=== PATIENT | female | born 2000 | race Caucasian/White ===

== ENCOUNTER → 2019-02-11 14:45 | Outpatient (CLI) | payer BC, SELFPAY ==
[2019-02-11 17:54] LABS: Urine N gonorrhoeae NOT DETECTED
[2019-02-11 17:56] LABS: Urine Chlamydia NOT DETECTED
[2019-02-11 18:32] LABS: HIV 1 & 2 Ab/Ag 4th Gen Combo NEGATIVE (NEGATIVE)
[2019-02-11 19:22] LABS: Appearance Urine UA SL CLOUDY; Bilirubin Urine UA NEGATIVE (NEGATIVE); Color Urine UA YELLOW; Glucose Urine UA NEGATIVE (Negative); Ketones Urine UA NEGATIVE (NEGATIVE); Leukocyte Esterase Urine UA TRACE (NEGATIVE); Nitrite Urine UA NEGATIVE (Negative); Occult Blood Urine UA 1+ (Negative); Protein Urine UA NEGATIVE (Negative); Specific Gravity Urine UA <=1.005 (1.000-1.035); Urobilinogen Urine UA 0.2 E.U./dL (0.2)
[2019-02-11 19:56] LABS: pH Urine UA 5.5 (4.5-8.0)
[2019-02-11 20:16] LABS: Bacteria Urine Moderate (10-30); Culture Indicated Urine Specimen Cultured; RBC Urine 0-1/HPF (0-5/HPF); Squamous Epithelial Cell Urine 1-5 /HPF (0-5/HPF); Transitional Epi Cells Urine 1-5/HPF (0-5/HPF); WBC Urine 5-10/HPF (0-5/HPF)
[2019-02-14 20:08] LABS: RPR Screen Nonreactive (Nonreactive)
== END ==
PROVIDERS: Nurse Practitioner Family; Visit Provider Physician Assistant
DX: Z11.3 Encounter for screening for infections with a predominantly sexual mode of transmission (principal); R30.0 Dysuria
CPT/HCPCS: 36415; 81001; 86592; 87077; 87086; 87186; 87389; 87491; 87591

== ENCOUNTER → 2019-02-17 18:19 | Outpatient (CLI) | payer BC, SELFPAY ==
[2019-02-17 20:16] LABS: Urine N gonorrhoeae NOT DETECTED
[2019-02-17 20:21] LABS: Urine Chlamydia NOT DETECTED
== END ==
PROVIDERS: Visit Provider Physician Assistant
DX: R30.0 Dysuria (principal)
CPT/HCPCS: 87491; 87591

== ENCOUNTER → 2019-04-10 11:48 | Outpatient (CLI) | payer BC, SELFPAY ==
--- NOTE | 2019-04-10 11:50 | DI.MRI.S_ITS ---
PROCEDURE: MR HEAD/BRAIN WO CON INDICATIONS: changing headaches, severe headaches TECHNIQUE: Noncontrast axial T1 spin echo, axial T2 fast spin echo, sagittal and axial FLAIR, coronal T2 fast spin echo, axial gradient echo, axial diffusion and ADC through the brain. COMPARISON: None. FINDINGS: Image quality: Excellent. CSF Spaces: Basal cisterns are patent. No extra-axial fluid collections. Ventricles are normal in size and shape. Brain: No intracranial masses or hemorrhage. Mckeon/white matter interface is normal. Brainstem appears normal. Diffusion-weighted images demonstrate no acute ischemic insult. No chronic ischemic insults. Normal intravascular flow voids are present. Note is made of a small cavum septum pellucidum anteriorly. When discovered in isolation, this is considered to be a developmental variant of no clinical consequence. Skull and face: Calvarium has normal marrow signal. Orbits appear normal. Sinuses: Sinuses and mastoids are clear. IMPRESSION: Unremarkable intracranial study, without an imaging explanation found for the patient's presenting history of headache. Dictated by: Salvador Irving M.D. on 04/10/2019 at 12:53 Approved by: Salvador Irving M.D. on 04/10/2019 at 12:56
== END ==
PROVIDERS: PCP Nurse Practitioner Family; Visit Provider Nurse Practitioner Family
DX: R51 Headache (principal)
CPT/HCPCS: 70551

== ENCOUNTER → 2019-04-28 16:00 | Outpatient (CLI) | payer BC, SELFPAY | PROVIDERS: PCP Nurse Practitioner Family; Visit Provider Physician Assistant | DX: N89.8 Other specified noninflammatory disorders of vagina (principal) | CPT/HCPCS: 87210 ==

== ENCOUNTER → 2019-07-02 19:32 | Outpatient (CLI) | payer BC, SELFPAY | PROVIDERS: PCP Nurse Practitioner Family; Visit Provider Physician Assistant | DX: R30.0 Dysuria (principal) | CPT/HCPCS: 87086; 87210 ==

== ENCOUNTER → 2019-07-15 12:38 | Outpatient (CLI) | payer BC, SELFPAY ==
--- NOTE | 2019-07-15 12:41 | DI.US.S_ITS ---
PROCEDURE: US OB <= 14 WEEKS FETUS INDICATIONS: DATES OUTSIDE/PRIOR DATING DATA: Last menstrual period (LMP): Not available. LMP-based estimated date of delivery (HAI): Not available. First dating scan (date and location): This study. Estimated date of delivery (HAI) from first dating scan: 02/16/20. TECHNIQUE: Real-time scanning was performed of the fetus and maternal pelvic organs, with image documentation. Endovaginal scanning was also performed to better visualize the fetus and maternal ovaries. COMPARISON: None. FINDINGS: Embryo: There is a single living intrauterine gestation with crown-rump length 2.5 cm which correlates with a gestational age of 9 weeks 1 day and with heart rate 157 beats per minute. Measurement variability in dating: +/- 4 weeks by LMP, +/- 7 days by mean sac diameter (use before 6 weeks gestation if crown-rump length not able to be measured), +/- 5 days by crown-rump length (up to 8 weeks 6 days gestation), +/- 7 days by crown-rump length (up to 13 weeks 6 days gestation). Maternal organs: Ovaries normal considering gestational status. Limited images through the kidneys demonstrate no hydronephrosis. IMPRESSION: Single normal appearing early first trimester gestation 9 weeks 1 day of age, with delivered a projection to be centered on 02/16/20, plus or -5 days. Followup anatomic survey at 20 weeks gestation is recommended. Dictated by: Joey Smith M.D. on 07/15/2019 at 13:53 Approved by: Joey Smith M.D. on 07/15/2019 at 13:54
== END ==
PROVIDERS: PCP Nurse Practitioner Family; Referring Provider Family Medicine; Visit Provider Family Medicine
DX: Z34.01 Encounter for supervision of normal first pregnancy, first trimester (principal); Z3A.09 9 weeks gestation of pregnancy
CPT/HCPCS: 76801; 76817

== ENCOUNTER 2019-07-24 15:41 | Emergency (ER) | payer BC, SELFPAY ==
[2019-07-24 16:45] VITALS: BP 120/58; PULSE 63; RESP 16; TEMP 36.5; O2SAT 99; BMI 20.5
--- NOTE | 2019-07-24 19:25 | ED.FEMALEGU ---
HPI - Female Genitourinary <JIMENA Martin - Last Filed: 07/24/19 21:27> General Chief complaint: Urogenital-Female Stated complaint: YEAST INFECTION BLACK MUCUS Time Seen by Provider: 07/24/19 15:53 Source: patient Mode of arrival: Ambulatory History of Present Illness HPI Narrative: 19-year-old female who is currently 11 weeks , presents emergency department complaining of vaginal itching and white to yellow discharge over the past 3-4 days. Was diagnosed with BV 2.5 weeks ago and given vaginal cream, she believes her symptoms resolved but then returned few days later. Patient was also diagnosed with BV on 04/28/2019. Patient states she also is experiencing some increased shortness of breath. She states she has ?pre asthma ? and uses an albuterol inhaler when needed. She states her parents were secondhand smokers and she has full under developed lungs ?. She does have a history of allergies, she states she is more short of breath when her allergies are worse the ears cold. She has been using her albuterol inhaler intermittently. She last used her inhaler 2 days ago which completely relieved her symptoms. However, she was concerned that she coughed up a small amount of black mucus this morning. She later had a tinge of black in her mucus with this morning when clearing her throat, no other episodes of black mucus. Patient states she was eating a chocolate lollipop which may have contributed. She denied any other symptoms such as fevers, cough, dizziness, chest pain, shortness of breath, nausea, diarrhea, or any other concerns. She does not feel short of breath at this time. Patient states she lives with her significant other who is a smoker. Related Data Home Medications Medication Instructions Recorded Confirmed albuterol sulfate 90 mcg/actuation 2 puff INHALATION Q4-6H PRN 07/14/19 07/14/19 aerosol inhaler prenat.vits,clementina,[id number] 1 tab PO DAILY 07/14/19 07/14/19 Previous Rx's Medication Instructions Recorded clindamycin phosphate 1 applicator VAG BEDTIME 7 Days 07/24/19 #40 gram Allergies Allergy/AdvReac Type Severity Reaction Status Date / Time No Known Drug Allergies Allergy Verified 07/24/19 16:51 Review of Systems <JIMENA Martin - Last Filed: 07/24/19 21:27> Review of Systems Narrative: REVIEW OF SYSTEMS: GENERAL: Denies fever or chills. HENT: No head trauma, hearing loss or sore throat. EYES: No vision changes. CARDIOVASCULAR: No chest pain or syncope. RESPIRATORY: Reports intermittent episodes of shortness of breath, reports blood mucus, see HPI. GASTROINTESTINAL: No nausea, vomiting, diarrhea, or constipation. GENITOURINARY: Increased vaginal discharge, see HPI. MUSCULOSKELETAL: No pain, weakness, or deformities. INTEGUMENTARY: No rash, lesions, or pruritus. NEURO: No numbness, tingling, memory loss, or confusion. PSYCH: No behavior or mood changes. Patient History <JIMENA Martin - Last Filed: 07/24/19 21:27> Medical History Ankle pain (Chronic) Anxiety (Chronic) Bacterial vaginosis (Acute) Depression (Chronic) Depression with anxiety (Acute) Headache (Chronic 03/2019) Heavy menstrual period (Chronic) History of asthma (Chronic) Ovarian cyst (Acute) Painful menstrual periods (Chronic) Surgical History Anesthesia (Resolved) Stye (Resolved) [place] teeth removed (Resolved) Family History Father Prediabetes Hyperlipidemia Hypertension Mental health problem Stroke Seizure AA (alcohol abuse) Depression Mother Mental health problem Family estrangement Sister Mental health problem Bipolar 1 disorder Grandfather Knee problem Grandmother Hypertension Arthritis Grandmother Mental health problem Family/Other Depression AA (alcohol abuse) Anxiety Substance Use Type: does not use Exam <JIMENA Martin - Last Filed: 07/24/19 21:27> Initial Vital Signs Initial Vital Signs: Vital Signs Temperature 97.7 F 07/24/19 16:45 Pulse Rate 63 07/24/19 16:45 Respiratory Rate 16 07/24/19 16:45 Blood Pressure 120/58 L 07/24/19 16:45 Pulse Oximetry 99 07/24/19 16:45 PHYSICAL EXAMINATION: GENERAL: Well groomed, alert, and cooperative. Answers questions promptly and appropriately. Vital signs noted. HENT: Normocephalic, atraumatic. Ear canals patent. Oral mucosa is pink and moist. Oropharynx with slight erythema, tonsils not present. EYES: Conjunctiva pink, sclera white, no periorbital swelling. CHEST: Normal to inspection and without deformities. CARDIOVASCULAR: S1 and S2 sounds normal. Regular rate and rhythm, no murmurs, clicks, or bruits. No pedal edema. RESPIRATORY: Normal respiratory rate, trachea midline, airway patent. No stridor, nasal flaring or accessory muscle use. Lungs are clear in all [place] without wheeze, rhonchi, or crackles. GASTROINTESTINAL: Bowel sounds normoactive. Abdomen is soft and non-tender. No organomegaly. : Pelvic exam completed with cyber security engineer, RYLEE Milli. Patient tolerated well. Increased white discharge noted. No significant erythema, lesions, or bleeding. No significant tenderness. MUSCULOSKELETAL: Normal gait and coordination. Equal tone and mass bilaterally. EXTREMITIES: CMS intact. Moves all extremities. SKIN: Warm, dry, soft, appropriate color for ethnicity. No lesions, rashes, or wounds. NEURO: Alert and Oriented X 3. Good coordination. No ataxia, or sensory deficits, or cognitive issues. PSYCH: Appropriate affect and mood. <Al Beltran DO - Last Filed: 07/24/19 21:48> Initial Vital Signs Initial Vital Signs: Vital Signs Temperature 97.7 F 07/24/19 16:45 Pulse Rate 63 07/24/19 16:45 Respiratory Rate 16 07/24/19 16:45 Blood Pressure 120/58 L 07/24/19 16:45 Pulse Oximetry 99 07/24/19 16:45 Course <JIMENA Martin - Last Filed: 07/24/19 21:27> Course Course Narrative: Patient was given an albuterol inhaler and spacer, she denied needing albuterol at this time as she states ?I am no longer short of breath, I did just want to know why I coughed up black mucous.? Orders Ordered: ED Orders 07/24/19 18:46 Chlamydia Gonorrhea PCR -URINE Stat Urine Culture Stat 07/24/19 19:35 Wet Prep Tric BV Farida Stat Discontinued Medications Albuterol (Ventolin Hfa Prepack) 1 box [facility] Stop: 07/24/19 18:31 Last Admin: 07/24/19 19:49 Dose: 1 box Documented by: ANTONY Vital Signs Vital signs: Vital Signs - 8 hr 07/24/19 16:45 07/24/19 20:29 07/24/19 21:30 Temperature 97.7 F Pulse Rate 63 59 L 59 L Respiratory Rate 16 12 Blood Pressure 120/58 L 114/61 Blood Pressure [Left Arm] 114/61 Pulse Oximetry 99 100 100 <Al Beltran DO - Last Filed: 07/24/19 21:48> Orders Ordered: ED Orders 07/24/19 18:46 Chlamydia Gonorrhea PCR -URINE Stat Urine Culture Stat 07/24/19 19:35 Wet Prep Tric BV Farida Stat Discontinued Medications Albuterol (Ventolin Hfa Prepack) 1 box [facility] ONE Stop: 07/24/19 18:31 Last Admin: 07/24/19 19:49 Dose: 1 box Documented by: ANTONY Vital Signs Vital signs: Vital Signs - 8 hr 07/24/19 16:45 07/24/19 20:29 07/24/19 21:30 Temperature 97.7 F Pulse Rate 63 59 L 59 L Respiratory Rate 16 12 Blood Pressure 120/58 L 114/61 Blood Pressure [Left Arm] 114/61 Pulse Oximetry 99 100 100 MDM - Female Genitourinary <JIMENA Martin - Last Filed: 07/24/19 21:27> Medical Records Attestation: I reviewed the patient's medical records. Lab Data Attestation: I reviewed the patient's lab results. Labs: Lab Results 07/24/19 Range/Units 18:46 Ur Chlamydia DNA (PCR) Not detected N gonorrhoeae DNA (PCR) Not detected Urine Dip Bedside Urine Glucose Negative Bedside Urine Bilirubin - Negative Bedside Urine Ketone ++ 40 Urine Specific [place] 1.030 Bedside Urine Occult Blood +/- Bedside Urine pH 6.0 Bedside Urine Protein +/- 15 Bedside Urine Urobilinogen +/- 1mg Bedside Urine Nitrite - Negative Bedside Urine Leukocytes +++ 500 Esterase MDM Narrative Medical decision making narrative: 19-year-old healthy female with a history of ?pre asthma ?and previous BV removed ports the emergency department for increased vaginal discharge and episodes of shortness of breath better relieved with albuterol. Patient's pelvic exam reveals increased white vaginal discharge without erythema or lesions. Patient's wet prep reveals clue cells. Patient's urine GC negative is negative, less concern for STIs as patient has been with the same partner for the past 6 months. However, review of chart has test ordered for HIV and syphilis by Ob. No concerns for herpes due to lack of lesions on examination. I suspect patient's symptoms are most likely caused by bacterial vaginosis. Patient did have leukocytes in her urine, differential for this includes UTI versus increased white blood cells from bacterial vaginosis. Given patient does not have significant dysuria, urine was sent to culture. Follow-up via phone if culture is positive. Patient was started on clindamycin gel. Patient is hemodynamically stable, lungs clear on examination. I suspect patient sputum production was most likely caused by food, dust, or other debris in sinuses or esophagus. Less likely blood however, it is possible she may have coughed a small amount of old dried blood. Less concern for coronavirus, TB, or PE due to lack of other signs such as tachypnea, dyspnea, or fevers. Patient's episodes of shortness of breath or consistent with her past asthma episodes and immediately resolve after administration of albuterol. She was encouraged to follow up with her primary care provider in 1-2 weeks for further evaluation. She was encouraged to follow up with Ob if she continues to have vaginal symptoms in the next week. Patient agreed to plan of care verbalized understanding. <Al Beltran, - Last Filed: 07/24/19 21:48> Lab Data Labs: Lab Results 07/24/19 Range/Units 18:46 Ur Chlamydia DNA (PCR) Not detected N gonorrhoeae DNA (PCR) Not detected Urine Dip Bedside Urine Glucose Negative Bedside Urine Bilirubin - Negative Bedside Urine Ketone ++ 40 Urine Specific [place] 1.030 Bedside Urine Occult Blood +/- Bedside Urine pH 6.0 Bedside Urine Protein +/- 15 Bedside Urine Urobilinogen +/- 1mg Bedside Urine Nitrite - Negative Bedside Urine Leukocytes +++ 500 Esterase Discharge Plan Departure Patient Disposition: Home Clinical Impression: Bacterial vaginosis Reactive airway disease Qualifiers: Asthma severity: mild Asthma persistence: intermittent Asthma complication type: uncomplicated Qualified Code(s): J45.20 - Mild intermittent asthma, uncomplicated Discharge Date/Time: 07/24/19 21:33 Instructions: DI for Asthma -- Adult, DI for Bacterial Vaginosis Activity Restrictions/Additional Instructions: Thank you for entrusting me with your care today. As discussed, your laboratory work indicates you have bacterial vaginosis. I prescribed a vaginal cream that is safe to use in . Please follow-up with your OB, Dr. Mendoza in the next week for further evaluation. Additionally, it appears that your shortness of breath is most likely caused by reactive airway disease. I have given you a spacer and an inhaler, please use this as needed. I suspect the small amount of dark sputum that you coughed up is non concerning, this may be a small amount of blood from esophageal irritation or debris from food or allergies. Please follow up with your primary care provider about this for further evaluation. Return emergency department for any new or worsening symptoms such as vaginal bleeding, chest pain, dizziness, shortness of breath, uncontrollable vomiting, or any other concerns. Prescriptions: New clindamycin phosphate 2 % cream 1 applicator VAG BEDTIME 7 Days Qty: 40 RF: 0 No Action prenat.vits,clementina,[id number] Tablet 1 tab PO DAILY RF: 0 albuterol sulfate [Ventolin HFA] 90 mcg/actuation HFA aerosol inhaler 2 puff INHALATION Q4-6H PRNRF: 0 Referrals: Arie Mckinney ARNP [Primary Care Provider] - <Al Beltran, - Last Filed: 07/24/19 21:48> Cosign ED Attending Cossouravature Attestation: Dr Beltran Co-Sign Statement: I was available for consultation during this patient's emergency department visit. This chart is signed by myself for administrative purposes only. I did not have direct contact with this patient during this visit. They were seen independently by the APC.
[2019-07-24] MEDS: ALBUTEROL HFA PREPACK 1 BOX MISC (19:49)
[2019-07-24 20:27] LABS: Urine N gonorrhoeae NOT DETECTED
[2019-07-24 20:29] VITALS: BP 114/61; PULSE 59; O2SAT 100
[2019-07-24 20:37] LABS: Urine Chlamydia NOT DETECTED
[2019-07-24 21:30] VITALS: BP 114/61; PULSE 59; RESP 12; O2SAT 100
== END 2019-07-24 21:33 | disposition home or self-care (01) ==
PROVIDERS: Emergency Provider Nurse Practitioner; PCP Nurse Practitioner Family
DX: N76.0 Acute vaginitis (principal); J45.20 Mild intermittent asthma, uncomplicated
CPT/HCPCS: 81003; 87086; 87210; 87491; 87591; 99282; 99283

== ENCOUNTER → 2019-09-01 16:07 | Outpatient (CLI) | payer BC, OTHER, SELFPAY | PROVIDERS: PCP Nurse Practitioner Family; Visit Provider Family Medicine | DX: B96.89 Other specified bacterial agents as the cause of diseases classified elsewhere (principal); N76.0 Acute vaginitis | CPT/HCPCS: 87070; 87077; 87147; 87205 ==

== ENCOUNTER → 2019-10-08 13:41 | Outpatient (CLI) | payer OTHER, MEDICAID, SELFPAY ==
[2019-10-08 14:51] LABS: Add Manual Diff / Slide Review NO; Basophils Absolute Auto 0 /uL (0-100); Basophils Percent Auto 0.3 % (0-2); Eosinophils Absolute Auto 100 /uL (0-450); Hematocrit 33.3 % (36-46); Hemoglobin 11.5 g/dL (12.0-16.0); Lymphocytes Absolute Auto 1600 /uL (1100-4500); Lymphocytes Percent Auto 27.8 % (25-40); Mean Corpuscular HGB Conc 34.5 % (30-36); Mean Corpuscular Hemoglobin 30.5 PG (26-34); Mean Corpuscular Volume 88.4 fL (80-100); Monocytes Absolute Auto 400 /uL (0-900); Monocytes Percent Auto 6.7 % (3-14); Neutrophils Absolute Auto 3700 /uL (1500-7000); Neutrophils Percent Auto 64.2 % (50-75); Platelet Count 274 X10^3/uL (150-400); Red Blood Cell Count 3.77 X10^6/uL (4.0-5.2); Red Cell Distribution Width 14.2 % (11.6-14.8); White Blood Cell Count 5.8 X10^3/uL (4.5-11.0)
[2019-10-08 14:57] LABS: Appearance Urine UA CLEAR; Bilirubin Urine UA NEGATIVE (NEGATIVE); Color Urine UA YELLOW; Glucose Urine UA NEGATIVE (Negative); Ketones Urine UA TRACE (NEGATIVE); Leukocyte Esterase Urine UA NEGATIVE (NEGATIVE); Nitrite Urine UA NEGATIVE (Negative); Occult Blood Urine UA NEGATIVE (Negative); Protein Urine UA NEGATIVE (Negative); Urobilinogen Urine UA 0.2 E.U./dL (0.2)
[2019-10-08 15:25] LABS: pH Urine UA 6.5 (4.5-8.0)
[2019-10-08 16:27] LABS: Hepatitis B Surface Antigen NEGATIVE s/c (NEGATIVE); Rubella Antibody IgG 0.3 IU/mL (>15)
[2019-10-08 16:43] LABS: HIV 1 & 2 Ab/Ag 4th Gen Combo NEGATIVE (NEGATIVE); Hep C Virus Ab w/Reflex Quant NEGATIVE s/c (NEGATIVE)
[2019-10-09 05:36] LABS: RPR Screen Non Reactive (Non Reactive)
[2019-10-09 10:12] LABS: Varicella IgG Antibody <135 index (Immune >165)
== END ==
PROVIDERS: PCP Nurse Practitioner Family; Referring Provider Family Medicine; Visit Provider Family Medicine
DX: Z34.01 Encounter for supervision of normal first pregnancy, first trimester (principal)
CPT/HCPCS: 36415; 80055; 81003; 86787; 86803; 86850; 86900; 86901; 87077; 87086; 87147; 87389

== ENCOUNTER 2019-10-09 18:20 | Outpatient (CLI) | payer OTHER, MEDICAID, SELFPAY ==
--- NOTE | 2019-10-09 19:25 | DI.US.S_ITS ---
PROCEDURE: US OB TRANSVAGINAL INDICATIONS: LOWER ABDOMINAL CRAMPING/ R/O LABOR CHECK CERVICAL L OUTSIDE/PRIOR DATING DATA: Last menstrual period (LMP): Unknown. LMP-based estimated date of delivery (HAI): Not available. First dating scan (date and location): 07/15/19, [facility]. Estimated date of delivery (HAI) from first dating scan: 02/06/20. TECHNIQUE: Scanning was performed of the cervix with image documentation. Endovaginal scanning: Performed COMPARISON: [facility], , US OB <= 14 WEEKS FETUS, 07/15/2019, 12:59. FINDINGS: Limited visualization of the cervix demonstrates the cervical length of 4.8 cm during Valsalva and 5.0 cm at rest. Please note, the uterine fundus, gestational sac, or fetus is not visualized on this exam. IMPRESSION: 1. Markedly limited study. No images of the fetus were obtained. 2. Cervical length of 4.8 cm. Dictated by: Phyllis Grande M.D. on 10/09/2019 at 20:21 Approved by: Phyllis Grande M.D. on 10/09/2019 at 20:25
[2019-10-09 19:30] LABS: Appearance Urine UA SL CLOUDY; Bilirubin Urine UA NEGATIVE (NEGATIVE); Color Urine UA YELLOW; Glucose Urine UA NEGATIVE (Negative); Ketones Urine UA TRACE (NEGATIVE); Leukocyte Esterase Urine UA NEGATIVE (NEGATIVE); Nitrite Urine UA NEGATIVE (Negative); Occult Blood Urine UA TRACE-LYSED (Negative); Protein Urine UA NEGATIVE (Negative); Specific Gravity Urine UA 1.025 (1.000-1.035); Urobilinogen Urine UA 0.2 E.U./dL (0.2)
[2019-10-09 19:32] LABS: pH Urine UA 5.5 (4.5-8.0)
[2019-10-09 19:41] LABS: Amorphous Sediment Urine 1+; Bacteria Urine Moderate (10-30); RBC Urine 0-1/HPF (0-5/HPF); Squamous Epithelial Cell Urine 10-30 /HPF (0-5/HPF); WBC Urine 1-5/HPF (0-5/HPF)
[2019-10-09 19:42] LABS: Culture Indicated Urine Specimen Cultured; Mucus Urine 1+ (Negative)
--- NOTE | 2019-10-09 20:34 | P.TNLD_ITS ---
Visit Information Visit Information Date of evaluation: 10/09/19 Primary OB Provider: Cristy Mendoza On-call OB Provider: Esther Soto Reason for Evaluation: Yes rule out labor Comments/Additional reasons for admission: This patient is a 19yo @21 weeks gestation with a UTI diagnosed earlier today and not yet treated, presenting with pelvic pressure and increased vaginal discharge x2 hours after a long work day. The patient denies Vb or decreased movement, back pain, fevers, chills, nausea, or any other complaints, and has a complicated by recurrent vaginitis and UTI. Vital Signs Vital Signs: 112.58, HR 75, T 36.2C PFS Medical History Ankle pain (Resolved) Bacterial vaginosis (Acute) Depression with anxiety (Acute) Headache (Chronic 03/2019) Heavy menstrual period (Chronic) History of asthma (Chronic) Ovarian cyst (Acute) Painful menstrual periods (Chronic) Surgical History Anesthesia (Resolved) Stye (Resolved) [place] teeth removed (Resolved) Family History Father Prediabetes Hyperlipidemia Hypertension Mental health problem Stroke Seizure AA (alcohol abuse) Depression Mother Mental health problem Family estrangement Sister Mental health problem Bipolar 1 disorder Grandfather Knee problem Grandmother Hypertension Arthritis Grandmother Mental health problem Family/Other Depression AA (alcohol abuse) Anxiety Social History marital status: unmarried,single household members: significant other (Fiance) and other pets and animals: Yes (X2 rabbits, X 2 Guinea pigs and X 1 hamster) education level: college (some college) occupational status: unemployed current occupational exposures/hazards: No Previous occupational history: [employer] 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: [employer] special hayde needs: No Smoking Status: Never smoker second hand exposure: No (used to be growing: not currently) alcohol intake: never substance use type: does not use Objective Labs Labs: Laboratory Results - last 24 hr 10/09/19 19:00 Urine Color Yellow Urine Appearance Sl cloudy Urine pH 5.5 Ur Specific [place] 1.025 Urine Protein Negative Urine Glucose (UA) Negative Urine Ketones Trace H Urine Occult Blood Trace-lysed Urine Nitrate Negative Urine Bilirubin Negative Urine Urobilinogen 0.2 Ur Leukocyte Esterase Negative Urine RBC 0-1/hpf Urine WBC 1-5/hpf Ur Squamous Epith Cells 10-30 /hpf H D Amorphous Sediment 1+ Urine Bacteria Moderate (10-30) H Urine Mucus 1+ H Ur Culture Indicated? Specimen cultured Evaluation Evaluation Baseline heart rate: 130 Laboratory results: Laboratory Tests 10/09/19 19:00 Urine Color Yellow Urine Appearance Sl cloudy Urine pH 5.5 Ur Specific [place] 1.025 Urine Protein Negative Urine Glucose (UA) Negative Urine Ketones Trace H Urine Occult Blood Trace-lysed Urine Nitrate Negative Urine Bilirubin Negative Urine Urobilinogen 0.2 Ur Leukocyte Esterase Negative Urine RBC 0-1/hpf Urine WBC 1-5/hpf Ur Squamous Epith Cells 10-30 /hpf H D Amorphous Sediment 1+ Urine Bacteria Moderate (10-30) H Urine Mucus 1+ H Ur Culture Indicated? Specimen cultured Non-invasive Membranes Rupture Test: negative Comments: TVUS performed, verbal report is length 5cm Diagnosis, Plan/Disposition Plan/Disposition Plan: This patient is not rigoberto, has a long and closed cervix, has a negative amnisure, has a known UTI, and has reassuring status. She does not appear to be in previable labor or have previable rupture of membranes. She was strongly counselled to take her keflex as prescribed and given antepartum precautions. OB Disposition: home
== END 2019-10-09 20:15 | disposition home or self-care (01) ==
LOC: OB 10-12 15:30
PROVIDERS: PCP Nurse Practitioner Family; Referring Provider Obstetrics & Gynecology; Visit Provider Obstetrics & Gynecology
DX: O23.42 Unspecified infection of urinary tract in pregnancy, second trimester (principal); O23.592 Infection of other part of genital tract in pregnancy, second trimester; Z3A.21 21 weeks gestation of pregnancy
CPT/HCPCS: 59025; 59050; 76817; 81001; 84112; 87086; G0378; G0379

== ENCOUNTER → 2019-10-13 12:11 | Outpatient (CLI) | payer OTHER, MEDICAID, SELFPAY ==
--- NOTE | 2019-10-13 12:13 | DI.US.S_ITS ---
PROCEDURE: US OB >= 14 WEEKS FETUS INDICATIONS: ANATOMY OUTSIDE/PRIOR DATING DATA: Last menstrual period (LMP): Not known. LMP-based estimated date of delivery (HAI): Not applicable. First dating scan (date and location): July 15, 2019. Estimated date of delivery (HAI) from first dating scan: February 16, 2020. TECHNIQUE: Real-time scanning was performed of the fetus, with image documentation and biometric measurements. Endovaginal scanning: Performed COMPARISON: [facility] OB TRANSVAGINAL, 10/09/2019, 19:53. [facility], OB <= 14 WEEKS FETUS, 07/15/2019, 12:59. FINDINGS: General: A single living intrauterine gestation is present. Presentation: Breech/variable. Placenta: Placental position is posterior, without previa. Amniotic fluid index: 11.4 cm, normal range is 5-24 cm. heart rate: 145 beats per minute. Maternal cervical canal: 3.7 cm long. Normal lower limit is 2.5 cm. biometrics: Biparietal diameter: 21 weeks 4 days Head circumference: 22 weeks 0 days Abdominal circumference: 22 weeks 0 days Femur length: 22 weeks 1 day Estimated gestational age from initial scan: 22 weeks 0 days. Composite gestational age from present scan: 22 weeks 0 days Estimated weight and percentile: 470 grams; 45th percentile Measurement variability for biometric dating: +/- 7 days from 14 weeks to 15 weeks 6 days gestation, +/- 10 days from 16 weeks to 21 weeks 6 days gestation, +/- 2 weeks from 22 weeks to 27 weeks 6 days gestation, +/- 3 weeks for 28 weeks gestation or later. weight reference: 4500 g or EFW >90/95% is considered macrosomia or large for gestational age. EFW <10% is small for gestational age. EFW 5% or less is considered intra-uterine growth restriction. Anatomic survey: Neuro: Ventricles are non-dilated at less than 10 mm. Cisterna magna is normal at 3-11 mm. Cerebellum is normal in size and morphology. Nuchal skin fold: Normal at less than 6 mm between 14-21 weeks gestational age. Face: Nose and lips, facial profile are normal. Spine: No evidence for spina bifida. Heart: 4-chambered heart is present, with normal ventricular outflow tracts. Diaphragm: Diaphragm is intact. Stomach: Left-sided stomach is present. Kidneys: No hydronephrosis. Normal is less than 5 mm in 2nd trimester, less than 7 mm in 3rd trimester. Cord: 3-vessel cord has orthotopic insertion. Bladder: Normal in size. Extremities: All 4 extremities identified. IMPRESSION: 1. Single living intrauterine fetus with appropriate interval growth. 2. Normal anatomic survey. Dictated by: Alejandrina Mckinley MD, PhD on 10/13/2019 at 15:56 Approved by: Alejandrina Mckinley MD, PhD on 10/13/2019 at 15:59
== END ==
PROVIDERS: PCP Nurse Practitioner Family; Referring Provider Family Medicine; Visit Provider Family Medicine
DX: Z36.89 Encounter for other specified antenatal screening (principal); Z3A.22 22 weeks gestation of pregnancy
CPT/HCPCS: 76811

== ENCOUNTER 2019-10-15 14:18 | Observation (INO) | payer OTHER, MEDICAID, SELFPAY ==
[2019-10-15 15:36] LABS: Bacteria Urine None Seen; RBC Urine None Seen (0-5/HPF); WBC Urine None Seen (0-5/HPF)
[2019-10-15 15:41] LABS: Appearance Urine UA SL CLOUDY; Bilirubin Urine UA NEGATIVE (NEGATIVE); Color Urine UA YELLOW; Glucose Urine UA NEGATIVE (Negative); Ketones Urine UA NEGATIVE (NEGATIVE); Leukocyte Esterase Urine UA NEGATIVE (NEGATIVE); Nitrite Urine UA NEGATIVE (Negative); Occult Blood Urine UA NEGATIVE (Negative); Protein Urine UA NEGATIVE (Negative); Specific Gravity Urine UA 1.015 (1.000-1.035); Urobilinogen Urine UA 0.2 E.U./dL (0.2)
[2019-10-15 15:43] LABS: pH Urine UA 7.5 (4.5-8.0)
[2019-10-15 15:48] LABS: Amorphous Sediment Urine 2+; Culture Indicated Urine Cult Not Indicated; Squamous Epithelial Cell Urine 10-30 /HPF (0-5/HPF)
--- NOTE | 2019-10-15 15:50 | P.TNLD_ITS ---
Visit Information Visit Information Date of evaluation: 10/15/19 Primary OB Provider: Cristy Mendoza On-call OB Provider: Padmini Lynne Reason for Evaluation: Yes rupture of membranes Comments/Additional reasons for admission: Patient was concerned about possible rupture of membranes. 15 min prior to arrival the center she felt a gush of fluid but has not had further leaking. Reports good FM and denies bleeding. She has also felt some contractions since arriving to the center. Last oral intake was a donut this morning and last fluids were yesterday. She was recently prescribed antibiotics for a UTI but never filled the prescription. Denies urinary symptoms. Vital Signs Vital Signs: Temperature 36.5? blood pressure 114/58 heart rate 64 PFSH Medical History Ankle pain (Resolved) Bacterial vaginosis (Acute) Depression with anxiety (Acute) Headache (Chronic 03/2019) Heavy menstrual period (Chronic) History of asthma (Chronic) Ovarian cyst (Acute) Painful menstrual periods (Chronic) Surgical History Anesthesia (Resolved) Stye (Resolved) [place] teeth removed (Resolved) Family History Father Prediabetes Hyperlipidemia Hypertension Mental health problem Stroke Seizure AA (alcohol abuse) Depression Mother Mental health problem Family estrangement Sister Mental health problem Bipolar 1 disorder Grandfather Knee problem Grandmother Hypertension Arthritis Grandmother Mental health problem Family/Other Depression AA (alcohol abuse) Anxiety Social History marital status: unmarried,single household members: significant other (Fiance) and other pets and animals: Yes (X2 rabbits, X 2 Guinea pigs and X 1 hamster) education level: college (some college) occupational status: unemployed current occupational exposures/hazards: No 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: [employer] special hayde needs: No Smoking Status: Never smoker second hand exposure: No (used to be growing: not currently) alcohol intake: never substance use type: does not use Objective Labs Labs: Laboratory Results - last 24 hr 10/15/19 15:15 Urine Color Yellow Urine Appearance Sl cloudy Urine pH 7.5 Ur Specific [place] 1.015 Urine Protein Negative Urine Glucose (UA) Negative Urine Ketones Negative Urine Occult Blood Negative Urine Nitrate Negative Urine Bilirubin Negative Urine Urobilinogen 0.2 Ur Leukocyte Esterase Negative Urine RBC None seen Urine WBC None seen Ur Squamous Epith Cells 10-30 /hpf H Amorphous Sediment 2+ Urine Bacteria None seen Ur Culture Indicated? Cult not indicated Evaluation Evaluation Baseline heart rate: 130 Variability: Moderate (11-25) monitor accelerations: Present monitor decelerations: Absent Category of Tracing: I Laboratory results: Laboratory Tests 10/15/19 15:15 Urine Color Yellow Urine Appearance Sl cloudy Urine pH 7.5 Ur Specific [place] 1.015 Urine Protein Negative Urine Glucose (UA) Negative Urine Ketones Negative Urine Occult Blood Negative Urine Nitrate Negative Urine Bilirubin Negative Urine Urobilinogen 0.2 Ur Leukocyte Esterase Negative Urine RBC None seen Urine WBC None seen Ur Squamous Epith Cells 10-30 /hpf H Amorphous Sediment 2+ Urine Bacteria None seen Ur Culture Indicated? Cult not indicated Diagnosis, Plan/Disposition Plan/Disposition Plan: Patient is a 19-year-old at 22 weeks gestation with concern for rupture of membranes. AmniSure negative. She had two contractions on the monitor initially then contractions ceased and did not recur over the next hour. Cervical length was 3.7 cm 2 days ago on ultrasound so was not repeated. UA was normal. Patient reportedly had not had anything to drink since yesterday. She was encouraged to hydrate each day and follow up with Dr. Mendoza next week. OB Disposition: home
== END 2019-10-15 16:30 | disposition home or self-care (01) ==
PROVIDERS: Family Medicine; Admitting Provider Family Medicine; PCP Nurse Practitioner Family; Referring Provider Family Medicine; Visit Provider Family Medicine
DX: O47.02 False labor before 37 completed weeks of gestation, second trimester (principal); N89.8 Other specified noninflammatory disorders of vagina; Z3A.22 22 weeks gestation of pregnancy
CPT/HCPCS: 59025; 59050; 81001; 84112; G0378; G0379

== ENCOUNTER 2019-10-16 22:22 | Observation (INO) | payer OTHER, MEDICAID, SELFPAY | END 2019-10-17 00:15 | disposition home or self-care (01) | LOC: LABOR 22:35 | PROVIDERS: Admitting Provider Obstetrics & Gynecology; PCP Nurse Practitioner Family; Referring Provider Obstetrics & Gynecology; Visit Provider Obstetrics & Gynecology | DX: O23.42 Unspecified infection of urinary tract in pregnancy, second trimester (principal); Z3A.22 22 weeks gestation of pregnancy | CPT/HCPCS: 59050; G0378; G0379 ==

== ENCOUNTER 2019-11-21 14:14 | Outpatient (CLI) | payer OTHER, MEDICAID, SELFPAY ==
[2019-11-21 14:37] LABS: Bacteria Urine None Seen
[2019-11-21 14:39] LABS: Appearance Urine UA CLOUDY; Bilirubin Urine UA NEGATIVE (NEGATIVE); Color Urine UA YELLOW; Glucose Urine UA NEGATIVE (Negative); Ketones Urine UA 1+ (NEGATIVE); Leukocyte Esterase Urine UA 1+ (NEGATIVE); Nitrite Urine UA NEGATIVE (Negative); Occult Blood Urine UA TRACE-LYSED (Negative); Protein Urine UA NEGATIVE (Negative); Urobilinogen Urine UA 0.2 E.U./dL (0.2)
[2019-11-21 14:47] LABS: Amorphous Sediment Urine 2+; Culture Indicated Urine Cult Not Indicated; RBC Urine 0-1/HPF (0-5/HPF); Squamous Epithelial Cell Urine 10-30 /HPF (0-5/HPF); WBC Urine 5-10/HPF (0-5/HPF)
== END 2019-11-21 15:01 | disposition home or self-care (01) ==
LOC: OB 11-23 16:42
PROVIDERS: PCP Nurse Practitioner Family
DX: O26.892 Other specified pregnancy related conditions, second trimester (principal); M54.9 Dorsalgia, unspecified; Z3A.28 28 weeks gestation of pregnancy
CPT/HCPCS: 59025; 81001; G0378; G0379

== ENCOUNTER 2019-11-22 00:15 | Emergency (ER) | payer OTHER, MEDICAID, SELFPAY ==
--- NOTE | 2019-11-22 00:24 | ED_ITS ---
HPI - Fever General Chief Complaint: Fever Stated Complaint: had fever of 101 earlier/body aches Time Seen by Provider: 11/22/19 00:15 Source: patient Mode of arrival: Ambulatory Limitations: no limitations History of Present Illness HPI Narrative: 19-year-old female nonsmoker is a at 27 weeks and presents with a chief complaint of a brief episode of a fever as high as 101 F earlier today, confirmed by oral thermometer. She has had some sore throat and left ear pain but denies any runny nose, sneezing, chest pain or cough. She does have the occasional Terry Elizabeth contractions and has had a minimal amount of discharge but denies any vaginal bleeding, current cramping or leakage of fluid. She did perform a urine test when visiting clinic earlier today. MD complaint: fever Onset (ago): hour(s) Temperature Source: oral Associated symptoms: sore throat Relieving factors: nothing Exacerbating factors: nothing Treatments prior to arrival fever: acetaminophen Related Data Home Medications Medication Instructions Recorded Confirmed prenat.vits,clementina,[id number] 1 tab PO DAILY 07/14/19 07/14/19 Previous Rx's Medication Instructions Recorded ondansetron 4 mg disintegrating 4 mg PO Q8H PRN #20 tab 09/01/19 tablet Allergies Allergy/AdvReac Type Severity Reaction Status Date / Time No Known Drug Allergies Allergy Verified 10/13/19 13:31 Review of Systems Constitutional Constitutional: Denies chills, Denies fatigue, Reports fever(s), Denies frequent falls, Denies lethargy and Denies weakness Eyes Eyes: Denies change in vision, Denies eye discharge, Denies irritation and Denies loss of vision ENT Ears, Nose, Mouth, and Throat: Denies change in voice, Denies dizziness, Denies neck pain, Reports sore throat and Denies throat swelling Comments: otalgia Cardiovascular Cardiovascular: Denies chest pain, Denies irregular heart rhythm, Denies lightheadedness, Denies palpitations, Denies dyspnea, Denies dyspnea on exertion and Denies orthopnea Respiratory Respiratory: Denies cough, Denies dyspnea, Denies dyspnea on exertion and Denies wheezing Gastrointestinal Gastrointestinal: Denies abdominal pain, Denies change in bowel habits, Denies diarrhea, Denies nausea and Denies vomiting Musculoskeletal Musculoskeletal: Denies neck pain and Denies numbness Integumentary/Breasts Skin/Breast: Denies pruritus, Denies erythema, Denies rash and Denies wounds Neurologic Neurologic: Denies behavioral changes, Denies confusion, Denies dizziness, Denies frequent falls, Denies loss of vision, Denies numbness and Denies weakness Psychiatric Psychiatric: Denies anxiety, Denies behavioral changes, Denies confusion, Denies depression, Denies homicidal ideation and Denies suicidal ideation Endocrine Endocrine: Denies fatigue, Denies flushing and Denies palpitations Hematologic/Lymphatic Hematologic/Lymphatic: Denies easy bruising Allergic/Immunologic Allergic/Immunologic: Denies urticaria, Denies throat swelling and Denies wheezing Patient History Medical History Ankle pain (Resolved) Bacterial vaginosis (Acute) Depression with anxiety (Acute) Headache (Chronic 03/2019) Heavy menstrual period (Chronic) History of asthma (Chronic) Ovarian cyst (Acute) Painful menstrual periods (Chronic) Surgical History Anesthesia (Resolved) Stye (Resolved) [place] teeth removed (Resolved) Family History Father Prediabetes Hyperlipidemia Hypertension Mental health problem Stroke Seizure AA (alcohol abuse) Depression Mother Mental health problem Family estrangement Sister Mental health problem Bipolar 1 disorder Grandfather Knee problem Grandmother Hypertension Arthritis Grandmother Mental health problem Family/Other Depression AA (alcohol abuse) Anxiety Social History marital status: unmarried,single household members: significant other (Fiance) and other pets and animals: Yes (X2 rabbits, X 2 Guinea pigs and X 1 hamster) education level: college (some college) occupational status: unemployed current occupational exposures/hazards: No Previous occupational history: [employer] 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 Well- nourished, well-developed patient, in mild distress. HEAD: Atraumatic. Normocephalic. EYES: Pupils equal round and reactive. Extraocular motions intact. No scleral icterus. No injection or drainage. ENT: Nose without bleeding, purulent drainage. Left ear with clear effusion Posterior pharynx with some erythema on the left side and increased drainage but now, tonsillar hypertrophy or exudate. Airway patent. NECK: Trachea midline. Non tender CARDIOVASCULAR: Regular rate and rhythm without murmurs, gallops, or rubs. RESPIRATORY: Clear to auscultation. Breath sounds equal bilaterally. No wheezes, rales, or rhonchi. GASTROINTESTINAL: Abdomen soft, gravid above the umbilicus, nondistended. EXTREMITIES: No edema or joint tenderness. BACK: Nontender without deformity or crepitance. No flank tenderness. NEURO: AOx3. SKIN: No rash or erythema of visible areas Initial Vital Signs Initial Vital Signs: Vital Signs Temperature 98.9 F 11/22/19 00:27 Pulse Rate 103 H 11/22/19 00:27 Respiratory Rate 20 11/22/19 00:27 Blood Pressure 125/74 11/22/19 00:27 Pulse Oximetry 99 11/22/19 00:27 Course Course Course Narrative: patient has reasurring vitals. She has moist mucous membranes and good skin turgor. She is not dizzy, weak or lightheaded. She is tolerating oral hydration. She has normal specific gravity of urine. There was some mention of IV fluid, but I don't seen an indication at this point. Orthostatics performed as well. Return precautions given and questions answered to their apparent satisfaction Orders Ordered: ED Orders 11/22/19 00:55 Urine Culture Stat Urine Microscopic Stat Vital Signs Vital signs: Vital Signs - 8 hr 11/22/19 00:27 11/22/19 00:57 11/22/19 01:00 Temperature 98.9 F Pulse Rate 103 H 99 H 98 H Respiratory Rate 20 Blood Pressure 125/74 Pulse Oximetry 99 98 98 11/22/19 01:44 Temperature 98.1 F Pulse Rate 90 Respiratory Rate 18 Blood Pressure 107/67 Pulse Oximetry 99 MDM - Fever Lab Data Labs: Lab Results 11/22/19 Range/Units 00:55 Urine RBC 0-1/hpf (0-5/HPF) Urine WBC 1-5/hpf (0-5/HPF) Ur Squamous Epith Cells 1-5 /hpf D (0-5/HPF) Urine Bacteria Moderate (10-30) H (None) Ur Culture Indicated? Specimen cultured Point of Care Testing Rapid Strep A Negative Urine Dip Bedside Urine Glucose Negative Bedside Urine Bilirubin - Negative Bedside Urine Ketone - Negative Urine Specific [place] 1.015 Bedside Urine Occult Blood - Negative Bedside Urine pH 6.5 Bedside Urine Protein - Negative Bedside Urine Urobilinogen - Negative Bedside Urine Nitrite - Negative Bedside Urine Leukocytes +/- 15 Esterase Discharge Plan Departure Patient Disposition: Home Clinical Impression: Fever Qualifiers: Fever type: unspecified Qualified Code(s): R50.9 - Fever, unspecified Acute otalgia Qualifiers: Laterality: left Qualified Code(s): H92.02 - Otalgia, left ear Instructions: DI for Fever (Symptom) -- Adult Activity Restrictions/Additional Instructions: *You have been diagnosed with [low-grade fever and ear pain, likely a consequence of a viral upper respiratory infection given your sore throat as well.] *What to do: *Take medications as directed: Tylenol for pain or fever *Follow up with your primary care provider in 2-3 days, call for an appointment. Let them know you were seen in the Emergency Department and that we ask that you be seen in follow up *Return to ER if you should have any new, worsening or concerning symptoms Prescriptions: No Action ondansetron 4 mg tablet,disintegrating 4 mg PO Q8H PRN (Reason: nausea and vomiting) Qty: 20 RF: 0 prenat.vits,clementina,[id number] Tablet 1 tab PO DAILY RF: 0 Referrals: Arie Mckinney ARNP [Primary Care Provider] -
[2019-11-22 00:27] VITALS: BP 125/74; PULSE 103; RESP 20; TEMP 37.2; O2SAT 99
[2019-11-22 00:57] VITALS: PULSE 99; O2SAT 98
[2019-11-22 01:00] VITALS: PULSE 98; O2SAT 98
[2019-11-22 01:23] LABS: Bacteria Urine Moderate (10-30); Culture Indicated Urine Specimen Cultured; RBC Urine 0-1/HPF (0-5/HPF); Squamous Epithelial Cell Urine 1-5 /HPF (0-5/HPF); WBC Urine 1-5/HPF (0-5/HPF)
[2019-11-22 01:43] VITALS: BP 107/67; PULSE 91; O2SAT 98
[2019-11-22 01:44] VITALS: BP 107/67; PULSE 90; RESP 18; TEMP 36.7; O2SAT 99
[2019-11-22 01:49] VITALS: BP 107/76; PULSE 104; O2SAT 99
== END 2019-11-22 01:56 | disposition home or self-care (01) ==
PROVIDERS: Emergency Provider Emergency Medicine; PCP Nurse Practitioner Family
DX: R50.9 Fever, unspecified (principal); H92.02 Otalgia, left ear; J02.9 Acute pharyngitis, unspecified; O26.892 Other specified pregnancy related conditions, second trimester; N94.9 Unspecified condition associated with female genital organs and menstrual cycle; Z3A.27 27 weeks gestation of pregnancy
CPT/HCPCS: 81003; 81015; 87077; 87086; 87147; 87880; 99282; G0378; G0379

== ENCOUNTER 2019-11-22 19:26 | Observation (INO) | payer OTHER, MEDICAID, SELFPAY ==
--- NOTE | 2019-11-22 21:07 | P.TNLD_ITS ---
Visit Information Visit Information Date of evaluation: 11/22/19 Primary OB Provider: Cristy Mendoza On-call OB Provider: Padmini Lynne Reason for Evaluation: Yes other Comments/Additional reasons for admission: 19 year old at 27 weeks gestation comes in c/o right side pain that goes into her groin and around to her back that started today. Pain is better when laying on her left side as well as in a warm bath and if she puts a heating pad on it. It also improves once she moves around for a while. Tylenol does not seem to help. Denies RUQ pain, pain worse after eating, or dysuria. Denies contractions, leaking or bleeding and reports good movement. She has been working a lot on her feet. All she wants to do is get some sleep. She has been sleeping but not well. She lives w ith her boyfriend and a friend that has 8 month old twins. She was in the center yesterday and urine was negative. She came back to the ER last night because she had a sore throat and fever at home but it was gone by the time she was in the ER. Strep was negative in the ER. Urine culture is pending but she was not diagnosed with a UTI. Vital Signs Vital Signs: Temp 98.6 BP 116/67 HR 96 RR 16 PFSH Medical History Ankle pain (Resolved) Bacterial vaginosis (Acute) Depression with anxiety (Acute) Headache (Chronic 03/2019) Heavy menstrual period (Chronic) History of asthma (Chronic) Ovarian cyst (Acute) Painful menstrual periods (Chronic) Surgical History Anesthesia (Resolved) Stye (Resolved) [place] teeth removed (Resolved) Family History Father Prediabetes Hyperlipidemia Hypertension Mental health problem Stroke Seizure AA (alcohol abuse) Depression Mother Mental health problem Family estrangement Sister Mental health problem Bipolar 1 disorder Grandfather Knee problem Grandmother Hypertension Arthritis Grandmother Mental health problem Family/Other Depression AA (alcohol abuse) Anxiety Social History marital status: unmarried,single household members: significant other (Fiance) and other pets and animals: Yes (X2 rabbits, X 2 Guinea pigs and X 1 hamster) education level: college (some college) occupational status: unemployed current occupational exposures/hazards: No Previous occupational history: [employer] Currently : 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 She has also had a headache not relieved with Tylenol, fluids and rest. Vitals are normal and urine from yesterday clear. She denies contractions, leaking or bleeding and reports good movement. Considered cholelithiasis, nephrolithiasis or appendicitis however felt unlikely due to lack of fever, lack of symptoms exacerbated by eating or hematuria. Pain is more likely musculoskeletal given relief with position and heat. She has been working more recently and may not be getting quality sleep sharing a home with a friend with twin infants. She requested something to help her pain and sleep. A single dose of hydrocodone was given in the center for her headache and to help sleep. She is scheduled to follow up in clinic in 2 days and was reminded of her appointment. OB Disposition: home
[2019-11-22 21:45] VITALS: TEMP 37
[2019-11-22] MEDS: HYDROCODONE/ACET 10/325 TABLET 1 TAB PO (21:45)
[2019-11-23 00:36] VITALS: BP 116/67
== END 2019-11-22 21:45 | disposition home or self-care (01) ==
LOC: LABOR 19:28
PROVIDERS: Admitting Provider Family Medicine; PCP Nurse Practitioner Family; Referring Provider Family Medicine; Visit Provider Family Medicine
DX: O26.892 Other specified pregnancy related conditions, second trimester (principal); N94.9 Unspecified condition associated with female genital organs and menstrual cycle; Z3A.27 27 weeks gestation of pregnancy
CPT/HCPCS: G0378; G0379

== ENCOUNTER 2019-11-23 17:57 | Emergency (ER) | payer OTHER, MEDICAID, SELFPAY ==
[2019-11-23 18:22] VITALS: BP 117/55; PULSE 103; RESP 17; TEMP 37.3; O2SAT 97; BMI 21.2
[2019-11-23 20:00] LABS: Bilirubin Urine UA NEGATIVE (NEGATIVE); Color Urine UA YELLOW; Glucose Urine UA NEGATIVE (Negative); Ketones Urine UA 1+ (NEGATIVE); Leukocyte Esterase Urine UA 3+ (NEGATIVE); Nitrite Urine UA NEGATIVE (Negative); Occult Blood Urine UA 3+ (Negative); Protein Urine UA 1+ (Negative); Specific Gravity Urine UA <=1.005 (1.000-1.035); Urobilinogen Urine UA 0.2 E.U./dL (0.2)
[2019-11-23 20:15] LABS: Appearance Urine UA SL CLOUDY
[2019-11-23 20:16] LABS: Amorphous Sediment Urine 1+; Bacteria Urine Many (>30); Culture Indicated Urine Specimen Cultured; RBC Urine 1-5/HPF (0-5/HPF); Renal Epithelial Cells Urine 1-5/HPF (0-1/HPF); Squamous Epithelial Cell Urine 10-30 /HPF (0-5/HPF); WBC Urine 30-100/HPF (0-5/HPF)
[2019-11-23 20:51] VITALS: BP 115/61; PULSE 92; RESP 18; O2SAT 97
--- NOTE | 2019-11-23 20:59 | PC.NURSE ---
doppler heart tones asessed at bedside
--- NOTE | 2019-11-23 21:00 | ED.HA ---
HPI - Headache General Chief Complaint: Headache Stated Complaint: migraine x3 days with nose bleeds, vomiting Time Seen by Provider: 11/23/19 20:02 Source: patient Mode of arrival: Wheelchair History of Present Illness HPI Narrative: Patient is 27 weeks . Followed by primary care physician Dr Mendoza, patient seen here yesterday for otitis and sore throat. No medications prescribed. Headache ongoing 3 days. Mild and diffuse. No appetite for the past 3 days as well. Very little to eat. Very little drink. Has increased urination. No fever or chills. No neck pain. Has mild discomfort right side of abdomen. heart tones done today and yesterday. Please see nurse's notes. No vaginal bleeding or fluid leak. Vomited once yesterday and today. No cough cold congestion. No fever chills or sore throat today Related Data Home Medications Medication Instructions Recorded Confirmed prenat.vits,clementina,[id number] 1 tab PO DAILY 07/14/19 07/14/19 Previous Rx's Medication Instructions Recorded ondansetron 4 mg disintegrating 4 mg PO Q8H PRN #20 tab 09/01/19 tablet cephalexin 500 mg PO Q8H #21 tab 11/23/19 ondansetron 4 mg PO Q8H PRN #10 tab 11/23/19 Allergies Allergy/AdvReac Type Severity Reaction Status Date / Time No Known Drug Allergies Allergy Verified 11/23/19 18:28 Review of Systems Review of Systems Narrative: GENERAL: Denies chills, fatigue, malaise, fever, sweats. HEENT: Denies sinus pain, ear pain, sore throat, difficulty swallowing, dizziness. RESPIRATORY: Denies dyspnea, cough, wheezing, hemoptysis, sputum. CARDIOVASCULAR: Denies chest pain, palpitations, orthopnea, edema, GASTROINTESTINAL: Complains nausea, vomiting, abdominal pain, denies diarrhea, constipation, melena. : Complains dysuria, frequency, denies incontinence, hematuria, urinary retention. MUSCULOSKELETAL: denies weakness, joint pain, or bony pain SKIN: Denies rash, skin lesions, or other NEUROLOGIC: Denies weakness, headache, numbness, change in speech, confusion, seizures, incoordination. PSYCHIATRIC: No concerning psychosocial issues. ROS Unobtainable: All systems reviewed & are unremarkable except as noted in HPI and below Patient History Medical History (Updated 11/23/19 @ 22:36 by Zain Serna MD) Ankle pain (Resolved) Bacterial vaginosis (Acute) Depression with anxiety (Acute) Headache (Chronic 03/2019) Heavy menstrual period (Chronic) History of asthma (Chronic) Ovarian cyst (Acute) Painful menstrual periods (Chronic) Surgical History Anesthesia (Resolved) Stye (Resolved) [place] teeth removed (Resolved) Family History Father Prediabetes Hyperlipidemia Hypertension Mental health problem Stroke Seizure AA (alcohol abuse) Depression Mother Mental health problem Family estrangement Sister Mental health problem Bipolar 1 disorder Grandfather Knee problem Grandmother Hypertension Arthritis Grandmother Mental health problem Family/Other Depression AA (alcohol abuse) Anxiety Social History marital status: unmarried,single household members: significant other (Fiance) and other pets and animals: Yes (X2 rabbits, X 2 Guinea pigs and X 1 hamster) education level: college (some college) occupational status: unemployed current occupational exposures/hazards: No Previous occupational history: [employer] Currently : 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 Well-nourished, well-developed patient, in no distress, not toxic HEAD: Atraumatic. Normocephalic. EYES: Pupils equal round and reactive. Extraocular motions intact. No scleral icterus. No injection or drainage. ENT: Nose without bleeding, purulent drainage. Throat without erythema, tonsillar hypertrophy or exudate. Airway patent. NECK: Trachea midline. Non tender, no meningeal signs CARDIOVASCULAR: Regular rate and rhythm without murmurs, gallops, or rubs. RESPIRATORY: Clear to auscultation. Breath sounds equal bilaterally. No wheezes, rales, or rhonchi. GASTROINTESTINAL: Abdomen soft, mild right-sided tenderness, distended appropriate secondary EXTREMITIES: No edema or joint tenderness. BACK: Nontender without deformity or crepitance. No flank tenderness. NEURO: AOx3. SKIN: No rash or erythema of visible areas PSYCH: Not anxious, is cooperative Initial Vital Signs Initial Vital Signs: Vital Signs Temperature 99.1 F 11/23/19 18:22 Pulse Rate 103 H 11/23/19 18:22 Respiratory Rate 17 11/23/19 18:22 Blood Pressure 117/55 L 11/23/19 18:22 Pulse Oximetry 97 11/23/19 18:22 Course Orders Ordered: ED Orders 11/23/19 19:50 Urinalysis and Microscopic Stat Urine Culture Stat 11/23/19 21:06 Complete Blood Count AUTO DIFF Stat Comprehensive Metabolic Panel Stat Discontinued Medications Acetaminophen (Tylenol) 650 mg PO NOW ONE Stop: 11/23/19 21:00 Last Admin: 11/23/19 21:10 Dose: 650 mg Documented by: JEAN-PIERRE Cephalexin HCl (Keflex) 500 mg PO NOW ONE Stop: 11/23/19 21:00 Last Admin: 11/23/19 21:11 Dose: 500 mg Documented by: JEAN-PIERRE Sodium Chloride (Normal Saline 0.9%) 1,000 mls @ 1,000 mls/hr IV BOLUS ONE Stop: 11/23/19 21:57 Last Infusion: 11/23/19 22:49 Dose: 0 mls/hr Documented by: Admin: 11/23/19 21:12 Dose: 1,000 mls/hr Documented by: JEAN-PIERRE Reevaluation(s) Reevaluation #1: Feeling much better. No nausea. Eating Samson crackers and drinking water. IV fluids given. Headache gone. heart tone 175 Time: 22:33 Consultations Consultation #1: Spoke with gang worker Dr. elizabeth, no monitoring indicates this time. Patient to be discharged home and follow-up in the office this week. Agrees with Zofran and Keflex prescription Time: 22:33 Vital Signs Vital signs: Vital Signs - 8 hr 11/23/19 20:51 11/23/19 22:48 Pulse Rate 92 H 88 Respiratory Rate 18 16 Blood Pressure 115/61 122/56 L Pulse Oximetry 97 100 MDM - Headache Medical Records Attestation: I reviewed the patient's medical records. Lab Data Attestation: I reviewed the patient's lab results. Result diagrams: 11/23/19 21:06 11/23/19 21:06 Labs: Lab Results 11/23/19 11/23/19 11/23/19 Range/Units 19:50 21:06 21:06 WBC 12.8 H (4.5-11.0) X10^3/uL RBC 3.69 L (4.0-5.2) X10^6/uL Hgb 11.0 L (12.0-16.0) g/dL Hct 33.3 L (36-46) % MCV 90.2 (80-100) fL MCH 29.8 (26-34) PG MCHC 33.1 (30-36) % RDW 13.4 (11.6-14.8) % Plt Count 237 (150-400) X10^3/uL Neut % (Auto) 76.5 H (50-75) % Lymph % (Auto) 7.4 L (25-40) % Lea % (Auto) 15.8 H (3-14) % Eos % (Auto) 0.1 L (2-4) % Baso % (Auto) 0.2 (0-2) % Neut # (Auto) 9800 H (7927-2345) /uL Lymph # (Auto) 900 L (6257-2423) /uL [place] # (Auto) 2000 H (0-900) /uL Eos # (Auto) 0 (0-450) /uL Baso # (Auto) 0 (0-100) /uL Sodium 130 L (137-145) mmol/L Potassium 3.7 (3.4-5.1) mmol/L Chloride 103 (98-107) mmol/L Carbon Dioxide 20 L (22-32) mmol/L BUN 4 L (7-17) mg/dL Creatinine 0.60 (0.52-1.04) mg/dL Estimated GFR > 60.0 (>60) mL/min BUN/Creatinine Ratio 6.7 (6-22) Glucose 84 (70-100) mg/dL Calcium 8.5 (8.4-10.2) mg/dL Total Bilirubin 0.8 (0.2-1.3) mg/dL AST 24 (14-36) IU/L ALT 11 (<35) IU/L Alkaline Phosphatase 116 (38-126) U/L Total Protein 7.1 (6.3-8.2) g/dL Albumin 3.6 (3.5-5.0) g/dL Globulin 3.5 (1.7-4.1) g/dL Albumin/Globulin Ratio 1.0 (1.0-2.8) Urine Color Yellow Urine Appearance Sl cloudy Urine pH 6.0 (4.5-8.0) Ur Specific [place] <=1.005 (1.000-1.035) Urine Protein 1+ H (Negative) Urine Glucose (UA) Negative (Negative) g/dL Urine Ketones 1+ H (NEGATIVE) Urine Occult Blood 3+ H (Negative) Urine Nitrate Negative (Negative) Urine Bilirubin Negative (NEGATIVE) Urine Urobilinogen 0.2 (0.2) E.U./dL Ur Leukocyte Esterase 3+ H (NEGATIVE) Urine RBC 1-5/hpf (0-5/HPF) Urine WBC 30-100/hpf H (0-5/HPF) Ur Squamous Epith Cells 10-30 /hpf H D (0-5/HPF) Ur Renal Epithelial Cell 1-5/hpf H (0-1/HPF) Amorphous Sediment 1+ Urine Bacteria Many (>30) H (None) Ur Culture Indicated? Specimen cultured MDM Narrative Medical decision making narrative: Appropriate for discharge home. Headache likely due to poor nutrition and oral intake. Feels better after IV fluids Tylenol and eating. It was a bilateral frontal headache. Not toxic. Not worst of life. No CT scan indicated at this time. No meningeal signs no altered mental status no neuro complaints. Discharge Plan Departure Patient Disposition: Home Clinical Impression: UTI (urinary tract infection) during Qualifiers: Trimester: unspecified trimester Qualified Code(s): O23.40 - Unspecified infection of urinary tract in , unspecified trimester Discharge Date/Time: 11/23/19 22:50 Instructions: DI for Urinary Tract Infection (UTI) Activity Restrictions/Additional Instructions: Keep well hydrated. Return if worse or any questions or concerns. Call your family doctor/OB joint doctor tomorrow for office recheck this week. Your prescriptions has been sent to your pharmacy here in [facility]. Continue them tomorrow Prescriptions: New cephalexin 500 mg tablet 500 mg PO Q8H Qty: 21 RF: 0 ondansetron 4 mg tablet,disintegrating 4 mg PO Q8H PRN (Reason: nausea and vomiting) Qty: 10 RF: 0 No Action ondansetron 4 mg tablet,disintegrating 4 mg PO Q8H PRN (Reason: nausea and vomiting) Qty: 20 RF: 0 prenat.vits,clementina,[id number] Tablet 1 tab PO DAILY RF: 0 Referrals: Arie Mckinney ARNP [Primary Care Provider] -
--- NOTE | 2019-11-23 21:09 | PC.NURSE ---
iv placed labs drawn pt medicated as per o
[2019-11-23] MEDS: ACETAMINOPHEN 325 MG TABLET 650 MG PO (21:10)
[2019-11-23] MEDS: cephALEXin 250 MG CAPSULE 500 MG PO (21:11)
[2019-11-23] MEDS: SODIUM CHLORIDE 0.9% 1,000 ML 1000 ML IV (21:12)
[2019-11-23 21:18] LABS: Add Manual Diff / Slide Review NO; Basophils Absolute Auto 0 /uL (0-100); Basophils Percent Auto 0.2 % (0-2); Eosinophils Absolute Auto 0 /uL (0-450); Eosinophils Percent Auto 0.1 % (2-4); Hematocrit 33.3 % (36-46); Lymphocytes Absolute Auto 900 /uL (1100-4500); Lymphocytes Percent Auto 7.4 % (25-40); Mean Corpuscular HGB Conc 33.1 % (30-36); Mean Corpuscular Hemoglobin 29.8 PG (26-34); Mean Corpuscular Volume 90.2 fL (80-100); Monocytes Absolute Auto 2000 /uL (0-900); Monocytes Percent Auto 15.8 % (3-14); Neutrophils Absolute Auto 9800 /uL (1500-7000); Neutrophils Percent Auto 76.5 % (50-75); Platelet Count 237 X10^3/uL (150-400); Red Blood Cell Count 3.69 X10^6/uL (4.0-5.2); Red Cell Distribution Width 13.4 % (11.6-14.8); White Blood Cell Count 12.8 X10^3/uL (4.5-11.0)
[2019-11-23 21:31] LABS: Alanine Aminotransferase 11 IU/L (<35); Albumin 3.6 g/dL (3.5-5.0); Alkaline Phosphatase 116 U/L (38-126); Aspartate Aminotransferase 24 IU/L (14-36); BUN Creatinine Ratio 6.7 (6-22); Bilirubin Total 0.8 mg/dL (0.2-1.3); Blood Urea Nitrogen 4 mg/dL (7-17); Calcium 8.5 mg/dL (8.4-10.2); Carbon Dioxide 20 mmol/L (22-32); Chloride 103 mmol/L (98-107); Estimated Glomerular Filt Rate > 60.0 mL/min (>60); Globulin 3.5 g/dL (1.7-4.1); Glucose 84 mg/dL (70-100); HEMOLYSIS 30 (0-50); Potassium 3.7 mmol/L (3.4-5.1); Sodium 130 mmol/L (137-145); Total Protein 7.1 g/dL (6.3-8.2)
[2019-11-23 22:48] VITALS: BP 122/56; PULSE 88; RESP 16; O2SAT 100
== END 2019-11-23 22:50 | disposition home or self-care (01) ==
PROVIDERS: Emergency Provider Emergency Medicine; PCP Nurse Practitioner Family
DX: O23.40 Unspecified infection of urinary tract in pregnancy, unspecified trimester (principal); Z3A.27 27 weeks gestation of pregnancy
CPT/HCPCS: 36415; 59050; 80053; 81001; 85025; 87077; 87086; 87147; 96360; 96361; 99284

== ENCOUNTER 2019-12-14 12:58 | Observation (INO) | payer OTHER, MEDICAID, SELFPAY ==
--- NOTE | 2019-12-14 13:17 | DI.US.S_ITS ---
PROCEDURE: US ABDOMEN LIMITED INDICATIONS: PAIN TECHNIQUE: Real-time focused scanning was performed of the abdomen, with image documentation. COMPARISON: [facility], US, US OB BIOPHYSICAL PROFILE, 12/14/2019, 13:55. FINDINGS: The liver is normal in size and demonstrates no focal lesions. Numerous tiny nonobstructing gallstones are seen. The gallbladder wall is not thickened, measuring 3 mm or less. No specific pericholecystic fluid is seen. The sonographic Cast[place] sign is negative. There is no biliary dilatation, the common bile duct measures 4 mm. No significant pancreatic abnormality is seen on these images. IMPRESSION: Tiny, mobile are seen, yet without additional sonographic signs of cholecystitis. Negative for biliary dilatation. Please correlate with physical examination findings, patient presentation, and laboratory values. Dictated by: Salvador Irving M.D. on 12/14/2019 at 13:31 Approved by: Salvador Irving M.D. on 12/14/2019 at 13:32
--- NOTE | 2019-12-14 13:19 | DI.US.S_ITS ---
PROCEDURE: US OB BIOPHYSICAL PROFILE INDICATIONS: POOR TRACING; PAIN OUTSIDE/PRIOR DATING DATA: Last menstrual period (LMP): Unknown LMP-based estimated date of delivery (HAI): Unknown First dating scan (date and location): 07/15/2019 Estimated date of delivery (HAI) from first dating scan: 02/16/2020 TECHNIQUE: Real-time scanning was performed of the fetus for biophysical profile, with image documentation. Endovaginal scanning: Not performed. COMPARISON: Located within [facility], OB >= 14 WEEKS FETUS, 10/13/2019, 12:27. FINDINGS: General: A single living intrauterine gestation is present. Presentation: Vertex. Placenta: Placental position is right fundal, without previa. Amniotic fluid index: 18.1 cm, normal range is 5-24 cm. heart rate: 122 beats per minute. Maternal cervical canal: 3.5 cm long. Normal lower limit is 2.5 cm. Estimated gestational age from initial scan: 30 weeks 6 days. Biophysical profile: Tone: 2 points. Movement: 2 points. Respiration: 2 points. Largest pocket of fluid: 2 points. IMPRESSION: 1. [place] living intrauterine at 30 weeks 6 days based on prior ultrasound. Vertex position. heart rate 122 beats per minute. 2. Normal placenta and amniotic fluid. 3. Normal biophysical profile. Score 8/8. Dictated by: Dorian Ruelas M.D. on 12/14/2019 at 14:25 Approved by: Dorian Ruelas M.D. on 12/14/2019 at 14:30
[2019-12-14] MEDS: LACTATED RINGERS 1,000 ML 1000 ML IV (13:30)
[2019-12-14 13:34] LABS: Bacteria Urine None Seen; RBC Urine None Seen (0-5/HPF); WBC Urine None Seen (0-5/HPF)
[2019-12-14 13:37] LABS: Bilirubin Urine UA NEGATIVE (NEGATIVE); Color Urine UA YELLOW; Glucose Urine UA NEGATIVE (Negative); Ketones Urine UA NEGATIVE (NEGATIVE); Leukocyte Esterase Urine UA NEGATIVE (NEGATIVE); Nitrite Urine UA NEGATIVE (Negative); Occult Blood Urine UA TRACE-LYSED (Negative); Protein Urine UA NEGATIVE (Negative); Urobilinogen Urine UA 0.2 E.U./dL (0.2)
[2019-12-14 13:38] LABS: Appearance Urine UA Slightly Cloudy; pH Urine UA 6.5 (4.5-8.0)
[2019-12-14 13:42] LABS: Add Manual Diff / Slide Review NO; Basophils Absolute Auto 0 /uL (0-100); Basophils Percent Auto 0.2 % (0-2); Eosinophils Absolute Auto 0 /uL (0-450); Eosinophils Percent Auto 0.4 % (2-4); Hematocrit 34.4 % (36-46); Hemoglobin 11.5 g/dL (12.0-16.0); Lymphocytes Absolute Auto 2400 /uL (1100-4500); Mean Corpuscular HGB Conc 33.3 % (30-36); Mean Corpuscular Hemoglobin 29.6 PG (26-34); Mean Corpuscular Volume 89.1 fL (80-100); Monocytes Absolute Auto 800 /uL (0-900); Monocytes Percent Auto 8.5 % (3-14); Neutrophils Absolute Auto 6100 /uL (1500-7000); Neutrophils Percent Auto 64.9 % (50-75); Platelet Count 346 X10^3/uL (150-400); Red Blood Cell Count 3.87 X10^6/uL (4.0-5.2); Red Cell Distribution Width 13.4 % (11.6-14.8); White Blood Cell Count 9.4 X10^3/uL (4.5-11.0)
--- NOTE | 2019-12-14 13:44 | PM.OBTRLD ---
Visit Information Visit Information Date of evaluation: 12/14/19 Primary OB Provider: Cristy Mendoza Reason for Evaluation: Yes other Comments/Additional reasons for admission: 19yo at 30w6d who presented with acute epigastric abdominal pain. The pt reports that around 45 minutes prior to arrival she developed severe upper abdominal pain. She denies any nausea. She has been having normal BMs. She denies any dysuria, but has been urinating frequently. She is feeling very weak as a result of the pain. Her fiance believes she appears pale. She has been feeling her baby move regularly. No LOF, vaginal bleeding, lower abdominal pain/contractions. [facility] Medical History (Updated 12/15/19 @ 07:51 by Cristy Mendoza MD) Ankle pain (Resolved) Bacterial vaginosis (Acute) Depression with anxiety (Acute) Headache (Chronic 03/2019) Heavy menstrual period (Chronic) History of asthma (Chronic) Ovarian cyst (Acute) Painful menstrual periods (Chronic) Surgical History Anesthesia (Resolved) Stye (Resolved) [place] teeth removed (Resolved) Family History Father Prediabetes Hyperlipidemia Hypertension Mental health problem Stroke Seizure AA (alcohol abuse) Depression Mother Mental health problem Family estrangement Sister Mental health problem Bipolar 1 disorder Grandfather Knee problem Grandmother Hypertension Arthritis Grandmother Mental health problem Family/Other Depression AA (alcohol abuse) Anxiety Social History marital status: unmarried,single household members: significant other (Fiance) and other pets and animals: Yes (X2 rabbits, X 2 Guinea pigs and X 1 hamster) education level: college (some college) occupational status: unemployed current occupational exposures/hazards: No Previous occupational history: [employer] Currently : 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/yarsani: [employer] special hayde needs: No Smoking Status: Never smoker second hand exposure: No (used to be growing: not currently) alcohol intake: never substance use type: does not use Exam Narrative Exam Narrative: Gen: NAD, sitting comfortably in bed, appears well CV: RRR, no murmurs Resp: clear to auscultation bilaterally Abd: soft, nondistended, gravid, mild epigastric tenderness, no guarding/rebound/rigidity Ext: no edema Objective Labs Result Diagrams: 12/14/19 13:20 12/14/19 13:20 Labs: Laboratory Results - last 24 hr 12/14/19 13:20 Urine Color Yellow Urine Appearance Slightly cloudy Urine pH 6.5 Ur Specific [place] 1.020 Urine Protein Negative Urine Glucose (UA) Negative Urine Ketones Negative Urine Occult Blood Trace-lysed Urine Nitrate Negative Urine Bilirubin Negative Urine Urobilinogen 0.2 Ur Leukocyte Esterase Negative Evaluation Evaluation Baseline heart rate: 120 Variability: Moderate (11-25) monitor accelerations: Present monitor decelerations: Absent Category of Tracing: Reactive Laboratory results: Laboratory Tests 12/14/19 13:20 Urine Color Yellow Urine Appearance Slightly cloudy Urine pH 6.5 Ur Specific [place] 1.020 Urine Protein Negative Urine Glucose (UA) Negative Urine Ketones Negative Urine Occult Blood Trace-lysed Urine Nitrate Negative Urine Bilirubin Negative Urine Urobilinogen 0.2 Ur Leukocyte Esterase Negative Diagnosis, Plan/Disposition Final Diagnosis (1) Epigastric abdominal pain: Status: Acute Plan/Disposition Plan: 19yo at 30w6d here with acute onset of severe epigastric abdominal pain. Pt did vomit immediately upon arrival to L&D, with significant improvement in her symptoms afterwards. Lab work was unrevealing. Abdominal u/s shows small gallstones, but unlikely to be causing issues based on size and no cholecystitis. OB u/s shows no placental issues, unlikely to be silent abruption. After discussion, pt does recall eating a potentially not fully cooked hamburger last night with banuelos, and then an Egg McMuffin this morning from [employer]. Most likely simply stomach upset/mild gastritis causing symptoms as it seemed to resolve after emesis. Pt was hydrated with 1L IVF, and deemed safe for d/c home. OB Disposition: home
[2019-12-14 13:53] LABS: Culture Indicated Urine Cult Not Indicated; Squamous Epithelial Cell Urine 5-10 /HPF (0-5/HPF)
[2019-12-14 14:00] LABS: Alanine Aminotransferase 18 IU/L (<35); Albumin Globulin Ratio 1.2 (1.0-2.8); Alkaline Phosphatase 148 U/L (38-126); Aspartate Aminotransferase 24 IU/L (14-36); BUN Creatinine Ratio 12.7 (6-22); Bilirubin Total 0.4 mg/dL (0.2-1.3); Blood Urea Nitrogen 7 mg/dL (7-17); Calcium 9.1 mg/dL (8.4-10.2); Carbon Dioxide 24 mmol/L (22-32); Chloride 105 mmol/L (98-107); Estimated Glomerular Filt Rate > 60.0 mL/min (>60); Globulin 3.4 g/dL (1.7-4.1); Glucose 83 mg/dL (70-100); HEMOLYSIS < 15 (0-50); Lipase 34 U/L (23-300); Potassium 4.2 mmol/L (3.4-5.1); Sodium 138 mmol/L (137-145); Total Protein 7.4 g/dL (6.3-8.2)
== END 2019-12-14 15:00 | disposition home or self-care (01) ==
PROVIDERS: Admitting Provider Family Medicine; PCP Nurse Practitioner Family; Referring Provider Family Medicine; Visit Provider Family Medicine
DX: O26.893 Other specified pregnancy related conditions, third trimester (principal); R10.13 Epigastric pain; R11.10 Vomiting, unspecified; Z3A.30 30 weeks gestation of pregnancy
CPT/HCPCS: 59025; 59050; 76705; 76819; 80053; 81001; 83690; 85025; 96360; G0378; G0379

== ENCOUNTER → 2019-12-25 14:42 | Outpatient (CLI) | payer OTHER, MEDICAID, SELFPAY ==
--- NOTE | 2019-12-25 14:43 | DI.US.S_ITS ---
PROCEDURE: US PERIPH VENOUS LOW EXTREM RT INDICATIONS: RIGHT CALF PAIN, EDEMA. > 4 CENTIMETER SIZE THAN LEFT TECHNIQUE: Real-time imaging, as well as color and pulse Doppler interrogation, were performed of the lower extremity deep veins from the inguinal ligament to the popliteal fossa. COMPARISON: None. FINDINGS: The common femoral, femoral and popliteal veins are normally compressible, and free of intraluminal thrombus. Color and pulse Doppler demonstrate normal phasic intraluminal flow. There is normal augmentation response to distal compression maneuver. IMPRESSION: No sonographic evidence of right lower extremity deep venous thrombosis. Dictated by: Osmani Oviedo M.D. on 12/25/2019 at 15:51 Approved by: Osmani Oviedo M.D. on 12/25/2019 at 15:51
== END ==
PROVIDERS: PCP Nurse Practitioner Family; Referring Provider Family Medicine; Visit Provider Family Medicine
DX: M79.661 Pain in right lower leg (principal); R60.0 Localized edema
CPT/HCPCS: 93971

== ENCOUNTER 2020-01-09 23:59 | Outpatient (CLI) | payer OTHER, MEDICAID, SELFPAY ==
--- NOTE | 2020-01-10 13:57 | PM.OBTRLD ---
Visit Information Visit Information Date of evaluation: 01/10/20 Primary OB Provider: Cristy Mendoza On-call OB Provider: Irina Cunningham Reason for Evaluation: Yes rule out labor Vital Signs Vital Signs: Blood pressure 111/67, pulse 77, temperature 98? [facility] Medical History (Updated 01/10/20 @ 14:02 by Irina Cunningham MD) Ankle pain (Resolved) Asthma (Acute) Depression with anxiety (Acute) Headache (Chronic 03/2019) Ovarian cyst (Acute) Surgical History Anesthesia (Resolved) Stye (Resolved) [place] teeth removed (Resolved) Family History Father Prediabetes Hyperlipidemia Hypertension Mental health problem Stroke Seizure AA (alcohol abuse) Depression Mother Mental health problem Family estrangement Sister Mental health problem Bipolar 1 disorder Grandfather Knee problem Grandmother Hypertension Arthritis Grandmother Mental health problem Family/Other Depression AA (alcohol abuse) Anxiety Social History marital status: unmarried,single household members: significant other (Fiance) and other pets and animals: Yes (X2 rabbits, X 2 Guinea pigs and X 1 hamster) education level: college (some college) occupational status: unemployed current occupational exposures/hazards: No Previous occupational history: [employer] Currently : 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ism: [employer] special hayde needs: No Smoking Status: Never smoker second hand exposure: No (used to be growing: not currently) alcohol intake: never substance use type: does not use Evaluation Evaluation Baseline heart rate: 140 Variability: Moderate (11-25) monitor accelerations: Present monitor decelerations: Absent Contraction Frequency (minutes): 5 Uterine Contraction Intensity: Mild Category of Tracing: Reactive Cervical dilation (cm): 0 Cervical effacement (%): 0 station: -4 Non-invasive Membranes Rupture Test: negative Diagnosis, Plan/Disposition Final Diagnosis (1) False labor: Status: Acute (2) 39 weeks gestation of : Status: Acute Plan/Disposition Plan: Patient not in active labor and did not rupture her bag of water. Follow up at her routine OB appointment
== END 2020-01-10 01:31 | disposition home or self-care (01) ==
LOC: LABOR 01-10 00:06 → OB 01-11 10:44
PROVIDERS: PCP Nurse Practitioner Family; Referring Provider Specialist; Visit Provider Specialist
DX: O47.03 False labor before 37 completed weeks of gestation, third trimester (principal); Z3A.32 32 weeks gestation of pregnancy
CPT/HCPCS: 59025; 59050; G0378; G0379

== ENCOUNTER 2020-01-18 19:27 | Outpatient (CLI) | payer OTHER, MEDICAID, SELFPAY ==
[2020-01-18] MEDS: OXYCODONE/ACETAMINOPHEN 5/325 TABLET 1 TAB PO (20:48)
== END 2020-01-18 20:40 | disposition home or self-care (01) ==
LOC: LABOR 19:34 → OB 01-19 11:08
PROVIDERS: PCP Nurse Practitioner Family; Referring Provider Obstetrics & Gynecology; Visit Provider Obstetrics & Gynecology
DX: O26.893 Other specified pregnancy related conditions, third trimester (principal); R10.10 Upper abdominal pain, unspecified; Z3A.35 35 weeks gestation of pregnancy
CPT/HCPCS: 59025; G0378; G0379

== ENCOUNTER → 2020-01-19 15:39 | Outpatient (CLI) | payer OTHER, MEDICAID, SELFPAY ==
[2020-01-20 14:14] LABS: Strep Grp B PCR POS for Grp B Strep
== END ==
PROVIDERS: PCP Nurse Practitioner Family; Visit Provider Family Medicine
DX: Z34.90 Encounter for supervision of normal pregnancy, unspecified, unspecified trimester (principal); Z3A.36 36 weeks gestation of pregnancy
CPT/HCPCS: 87653

== ENCOUNTER 2020-01-29 20:50 | Outpatient (CLI) | payer OTHER, MEDICAID, SELFPAY ==
[2020-01-29 21:26] LABS: Appearance Urine UA SL CLOUDY; Bilirubin Urine UA NEGATIVE (NEGATIVE); Color Urine UA YELLOW; Glucose Urine UA NEGATIVE (Negative); Ketones Urine UA NEGATIVE (NEGATIVE); Leukocyte Esterase Urine UA TRACE (NEGATIVE); Nitrite Urine UA NEGATIVE (Negative); Occult Blood Urine UA TRACE-LYSED (Negative); Protein Urine UA NEGATIVE (Negative); Specific Gravity Urine UA 1.015 (1.000-1.035); Urobilinogen Urine UA 0.2 E.U./dL (0.2)
[2020-01-29 21:41] LABS: RBC Urine 0-1/HPF (0-5/HPF); WBC Urine 0-1/HPF (0-5/HPF); pH Urine UA 6.5 (4.5-8.0)
[2020-01-29 21:42] LABS: Bacteria Urine Few (2-10); Culture Indicated Urine Cult Not Indicated; Squamous Epithelial Cell Urine 5-10 /HPF (0-5/HPF)
== END 2020-01-29 22:15 | disposition home or self-care (01) ==
LOC: OB 02-01 12:01
PROVIDERS: PCP Nurse Practitioner Family; Referring Provider Obstetrics & Gynecology; Visit Provider Obstetrics & Gynecology
DX: Z34.03 Encounter for supervision of normal first pregnancy, third trimester (principal); Z3A.37 37 weeks gestation of pregnancy
CPT/HCPCS: 59025; 81001; G0378; G0379

== ENCOUNTER 2020-02-08 16:46 | Outpatient (CLI) | payer OTHER, MEDICAID, SELFPAY ==
--- NOTE | 2020-02-08 16:55 | P.TNLD_ITS ---
Visit Information Visit Information Date of evaluation: 02/02/20 Primary OB Provider: Cristy Mendoza Comments/Additional reasons for admission: The pt presented due to low back pain and concern for LOF. No vaginal bleeding. No contractions. She has not been feeling her baby move as often recently. [facility] Medical History (Updated 02/09/20 @ 13:00 by Cristy Mendoza MD) Ankle pain (Resolved) Asthma (Acute) Depression with anxiety (Acute) Headache (Chronic 03/2019) Ovarian cyst (Acute) Surgical History Anesthesia (Resolved) Stye (Resolved) [place] teeth removed (Resolved) Family History Father Prediabetes Hyperlipidemia Hypertension Mental health problem Stroke Seizure AA (alcohol abuse) Depression Mother Mental health problem Family estrangement Sister Mental health problem Bipolar 1 disorder Grandfather Knee problem Grandmother Hypertension Arthritis Grandmother Mental health problem Family/Other Depression AA (alcohol abuse) Anxiety Social History marital status: unmarried,single household members: significant other (Fiance) and other pets and animals: Yes (X2 rabbits, X 2 Guinea pigs and X 1 hamster) education level: college (some college) occupational status: unemployed current occupational exposures/hazards: No Previous occupational history: [employer] Currently : 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/mormonism: Roman Catholic special hayde needs: No Smoking Status: Never smoker second hand exposure: No (used to be growing: not currently) alcohol intake: never substance use type: does not use Evaluation Evaluation Baseline heart rate: 135 Variability: Moderate (11-25) monitor accelerations: Present monitor decelerations: Absent Non-invasive Membranes Rupture Test: negative Diagnosis, Plan/Disposition Final Diagnosis (1) Low back pain: Status: Acute (2) Decreased movement: Status: Acute Plan/Disposition Plan: Reactive NST today. Back pain mild, most likely musculoskeletal. Discussed stretches for home. Amnisure negative. Safe for d/c home today. OB Disposition: home
== END 2020-02-08 17:25 | disposition home or self-care (01) ==
LOC: LABOR 16:49 → OB 02-09 10:08
PROVIDERS: PCP Nurse Practitioner Family; Referring Provider Family Medicine; Visit Provider Family Medicine
DX: O36.8130 Decreased fetal movements, third trimester, not applicable or unspecified (principal); M54.5 Low back pain; N89.8 Other specified noninflammatory disorders of vagina; Z3A.38 38 weeks gestation of pregnancy
CPT/HCPCS: 59025; 84112; G0378; G0379

== ENCOUNTER 2020-02-13 16:01 | Inpatient (IN) | payer OTHER, MEDICAID, SELFPAY ==
--- NOTE | 2020-02-13 17:01 | DI.US.S_ITS ---
PROCEDURE: US OB BIOPHYSICAL PROFILE INDICATIONS: LOW HEART TONE BASELINE OUTSIDE/PRIOR DATING DATA: Last menstrual period (LMP): Unknown. LMP-based estimated date of delivery (HAI): Unknown First dating scan (date and location): 07/15/2019 at [facility]. Estimated date of delivery (HAI) from first dating scan: 02/16/2020. TECHNIQUE: Real-time scanning was performed of the fetus, with image documentation. Biophysical profile was also obtained. Endovaginal scanning: Not performed. COMPARISON: [facility], , OB BIOPHYSICAL PROFILE, 12/14/2019, 13:55. FINDINGS: General: A single living intrauterine gestation is present. Presentation: Cephalic Placenta: Placental position is right fundal, without previa. Amniotic fluid index: 9.1 cm, normal range is 5-24 cm. heart rate: 125 beats per minute. Maternal cervical canal: 3.9 cm long. Normal lower limit is 2.5 cm. biometrics: Estimated gestational age from initial scan: 39 weeks 4 days. Biophysical profile: Tone: 0 points. Movement: 2 points. Respiration: 2 points. Largest pocket of fluid: 2 points. IMPRESSION: 1. Single live intrauterine . 2. Biophysical profile score is 6 of 8, with 0 points for tone. Dictated by: Olivier Donaldson M.D. on 02/13/2020 at 19:19 Approved by: Olivier Donaldson M.D. on 02/13/2020 at 19:22
[2020-02-13 18:10] LABS: COVID19 -Nasal RAPID Negative (Negative)
[2020-02-13] MEDS: LACTATED RINGERS 1,000 ML 100 ML IV (19:00)
[2020-02-13] MEDS: DINOPROSTONE VAG (CERVIDIL) 10 MG VAG (19:20)
[2020-02-13 19:21] LABS: Add Manual Diff / Slide Review NO; Basophils Absolute Auto 100 /uL (0-100); Basophils Percent Auto 0.8 % (0-2); Eosinophils Absolute Auto 100 /uL (0-450); Eosinophils Percent Auto 0.6 % (2-4); Hemoglobin 11.5 g/dL (12.0-16.0); Lymphocytes Absolute Auto 2300 /uL (1100-4500); Lymphocytes Percent Auto 24.1 % (25-40); Mean Corpuscular HGB Conc 33.7 % (30-36); Mean Corpuscular Hemoglobin 28.7 PG (26-34); Mean Corpuscular Volume 85.2 fL (80-100); Monocytes Absolute Auto 1200 /uL (0-900); Monocytes Percent Auto 12.6 % (3-14); Neutrophils Absolute Auto 5900 /uL (1500-7000); Neutrophils Percent Auto 61.9 % (50-75); Platelet Count 298 X10^3/uL (150-400); Red Blood Cell Count 3.99 X10^6/uL (4.0-5.2); White Blood Cell Count 9.5 X10^3/uL (4.5-11.0)
[2020-02-13 20:15] VITALS: BP 110/64
[2020-02-14] MEDS: ZOLPIDEM 5 MG TABLET PO (02:04)
[2020-02-14] MEDS: MORPHINE 10 MG/ML INJ 5 MG IV (02:39)
--- NOTE | 2020-02-14 08:10 | P.HPOB_ITS ---
OB HPI Date/Time Date of admission: 02/13/20 Date Patient Seen: 02/14/20 Time Patient Seen: 08:10 History of Present Condition Chief complaint: Eval of Labor : 1 Para: 0 Estimated Date of Delivery: 02/16/20 Estimated Gestational Age (weeks): 39w5d Narrative: uSmmer Persaud is a 19 year old at 39w5d who presented yesterday with decreased movement and abdominal cramping. NST was reactive, however baseline was noted to be low in the 100s. BPP was obtained which was 6/8, with loss of points for tone. Due to this, the decision was made to proceed with induction of labor. This morning, the pt reports feeling frequent period- like cramps. She denies any vaginal bleeding or LOF. Indications Indication for induction OB: other (6/8 BPP with low HR baseline) History of Present care: limited care (only 6 visits, numerous ER and L&D triage visits), initiated at week # (16) and pounds weight gain (11) Dating criteria: based on 1st trimester US only Ultrasounds: normal mid trimester US Obstetrical complications: none Medical complications: none Narrative: hx of asthma, no exacerbations during Preadmission Labs Blood type: A (+) positive -: Antibody screen: negative, GBS status: positive, HBsAG: negative, HIV: negative and RPR/VDLR: negative -: Chlamydia screen: not detected and Gonorrhea screen: not detected -: Rubella: not immune and Varicella: not immune HCT: 34.0 HCAB: negative Urine: GBS Narrative: Never completed glucola. Random blood sugar in clinic normal range. Evaluation Evaluation Baseline heart rate: 105 Variability: Moderate (11-25) monitor accelerations: Present monitor decelerations: Absent Contraction Frequency (minutes): 4 Uterine Contraction Intensity: Mild Cervical dilation (cm): 3 Cervical effacement (%): 90 station: -1 Laboratory results: Laboratory Tests 02/13/20 02/13/20 02/13/20 17:10 19:00 19:00 WBC 9.5 RBC 3.99 L Hgb 11.5 L Hct 34.0 L MCV 85.2 MCH 28.7 MCHC 33.7 RDW 14.0 Plt Count 298 Neut % (Auto) 61.9 Lymph % (Auto) 24.1 L [place] % (Auto) 12.6 Eos % (Auto) 0.6 L Baso % (Auto) 0.8 Neut # (Auto) 5900 Lymph # (Auto) 2300 [place] # (Auto) 1200 H Eos # (Auto) 100 Baso # (Auto) 100 COVID-19 PCR Negative Blood Type A Positive Antibody Screen Negative PFSH Medical History (Updated 02/09/20 @ 13:00 by Cristy Mendoza MD) Ankle pain (Resolved) Asthma (Acute) Depression with anxiety (Acute) Headache (Chronic 03/2019) Ovarian cyst (Acute) Surgical History Anesthesia (Resolved) Stye (Resolved) [place] teeth removed (Resolved) Family History Father Prediabetes Hyperlipidemia Hypertension Mental health problem Stroke Seizure AA (alcohol abuse) Depression Mother Mental health problem Family estrangement Sister Mental health problem Bipolar 1 disorder Grandfather Knee problem Grandmother Hypertension Arthritis Grandmother Mental health problem Family/Other Depression AA (alcohol abuse) Anxiety Social History marital status: unmarried,single household members: significant other (Fiance) and other pets and animals: Yes (X2 rabbits, X 2 Guinea pigs and X 1 hamster) education level: college (some college) occupational status: unemployed current occupational exposures/hazards: No Previous occupational history: [employer] 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: [employer] special hayde needs: No Smoking Status: Never smoker second hand exposure: No (used to be growing: not currently) alcohol intake: never substance use type: does not use Meds Home Medications and Allergies Home Medications Medication Instructions Recorded Confirmed Type No Known Home Medications 02/13/20 02/13/20 History Allergies Allergy/AdvReac Type Severity Reaction Status Date / Time No Known Drug Allergies Allergy Verified 11/23/19 18:28 Exam Narrative Exam Narrative: Gen: NAD, sitting comfortably in bed CV: RRR, no murmurs Resp: Clear to auscultation bilaterally Abd: soft, nontender, nondistended, gravid Ext: no edema Objective Labs Result Diagrams: 02/13/20 19:00 Labs: Laboratory Results - last 24 hr 02/13/20 02/13/20 02/13/20 17:10 19:00 19:00 WBC 9.5 RBC 3.99 L Hgb 11.5 L Hct 34.0 L MCV 85.2 MCH 28.7 MCHC 33.7 RDW 14.0 Plt Count 298 Neut % (Auto) 61.9 Lymph % (Auto) 24.1 L [place] % (Auto) 12.6 Eos % (Auto) 0.6 L Baso % (Auto) 0.8 Neut # (Auto) 5900 Lymph # (Auto) 2300 [place] # (Auto) 1200 H Eos # (Auto) 100 Baso # (Auto) 100 COVID-19 PCR Negative Blood Type A Positive Antibody Screen Negative Assessment and Plan Assessment and Plan Assessment and Plan narrative: 19yo at 39w5d who presented with decreased movement, found to have low baseline with 6/8 BPP, therefore decision made to proceed with IOL. Initially with unfavorable cervix, however after Cervidil overnight, Le score now 11. Pt with very limited care. GBS positive, Rh positive. - Expectant management, anticipate - Epidural for pain control when desired - GBS positive, start prophylaxis now - Start pitocin, titrate as tolerated - FHT overall reassuring with good accelerations, however remains low baseline
[2020-02-14] MEDS: PENICILLIN G POTASSIUM 5,000,000 UNIT in DEXTROSE 5% IN WATER 250 ML IV (08:28)
[2020-02-14] MEDS: OXYTOCIN PREMIX 30 UNIT/500 ML PLAST..BAG IV (08:33)
[2020-02-14] MEDS: LACTATED RINGERS 1,000 ML 100 ML IV (11:56)
[2020-02-14] MEDS: PENICILLIN G POTASSIUM 3,000,000 UNIT/50 ML FROZ.PIGGY 100 UNIT IV (12:53)
--- NOTE | 2020-02-14 14:16 | PM.OBPNLAB ---
Date/Time Date Patient Seen: 02/14/20 Time Patient Seen: 13:45 Pain Control Pain control: epidural Pelvic Exam Dilation (cm): 10 Effacement (%): 100 station: 0 Amniotic membrane status: Ruptured Comments: After informed consent, AROM performed with production of clear fluid Contractions Monitor mode: External Pitocin rate (mU/min): 8 Contraction frequency (min): 2 Contraction pattern: Regular Contraction intensity: Mild Status status: Category ll Heart Rate Baseline: 100 Monitor Accelerations: Present Monitor Decelerations: Absent Monitor Variability: Moderate Assessment and Plan Comments: 19yo at 39w5d who presented with decreased movement, found to have low baseline with 6/8 BPP, therefore decision made to proceed with IOL. Received cervidil overnight, now on pitocin. AROM performed with clear fluid present. Pt with very limited care. GBS positive, Rh positive. - Expectant management, anticipate - Epidural for pain control in place and functioning well. Just received bolus. - GBS positive, continue penicillin prophylaxis, has received 2 doses - Continue pitocin, titrate as tolerated - FHT overall reassuring with good accelerations, however remains low baseline
--- NOTE | 2020-02-14 15:28 | P.PCNOB_ITS ---
Events: Labor Induction Labor & Delivery Delivery date: 02/14/20 Estimated blood loss (mL): 400 Anesthesia type: Epidural Complications: None Narrative: PROCEDURE: at 39w4d presented with decreased movement and cramping and was admitted to Labor and Delivery. NST showed baseline in 100- 110s, and BPP was 6/8. Decision was made to proceed with IOL. The pt received cerividil overnight, and then pitocin. AROM was performed with production of clear fluid. The patient progressed through the 1st stage over 9 hours. Pain was controlled with an epidural. The pt received adequate GBS prophylaxis with penicillin. The patient progressed through the 2nd stage over 1.5 hours and delivered a viable male infant with APGARs 8/10 at 15:02 via without complications. The perineum and vagina were inspected with bilateral labial lacerations repaired with 4-O Chromic for hemostasis. Due to persistent bleeding, brief bimanual exam was performed with removal of amniotic membranes. Bleeding was then appropriate. PREPROCEDURE DIAGNOSIS: Intrauterine at 39w4d Nonreassuring heart tones with low baseline GBS positive RH positive POSTPROCEDURE DIAGNOSIS: Intrauterine at 39w5d, delivered Same as preprocedure PROCEDURE: Spontaneous vaginal delivery INDUCTION: Cervidil LABOR AUGMENTATION: Pitocin, AROM ROM APPEARANCE: Clear BABY A DELIVERY TIME: 15:02 BABY A OUTCOME: Viable BABY A SEX: Male BABY A WEIGHT: 6lb12.4oz BABY A PRESENTATION: Vertex BABY A POSITION: OA BABY A NUCHAL CORD: None BABY A # CORD VESSELS: 3 BABY A CORD GASES OBTAINED: No PLACENTA DELIVERY TIME: 15:07 PLACENTAL DELIVERY TYPE: Spontaneous PLACENTA APPEARANCE: Intact [place] Baby 1: gender: Male score (1 min): 8 score (5 min): 10 Plan for aftercare: Normal care
[2020-02-14] MEDS: LANOLIN OINT 7 GM 1 APPLIC TOP (20:57)
[2020-02-14] MEDS: DERMOPLAST SPRAY 20% 60 ML 1 SPRAY TOP (20:59)
[2020-02-15 00:30] VITALS: TEMP 37.2
[2020-02-15 06:50] LABS: Hemoglobin 9.8 g/dL (12.0-16.0)
[2020-02-15] MEDS: IBUPROFEN 600 MG TABLET PO ×3 (09:18→17:23)
[2020-02-15] MEDS: DOCUSATE 100 MG CAPSULE PO (09:19)
[2020-02-15] MEDS: PRENATAL VIT,CALC/IRON/FOLIC 1 TABLET 1 TAB PO (09:19)
[2020-02-15] MEDS: FERROUS SULFATE 325 MG TABLET PO (09:19)
--- NOTE | 2020-02-15 13:15 | P.DS_ITS ---
Discharge Providers Provider Date of admission: 02/13/20 16:01 Discharge Date: 02/15/20 Primary care physician: JIMENA Sharma Consults: 02/15/20 15:27 Consult to Claims Support Specialist Routine Comment: Discharge provider: Cristy Mendoza MD Summary Hospital Course Date Patient Seen: 02/15/20 Time Patient Seen: 13:15 Procedures: Spontaneous vaginal delivery Hospital Course: The pt was admitted for IOL due to nonreassuring heart tones with low baseline and 6/8 BPP. She received cervidil followed by pitocin. AROM was performed with production of clear fluid. The pt had an epidural for pain control. She progressed to complete and had an of a viable baby boy at 15:02 on 02/14/20. Bilateral labial lacerations were repaired for hemostasis. The pt tolerated delivery well. , there were no complications. At the time of discharge she was voiding, ambulating, and passing flatus without difficulty. Her lochia was decreasing appropriately. Her pain was well controlled. She was with good latch. She will use OCPs for contraception, to be started at her appt. She will f/u in 6 weeks for check. Peripartum Data Delivery Method: Natural Vaginal Episiotomy description: None Procedures: Spontaneous vaginal delivery complications: none 1: Gender: Male Disposition of : home Discharge Diagnosis (1) (spontaneous vaginal delivery): Status: Acute Status at Discharge Cognitive/behavioral status at discharge: oriented Functional status at discharge: independent ambulation Overall status at discharge: patient is progressing back to baseline Time Spent with Patient Time attestation: Total time spent providing and/or coordinating discharge services: Objective Labs Result Diagrams: 02/15/20 06:15 Labs: Laboratory Results - last 24 hr 02/15/20 06:15 Hgb 9.8 L Hct 29.0 L Discharge Plan Discharge Plan Patient Disposition: Home Discharge orders & Medications Prescriptions: New acetaminophen 325 mg Tablet 650 mg PO Q6HR PRN (Reason: Pain, Mild (1-3)) Qty: 30 RF: 0 ferrous sulfate 325 mg (65 mg iron) Tablet 325 mg PO DAILY Qty: 30 RF: 0 docusate sodium [DOK] 100 mg Capsule 100 mg PO DAILY Qty: 30 RF: 0 ibuprofen 600 mg Tablet 600 mg PO Q6HR PRN (Reason: Pain, Mild (1-3)) Qty: 30 RF: 0 Prenatabs Rx 29 mg iron- 1 mg Tablet 1 tab PO DAILY Qty: 90 RF: 2 Follow up/Referrals: Arie Mckinney ARNP [Primary Care Provider] - Cristy Mendoza MD [Physician] - 6 Weeks (March 28 at 1:30 pm for post check) Diet/Activity/Treatments Diet: Diet as Tolerated and Regular Skin/Wound/Dressing Care Report to your healthcare provider any signs of infection, such as:: chills, fever, increased pain and unusual drainage Visit Report/Discharge Packet Instructions: DI for Labor and Delivery, Vaginal Stand Alone Forms: Discharge: Care Visit Report Forms: Patient Portal/API, Stroke Signs & Symptoms Discharge Data Primary Care Provider: Arie Mckinney
== END 2020-02-15 19:23 | disposition home or self-care (01) | DRG 560 ==
PROVIDERS: Family Medicine; Admitting Provider Obstetrics & Gynecology; PCP Nurse Practitioner Family; Referring Provider Obstetrics & Gynecology; Visit Provider Obstetrics & Gynecology
DX: O76 Abnormality in fetal heart rate and rhythm complicating labor and delivery (principal); Z3A.39 39 weeks gestation of pregnancy; Z37.0 Single live birth; O99.824 Streptococcus B carrier state complicating childbirth; O70.0 First degree perineal laceration during delivery; Z11.59 Encounter for screening for other viral diseases
CPT/HCPCS: 01967; 36415; 59050; 59409; 76819; 85014; 85018; 85025; 86850; 86900; 86901; 87635; G0379; J2270; J2540; J2590

== ENCOUNTER 2020-02-20 00:13 | Observation (INO) | payer OTHER, MEDICAID, SELFPAY ==
[2020-02-20] VITALS (9 sets, daily range): BP systolic 121–129; BP diastolic 68–75; PULSE 48–68; RESP 15–18; TEMP 36.6–37.6; O2SAT 96–100; BMI 20.3
[2020-02-20] MEDS: PANTOPRAZOLE 40 MG VIAL IV (00:33)
[2020-02-20] MEDS: ONDANSETRON 4 MG ODT PO (00:33)
[2020-02-20] MEDS: SODIUM CHLORIDE 0.9% 1,000 ML 150 ML IV ×3 (00:33→14:12)
[2020-02-20 00:41] LABS: Add Manual Diff / Slide Review NO; Basophils Absolute Auto 0 /uL (0-100); Basophils Percent Auto 0.3 % (0-2); Eosinophils Absolute Auto 300 /uL (0-450); Eosinophils Percent Auto 3.2 % (2-4); Hematocrit 30.4 % (36-46); Hemoglobin 10.4 g/dL (12.0-16.0); Lymphocytes Absolute Auto 2800 /uL (1100-4500); Lymphocytes Percent Auto 26.7 % (25-40); Mean Corpuscular HGB Conc 34.2 % (30-36); Mean Corpuscular Hemoglobin 29.8 PG (26-34); Mean Corpuscular Volume 86.9 fL (80-100); Monocytes Absolute Auto 800 /uL (0-900); Monocytes Percent Auto 7.9 % (3-14); Neutrophils Absolute Auto 6600 /uL (1500-7000); Neutrophils Percent Auto 61.9 % (50-75); Platelet Count 366 X10^3/uL (150-400); Red Cell Distribution Width 14.5 % (11.6-14.8); White Blood Cell Count 10.6 X10^3/uL (4.5-11.0)
[2020-02-20 00:46] LABS: Alanine Aminotransferase 19 IU/L (<35); Albumin 3.6 g/dL (3.5-5.0); Alkaline Phosphatase 178 U/L (38-126); Aspartate Aminotransferase 33 IU/L (14-36); BUN Creatinine Ratio 17.4 (6-22); Bilirubin Total 0.4 mg/dL (0.2-1.3); Blood Urea Nitrogen 12 mg/dL (7-17); Calcium 8.4 mg/dL (8.4-10.2); Carbon Dioxide 25 mmol/L (22-32); Chloride 112 mmol/L (98-107); Estimated Glomerular Filt Rate > 60.0 mL/min (>60); Globulin 3.5 g/dL (1.7-4.1); Glucose 89 mg/dL (70-100); HEMOLYSIS < 15 (0-50); Lipase 42 U/L (23-300); Sodium 141 mmol/L (137-145); Total Protein 7.1 g/dL (6.3-8.2)
--- NOTE | 2020-02-20 00:54 | DI.US.S_ITS ---
PROCEDURE: US ABDOMEN LIMITED INDICATIONS: RUQ PAIN 5 DAYS POST ; KNOWN GALLSTONES TECHNIQUE: Real-time scanning was performed of the right upper quadrant abdominal structures with image documentation. COMPARISON: None. FINDINGS: Multiple echogenic shadowing foci within the gallbladder measuring up to 1 centimeter, consistent with gallstones. No abnormal distention of the gallbladder or gallbladder wall thickening. No pericholecystic fluid. The polisher eyeglass frames reports a positive sonographic Castorena's sign. No intrahepatic or extrahepatic biliary ductal dilatation. Visualized portions of the pancreas, liver, and right kidney are within normal limits. IMPRESSION: Cholelithiasis with right upper quadrant tenderness reported by the polisher eyeglass frames. Findings are suspicious for potential acute cholecystitis. Correlate with lab values and clinical history. Dictated by: Osmani Oviedo M.D. on 02/20/2020 at 8:07 Approved by: Osmani Oviedo M.D. on 02/20/2020 at 8:09
[2020-02-20 03:03] LABS: COVID19 -Nasal RAPID Negative (Negative)
--- NOTE | 2020-02-20 03:54 | P.HP_ITS ---
History of Present Illness History of Present Illness Date Patient Seen: 02/20/20 Time Patient Seen: 03:54 Chief complaint: extreme right side abd pain nausea vomiting Narrative: This is 19-year-old woman with history of biliary colic over the past couple of months. She is 5 days from a healthy vaginal delivery. Around 9:00 last evening she started having the most severe gallbladder attack she has had and came into the ER due to the pain. In the ER she had an ultrasound which showed gallstones, but no thickening of the gallbladder wall or pericholecystic fluid. She has a normal white blood cell count, and her LFTs are normal other than a slightly elevated alk-phos. I went to see the patient on the floor and she is now out of pain, and feeling better. She is concerned about staying in the hospital overnight and about having surgery since she has a 5-day-old. ROS: Thirteen system review is otherwise negative other than as mentioned below and in HPI. PE: GENERAL: Alert, comfortable. Appears stated age. Answers questions promptly and appropriately. Vital signs noted. HENT: Normocephalic, atraumatic. Hearing intact. EYES: Conjunctiva pink, sclera white, no periorbital swelling. CARDIOVASCULAR: Regular rate. No pedal edema. RESPIRATORY: Non-tachypneic, breathing comfortably on room air. GASTROINTESTINAL: Abdomen soft and non-distended; mild tenderness to palpation in the epigastrium and right upper quadrant; history a on the abdominal wall consistent with a recent and delivery GENITALURINARY: No flank tenderness. MUSCULOSKELETAL: Equal tone and mass bilaterally. SKIN: Warm, dry, soft, appropriate color for ethnicity. No other lesions, rashes, or wounds. NEURO: Alert and Oriented X 3. No gross sensory deficits, or cognitive issues. PSYCH: Appropriate affect and mood. Patient History Medical History Ankle pain Asthma Depression with anxiety Headache (03/2019) Ovarian cyst (spontaneous vaginal delivery) Surgical History Anesthesia Stye [place] teeth removed Family & Social History Family History Father Prediabetes Hyperlipidemia Hypertension Mental health problem Stroke Seizure AA (alcohol abuse) Depression Mother Mental health problem Family estrangement Sister Mental health problem Bipolar 1 disorder Grandfather Knee problem Grandmother Hypertension Arthritis Grandmother Mental health problem Family/Other Depression AA (alcohol abuse) Anxiety Social History: household members significant other,other Safety & Behavioral: Feels Safe in Current Yes Environment Tobacco & Substance use: Smoking Status Never smoker alcohol intake never Substance Use Type does not use Meds Home Medications and Allergies Home Medications Medication Instructions Recorded Confirmed Type acetaminophen 650 mg PO Q6HR PRN #30 tab 02/15/20 Rx docusate sodium [DOK] 100 mg PO DAILY #30 cap 02/15/20 Rx ferrous sulfate 325 mg PO DAILY #30 tab 02/15/20 Rx ibuprofen 600 mg PO Q6HR PRN #30 tab 02/15/20 Rx vit,[id number] 1 tab PO DAILY #90 tab 02/15/20 Rx [Prenatabs Rx] Allergies Allergy/AdvReac Type Severity Reaction Status Date / Time No Known Drug Allergies Allergy Verified 11/23/19 18:28 Exam Vital Signs (past 8 hours): - 02/20/20 00:21 02/20/20 01:19 02/20/20 01:30 Temperature 98 F Pulse Rate 68 52 L 54 L Respiratory Rate 18 Blood Pressure 129/75 Pulse Oximetry 96 100 98 02/20/20 02:00 02/20/20 02:30 02/20/20 03:13 Temperature 97.9 F Pulse Rate 60 51 L 48 L Respiratory Rate 16 Blood Pressure 122/73 Pulse Oximetry 97 98 99 Oxygen Delivery Method Room Air Oxygen Flow Rate 0 Objective Imaging US - abdomen: Radiologist's impression: RUQ US: gall stones, no gall bladder thickening or pericholecystic fluid; normal ducts; normal pancreas, normal liver Labs Result Diagrams: 02/20/20 00:29 02/20/20 00:29 Labs: Laboratory Results - last 24 hr 02/20/20 02/20/20 02/20/20 00:29 00:29 00:43 WBC 10.6 RBC 3.50 L Hgb 10.4 L Hct 30.4 L MCV 86.9 MCH 29.8 MCHC 34.2 RDW 14.5 Plt Count 366 Neut % (Auto) 61.9 Lymph % (Auto) 26.7 [place] % (Auto) 7.9 Eos % (Auto) 3.2 Baso % (Auto) 0.3 Neut # (Auto) 6600 Lymph # (Auto) 2800 [place] # (Auto) 800 Eos # (Auto) 300 Baso # (Auto) 0 Sodium 141 Potassium 4.0 Chloride 112 H Carbon Dioxide 25 BUN 12 Creatinine 0.69 Estimated GFR > 60.0 BUN/Creatinine Ratio 17.4 Glucose 89 Calcium 8.4 Total Bilirubin 0.4 AST 33 ALT 19 Alkaline Phosphatase 178 H Total Protein 7.1 Albumin 3.6 Globulin 3.5 Albumin/Globulin Ratio 1.0 Lipase 42 COVID-19 PCR Blood Type A Positive Antibody Screen Negative 02/20/20 02:35 WBC RBC Hgb Hct MCV MCH MCHC RDW Plt Count Neut % (Auto) Lymph % (Auto) [place] % (Auto) Eos % (Auto) Baso % (Auto) Neut # (Auto) Lymph # (Auto) [place] # (Auto) Eos # (Auto) Baso # (Auto) Sodium Potassium Chloride Carbon Dioxide BUN Creatinine Estimated GFR BUN/Creatinine Ratio Glucose Calcium Total Bilirubin AST ALT Alkaline Phosphatase Total Protein Albumin Globulin Albumin/Globulin Ratio Lipase COVID-19 PCR Negative Blood Type Antibody Screen Assessment & Plan Assessment and plan (1) Symptomatic cholelithiasis: Status: Acute (2) Epigastric abdominal pain: Status: Acute Assessment & Plan narrative: This is a 19-year-old woman who is 5 days who comes in with that attack of acute biliary colic. She has no signs of acute cholecystitis on her ultrasound labs. She is mildly tender, but her symptoms have largely abated at this point. She is concerned about staying in the hospital with her new baby, and is considering the risks and benefit of going home versus staying to have her gallbladder removed. The risks and benefits of surgery were discussed including risk of bleeding, infection, damage to nearby structures, need for additional procedures, bile leak, bile duct injury, recurrence of symptoms, need for open surgery, need for transfer to a tertiary center. I explained to her that she would need to avoid heavy lifting more than 10 lb for 4 weeks after surgery, and that she would likely need to be on narcotic pain medication for at least a few days after surgery. Explained that she would likely have surgery on Saturday afternoon go home on Saturday if all goes well. She is considering the above and discussing it with her significant other. Plan: NPO, IV fluids, IV antibiotic, antiemetic, pain med Surgery in the morning depending on patient's incision COVID-19 COVID-19 status: Negative Result date/Date tested (Pos, Neg/Pending): 02/20/20 Time Spent With Patient Time with patient: 25 - 35 minutes
--- NOTE | 2020-02-20 04:11 | ED_ITS ---
HPI - Abdominal Pain General Chief Complaint: Abdominal Pain Stated Complaint: extreme right side abd pain nausea vomiting Time Seen by Provider: 02/20/20 00:15 Source: patient Mode of arrival: Wheelchair Limitations: no limitations History of Present Illness HPI narrative: 19-year-old female nonsmoker presents with her and infant in the chief complaint of a severe, epigastric and right-sided abdominal pain with associated nausea and vomiting. She states she has episodes in the past of known gallbladder disease and this feels quite similar. She denies any fever chills. She denies any dietary or medication change. She delivered a healthy infant 5 days ago. MD complaint: abdominal pain Onset (ago): hour(s) Pain Consistency: constant Location: RUQ and epigastric Severity: moderate Quality: cramping and aching Radiation: none Migration to: no migration Relieving factors: nothing Exacerbating factors: eating Associated symptoms: nausea Related Data Previous Rx's Medication Instructions Recorded Prenatabs Rx 1 tab PO DAILY #90 tab 02/15/20 acetaminophen 650 mg PO Q6HR PRN #30 tab 02/15/20 docusate sodium [DOK] 100 mg PO DAILY #30 cap 02/15/20 ferrous sulfate 325 mg PO DAILY #30 tab 02/15/20 oxycodone 5 mg PO Q6H PRN #10 tab 02/20/20 Allergies Allergy/AdvReac Type Severity Reaction Status Date / Time No Known Drug Allergies Allergy Verified 11/23/19 18:28 Review of Systems Constitutional Constitutional: Denies chills, Denies fatigue, Denies fever(s), Denies frequent falls, Denies lethargy and Denies weakness Eyes Eyes: Denies change in vision, Denies eye discharge, Denies irritation and Denies loss of vision ENT Ears, Nose, Mouth, and Throat: Denies change in voice, Denies dizziness, Denies neck pain, Denies sore throat and Denies throat swelling Cardiovascular Cardiovascular: Denies chest pain, Denies irregular heart rhythm, Denies lightheadedness, Denies palpitations, Denies dyspnea, Denies dyspnea on exertion and Denies orthopnea Respiratory Respiratory: Denies cough, Denies dyspnea, Denies dyspnea on exertion and Denies wheezing Gastrointestinal Gastrointestinal: Reports abdominal pain, Denies change in bowel habits, Denies diarrhea, Reports nausea and Reports vomiting Musculoskeletal Musculoskeletal: Denies neck pain and Denies numbness Integumentary/Breasts Skin/Breast: Denies pruritus, Denies erythema, Denies rash and Denies wounds Neurologic Neurologic: Denies behavioral changes, Denies confusion, Denies dizziness, Denies frequent falls, Denies loss of vision, Denies numbness and Denies weakness Psychiatric Psychiatric: Denies anxiety, Denies behavioral changes, Denies confusion, Denies depression, Denies homicidal ideation and Denies suicidal ideation Endocrine Endocrine: Denies fatigue, Denies flushing and Denies palpitations Hematologic/Lymphatic Hematologic/Lymphatic: Denies easy bruising Allergic/Immunologic Allergic/Immunologic: Denies urticaria, Denies throat swelling and Denies wheezing Patient History Medical History Ankle pain Asthma Depression with anxiety Headache (03/2019) Ovarian cyst (spontaneous vaginal delivery) Surgical History Anesthesia Stye [place] teeth removed Family History Father Prediabetes Hyperlipidemia Hypertension Mental health problem Stroke Seizure AA (alcohol abuse) Depression Mother Mental health problem Family estrangement Sister Mental health problem Bipolar 1 disorder Grandfather Knee problem Grandmother Hypertension Arthritis Grandmother Mental health problem Family/Other Depression AA (alcohol abuse) Anxiety Social History marital status: unmarried,single household members: significant other and other pets and animals: Yes (X2 rabbits, X 2 Guinea pigs and X 1 hamster) education level: college (some college) occupational status: unemployed current occupational exposures/hazards: No Previous occupational history: [employer] Currently : 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 Well- nourished, well-developed patient, in mild distress. HEAD: Atraumatic. Normocephalic. EYES: Pupils equal round and reactive. Extraocular motions intact. No scleral icterus. No injection or drainage. ENT: Nose without bleeding, purulent drainage. Throat without erythema, tonsillar hypertrophy or exudate. Airway patent. NECK: Trachea midline. Non tender CARDIOVASCULAR: Regular rate and rhythm without murmurs, gallops, or rubs. RESPIRATORY: Clear to auscultation. Breath sounds equal bilaterally. No wheezes, rales, or rhonchi. GASTROINTESTINAL: Abdomen soft, severe abdominal pain, most notable in the epigastrium and right upper quadrant, nondistended. EXTREMITIES: No edema or joint tenderness. BACK: Nontender without deformity or crepitance. No flank tenderness. NEURO: AOx3. SKIN: No rash or erythema of visible areas Initial Vital Signs Initial Vital Signs: Vital Signs Temperature 98 F 02/20/20 00:21 Pulse Rate 68 02/20/20 00:21 Respiratory Rate 18 02/20/20 00:21 Blood Pressure 129/75 02/20/20 00:21 Pulse Oximetry 96 02/20/20 00:21 Course Orders Ordered: Discontinued Medications Hydromorphone HCl (Hydromorphone 0.5 Mg Inj) 0.5 mg IV Q2H PRN PRN Reason: Pain, Severe (7-10) Sodium Chloride (Normal Saline 0.9%) 1,000 mls @ 150 mls/hr IV CONT THEA Last Admin: 02/20/20 14:12 Dose: 150 mls/hr Documented by: Infusion: 02/20/20 11:32 Dose: 150 mls/hr Documented by: Admin: 02/20/20 04:51 Dose: 150 mls/hr Documented by: Infusion: 02/20/20 02:47 Dose: 0 mls/hr Documented by: Admin: 02/20/20 00:33 Dose: 150 mls/hr Documented by: NATALI Piperacillin/Tazobactam/Dextrose (Zosyn) 3.375 gm in 50 mls @ 100 mls/hr IV NOW ONE Stop: 02/20/20 04:11 Last Infusion: 02/20/20 07:42 Dose: 100 mls/hr Documented by: Admin: 02/20/20 04:44 Dose: 100 mls/hr Documented by: CHANTAL Ondansetron HCl (Ondansetron 4 Mg Odt) 4 mg PO NOW ONE Stop: 02/20/20 00:23 Last Admin: 02/20/20 00:33 Dose: 4 mg Documented by: NATALI Ondansetron HCl (Ondansetron 4 Mg/2 Ml Inj) 4 mg IV Q4H PRN PRN Reason: Nausea And Vomiting Pantoprazole Sodium (Pantoprazole 40 Mg Vial) 40 mg IV NOW ONE Stop: 02/20/20 00:23 Last Admin: 02/20/20 00:33 Dose: 40 mg Documented by: NATALI Sodium Chloride (Sodium Chloride 0.9% Flush) 10 ml IV PRN PRN PRN Reason: Flush Sodium Chloride (Sodium Chloride 0.9% Flush) 10 ml IV BID THEA Consultations Consultation #1: Call to Dr. Tang was happy to accept this patient on her service Vital Signs Vital signs: Vital Signs - 8 hr 02/20/20 00:21 02/20/20 01:19 02/20/20 01:30 Temperature 98 F Pulse Rate 68 52 L 54 L Respiratory Rate 18 Blood Pressure 129/75 Pulse Oximetry 96 100 98 02/20/20 02:00 02/20/20 02:30 Temperature Pulse Rate 60 51 L Respiratory Rate Blood Pressure Pulse Oximetry 97 98 MDM - Abdominal Pain Lab Data Result diagrams: 02/20/20 00:29 02/20/20 00:29 Labs: Lab Results 02/20/20 02/20/20 02/20/20 Range/Units 00:29 00:29 00:43 WBC 10.6 (4.5-11.0) X10^3/uL RBC 3.50 L (4.0-5.2) X10^6/uL Hgb 10.4 L (12.0-16.0) g/dL Hct 30.4 L (36-46) % MCV 86.9 (80-100) fL MCH 29.8 (26-34) PG MCHC 34.2 (30-36) % RDW 14.5 (11.6-14.8) % Plt Count 366 (150-400) X10^3/uL Neut % (Auto) 61.9 (50-75) % Lymph % (Auto) 26.7 (25-40) % Tucker % (Auto) 7.9 (3-14) % Eos % (Auto) 3.2 (2-4) % Baso % (Auto) 0.3 (0-2) % Neut # (Auto) 6600 (5525-3457) /uL Lymph # (Auto) 2800 (1427-7963) /uL Tucker # (Auto) 800 (0-900) /uL Eos # (Auto) 300 (0-450) /uL Baso # (Auto) 0 (0-100) /uL Sodium 141 (137-145) mmol/L Potassium 4.0 (3.4-5.1) mmol/L Chloride 112 H (98-107) mmol/L Carbon Dioxide 25 (22-32) mmol/L BUN 12 (7-17) mg/dL Creatinine 0.69 (0.52-1.04) mg/dL Estimated GFR > 60.0 (>60) mL/min BUN/Creatinine Ratio 17.4 (6-22) Glucose 89 (70-100) mg/dL Calcium 8.4 (8.4-10.2) mg/dL Total Bilirubin 0.4 (0.2-1.3) mg/dL AST 33 (14-36) IU/L ALT 19 (<35) IU/L Alkaline Phosphatase 178 H (38-126) U/L Total Protein 7.1 (6.3-8.2) g/dL Albumin 3.6 (3.5-5.0) g/dL Globulin 3.5 (1.7-4.1) g/dL Albumin/Globulin Ratio 1.0 (1.0-2.8) Lipase 42 (23-300) U/L COVID-19 PCR (Negative) Blood Type A Positive Antibody Screen Negative 02/20/20 Range/Units 02:35 WBC (4.5-11.0) X10^3/uL RBC (4.0-5.2) X10^6/uL Hgb (12.0-16.0) g/dL Hct (36-46) % MCV (80-100) fL MCH (26-34) PG MCHC (30-36) % RDW (11.6-14.8) % Plt Count (150-400) X10^3/uL Neut % (Auto) (50-75) % Lymph % (Auto) (25-40) % Tucker % (Auto) (3-14) % Eos % (Auto) (2-4) % Baso % (Auto) (0-2) % Neut # (Auto) (4547-0983) /uL Lymph # (Auto) (3949-4023) /uL Tucker # (Auto) (0-900) /uL Eos # (Auto) (0-450) /uL Baso # (Auto) (0-100) /uL Sodium (137-145) mmol/L Potassium (3.4-5.1) mmol/L Chloride (98-107) mmol/L Carbon Dioxide (22-32) mmol/L BUN (7-17) mg/dL Creatinine (0.52-1.04) mg/dL Estimated GFR (>60) mL/min BUN/Creatinine Ratio (6-22) Glucose (70-100) mg/dL Calcium (8.4-10.2) mg/dL Total Bilirubin (0.2-1.3) mg/dL AST (14-36) IU/L ALT (<35) IU/L Alkaline Phosphatase (38-126) U/L Total Protein (6.3-8.2) g/dL Albumin (3.5-5.0) g/dL Globulin (1.7-4.1) g/dL Albumin/Globulin Ratio (1.0-2.8) Lipase (23-300) U/L COVID-19 PCR Negative (Negative) Blood Type Antibody Screen Imaging Data US - abdomen: Radiologist's Impression: Gallstones, thickened gallbladder wall with slu dge consistent with cholecystitis. Positive sonographic Castorena sign Discharge Plan Departure Patient Disposition: Admitted as Observation Clinical Impression: Acute cholecystitis Admit Date/Time: 02/20/20 02:45 Admit Provider: Janette Tang
[2020-02-20] MEDS: PIPERACILLIN-TAZO 3.375 GM/50 ML FROZ.PIGGY IV (04:44)
--- NOTE | 2020-02-20 10:34 | CM.DANOTE ---
DCP: Case received, EMR reviewed and met with patient. was in room, as well as her 5 day old baby. Introduced self and role. Was able to meet with patient and obtain information regarding her baseline activity and living situation. Patient is a 19 year old female who admitted early this morning to the care of the hospitalist/surgical team. PCP: JIMENA Cordero. Payer: confirmed: [facility] [employer]. Patient came to the hospital via private vehicle secondary to right sided pain, as well as nausea and vomiting. Patient holds diagnosis of cholecystitis. Patient is to be having lap guillermina surgery, it is uncertain if she will have surgery today or tomorrow. Met with patient in her room. She was with her , and 5 day old baby. Patient is employed at [employer]. The grandmother had dropped of some items earlier. Patient is independent at baseline. She lives here in [place] with her . P: DCP to continue to follow, and will be available for any resources. Patient may be going home today. Adriana Jose RN/Continuous Wave Operator
--- NOTE | 2020-02-20 11:16 | PC.NURSE ---
Addendum entered by Briana Fields R.N. 02/20/20 14:59: Patient continues to tolerate PO intake. No complaints of nausea or pain. Original Note: Patient's diet advanced for breakfast to Low fat diet per Dr. Robles. Patient has no complaints of nausea or pain and is tolerating PO intake at this time.
--- NOTE | 2020-02-20 16:22 | P.DS_ITS ---
History of Present Illness History of Present Illness Date Patient Seen: 02/20/20 Time Patient Seen: 16:22 Chief complaint: extreme right side abd pain nausea vomiting Narrative: 19F admitted to observation for biliary colic. At admission she had no leukocytosis, no LFT abnormality, multiple gallstones, no pericholecystic fluid or wall thickening on RUQ ultrasound. Discharge Providers Provider Date of admission: 02/20/20 02:45 Discharge Date: 02/20/20 Primary care physician: JIMENA Sharma Discharge provider: Maninder Robles MD Summary Hospital Course Discharge Diagnosis: biliary colic acute abdominal pain Hospital Course: Admitted for abdominal pain control and observation. Pain re solved she was able to tolerate a diet without further abdominal pain nausea or vomitting. Stable for DC home. Will attempt to schedule her for an elective cholecystectomy in the following week. Exam Vital Signs (past 8 hours): - 02/20/20 09:44 02/20/20 15:30 Temperature 97.8 F 99.6 F Pulse Rate 52 L 64 Respiratory Rate 15 16 Blood Pressure 127/68 121/74 Pulse Oximetry 98 98 Oxygen Delivery Method Room Air Oxygen Flow Rate 0 Narrative Exam Narrative: Gen-Adult female alert and oriented Abdomen-Soft, non tender Ext-WWP Objective Labs Result Diagrams: 02/20/20 00:29 02/20/20 00:29 Labs: Laboratory Results - last 24 hr 02/20/20 02/20/20 02/20/20 00:29 00:29 00:43 WBC 10.6 RBC 3.50 L Hgb 10.4 L Hct 30.4 L MCV 86.9 MCH 29.8 MCHC 34.2 RDW 14.5 Plt Count 366 Neut % (Auto) 61.9 Lymph % (Auto) 26.7 Metcalfe % (Auto) 7.9 Eos % (Auto) 3.2 Baso % (Auto) 0.3 Neut # (Auto) 6600 Lymph # (Auto) 2800 Metcalfe # (Auto) 800 Eos # (Auto) 300 Baso # (Auto) 0 Sodium 141 Potassium 4.0 Chloride 112 H Carbon Dioxide 25 BUN 12 Creatinine 0.69 Estimated GFR > 60.0 BUN/Creatinine Ratio 17.4 Glucose 89 Calcium 8.4 Total Bilirubin 0.4 AST 33 ALT 19 Alkaline Phosphatase 178 H Total Protein 7.1 Albumin 3.6 Globulin 3.5 Albumin/Globulin Ratio 1.0 Lipase 42 COVID-19 PCR Blood Type A Positive Antibody Screen Negative 02/20/20 02:35 WBC RBC Hgb Hct MCV MCH MCHC RDW Plt Count Neut % (Auto) Lymph % (Auto) Metcalfe % (Auto) Eos % (Auto) Baso % (Auto) Neut # (Auto) Lymph # (Auto) [place]calfe # (Auto) Eos # (Auto) Baso # (Auto) Sodium Potassium Chloride Carbon Dioxide BUN Creatinine Estimated GFR BUN/Creatinine Ratio Glucose Calcium Total Bilirubin AST ALT Alkaline Phosphatase Total Protein Albumin Globulin Albumin/Globulin Ratio Lipase COVID-19 PCR Negative Blood Type Antibody Screen Discharge Plan Discharge Plan Patient Disposition: Home Provider Discharge Comment: hope to schedule laparoscopic cholecystectomy for Thursday 02/22 Discharge orders & Medications Prescriptions: New oxycodone 5 mg tablet 5 mg PO Q6H PRN (Reason: pain) Qty: 10 RF: 0 Continued acetaminophen 325 mg Tablet 650 mg PO Q6HR PRN (Reason: Pain, Mild (1-3)) Qty: 30 RF: 0 ferrous sulfate 325 mg (65 mg iron) Tablet 325 mg PO DAILY Qty: 30 RF: 0 docusate sodium [DOK] 100 mg Capsule 100 mg PO DAILY Qty: 30 RF: 0 Prenatabs Rx 29 mg iron- 1 mg Tablet 1 tab PO DAILY Qty: 90 RF: 2 Discontinued ibuprofen 600 mg Tablet 600 mg PO Q6HR PRN (Reason: Pain, Mild (1-3)) Qty: 30 RF: 0 Follow up/Referrals: Arie Mckinney ARNP [Primary Care Provider] - Diet/Activity/Treatments Diet: Low-fat Skin/Wound/Dressing Care Report to your healthcare provider any signs of infection, such as:: increased pain Discharge Data Primary Care Provider: Arie Mckinney Quality VTE Deep Vein Thrombosis/Pulmonary Embolism Present on Admission: No
--- NOTE | 2020-02-20 18:11 | CM.DANOTE ---
Pt given discharge instructions re:diagnosis, medication, f/u appointments, diet, and visit summary. Pt asked questions regarding and use of oxycodone medication new Rx. Pharmacy consulted, information given to pt. Pt instructed that specialist will call on Saturday for instructions regarding potential future surgery. Pt signed discharge paperwork and left with spouse and via wheelchair at 1750. IV removed, pt tolerated well. Pt showed no signs of cardiac or respiratory distress, reported no pain, VSS at last check, AOx4, independent on ambulation and aware of limitations with consideration to status and new diagnosis.
== END 2020-02-20 17:50 | disposition home or self-care (01) ==
LOC: ED 00:47 → AC 04:30
PROVIDERS: Admitting Provider Surgery; Emergency Provider Emergency Medicine; PCP Nurse Practitioner Family; Referring Provider Emergency Medicine; Visit Provider Surgery
DX: K80.20 Calculus of gallbladder without cholecystitis without obstruction (principal); R11.2 Nausea with vomiting, unspecified; R10.11 Right upper quadrant pain; Z11.59 Encounter for screening for other viral diseases
CPT/HCPCS: 36415; 76705; 80053; 83690; 85025; 86850; 86900; 86901; 87635; 96361; 96365; 96366; 96375; 99217; 99282; 99284; G0378; C9113; J2543

== ENCOUNTER 2020-02-22 02:44 | Observation (INO) | payer OTHER, MEDICAID, SELFPAY ==
[2020-02-20 04:52] VITALS: BMI 20.3
[2020-02-22] VITALS (24 sets, daily range): BP systolic 100–150; BP diastolic 49–88; PULSE 43–96; RESP 12–26; TEMP 36.1–37.5; O2SAT 95–100; BMI 19.8
--- NOTE | 2020-02-22 | PATH_ITS ---
[facility] Accession Number: [id number] . 01 Material submitted: . gallbladder - GALLBLADDER AND CONTENTS . 01 Clinical history: . GALLBLADDER PAIN . 02 Diagnosis: Gallbladder And Contents, Cholecystectomy: Cholelithiasis. No evidence of neoplasm. [facility] 02/24/2020 1232 Local . 02 Electronically signed: . Dirk Phillips MD, PhD, Pathologist NPI- [id number] . 01 Gross description: . Received in formalin, labeled gallbladder, and consists of a 6.5 x 3.0 x 2.8 cm intact gallbladder with a 0.2 cm in diameter cystic duct. The serosa is kamara-pink and smooth. Opening reveals green viscous bile with multiple kamara-green bosselated choleliths ranging from 0.1 to 0.5 cm and measuring 2.0 x 1.0 x 0.5 cm in aggregate. The mucosa is kamara-green and velvety, and the wall thickness measures 0.1 cm. Cylinder Valve Repairer sections are submitted, to include the en face cystic duct margin (blue), body and fundus in cassette A1. (EA:[id number]) /MRV 02/23/2020 1057 Local . 02 Pathologist provided ICD-10: K80.70 . 02 CPT . 507664 Performed at: [address] [facility] [address], [place], [place] [id number] MD Antonio John MD Phone: [phone] Performed at: 02 [facility] [address] [place], [place] [id number] MD Mey Mariano MD Phone: [phone]
--- NOTE | 2020-02-22 03:06 | ED_ITS ---
HPI - Abdominal Pain General Chief Complaint: Abdominal Pain Stated Complaint: gall bladder pain Time Seen by Provider: 02/22/20 03:01 Source: patient Mode of arrival: Ambulatory Limitations: no limitations History of Present Illness HPI narrative: Patient is a 19-year-old who is day 7. From a vaginal found have acute cholecystitis yesterday, admitted for acute cholecystectomy however due to a problem with a cleaning device laparoscopic surgery is unavailable. She was afebrile without leukocytosis and normal labs she was discharged home with attempt of scheduling cholecystectomy as an outpati ent. This evening her pain got worse despite all of the appropriate pain medication MD complaint: abdominal pain Onset (ago): day(s) Pain Consistency: constant Location: RUQ Quality: cramping and stabbing Radiation: none Related Data Previous Rx's Medication Instructions Recorded Prenatabs Rx 1 tab PO DAILY #90 tab 02/15/20 acetaminophen 650 mg PO Q6HR PRN #30 tab 02/15/20 docusate sodium [DOK] 100 mg PO DAILY #30 cap 02/15/20 ferrous sulfate 325 mg PO DAILY #30 tab 02/15/20 oxycodone 5 mg PO Q6H PRN #10 tab 02/20/20 Allergies Allergy/AdvReac Type Severity Reaction Status Date / Time No Known Drug Allergies Allergy Verified 11/23/19 18:28 Review of Systems Review of Systems Narrative: GENERAL: Denies chills, fatigue, malaise, fever, sweats, travel HEENT: Denies sinus pain, ear pain, sore throat, difficulty swallowing, neck pain RESPIRATORY: Denies dyspnea, cough, wheezing, hemoptysis, sputum. CARDIOVASCULAR: Denies chest pain, palpitations, orthopnea, edema GASTROINTESTINAL: See HPI : Denies dysuria, frequency, incontinence, hematuria, urinary retention, flank pain. MUSCULOSKELETAL: Denies weakness, joint pain, or bony pain SKIN: No rash, no erythema, no pruritus NEUROLOGIC: Denies weakness, dizziness, headache, numbness, change in speech, confusion PSYCHIATRIC: No concerning psychosocial issues. 12 point review of systems is negative except for those stated above and HPI Patient History Medical History Ankle pain Asthma Depression with anxiety Headache (03/2019) Ovarian cyst (spontaneous vaginal delivery) Surgical History Anesthesia Stye [place] teeth removed Family History Father Prediabetes Hyperlipidemia Hypertension Mental health problem Stroke Seizure AA (alcohol abuse) Depression Mother Mental health problem Family estrangement Sister Mental health problem Bipolar 1 disorder Grandfather Knee problem Grandmother Hypertension Arthritis Grandmother Mental health problem Family/Other Depression AA (alcohol abuse) Anxiety Social History marital status: unmarried,single household members: significant other and other pets and animals: Yes (X2 rabbits, X 2 Guinea pigs and X 1 hamster) education level: college (some college) occupational status: unemployed current occupational exposures/hazards: No Previous occupational history: [employer] 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: [employer] special hayde needs: No Smoking Status: Never smoker second hand exposure: No (used to be growing: not currently) alcohol intake: never substance use type: does not use Smoking Status: Never smoker Substance Use Type: does not use Exam Initial Vital Signs Initial Vital Signs: Vital Signs Temperature 97 F L 02/22/20 02:54 Pulse Rate 55 L 02/22/20 02:54 Respiratory Rate 17 02/22/20 02:54 Blood Pressure 114/83 02/22/20 02:54 Pulse Oximetry 98 02/22/20 02:54 GENERAL: Appears in pain HEENT: Head atraumatic,EOMI, pupils reactive, face symmetric, moist mucous membranes CARDIOVASCULAR: Regular rate and rhythm without murmurs, rubs or gallops. RESPIRATORY: Breath sounds equal bilaterally, no wheezes rales or rhonchi. ABDOMEN: Soft, tender right upper quadrant pain no guarding EXTREMITIES: Normal range of motion, no clubbing or edema. Neurovascularly intact NEUROLOGICAL: Alert and oriented x4.Normal gait and speech. SKIN: Warm, dry, no laceration, no petechiae, no rashes or lesions. Course Orders Ordered: ED Orders 02/22/20 03:07 EKG-12 Lead Stat 02/22/20 03:25 Complete Blood Count AUTO DIFF Stat Comprehensive Metabolic Panel Stat Lipase Stat 02/22/20 04:35 COVID19 Stat Sodium Chloride (Normal Saline 0.9%) 1,000 mls @ 125 mls/hr IV CONT THEA Last Admin: 02/22/20 05:32 Dose: 125 mls/hr Documented by: RMCDFARHAT Ondansetron HCl (Ondansetron 4 Mg/2 Ml Inj) 4 mg IV Q4HR PRN PRN Reason: Nausea And Vomiting Discontinued Medications Hydromorphone HCl (Hydromorphone 0.5 Mg Inj) 0.5 mg IV NOW ONE Stop: 02/22/20 03:07 Last Admin: 02/22/20 03:31 Dose: 0.5 mg Documented by: JEAN-PIERRE Sodium Chloride (Normal Saline 0.9%) 1,000 mls @ 150 mls/hr IV CONT [facility] Last Admin: 02/22/20 03:30 Dose: 150 mls/hr Documented by: JEAN-PIERRE Piperacillin/Tazobactam/Dextrose (Zosyn) 3.375 gm in 50 mls @ 100 mls/hr IV NOW ONE Stop: 02/22/20 04:40 Last Admin: 02/22/20 04:24 Dose: 100 mls/hr Documented by: SOPHIA Ondansetron HCl (Ondansetron 4 Mg/2 Ml Inj) 4 mg IV NOW ONE Stop: 02/22/20 03:07 Last Admin: 02/22/20 03:30 Dose: 4 mg Documented by: JEAN-PIERRE Vital Signs Vital signs: Vital Signs - 8 hr 02/22/20 02:54 02/22/20 03:12 02/22/20 03:30 Temperature 97 F L Pulse Rate 55 L 57 L 57 L Respiratory Rate 17 21 26 H Blood Pressure 114/83 Pulse Oximetry 98 97 97 02/22/20 04:00 02/22/20 04:30 Temperature Pulse Rate 80 58 L Respiratory Rate 18 24 Blood Pressure Pulse Oximetry MDM - Abdominal Pain Lab Data Attestation: I reviewed the patient's lab results. Result diagrams: 02/22/20 03:25 02/22/20 03:25 Labs: Lab Results 02/22/20 02/22/20 02/22/20 Range/Units 03:25 03:25 04:35 WBC 12.0 H (4.5-11.0) X10^3/uL RBC 3.81 L (4.0-5.2) X10^6/uL Hgb 10.7 L (12.0-16.0) g/dL Hct 32.4 L (36-46) % MCV 85.3 (80-100) fL MCH 28.0 (26-34) PG MCHC 32.9 (30-36) % RDW 14.4 (11.6-14.8) % Plt Count 430 H (150-400) X10^3/uL Neut % (Auto) 68.2 (50-75) % Lymph % (Auto) 19.0 L (25-40) % Hardy % (Auto) 10.5 (3-14) % Eos % (Auto) 2.0 (2-4) % Baso % (Auto) 0.3 (0-2) % Neut # (Auto) 8200 H (2260-3814) /uL Lymph # (Auto) 2300 (3049-3840) /uL Hardy # (Auto) 1300 H (0-900) /uL Eos # (Auto) 200 (0-450) /uL Baso # (Auto) 0 (0-100) /uL Sodium 141 (137-145) mmol/L Potassium 3.8 (3.4-5.1) mmol/L Chloride 110 H (98-107) mmol/L Carbon Dioxide 24 (22-32) mmol/L BUN 12 (7-17) mg/dL Creatinine 0.74 (0.52-1.04) mg/dL Estimated GFR > 60.0 (>60) mL/min BUN/Creatinine Ratio 16.2 (6-22) Glucose 100 (70-100) mg/dL Calcium 8.7 (8.4-10.2) mg/dL Total Bilirubin 0.5 (0.2-1.3) mg/dL AST 56 H (14-36) IU/L ALT 26 (<35) IU/L Alkaline Phosphatase 193 H (38-126) U/L Total Protein 7.1 (6.3-8.2) g/dL Albumin 3.7 (3.5-5.0) g/dL Globulin 3.4 (1.7-4.1) g/dL Albumin/Globulin Ratio 1.1 (1.0-2.8) Lipase 54 (23-300) U/L COVID-19 PCR Negative (Negative) MDM Narrative Medical decision making narrative: Discussed case with Dr. Robles. She has known gallstones. The facility should have a cleaning device that is needed anticipate OR today. Patient now has leukocytosis of 12. Mildly elevated AST but normal biliary. Discharge Plan Departure Patient Disposition: Admitted as Observation Clinical Impression: Acute cholecystitis Admit Date/Time: 02/22/20 04:38 Admit Provider: Maninder Robles
[2020-02-22] MEDS: ONDANSETRON 4 MG/2 ML INJ IV ×2 (03:30→17:23)
[2020-02-22] MEDS: SODIUM CHLORIDE 0.9% 1,000 ML 150 ML IV (03:30)
[2020-02-22] MEDS: HYDROMORPHONE 0.5 MG INJ IV (03:31)
[2020-02-22 03:38] LABS: Add Manual Diff / Slide Review NO; Basophils Absolute Auto 0 /uL (0-100); Basophils Percent Auto 0.3 % (0-2); Eosinophils Absolute Auto 200 /uL (0-450); Hematocrit 32.4 % (36-46); Hemoglobin 10.7 g/dL (12.0-16.0); Lymphocytes Absolute Auto 2300 /uL (1100-4500); Mean Corpuscular HGB Conc 32.9 % (30-36); Mean Corpuscular Volume 85.3 fL (80-100); Monocytes Absolute Auto 1300 /uL (0-900); Monocytes Percent Auto 10.5 % (3-14); Neutrophils Absolute Auto 8200 /uL (1500-7000); Neutrophils Percent Auto 68.2 % (50-75); Platelet Count 430 X10^3/uL (150-400); Red Blood Cell Count 3.81 X10^6/uL (4.0-5.2); Red Cell Distribution Width 14.4 % (11.6-14.8)
[2020-02-22 03:45] LABS: Alanine Aminotransferase 26 IU/L (<35); Albumin 3.7 g/dL (3.5-5.0); Albumin Globulin Ratio 1.1 (1.0-2.8); Alkaline Phosphatase 193 U/L (38-126); Aspartate Aminotransferase 56 IU/L (14-36); BUN Creatinine Ratio 16.2 (6-22); Bilirubin Total 0.5 mg/dL (0.2-1.3); Blood Urea Nitrogen 12 mg/dL (7-17); Calcium 8.7 mg/dL (8.4-10.2); Carbon Dioxide 24 mmol/L (22-32); Chloride 110 mmol/L (98-107); Estimated Glomerular Filt Rate > 60.0 mL/min (>60); Globulin 3.4 g/dL (1.7-4.1); Glucose 100 mg/dL (70-100); HEMOLYSIS < 15 (0-50); Lipase 54 U/L (23-300); Potassium 3.8 mmol/L (3.4-5.1); Sodium 141 mmol/L (137-145); Total Protein 7.1 g/dL (6.3-8.2)
[2020-02-22] MEDS: PIPERACILLIN-TAZO 3.375 GM/50 ML FROZ.PIGGY IV ×3 (04:24→15:35)
[2020-02-22 04:57] LABS: COVID19 -Nasal RAPID Negative (Negative)
[2020-02-22] MEDS: SODIUM CHLORIDE 0.9% 1,000 ML 125 ML IV (05:32)
--- NOTE | 2020-02-22 06:22 | PC.ADMIT ---
[email or web address] Admission Note: The patient, Summer Persaud, 19 y/o, was given written information regarding hospital policies, unit procedures and contact persons. Patient's smoking status: Never smoker. Pt arrived to room via gurney at 0530. Self transferred into bed. Fiance and son present in room. Admit complete. No c/o of pain at this time. Pt aware and understands NPO status. Vital Signs - 8 hr 02/22/20 02:54 02/22/20 03:12 02/22/20 03:30 Temperature 97 F L Pulse Rate 55 L 57 L 57 L Respiratory Rate 17 21 26 H Blood Pressure 114/83 Pulse Oximetry 98 97 97 02/22/20 04:00 02/22/20 04:30 02/22/20 05:00 Temperature Pulse Rate 80 58 L 60 Respiratory Rate 18 24 22 Blood Pressure Pulse Oximetry 02/22/20 05:13 02/22/20 05:45 Temperature 97.6 F 97.8 F Pulse Rate 58 L 52 L Respiratory Rate 20 16 Blood Pressure 107/71 118/64 Pulse Oximetry 97 97
--- NOTE | 2020-02-22 13:37 | CM.DANOTE ---
Patient is a 19 year old female who was Readmitted today 02/22/20 for Gall Bladder Pain. Pt has [facility] [facility] and [employer] for insurance and her PCP is ARSALAN Mckinney. EMR was reviewed. Per MD, pt day 7 with increased pain for cholecystitis and scheduled for surgery today at 1515. Pt was a readmit from admission two days ago on 02/20/20 for same and some equipment failure and therefore pt unable to have surgery that day so plan was to d/c home with outpt surgery but pt developed increasing pain and therefore had to be admitted today for surgical intervention. Met briefly with patient in her room and has sig other and 7 day old baby rooming in as pt is attempting to breast feed. Patient is employed at [employer] in [place] and has supportive local family. Patient is independent at baseline. Patient hopeful to d/c home after surgery if stable and not anticipating any SW needs. Pt seems appropriate and bonding with baby and S.O. Plan: SW to follow closely after surgery today towards determining if pt remains safe for d/c home with baby and Sig Other and any further identified discharge planning needs. MARIA LUISA Huff Discharge Planning/Care Management CM Discharge Assessment Start: 02/22/20 13:35 Freq: Status: Active Protocol: Document 02/22/20 13:35 BF (Rec: 02/22/20 13:36 BF [email or web address]) Discharge Planning Assessment Assigned Child Study Team Director MARIA LUISA Johnson DPOA/Assigned Designee Name none Advance Directives? No Advance Directives on File No History Provided By Patient,Medical Record Has Patient been admitted in last 30 No days? Prior Living Arrangements House Household Members significant other,other Type of transporation used prior to Drives own vehicle admit Independent with ADL's Yes Is patient alert and oriented? Yes Caregiver for Another Yes: week old baby Barriers to Discharge No Discharge Plan Home Transportation Arrangement Sig Other Eulalio Referrals Initiated None needed Review Status In Process Please Provide Date Initial DC 02/22/20 Assessment Was Performed Next Review Type Continued Stay Review
--- NOTE | 2020-02-22 14:26 | PM.HP.1 ---
History of Present Illness History of Present Illness Date Patient Seen: 02/22/20 Time Patient Seen: 14:27 Chief complaint: gall bladder pain Narrative: 19-year-old female who is 1 week readmitted to the hospital for gallbladder issues. She was here a couple of days ago for uncontrolled abdominal pain secondary to biliary colic. She was unable to have a laparoscopic cholecystectomy at that time because there were instrumentation issues in the operating room and she was subsequently discharged with a plan the operate on her electively within a few days. She re-presented to the emergency room last night with recurring abdominal pain this time with mild leukocytosis of 12, LFTs are normal. An ultrasound was not performed at this time but she has pain again in the right upper quadrant. Patient History Medical History Ankle pain Asthma Depression with anxiety Headache (03/2019) Ovarian cyst (spontaneous vaginal delivery) Surgical History Anesthesia Stye [place] teeth removed Family & Social History Family History Father Prediabetes Hyperlipidemia Hypertension Mental health problem Stroke Seizure AA (alcohol abuse) Depression Mother Mental health problem Family estrangement Sister Mental health problem Bipolar 1 disorder Grandfather Knee problem Grandmother Hypertension Arthritis Grandmother Mental health problem Family/Other Depression AA (alcohol abuse) Anxiety Social History: household members significant other,other Prior Living Arrangements House Safety & Behavioral: Feels Safe in Current Yes Environment Been Physically Hurt or No Threatened By a Person Suicidal Ideation Description None Tobacco & Substance use: Smoking Status Never smoker alcohol intake never Substance Use Type does not use Meds Home Medications and Allergies Home Medications Medication Instructions Recorded Confirmed Type acetaminophen 650 mg PO Q6HR PRN #30 tab 02/15/20 02/22/20 Rx ferrous sulfate 325 mg PO DAILY #30 tab 02/15/20 02/22/20 Rx oxycodone 5 mg PO Q6H PRN #10 tab 02/20/20 02/22/20 Rx Allergies Allergy/AdvReac Type Severity Reaction Status Date / Time No Known Drug Allergies Allergy Verified 11/23/19 18:28 Review of Systems Review of Systems Narrative: A 10 point review of systems is negative except as noted in the HPI Exam Vital Signs (past 8 hours): - 02/22/20 07:39 02/22/20 08:00 02/22/20 08:35 Temperature 97.8 F 97.8 F Pulse Rate 60 60 Respiratory Rate 14 14 Blood Pressure 132/64 132/64 Pulse Oximetry 97 97 97 02/22/20 12:00 Temperature 98.2 F Pulse Rate 43 L Respiratory Rate 14 Blood Pressure 100/49 L Pulse Oximetry 98 Oxygen Delivery Method Room Air Oxygen Flow Rate 0 Narrative Exam Narrative: General-no acute distress, well nourished adult female HEENT-moist mucous membranes, no scleral icterus Neck-supple, no lymphadenopathy Chest- non labored respirations, clear to auscultation bilaterally Cardiac-regular rate no peripheral edema Abdomen-soft, nontender, non distended Extremities-warm, well perfused Neurological-alert and oriented, no focal deficits Objective Labs Result Diagrams: 02/22/20 03:25 02/22/20 03:25 Labs: Laboratory Results - last 24 hr 02/22/20 02/22/20 02/22/20 03:25 03:25 04:35 WBC 12.0 H RBC 3.81 L Hgb 10.7 L Hct 32.4 L MCV 85.3 MCH 28.0 MCHC 32.9 RDW 14.4 Plt Count 430 H Neut % (Auto) 68.2 Lymph % (Auto) 19.0 L [place] % (Auto) 10.5 Eos % (Auto) 2.0 Baso % (Auto) 0.3 Neut # (Auto) 8200 H Lymph # (Auto) 2300 [place] # (Auto) 1300 H Eos # (Auto) 200 Baso # (Auto) 0 Sodium 141 Potassium 3.8 Chloride 110 H Carbon Dioxide 24 BUN 12 Creatinine 0.74 Estimated GFR > 60.0 BUN/Creatinine Ratio 16.2 Glucose 100 Calcium 8.7 Total Bilirubin 0.5 AST 56 H ALT 26 Alkaline Phosphatase 193 H Total Protein 7.1 Albumin 3.7 Globulin 3.4 Albumin/Globulin Ratio 1.1 Lipase 54 COVID-19 PCR Negative Assessment & Plan Assessment & Plan narrative: 19-year-old female 1 week admitted hospital with acute cholecystitis. I recommended that we proceed with laparoscopic cholecystectomy technical details were discussed. Operative risks including bleeding infection damage to surrounding structures conversion to open were discussed. Her questions have been answered she is in agreement with this plan -NPO IV fluids -Zosyn -laparoscopic cholecystectomy this afternoon -SCDs -anticipate discharge home this evening Quality VTE Deep Vein Thrombosis/Pulmonary Embolism Present on Admission: No
--- NOTE | 2020-02-22 16:04 | SUR.OPER ---
Supine on padded OR bed, head on pillow, right arm secured on padded arm boards at <90 degrees abduction, left arm is padded and tucked in, legs uncrossed, safety belt at thigh, tape over blanket over lower legs.
[2020-02-22] MEDS: BUPIVACAINE 0.25% (PF) VIAL 30 ML INJ (16:14)
[2020-02-22] MEDS: ALBUTEROL 2.5 MG/3 ML NEB (ADULT) INH (17:29)
[2020-02-22] MEDS: fentaNYL 100 MCG/2 ML INJ IV (17:35)
--- NOTE | 2020-02-22 17:45 | PM.OP.1 ---
Operative Date/Time/Diagnoses Date of procedure: 02/22/20 Time of procedure: 17:45 Pre-op diagnosis: acute cholecystitis Post-op diagnosis: same Procedure & Clinicians Procedure: laparoscopic cholecystectomy Same procedure as scheduled: Yes Indications: 19F 1 week post with acute cholecystitis here for laparoscopic cholecystectomy Surgeon: Maninder Robles Anesthesia Type: General Operative Notes Findings: Tense distended gallbladder consistent with acute cholecystitis Specimen(s): other (gallbladder) Estimated Blood Loss (mL): 50 Procedure in detail: The patient was placed supine on the table and bilateral lower extremity compression devices were applied. Anesthesia was induced they were intubated with an endotracheal tube and received Zosyn prior to incision. A time-out was performed. They were prepped and draped in sterile fashion. An infraumbilical incision was made, the umbilical stalk was elevated and the fascia was sharply incised entering the abdomen atraumatically. A blunt tip 12mm balloon trocar was then inserted, pneumoperitoneum was established and inspection of the abdomen demonstrated no evidence of injury. They were placed head up and right side up and then a 11 mm port was placed high in the epigastrium and two 5mm in the right upper quadrant. The gallbladder was very distended and acutely inflamed so it was drained percutaneously. The gallbladder was grasped by the fundus and retracted over the liver and retracted laterally by the infundibulum. Using electrocautery the lateral plane between the gallbladder and the liver was opened towards the fundus. The gallbladder was then retracted laterally and the medial plane was developed in the same manner. With the gallbladder mobilized the bottom of the cystic plate was visualized. The hepatocystic triangle was meticulosly skeletonized using hook electrocautery of all fat and fibrous tissue from both the front and the back. Only two structures were then clearly seen entering the gallbladder the cystic duct and the cystic artery. With the critical view of safety fully established the cystic duct was clipped twice proximally and once distally using the 10 mm hemoclip applied under direct visualization and then sharply divided. The cystic artery was divided in the same fashion. The gallbladder was removed from the liver bed using electro cautery. The liver bed was then inspected for hemostasis and this was achieved. The abdomen was irrigated with sterile saline and inspection was made that showed the clips in good position. The specimen was removed using Endo-Catch. The abdomen was desufflated. The umbilical fascia was closed with 0 Vicryl in a [id number] fashion under direct visualization. Skin incisions were irrigated and closed with 4-0 Monocryl. 30 ml of 0.25% bupivacaine was infiltrated into the subcutaneous tissue of the incisions. The wounds were sealed with Dermabond. Patient emerged from anesthesia was extubated and transferred to recovery in stable condition. The sponge and instrument count at the end of the operation was correct. Complications: none Post-operative Condition: stable Disposition: Acute Care
[2020-02-22] MEDS: OXYCODONE/ACETAMINOPHEN 5/325 TABLET 1 TAB PO (18:05)
--- NOTE | 2020-02-22 18:21 | SUR.PHASEI ---
Pt transferred to room 220 in stable condition with no c/o. Handoff to Nikhil Helms in room
[2020-02-22] MEDS: MELATONIN 3 MG TABLET 6 MG PO (20:17)
[2020-02-22] MEDS: ACETAMINOPHEN 325 MG TABLET 650 MG PO (20:18)
[2020-02-22] MEDS: KETOROLAC 30 MG/ML VIAL IV (20:18)
[2020-02-23] MEDS: ACETAMINOPHEN 325 MG TABLET 650 MG PO ×2 (00:08→06:12)
[2020-02-23] MEDS: SODIUM CHLORIDE 0.9% 1,000 ML 125 ML IV (00:09)
[2020-02-23 00:35] VITALS: O2SAT 98
[2020-02-23 00:45] VITALS: BP 121/70; PULSE 50; RESP 16; TEMP 37.2; O2SAT 98
[2020-02-23 04:00] VITALS: O2SAT 95
--- NOTE | 2020-02-23 04:20 | PC.NURSE ---
Pt inquired about time necessary to keep pumping and dumping her breast milk. While this RN was on the phone w/pharmacy to discuss this timeline, the pt nursed her baby. Pharmacy noted that 24 hours should pass after taking Toradol before resuming nursing. Upon informing pt of this info, she began to cry and said she had just nursed her son because he seemed very hungry and she, couldn't get any help. By chance, one of the family nurses was in the hallway, after consulting with her, and going over the pt's MAR, it was determined that this pt should be okay to begin nursing again immediately. Pt was very relived.
[2020-02-23 04:40] VITALS: BP 126/78; PULSE 92; RESP 18; TEMP 36.9; O2SAT 99
[2020-02-23] MEDS: FERROUS SULFATE 325 MG TABLET PO (08:10)
--- NOTE | 2020-02-23 08:29 | PM.CN ---
History of Present Illness Consult details Chief complaint: gall bladder pain Meds Home Medications and Allergies Home Medications Medication Instructions Recorded Confirmed Type acetaminophen 650 mg PO Q6HR PRN #30 tab 02/15/20 02/22/20 Rx ferrous sulfate 325 mg PO DAILY #30 tab 02/15/20 02/22/20 Rx oxycodone 5 mg PO Q6H PRN #10 tab 02/20/20 02/22/20 Rx Allergies Allergy/AdvReac Type Severity Reaction Status Date / Time No Known Drug Allergies Allergy Verified 11/23/19 18:28 Exam Vital Signs (past 8 hours): - 02/23/20 00:35 02/23/20 00:45 02/23/20 04:00 Temperature 99.0 F Pulse Rate 50 L Respiratory Rate 16 Blood Pressure 121/70 Pulse Oximetry 98 98 95 02/23/20 04:40 Temperature 98.5 F Pulse Rate 92 H Respiratory Rate 18 Blood Pressure 126/78 Pulse Oximetry 99 Oxygen Delivery Method Room Air Oxygen Flow Rate 0 Objective Labs Result Diagrams: 02/22/20 03:25 02/22/20 03:25
--- NOTE | 2020-02-23 09:18 | CM.DPC ---
DCP: continued: case received, EMR reviewed, d/c to home order noted. Checked in with pt. She and her significant other Eulalio and their 9 day old baby boy are all preparing to go home this morning and pt reports she will be happy to be back at home. P: home this morning.
[2020-02-23 09:22] VITALS: BP 119/68; PULSE 73; RESP 14; TEMP 36.3; O2SAT 97
--- NOTE | 2020-02-23 10:49 | PC.NURSE ---
Patients 4 lap incision cdi with bandaides. She denies pain or discomfort now. [place] baby in room, mother is breasfeeding. There is a discharge order for her to go home.
--- NOTE | 2020-02-23 20:32 | PC.NURSE ---
Late Entry Note for 02/22/2020 This float RN relieved primary RN for lunch break. Per primary RN patient had discharge orders and patient had refused d/t pain and lack of sleep. Upon entering patients room, pt complaining of pain after one hour post medication administration. Patient expressing need to sleep along with pain relief and requesting PIV Dilaudid. Explained to patient that PIV Dilaudid had been discontinued and transitioned to PO medication to facilitate discharge. This RN told patient that she would contact Dr Robles for increased pain medication and a sleep aid. Orders received and implemented by this RN for IV Toradol and PO Melatonin. Primary RN updated and to follow-up upon return to floor.
--- NOTE | 2020-03-10 01:24 | PC.NURSE ---
Late entry: pt had Zosyn runnning and completed at 0500, NS running at discontinued when transferred to At 0530.
--- NOTE | 2020-05-04 08:59 | CM.SWNOTE ---
PORT PURSER Note Late Entry This PORT PURSER requested for consult to assess safety of plan for this 19 yo female, approx. 2 months , arrives to the ED w/her baby boy in tow concerned about possible symptoms of COVID-19. SEYMOUR Negrete reviews background, states this new mom, first baby, has h/o depression and anxiety, strong family h/o MH and RONALD, and has admitted today to ED provider Mirian Dunn to thoughts about hurting herself and her baby, states I would never do it explains she is able to come back when she thinks about living for her partner Zain and baby. Met w/patient yesterday in ED [id number], explained role. Patient admits I don't want my baby to be taken away. Patient was appropriate with her 2 month old baby , states she is breast feeding, baby sleeps throughout the day/night, has a good disposition but doesn't like to be set down for long. Patient responsive to baby's sounds and needs. Explained bonding w/baby can take time, feelings of intimacy typically increase over the period of 6 months as baby starts opening eyes, smiling, and making noises to interact w/mom. This PORT PURSER reassured patient that CPS referrals are not made because moms admit to feelings of anxiety and depression. This PORT PURSER educated patient that seeking the help that is required can make a difference in prevention of an abusive episode. Patient stated understanding. Background Obtained: Patient currently living w/her partner and baby in a trailer at [facility]. Zain working and patient is currently unemployed. Patient speaks with her Dad (lives in [place]) daily. Patient has a yazidi community she trusts and speaks w/her aunt and dad by phone often. Patient admits to one very scary day when I felt shameful patient thought about using her fiance's gun to kill herself but was able to calm herself with thoughts of living for her partner Zain and new baby boy. Patient denies current thoughts of self harm or harm to others. Patient denies auditory or visual hallucination and denies new or increased paranoid thoughts. This PORT PURSER very strongly encouraged patient to discuss locking up guns w/dheerajpriyanka MATEO, patient states understanding. Intervention and Plan: supported and reassured patient as we discussed the difference between normal feelings of anxiousness, exhaustion, moodiness and concerning feelings/thoughts that require immediate attention...persistent thoughts of self harm with plan and thoughts about hurting baby w/plan reviewed symptoms of PPD to include but not limited to feelings of sadness, feeling alone, difficulty finding sharda in daily activities, extreme mood swings, tearfulness and extreme/explosive anger. Strongly encouraged patient to seek counseling support and discuss medication management w/ Dr Mendoza 2 (emphasized short term med management d/t hesitancy re: meds) In addition, educated patient about BHIP through FMA/AFM, short term counseling, and patient expressed desire to pursue PORT PURSER Impression: Patient appeared to have good insight into her struggle w/ anxiety/depression, PPD, and was agreeable to seeking help by asking Dr Mendoza about antidepressant and BHIP (counseling). Appt scheduled 05.04.20 at 1130.Patient decided she would ask her Dad to visit from [place] to assist her and Zain. Patient denied current thoughts of SI/HI upon DC from the ED. Patient denied further needs from this PORT PURSER, states I feel better (talking). This PORT PURSER reiterates the importance of seeking help and to return to the ED w/any persistent or increased thoughts of hurting self or baby, patient stated understanding. ED provider and staff updated MARIA LUISA Simon
== END 2020-02-23 11:30 | disposition home or self-care (01) ==
LOC: ED 04:13 → AC 04:39
PROVIDERS: Admitting Provider Surgery; Emergency Provider Emergency Medicine; PCP Nurse Practitioner Family; Visit Provider Surgery
PROC: 0FT44ZZ Resection of Gallbladder, Percutaneous Endoscopic Approach (ICD-10-PCS; CPT 47562; principal; 2020-02-22 15:15)
DX: K80.00 Calculus of gallbladder with acute cholecystitis without obstruction (principal); R10.9 Unspecified abdominal pain; J45.909 Unspecified asthma, uncomplicated; F32.9 Major depressive disorder, single episode, unspecified; F41.9 Anxiety disorder, unspecified; Z11.59 Encounter for screening for other viral diseases
CPT/HCPCS: 47562; 36415; 80053; 83690; 85025; 87635; 93005; 93010; 96361; 96365; 96366; 96375; 96376; 99219; 99283; 99284; G0378; J1100; J1170; J1885; J2405; J2543; J2704; J3010; J7613

== ENCOUNTER 2020-05-03 11:48 | Emergency (ER) | payer OTHER, MEDICAID, SELFPAY ==
[2020-02-22 05:09] VITALS: BMI 19.8
[2020-05-03 12:38] VITALS: BMI 19.3
--- NOTE | 2020-05-03 12:59 | ED.RECABL ---
HPI - Recheck/Abnormal Lab/Rx <SONYA Aleman - Last Filed: 05/03/20 15:58> General Chief Complaint: Recheck/Abnormal Lab/Rx Stated Complaint: covid concerns Time Seen by Provider: 05/03/20 12:58 Source: patient Mode of arrival: Ambulatory Limitations: no limitations History of Present Illness HPI narrative: The patient is a 19-year-old female nonsmoker with history of asthma who presents with a chief complaint of a cough for 2 days after being exposed to another person who she is concerned about coronavirus. She is 2-3 months . She denies any fevers muscle aches or chills. She has a history of asthma, has not used inhaler. She states that the cough is very slight. Does not produce anything. Upon further interview, the patient also notes that she has had an increasingly difficult time during her base. She has some thoughts about hurting herself, though states that she would never do it. She has thoughts about throwing her baby against the wall, though states she would never do that as well. She states that she feels like her depression and anxiety are worse, has never been on medications and her fiance does not want her to be on any medications. Related Data Previous Rx's Medication Instructions Recorded acetaminophen 650 mg PO Q6HR PRN #30 tab 02/15/20 ferrous sulfate 325 mg PO DAILY #30 tab 02/15/20 oxycodone 5 mg PO Q6H PRN #10 tab 02/20/20 Allergies Allergy/AdvReac Type Severity Reaction Status Date / Time No Known Drug Allergies Allergy Verified 11/23/19 18:28 Review of Systems <SONYA Aleman - Last Filed: 05/03/20 15:58> Review of Systems Narrative: GENERAL: Denies chills, fatigue, malaise, fever, sweats. HEENT: Denies sinus pain, ear pain, sore throat, difficulty swallowing, dizziness. RESPIRATORY: See HPI CARDIOVASCULAR: Denies chest pain, palpitations, orthopnea, edema, GASTROINTESTINAL: Denies nausea, vomiting, abdominal pain, diarrhea, constipation, melena. : Denies dysuria, frequency, incontinence, hematuria, urinary retention. MUSCULOSKELETAL: denies weakness, joint pain, or bony pain SKIN: Denies rash, skin lesions, or other NEUROLOGIC: Denies weakness, headache, numbness, change in speech, confusion, seizures, incoordination. PSYCHIATRIC: See HPI 12 point review of systems is negative except for those stated above Patient History <SONYA Aleman - Last Filed: 05/03/20 15:58> Medical History (Updated 05/03/20 @ 15:10 by SONYA Aleman) Ankle pain Asthma Depression with anxiety Headache (03/2019) Ovarian cyst (spontaneous vaginal delivery) Surgical History (Updated 02/24/20 @ 09:42 by Maria Eugenia Miller RN) Anesthesia Hx laparoscopic cholecystectomy Stye [place] teeth removed Family History Father Prediabetes Hyperlipidemia Hypertension Mental health problem Stroke Seizure AA (alcohol abuse) Depression Mother Mental health problem Family estrangement Sister Mental health problem Bipolar 1 disorder Grandfather Knee problem Grandmother Hypertension Arthritis Grandmother Mental health problem Family/Other Depression AA (alcohol abuse) Anxiety Social History marital status: unmarried,single household members: significant other, children and other pets and animals: Yes (X2 rabbits, X 2 Guinea pigs and X 1 hamster) education level: college (some college) occupational status: unemployed current occupational exposures/hazards: No Previous occupational history: [employer] 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 Normocephalic. No temporal or scalp tenderness. EYES: Pupils equal round and reactive. Extraocular motions intact. No scleral icterus. No injection or drainage. ENT: Nose without bleeding, purulent drainage or septal hematoma. Wearing a mask. Airway patent. NECK: Trachea midline. No JVD or lymphadenopathy. Supple, nontender, no meningeal signs. CARDIOVASCULAR: Regular rate and rhythm RESPIRATORY: Clear to auscultation. Breath sounds equal bilaterally. No wheezes, rales, or rhonchi. No cough. No increased respiratory effort. No accessory muscle use. GASTROINTESTINAL: Abdomen soft, non-tender, nondistended. No hepato-splenomegaly, or palpable masses. No guarding. EXTREMITIES: No clubbing, cyanosis, or edema. No joint tenderness, effusion, or edema noted. BACK: Nontender without deformity or crepitance. No flank tenderness. NEURO: AOx3. SKIN: No rash or erythema. Scores <SONYA Aleman - Last Filed: 05/03/20 15:58> GCS Maddy coma scale eye opening: Spontaneous Maddy coma scale verbal response: Orientated Stewart coma scale motor response: Obey commands Maddy coma scale total score: 15 Course <SONYA Aleman - Last Filed: 05/03/20 15:58> Orders Ordered: ED Orders 05/03/20 12:40 COVID19 Stat 05/03/20 12:59 Consult to [facility] Shank Boner Stat <Al Beltran DO - Last Filed: 05/03/20 16:27> Orders Ordered: ED Orders 05/03/20 12:40 COVID19 Stat 05/03/20 12:59 Consult to [facility] Shank Boner Stat MDM - Recheck/Abnormal Lab/Rx <ARABELLA Aleman - Last Filed: 05/03/20 15:58> Lab Data Labs: Lab Results 05/03/20 Range/Units 12:40 SARS-CoV-2 (PCR) Negative (Negative) MDM Narrative Medical decision making narrative: The patient is a 19-year-old female who presents with a chief complaint of the possibility of being exposed to coronavirus. She has a dry cough, no signs of systemic illness. She does test negative today, though I discussed with her that since her possible exposure was only 2 days ago, she needs to monitor for further symptoms as she may test negative this early in her process. Also noted were her complaints of not feeling well during her phase with multiple thoughts of hurting herself. However she seems to have good insight, and states understanding that this is not normal. She denies any current thoughts of hurting herself or anybody else. She spent a great deal of time with Vero elmer FIELD BROOMER, who states she is okay to be discharged. We are able to obtain an appointment with Dr. Mendoza for 11 30 tomorrow morning. Patient was instructed to come back to the emergency department for any acute concerns including thoughts of hurting herself or anybody else. However I did discuss with her that these feelings are concerning and can indicate depression. Discussed and encouraged follow-up. Patient has no questions or concerns upon discharge and states understanding of return precautions as well as follow-up care. <Al Beltran DO - Last Filed: 05/03/20 16:27> Lab Data Labs: Lab Results 05/03/20 Range/Units 12:40 SARS-CoV-2 (PCR) Negative (Negative) Discharge Plan Departure Patient Disposition: Home Clinical Impression: Depression, , Cough Instructions: DI for Cough -- Adult, DI for Depression, COVID-19: Protecting Yourself When You're at High Risk, Can COVID-19 be prevented? Activity Restrictions/Additional Instructions: Thank you for trusting us with your care today. As discussed, your coronavirus test resulted negative. Please be aware that your test can be negative early in the disease process, and then you can test positive. Please continue to wear your mass cover your cough etcetera. Please go to your appointment with Dr. Mendoza tomorrow at 11:30 a.m.. Please come back to the emergency department for any acute concerns such as thoughts of hurting herself or anybody else. Prescriptions: No Action oxycodone 5 mg tablet 5 mg PO Q6H PRN (Reason: pain) Qty: 10 RF: 0 acetaminophen 325 mg Tablet 650 mg PO Q6HR PRN (Reason: Pain, Mild (1-3)) Qty: 30 RF: 0 ferrous sulfate 325 mg (65 mg iron) Tablet 325 mg PO DAILY Qty: 30 RF: 0 Referrals: Arie Mckinney ARNP [Primary Care Provider] - Cristy Mendoza MD [Physician] - <Al Beltran DO - Last Filed: 05/03/20 16:27> Cosign ED Attending Cosignature Attestation: Dr Beltran Co-Sign Statement: I was available for consultation during this patient's emergency department visit. This chart is signed by myself for administrative purposes only. I did not have direct contact with this patient during this visit. They were seen independently by the APC.
[2020-05-03 13:01] LABS: COVID19 -Nasal RAPID Negative (Negative)
--- NOTE | 2020-05-03 13:04 | PC.NURSE ---
late entry, in triage patient denies current thoughts of si however she reports she has had thoughts in the past. when asked to clarify patient said she had an episode about a week or two ago where she planned to get her husbands handgun and blow my brains out infront of him and my child. Provider and nurse aware and acknowledged information. SPANNER OPERATOR consult ordered
== END 2020-05-03 15:35 | disposition home or self-care (01) ==
PROVIDERS: Emergency Medicine; Emergency Provider Nurse Practitioner Family; PCP Nurse Practitioner Family
DX: O99.345 Other mental disorders complicating the puerperium (principal); F53.0 Postpartum depression; R05 Cough; Z20.822 Contact with and (suspected) exposure to COVID-19
CPT/HCPCS: 87635; 99281; 99282; C9803

== ENCOUNTER 2020-08-30 13:53 | Emergency (ER) | payer OTHER, MEDICAID, SELFPAY ==
[2020-02-22 05:09] VITALS: BMI 19.8
[2020-08-30] VITALS (12 sets, daily range): BP systolic 92–113; BP diastolic 64–78; PULSE 62–110; RESP 14–21; TEMP 35.9; O2SAT 99–100; BMI 20.5
[2020-08-30] MEDS: ONDANSETRON 4 MG/2 ML INJ IV ×2 (14:06→15:10)
--- NOTE | 2020-08-30 14:07 | ED.HA ---
HPI - Headache General Chief Complaint: Headache Stated Complaint: MIGRAINE VOMITING STOMACH PROBLEMS Time Seen by Provider: 08/30/20 13:56 Source: patient Mode of arrival: Ambulatory Limitations: no limitations History of Present Illness HPI Narrative: Patient is a 20-year-old female who is here for approximately 6 hours of abdominal discomfort and headache. States the symptoms started this morning. Has been vomiting multiple times which does seem to help her discomfort somewhat but then the nausea and vomiting return causing her to have worsening abdominal pain. She has also had diarrhea. When she has a bowel movement her abdominal discomfort also improves. No fevers. She did have a headache but at the time of my evaluation she states that has actually improved and now it is really her abdomen that is causing her discomfort. No vaginal bleeding. She has had her gallbladder out. Related Data Previous Rx's Medication Instructions Recorded sertraline 50 mg tablet 50 mg PO DAILY #30 tab 07/15/20 ondansetron 4 mg PO Q6H PRN #10 tab 08/30/20 Allergies Allergy/AdvReac Type Severity Reaction Status Date / Time No Known Drug Allergies Allergy Verified 08/30/20 13:59 Review of Systems Constitutional Constitutional: Reports fatigue, Denies fever(s) and Reports headache(s) ENT Ears, Nose, Mouth, and Throat: Reports headache(s) Cardiovascular Cardiovascular: Denies chest pain and Denies dyspnea Respiratory Respiratory: Denies dyspnea Gastrointestinal Gastrointestinal: Reports abdominal pain, Reports diarrhea, Reports nausea and Reports vomiting Genitourinary Genitourinary: Denies dysuria Genitourinary: Denies abnormal vaginal bleeding and Denies dysuria Musculoskeletal Musculoskeletal: Denies myalgias Integumentary/Breasts Skin/Breast: Reports system reviewed and no additional complaints, except as documented Neurologic Neurologic: Reports system reviewed and no additional complaints, except as documented and Reports headache(s) Endocrine Endocrine: Reports fatigue Hematologic/Lymphatic On Anticoagulants: No Allergic/Immunologic Allergic/Immunologic: Reports system reviewed and no additional complaints, except as documented Patient History Medical History Acute cholecystitis Ankle pain Asthma Depression with anxiety Ovarian cyst (spontaneous vaginal delivery) Surgical History (Updated 02/24/20 @ 09:42 by Maria Eugenia Miller RN) Anesthesia Hx laparoscopic cholecystectomy Stye Orgas teeth removed Family History Father Prediabetes Hyperlipidemia Hypertension Mental health problem Stroke Seizure AA (alcohol abuse) Depression Mother Mental health problem Family estrangement Sister Mental health problem Bipolar 1 disorder Grandfather Knee problem Grandmother Hypertension Arthritis Grandmother Mental health problem Family/Other Depression AA (alcohol abuse) Anxiety Social History marital status: unmarried,single household members: significant other, children and other pets and animals: Yes (X2 rabbits, X 2 Guinea pigs and X 1 hamster) education level: college (some college) occupational status: unemployed current occupational exposures/hazards: No Previous occupational history: [employer] 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 : 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/synagogue: Yazidi special hayde needs: No Smoking Status: Never smoker second hand exposure: No (used to be growing: not currently) alcohol intake: never substance use type: does not use Smoking Status: Never smoker alcohol intake frequency: holidays/special occasions only Substance Use Type: does not use Exam Initial Vital Signs Initial Vital Signs: Vital Signs Temperature 96.7 F L 08/30/20 13:54 Pulse Rate 92 H 08/30/20 13:54 Respiratory Rate 14 08/30/20 13:54 Blood Pressure 112/78 08/30/20 13:54 Pulse Oximetry 99 08/30/20 13:54 Const General: cooperative and comfortable Limitations: mental status not altered HENMT Head: normal to inspection and normocephalic Ears: hearing grossly normal bilaterally Resp Effort & Inspection: normal respiratory effort Auscultation: clear to auscultation bilaterally Cardio Rate: regular rate Rhythm: regular rhythm GI Inspection: non-distended Palpation: soft and tender (Diffuse) Skin Lesions: no lesions Rashes: no rashes Neuro General: patient alert, patient awake and patient oriented x3 Cognition: normal cognition Speech: speech normal Extrem General: capillary refill normal Psych Appearance: grossly normal and well kempt Course Orders Ordered: ED Orders 08/30/20 14:00 EKG-12 Lead Stat 08/30/20 14:04 Complete Blood Count AUTO DIFF Stat Comprehensive Metabolic Panel Stat Lipase Stat Partial Thromboplastin Time Stat Test Serum,Qual Stat Prothrombin Time INR Stat 08/30/20 14:45 CT abdomen pelvis w con Stat Discontinued Medications Sodium Chloride (Normal Saline 0.9%) 1,000 mls @ 1,000 mls/hr IV BOLUS ONE Stop: 08/30/20 15:11 Last Infusion: 08/30/20 15:37 Dose: 0 mls/hr Documented by: Admin: 08/30/20 14:31 Dose: 1,000 mls/hr Documented by: ORAL Ondansetron HCl (Ondansetron 4 Mg/2 Ml Inj) 4 mg IV NOW ONE Stop: 08/30/20 14:01 Last Admin: 08/30/20 14:06 Dose: 4 mg Documented by: BOLIVAR Ondansetron HCl (Ondansetron 4 Mg/2 Ml Inj) 4 mg IV NOW ONE Stop: 08/30/20 15:03 Last Admin: 08/30/20 15:10 Dose: 4 mg Documented by: ORAL Vital Signs Vital signs: Vital Signs - 8 hr 08/30/20 13:54 08/30/20 13:57 08/30/20 13:58 Temperature 96.7 F L Pulse Rate 92 H 94 H 94 H Respiratory Rate 14 Blood Pressure 112/78 112/78 Pulse Oximetry 99 99 100 08/30/20 14:00 08/30/20 14:33 08/30/20 14:37 Temperature Pulse Rate 94 H 62 71 Respiratory Rate 16 17 19 Blood Pressure 113/71 97/64 Pulse Oximetry 100 100 100 08/30/20 15:08 08/30/20 15:09 08/30/20 15:30 Temperature Pulse Rate 110 H 109 H 86 Respiratory Rate 21 20 17 Blood Pressure 92/65 113/68 Pulse Oximetry 100 100 100 08/30/20 16:00 Temperature Pulse Rate 85 Respiratory Rate 18 Blood Pressure Pulse Oximetry 100 MDM - Headache Lab Data Attestation: I reviewed the patient's lab results. Result diagrams: 08/30/20 14:04 08/30/20 14:04 Labs: Lab Results 08/30/20 08/30/20 08/30/20 Range/Units 14:04 14:04 14:04 WBC 9.5 (4.5-11.0) X10^3/uL RBC 4.40 (4.0-5.2) X10^6/uL Hgb 12.6 (12.0-16.0) g/dL Hct 38.1 (36-46) % MCV 86.6 (80-100) fL MCH 28.6 (26-34) PG MCHC 33.0 (30-36) % RDW 14.7 (11.6-14.8) % Plt Count 267 (150-400) X10^3/uL Neut % (Auto) 76.4 H (50-75) % Lymph % (Auto) 17.7 L (25-40) % [place] % (Auto) 5.6 (3-14) % Eos % (Auto) 0.1 L (2-4) % Baso % (Auto) 0.2 (0-2) % Neut # (Auto) 7300 H (6125-0246) /uL Lymph # (Auto) 1700 (7210-9982) /uL [place] # (Auto) 500 (0-900) /uL Eos # (Auto) 0 (0-450) /uL Baso # (Auto) 0 (0-100) /uL PT 12.0 (10.1-12.7) SECONDS INR 1.1 (0.9-1.3) APTT 30 (26.4-36.2) SECONDS Sodium 139 (137-145) mmol/L Potassium 3.9 (3.4-5.1) mmol/L Chloride 108 H (98-107) mmol/L Carbon Dioxide 21 L (22-32) mmol/L BUN 10 (7-17) mg/dL Creatinine 0.59 (0.52-1.04) mg/dL Estimated GFR > 60.0 (>60) mL/min BUN/Creatinine Ratio 16.9 (6-22) Glucose 129 H (70-100) mg/dL Calcium 9.1 (8.4-10.2) mg/dL Total Bilirubin 0.4 (0.2-1.3) mg/dL AST 24 (14-36) IU/L ALT 18 (<35) IU/L Alkaline Phosphatase 81 (38-126) U/L Total Protein 7.7 (6.3-8.2) g/dL Albumin 4.6 (3.5-5.0) g/dL Globulin 3.1 (1.7-4.1) g/dL Albumin/Globulin Ratio 1.5 (1.0-2.8) Lipase 38 (23-300) U/L Serum , Qual (Negative) 08/30/20 Range/Units 14:04 WBC (4.5-11.0) X10^3/uL RBC (4.0-5.2) X10^6/uL Hgb (12.0-16.0) g/dL Hct (36-46) % MCV (80-100) fL MCH (26-34) PG MCHC (30-36) % RDW (11.6-14.8) % Plt Count (150-400) X10^3/uL Neut % (Auto) (50-75) % Lymph % (Auto) (25-40) % [place] % (Auto) (3-14) % Eos % (Auto) (2-4) % Baso % (Auto) (0-2) % Neut # (Auto) (3944-7377) /uL Lymph # (Auto) (9480-7094) /uL [place] # (Auto) (0-900) /uL Eos # (Auto) (0-450) /uL Baso # (Auto) (0-100) /uL PT (10.1-12.7) SECONDS INR (0.9-1.3) APTT (26.4-36.2) SECONDS Sodium (137-145) mmol/L Potassium (3.4-5.1) mmol/L Chloride (98-107) mmol/L Carbon Dioxide (22-32) mmol/L BUN (7-17) mg/dL Creatinine (0.52-1.04) mg/dL Estimated GFR (>60) mL/min BUN/Creatinine Ratio (6-22) Glucose (70-100) mg/dL Calcium (8.4-10.2) mg/dL Total Bilirubin (0.2-1.3) mg/dL AST (14-36) IU/L ALT (<35) IU/L Alkaline Phosphatase (38-126) U/L Total Protein (6.3-8.2) g/dL Albumin (3.5-5.0) g/dL Globulin (1.7-4.1) g/dL Albumin/Globulin Ratio (1.0-2.8) Lipase (23-300) U/L Serum , Qual Negative (Negative) Urine Dip Bedside Urine Glucose Negative Bedside Urine Bilirubin - Negative Bedside Urine Ketone - Negative Urine Specific [place] 1.030 Bedside Urine Occult Blood - Negative Bedside Urine pH 6 Bedside Urine Protein +/- 15 Bedside Urine Urobilinogen - Negative Bedside Urine Nitrite - Negative Bedside Urine Leukocytes - Negative Esterase Imaging Data CT scan - abdomen/pelvis: Radiologist's Impression: [address] [id number] Scan ReportSigned Patient: Summer Persaud BMR#: [id number]: [id number]:[id number]/Sex: 20 / FDate of Service: 08/30/20Loc: EDAccession Number: [id number] Procedure: CT abdomen pelvis w con Ordering Provider: Al Beltran D.O. PROCEDURE: CT ABDOMEN PELVIS W CON INDICATIONS: R sided abd pain TECHNIQUE: After the administration of intravenous contrast, 5 mm thick sections acquired from the diaphragm to the symphysis. 5 mm coronal and sagittal reformats were acquired. For radiation dose reduction, the following was used: automated exposure control, adjustment of mA and/or kV according to patient size. COMPARISON: [facility], , ABDOMEN LIMITED, 02/20/2020, 1:27. FINDINGS: Image quality: Excellent. ABDOMEN: Lung bases: Lung bases are clear. Heart size is normal. Solid organs: Liver is normal in size and enhancement. Gallbladder is surgically absent. There is mild prominence of the biliary tree post cholecystectomy. Pancreas enhances normally. Spleen is normal in size and enhancement. No adrenal nodules. Kidneys demonstrate normal size and enhancement, without hydronephrosis. Peritoneum and bowel: Bowel loops demonstrate normal wall thickness and caliber. No free fluid or air. A normal appendix is identified. There is mild pelvic ascites, slightly greater than physiologic. Nodes and vessels: No retroperitoneal or mesenteric adenopathy by size criteria. Aorta and inferior vena cava are normal in size. Miscellaneous: No ventral hernias. PELVIS: Genitourinary: Bladder wall thickness is normal. Miscellaneous: No inguinal hernias or adenopathy. Bones: No suspicious bony lesions. No vertebral body compression fractures. IMPRESSION: 1. Interval cholecystectomy. 2. Normal appendix. No evidence of acute appendicitis. 3. Mild pelvic ascites, slightly greater than physiologic. Dictated by: Bud Cuba M.D. on 08/30/2020 at 15:15 Approved by: Bud Cuba M.D. on 08/30/2020 at 15:19 ECG Data Attestation: I personally reviewed and interpreted this ECG as follows: Prior ECG tracings: not available for review Interpretation: Sinus rhythm Ventricular rate is 66 Normal axis Normal QRS Normal QTC Incomplete right bundle-branch block No ST T wave changes MDM Narrative Medical decision making narrative: Patient appears much better and feels much better after the 2 doses of Zofran and fluids. Her labs are unremarkable. CT scans unremarkable. I have low suspicion that she was having a migraine/subarachnoid hemorrhage. I suspect her headache is related to the other issues that her currently going on which is the vomiting and abdominal discomfort and diarrhea of and probably a degree of dehydration. Patient states she feels well enough to go home. Will send home with nausea medication. She was given return precautions. She expressed understanding and agreement. Discharge Plan Departure Patient Disposition: Home Clinical Impression: Vomiting, Abdominal pain Instructions: DI for Abdominal Pain-Adult, DI for Vomiting -- Adult Activity Restrictions/Additional Instructions: Recommend that you take the nausea medicine as needed. It was electronically transmitted to [employer]. Be sure to increase your fluid intake. Contact your primary provider for follow-up. Return to the emergency department for any new or worsening symptoms Prescriptions: New ondansetron 4 mg tablet,disintegrating 4 mg PO Q6H PRN (Reason: nausea and vomiting) Qty: 10 RF: 0 No Action sertraline 50 mg tablet 50 mg PO DAILY Qty: 30 RF: 2 Referrals: Miscellaneous,DoctorMD [Primary Care Provider] -
[2020-08-30 14:13] LABS: Add Manual Diff / Slide Review NO; Basophils Absolute Auto 0 /uL (0-100); Basophils Percent Auto 0.2 % (0-2); Eosinophils Absolute Auto 0 /uL (0-450); Eosinophils Percent Auto 0.1 % (2-4); Hematocrit 38.1 % (36-46); Hemoglobin 12.6 g/dL (12.0-16.0); Lymphocytes Absolute Auto 1700 /uL (1100-4500); Lymphocytes Percent Auto 17.7 % (25-40); Mean Corpuscular Hemoglobin 28.6 PG (26-34); Mean Corpuscular Volume 86.6 fL (80-100); Monocytes Absolute Auto 500 /uL (0-900); Monocytes Percent Auto 5.6 % (3-14); Neutrophils Absolute Auto 7300 /uL (1500-7000); Neutrophils Percent Auto 76.4 % (50-75); Platelet Count 267 X10^3/uL (150-400); Red Cell Distribution Width 14.7 % (11.6-14.8); White Blood Cell Count 9.5 X10^3/uL (4.5-11.0)
[2020-08-30 14:21] LABS: INR 1.1 (0.9-1.3)
[2020-08-30 14:24] LABS: PTT Partial Thromboplastin Tim 30 SECONDS (26.4-36.2)
[2020-08-30 14:26] LABS: Alanine Aminotransferase 18 IU/L (<35); Albumin 4.6 g/dL (3.5-5.0); Albumin Globulin Ratio 1.5 (1.0-2.8); Alkaline Phosphatase 81 U/L (38-126); Aspartate Aminotransferase 24 IU/L (14-36); BUN Creatinine Ratio 16.9 (6-22); Bilirubin Total 0.4 mg/dL (0.2-1.3); Blood Urea Nitrogen 10 mg/dL (7-17); Calcium 9.1 mg/dL (8.4-10.2); Carbon Dioxide 21 mmol/L (22-32); Chloride 108 mmol/L (98-107); Estimated Glomerular Filt Rate > 60.0 mL/min (>60); Globulin 3.1 g/dL (1.7-4.1); Glucose 129 mg/dL (70-100); HEMOLYSIS < 15 (0-50); Lipase 38 U/L (23-300); Potassium 3.9 mmol/L (3.4-5.1); Sodium 139 mmol/L (137-145); Total Protein 7.7 g/dL (6.3-8.2)
[2020-08-30 14:30] LABS: Pregnancy Test Serum,Qual Negative (Negative)
[2020-08-30] MEDS: SODIUM CHLORIDE 0.9% 1,000 ML 1000 ML IV (14:31)
--- NOTE | 2020-08-30 14:45 | DI.CT.S_ITS ---
PROCEDURE: CT ABDOMEN PELVIS W CON INDICATIONS: R sided abd pain TECHNIQUE: After the administration of intravenous contrast, 5 mm thick sections acquired from the diaphragm to the symphysis. 5 mm coronal and sagittal reformats were acquired. For radiation dose reduction, the following was used: automated exposure control, adjustment of mA and/or kV according to patient size. COMPARISON: [facility], , ABDOMEN LIMITED, 02/20/2020, 1:27. FINDINGS: Image quality: Excellent. ABDOMEN: Lung bases: Lung bases are clear. Heart size is normal. Solid organs: Liver is normal in size and enhancement. Gallbladder is surgically absent. There is mild prominence of the biliary tree post cholecystectomy. Pancreas enhances normally. Spleen is normal in size and enhancement. No adrenal nodules. Kidneys demonstrate normal size and enhancement, without hydronephrosis. Peritoneum and bowel: Bowel loops demonstrate normal wall thickness and caliber. No free fluid or air. A normal appendix is identified. There is mild pelvic ascites, slightly greater than physiologic. Nodes and vessels: No retroperitoneal or mesenteric adenopathy by size criteria. Aorta and inferior vena cava are normal in size. Miscellaneous: No ventral hernias. PELVIS: Genitourinary: Bladder wall thickness is normal. Miscellaneous: No inguinal hernias or adenopathy. Bones: No suspicious bony lesions. No vertebral body compression fractures. IMPRESSION: 1. Interval cholecystectomy. 2. Normal appendix. No evidence of acute appendicitis. 3. Mild pelvic ascites, slightly greater than physiologic. Dictated by: Bud Cuba M.D. on 08/30/2020 at 15:15 Approved by: Bud Cuba M.D. on 08/30/2020 at 15:19
== END 2020-08-30 17:05 | disposition home or self-care (01) ==
PROVIDERS: Emergency Provider Emergency Medicine
DX: R11.2 Nausea with vomiting, unspecified (principal); R19.7 Diarrhea, unspecified; R10.9 Unspecified abdominal pain
CPT/HCPCS: 36415; 74177; 80053; 81003; 83690; 84703; 85025; 85610; 85730; 93005; 96361; 96374; 96376; 99284; J2405

== ENCOUNTER 2020-08-31 02:22 | Emergency (ER) | payer OTHER, MEDICAID, SELFPAY ==
[2020-02-22 05:09] VITALS: BMI 19.8
--- NOTE | 2020-08-31 02:24 | ED.NAVMDI ---
HPI - Nausea/Vomiting/Diarrhea General Chief complaint: Nausea/Vomiting/Diarrhea Stated complaint: vomiting diarrhea headache since yesterday Time Seen by Provider: 08/31/20 02:23 Source: patient and family Mode of arrival: Ambulatory Limitations: no limitations History of Present Illness HPI Narrative: 20-year-old female nonsmoker returns for the 2nd time today in the chief complaint of headache with nausea, vomiting and diarrhea. She had a very thorough evaluation earlier including labs and a CT scan which was unremarkable. She felt significant improvement after IV fluids and Zofran and was given return precautions. She was able to eat dinner but then over the course of the evening states that her headache seems to be gradually worsening. It is made worse by bright lights and loud noises. She denies any fever or chills and denies any neck pain. She has had no recent injury and does not use blood thinners. She denies any recent injury or trauma. She does state that she has had occasions of generalized lower abdominal pain which is crampy in nature and seems to improve after her vomiting or a loose stool but then returns. However, on her arrival she is not having any abdominal pain. She denies dysuria, frequency or urgency. She denies any vaginal bleeding or discharge. She has had no exposure to other ill persons. MD complaint: nausea, vomiting, diarrhea and abdominal pain Onset (ago): hour(s) Description of Vomiting: food contents Description of Diarrhea: watery Associated Abdominal Pain: Yes Location of pain: diffuse Severity: moderate Quality: cramping and aching Pain Consistency: intermittent and now resolved Relieving factors: bowel movement and vomiting Exacerbating factors: movement Associated symptoms: headaches Related Data Previous Rx's Medication Instructions Recorded sertraline 50 mg tablet 50 mg PO DAILY #30 tab 07/15/20 ondansetron 4 mg PO Q6H PRN #10 tab 08/30/20 Allergies Allergy/AdvReac Type Severity Reaction Status Date / Time No Known Drug Allergies Allergy Verified 08/30/20 13:59 Review of Systems Constitutional Constitutional: Denies chills, Denies fatigue, Denies fever(s), Denies frequent falls, Reports headache(s), Denies lethargy and Denies weakness Eyes Eyes: Denies change in vision, Denies eye discharge, Denies irritation and Denies loss of vision ENT Ears, Nose, Mouth, and Throat: Denies change in voice, Denies dizziness, Reports headache(s), Denies neck pain, Denies sore throat and Denies throat swelling Cardiovascular Cardiovascular: Denies chest pain, Denies irregular heart rhythm, Denies lightheadedness, Denies palpitations, Denies dyspnea, Denies dyspnea on exertion and Denies orthopnea Respiratory Respiratory: Denies cough, Denies dyspnea, Denies dyspnea on exertion and Denies wheezing Gastrointestinal Gastrointestinal: Reports abdominal pain, Denies change in bowel habits, Reports diarrhea, Reports nausea and Reports vomiting Musculoskeletal Musculoskeletal: Denies neck pain and Denies numbness Integumentary/Breasts Skin/Breast: Denies pruritus, Denies erythema, Denies rash and Denies wounds Neurologic Neurologic: Denies behavioral changes, Denies confusion, Denies dizziness, Denies frequent falls, Reports headache(s), Denies loss of vision, Denies numbness and Denies weakness Psychiatric Psychiatric: Denies anxiety, Denies behavioral changes, Denies confusion, Denies depression, Denies homicidal ideation and Denies suicidal ideation Endocrine Endocrine: Denies fatigue, Denies flushing and Denies palpitations Hematologic/Lymphatic Hematologic/Lymphatic: Denies easy bruising Allergic/Immunologic Allergic/Immunologic: Denies urticaria, Denies throat swelling and Denies wheezing Patient History Medical History Acute cholecystitis Ankle pain Asthma Depression with anxiety Ovarian cyst (spontaneous vaginal delivery) Surgical History Anesthesia Hx laparoscopic cholecystectomy [facility] teeth removed Family History Father Prediabetes Hyperlipidemia Hypertension Mental health problem Stroke Seizure AA (alcohol abuse) Depression Mother Mental health problem Family estrangement Sister Mental health problem Bipolar 1 disorder Grandfather Knee problem Grandmother Hypertension Arthritis Grandmother Mental health problem Family/Other Depression AA (alcohol abuse) Anxiety Social History marital status: unmarried,single household members: significant other, children and other pets and animals: Yes (X2 rabbits, X 2 Guinea pigs and X 1 hamster) education level: college (some college) occupational status: unemployed current occupational exposures/hazards: No Previous occupational history: [employer] Currently : 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/yarsanism: [employer] special hayde needs: No Smoking Status: Never smoker second hand exposure: No (used to be growing: not currently) alcohol intake: never substance use type: does not use Smoking Status: Never smoker alcohol intake frequency: holidays/special occasions only Substance Use Type: does not use Exam Narrative Exam Narrative: GENERAL: [20] year old patient appears stated age. Well-nourished, well-developed patient, in mild distress. HEAD: Atraumatic. Normocephalic. EYES: Pupils equal round and reactive. Extraocular motions intact. No scleral icterus. No injection or drainage. ENT: Moist mucous membranes Nose without bleeding, purulent drainage. Throat without erythema, tonsillar hypertrophy or exudate. Airway patent. NECK: Trachea midline. Non tender, no meningeal signs CARDIOVASCULAR: Regular rate and rhythm without murmurs, gallops, or rubs. RESPIRATORY: Clear to auscultation. Breath sounds equal bilaterally. No wheezes, rales, or rhonchi. GASTROINTESTINAL: Abdomen soft, non-tender, nondistended. EXTREMITIES: No edema or joint tenderness. BACK: Nontender without deformity or crepitance. No flank tenderness. NEURO: AOx3. SKIN: No rash or erythema of visible areas Initial Vital Signs Initial Vital Signs: Vital Signs Temperature 98.3 F 08/31/20 02:52 Course Course Course Narrative: Patient feeling much better after the above-stated therapies. She is resting comfortably. Her history, physical, diagnostics are all very reassuring. Multiple diagnoses considered including but not limited to meningitis (thought unlikely given description of pain, lack of meningeal signs, no fever) versus subarachnoid (thought less likely given lack of sudden onset, neck pain, findings on CT, versus a multifactorial headache from dehydration, change in appetite, vomiting etc.. She has had no pain for the duration of her visit, appendicitis and other intra-abdominal catastrophes are thought very unlikely. She is given extensive return precautions and she and have had questions answered to their apparent satisfaction. Orders Ordered: ED Orders 08/31/20 02:35 COVID19 -Nasal swab/Pre-Proc Stat Complete Blood Count AUTO DIFF Stat Comprehensive Metabolic Panel Stat Lipase Stat 08/31/20 02:51 CT head/brain wo con Stat Ondansetron HCl (Ondansetron 4 Mg/2 Ml Inj) 4 mg IV Q4HR PRN PRN Reason: Nausea And Vomiting Last Admin: 08/31/20 02:32 Dose: 4 mg Documented by: CONG Discontinued Medications Sodium Chloride (Normal Saline 0.9%) 1,000 mls @ 1,000 mls/hr IV BOLUS ONE Stop: 08/31/20 03:24 Last Admin: 08/31/20 02:32 Dose: 1,000 mls/hr Documented by: CONG Ketorolac Tromethamine (Ketorolac 30 Mg/Ml Vial) 15 mg IV NOW ONE Stop: 08/31/20 02:50 Last Admin: 08/31/20 02:55 Dose: 15 mg Documented by: CONG Vital Signs Vital signs: Vital Signs - 8 hr 08/31/20 02:52 Temperature 98.3 F MDM - Nausea/Vomiting/Diarrhea Lab Data Result diagrams: 08/31/20 02:35 08/31/20 02:35 Labs: Lab Results 08/31/20 08/31/20 08/31/20 Range/Units 02:35 02:35 02:35 WBC 8.9 (4.5-11.0) X10^3/uL RBC 4.36 (4.0-5.2) X10^6/uL Hgb 12.4 (12.0-16.0) g/dL Hct 38.0 (36-46) % MCV 87.0 (80-100) fL MCH 28.4 (26-34) PG MCHC 32.6 (30-36) % RDW 15.0 H (11.6-14.8) % Plt Count 265 (150-400) X10^3/uL Neut % (Auto) 43.7 L D (50-75) % Lymph % (Auto) 47.1 H D (25-40) % Clark % (Auto) 8.3 (3-14) % Eos % (Auto) 0.5 L (2-4) % Baso % (Auto) 0.4 (0-2) % Neut # (Auto) 3900 (4386-6054) /uL Lymph # (Auto) 4200 (6948-6281) /uL Clark # (Auto) 700 (0-900) /uL Eos # (Auto) 0 (0-450) /uL Baso # (Auto) 0 (0-100) /uL Sodium 139 (137-145) mmol/L Potassium 3.5 (3.4-5.1) mmol/L Chloride 108 H (98-107) mmol/L Carbon Dioxide 21 L (22-32) mmol/L BUN 13 (7-17) mg/dL Creatinine 0.63 (0.52-1.04) mg/dL Estimated GFR > 60.0 (>60) mL/min BUN/Creatinine Ratio 20.6 (6-22) Glucose 97 (70-100) mg/dL Calcium 9.3 (8.4-10.2) mg/dL Total Bilirubin 0.6 (0.2-1.3) mg/dL AST 23 (14-36) IU/L ALT 16 (<35) IU/L Alkaline Phosphatase 77 (38-126) U/L Total Protein 7.3 (6.3-8.2) g/dL Albumin 4.3 (3.5-5.0) g/dL Globulin 3.0 (1.7-4.1) g/dL Albumin/Globulin Ratio 1.4 (1.0-2.8) Lipase 50 (23-300) U/L SARS-CoV-2 (PCR) (Negative) 08/31/20 Range/Units 02:35 WBC (4.5-11.0) X10^3/uL RBC (4.0-5.2) X10^6/uL Hgb (12.0-16.0) g/dL Hct (36-46) % MCV (80-100) fL MCH (26-34) PG MCHC (30-36) % RDW (11.6-14.8) % Plt Count (150-400) X10^3/uL Neut % (Auto) (50-75) % Lymph % (Auto) (25-40) % Clark % (Auto) (3-14) % Eos % (Auto) (2-4) % Baso % (Auto) (0-2) % Neut # (Auto) (2435-4441) /uL Lymph # (Auto) (0096-7955) /uL Clark # (Auto) (0-900) /uL Eos # (Auto) (0-450) /uL Baso # (Auto) (0-100) /uL Sodium (137-145) mmol/L Potassium (3.4-5.1) mmol/L Chloride (98-107) mmol/L Carbon Dioxide (22-32) mmol/L BUN (7-17) mg/dL Creatinine (0.52-1.04) mg/dL Estimated GFR (>60) mL/min BUN/Creatinine Ratio (6-22) Glucose (70-100) mg/dL Calcium (8.4-10.2) mg/dL Total Bilirubin (0.2-1.3) mg/dL AST (14-36) IU/L ALT (<35) IU/L Alkaline Phosphatase (38-126) U/L Total Protein (6.3-8.2) g/dL Albumin (3.5-5.0) g/dL Globulin (1.7-4.1) g/dL Albumin/Globulin Ratio (1.0-2.8) Lipase (23-300) U/L SARS-CoV-2 (PCR) Negative (Negative) MDM Narrative Medical decision making narrative: Headache considerations include, but not limited to: Subarachnoid hemorrhage, but unlikely as patient denies sudden onset of pain, not worst of life, or neck pain Meningitis considered, but thought unlikely given lack of Brudzinski's, Kernig's sign, altered mental status or fever Giant cell arteritis considered, but thought unlikely given lack of unilateral findings, pain in lutheran, vision change HTN Emergency considered, but thought unlikely given normal vitals Other serious diagnoses considered unlikely given lack of red flag findings such as sudden onset, increasing frequency, immunocompromise, systemic signs (fever, chills, stiff neck, or rash), focal neurologic findings, trauma, blood thinners, etc. Discharge Plan Departure Patient Disposition: Home Clinical Impression: Acute vomiting Headache Qualifiers: Headache type: unspecified Headache chronicity pattern: acute headache Intractability: not intractable Qualified Code(s): R51.9 - Headache, unspecified Instructions: DI for Dehydration -- Adult, DI for Nausea -- Adult, DI for Vomiting -- Adult Activity Restrictions/Additional Instructions: *You have been diagnosed with [headache, nausea, vomiting with very reassuring labs, CT scan and response to therapy.] *What to do: *Please continue to take your regular medications as directed. [ ] New medication prescriptions sent to your pharmacy: [ ] [ ] New medication written as a paper prescription [ x] No new medications given *Please follow up with your primary care provider in 2-3 days, call for an appointment. Let them know you were seen in the Emergency Department and that we ask that you be seen in follow up. We will electronically transmit a record of today's note if your PCP is in our system *If you do not have a primary care provider please contact the [facility] Resource line at [phone]. They will ask some questions about your medical history and help get you set up with a doctor in the community. *Return to Emergency Department if you should have any new, worsening or concerning symptoms, such as [fever greater than 101 F, shaking chills, worsening pain, persistent vomiting or other bothersome symptoms] Prescriptions: No Action sertraline 50 mg tablet 50 mg PO DAILY Qty: 30 RF: 2 ondansetron 4 mg tablet,disintegrating 4 mg PO Q6H PRN (Reason: nausea and vomiting) Qty: 10 RF: 0 Referrals: Miscellaneous,Doctor, MD [Primary Care Provider] -
[2020-08-31] MEDS: SODIUM CHLORIDE 0.9% 1,000 ML 1000 ML IV (02:32)
[2020-08-31] MEDS: ONDANSETRON 4 MG/2 ML INJ IV (02:32)
[2020-08-31 02:47] LABS: Add Manual Diff / Slide Review NO; Basophils Absolute Auto 0 /uL (0-100); Basophils Percent Auto 0.4 % (0-2); Eosinophils Absolute Auto 0 /uL (0-450); Eosinophils Percent Auto 0.5 % (2-4); Hemoglobin 12.4 g/dL (12.0-16.0); Lymphocytes Absolute Auto 4200 /uL (1100-4500); Lymphocytes Percent Auto 47.1 % (25-40); Mean Corpuscular HGB Conc 32.6 % (30-36); Mean Corpuscular Hemoglobin 28.4 PG (26-34); Monocytes Absolute Auto 700 /uL (0-900); Monocytes Percent Auto 8.3 % (3-14); Neutrophils Absolute Auto 3900 /uL (1500-7000); Neutrophils Percent Auto 43.7 % (50-75); Platelet Count 265 X10^3/uL (150-400); Red Blood Cell Count 4.36 X10^6/uL (4.0-5.2); White Blood Cell Count 8.9 X10^3/uL (4.5-11.0)
--- NOTE | 2020-08-31 02:51 | DI.CT.S_ITS ---
PROCEDURE: CT HEAD/BRAIN WO CON INDICATIONS: worsening headache, vomiting TECHNIQUE: Noncontrast 4.5 mm thick angled axial sections acquired from the foramen magnum to the vertex, with coronal and sagittal reformats. For radiation dose reduction, the following was used: automated exposure control, adjustment of mA and/or kV according to patient size. COMPARISON: None. FINDINGS: Image quality: Excellent. CSF spaces: Basal cisterns are patent. No extra-axial fluid collections. Ventricles are normal in size and shape. Brain: No midline shift. No intracranial masses or hemorrhage. Mckeon-white matter interface is normal. Skull and face: Calvarium and visualized facial bones are intact, without suspicious lesions. Sinuses: Visualized sinuses and mastoids are clear. IMPRESSION: No acute intracranial disease process. Dictated by: Alejandrina Mckinley MD, PhD on 08/31/2020 at 7:09 Approved by: Alejandrina Mckinley MD, PhD on 08/31/2020 at 7:10
[2020-08-31 02:52] VITALS: TEMP 36.8; BMI 23.9
[2020-08-31] MEDS: KETOROLAC 30 MG/ML VIAL 15 MG IV (02:55)
[2020-08-31 02:57] LABS: Lipase 50 U/L (23-300)
[2020-08-31 02:58] LABS: Alanine Aminotransferase 16 IU/L (<35); Albumin 4.3 g/dL (3.5-5.0); Albumin Globulin Ratio 1.4 (1.0-2.8); Alkaline Phosphatase 77 U/L (38-126); Aspartate Aminotransferase 23 IU/L (14-36); BUN Creatinine Ratio 20.6 (6-22); Bilirubin Total 0.6 mg/dL (0.2-1.3); Blood Urea Nitrogen 13 mg/dL (7-17); Calcium 9.3 mg/dL (8.4-10.2); Carbon Dioxide 21 mmol/L (22-32); Chloride 108 mmol/L (98-107); Estimated Glomerular Filt Rate > 60.0 mL/min (>60); Glucose 97 mg/dL (70-100); HEMOLYSIS < 15 (0-50); Potassium 3.5 mmol/L (3.4-5.1); Sodium 139 mmol/L (137-145); Total Protein 7.3 g/dL (6.3-8.2)
[2020-08-31 03:05] LABS: COVID19 -Nasal RAPID Negative (Negative)
[2020-08-31] MEDS: ONDANSETRON 4 MG ODT PREPACK 1 BOTTLE MISC (04:27)
[2020-08-31 04:34] VITALS: BP 131/83; PULSE 72; RESP 16; O2SAT 98
== END 2020-08-31 04:35 | disposition home or self-care (01) ==
PROVIDERS: Emergency Provider Emergency Medicine
DX: R11.2 Nausea with vomiting, unspecified (principal); R51.9 Headache, unspecified; R19.7 Diarrhea, unspecified; R10.9 Unspecified abdominal pain; Z20.822 Contact with and (suspected) exposure to COVID-19
CPT/HCPCS: 36415; 70450; 80053; 83690; 85025; 87635; 96361; 96374; 96375; 99284; C9803; J1885; J2405

== ENCOUNTER 2020-09-24 14:26 | Emergency (ER) | payer OTHER, MEDICAID, SELFPAY ==
[2020-02-22 05:09] VITALS: BMI 19.8
[2020-09-24 14:35] VITALS: BP 118/76; PULSE 70; RESP 20; TEMP 36.8; O2SAT 98; BMI 19.1
[2020-09-24 15:16] LABS: Add Manual Diff / Slide Review NO; Basophils Absolute Auto 0 /uL (0-100); Basophils Percent Auto 0.6 % (0-2); Eosinophils Absolute Auto 100 /uL (0-450); Eosinophils Percent Auto 0.8 % (2-4); Hematocrit 37.8 % (36-46); Hemoglobin 12.5 g/dL (12.0-16.0); Lymphocytes Absolute Auto 2900 /uL (1100-4500); Lymphocytes Percent Auto 45.4 % (25-40); Mean Corpuscular Hemoglobin 28.5 PG (26-34); Mean Corpuscular Volume 86.3 fL (80-100); Monocytes Absolute Auto 600 /uL (0-900); Monocytes Percent Auto 9.4 % (3-14); Neutrophils Absolute Auto 2800 /uL (1500-7000); Neutrophils Percent Auto 43.8 % (50-75); Platelet Count 301 X10^3/uL (150-400); Red Blood Cell Count 4.38 X10^6/uL (4.0-5.2); Red Cell Distribution Width 14.1 % (11.6-14.8); White Blood Cell Count 6.3 X10^3/uL (4.5-11.0)
[2020-09-24 15:31] LABS: Creatine Kinase 70 U/L (30-135)
[2020-09-24 15:33] LABS: Blood Urea Nitrogen 12 mg/dL (7-17); Calcium 9.3 mg/dL (8.4-10.2); Carbon Dioxide 26 mmol/L (22-32); Chloride 106 mmol/L (98-107); Estimated Glomerular Filt Rate > 60.0 mL/min (>60); Glucose 85 mg/dL (70-100); HEMOLYSIS < 15 (0-50); Potassium 4.1 mmol/L (3.4-5.1); Sodium 138 mmol/L (137-145)
--- NOTE | 2020-09-24 15:46 | ED.NAVMDI ---
HPI - Nausea/Vomiting/Diarrhea General Chief complaint: Nausea/Vomiting/Diarrhea Stated complaint: RULE OUT TOXIC SHOCK SYNDROM Time Seen by Provider: 09/24/20 15:01 Source: patient Mode of arrival: Ambulatory Limitations: no limitations History of Present Illness HPI Narrative: patient is an otherwise healthy 20-year-old female who is here from the walk-in clinic for evaluation of potential toxic shock syndrome. Patient states that last evening she removed the tampon that was potentially in her vagina for about 2 weeks. She states she forgot that it was in place and she actually had another tampon in and removed during this period of time. She states that it was a organic tampon. No fevers. No belly pain. She is having vaginal discharge. Was reported that she had a systolic blood pressure of 90 at the walk-in clinic but has a normal blood pressure here. Related Data Previous Rx's Medication Instructions Recorded ondansetron 4 mg PO Q6H PRN #10 tab 08/30/20 sertraline 50 mg tablet 50 mg PO DAILY #90 tab 09/14/20 sumatriptan succinate 25 mg tablet 25 mg PO ONCE #20 tab 09/14/20 Allergies Allergy/AdvReac Type Severity Reaction Status Date / Time No Known Drug Allergies Allergy Verified 09/24/20 14:35 Review of Systems Constitutional Constitutional: Denies fever(s) and Denies headache(s) ENT Ears, Nose, Mouth, and Throat: Denies headache(s) Cardiovascular Cardiovascular: Reports system reviewed and no additional complaints, except as documented Respiratory Respiratory: Reports system reviewed and no additional complaints, except as documented Gastrointestinal Gastrointestinal: Reports system reviewed and no additional complaints, except as documented Genitourinary Comments: White vaginal discharge Integumentary/Breasts Skin/Breast: Reports system reviewed and no additional complaints, except as documented Neurologic Neurologic: Reports system reviewed and no additional complaints, except as documented and Denies headache(s) Hematologic/Lymphatic On Anticoagulants: No Allergic/Immunologic Allergic/Immunologic: Reports system reviewed and no additional complaints, except as documented Patient History Medical History Acute cholecystitis Ankle pain Asthma Depression with anxiety Ovarian cyst (spontaneous vaginal delivery) Surgical History Anesthesia Hx laparoscopic cholecystectomy Sty[place] teeth removed Family History Father Prediabetes Hyperlipidemia Hypertension Mental health problem Stroke Seizure AA (alcohol abuse) Depression Mother Mental health problem Family estrangement Sister Mental health problem Bipolar 1 disorder Grandfather Knee problem Grandmother Hypertension Arthritis Grandmother Mental health problem Family/Other Depression AA (alcohol abuse) Anxiety Social History marital status: unmarried,single household members: significant other, children and other pets and animals: Yes (X2 rabbits, X 2 Guinea pigs and X 1 hamster) education level: college (some college) occupational status: unemployed current occupational exposures/hazards: No Previous occupational history: [employer] Currently : 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/nondenominational: Roman Catholic special hayde needs: No Smoking Status: Never smoker second hand exposure: No (used to be growing: not currently) alcohol intake: never substance use type: does not use Smoking Status: Never smoker alcohol intake frequency: holidays/special occasions only Substance Use Type: does not use Exam Initial Vital Signs Initial Vital Signs: Vital Signs Temperature 98.3 F 09/24/20 14:35 Pulse Rate 70 09/24/20 14:35 Respiratory Rate 20 09/24/20 14:35 Blood Pressure 118/76 09/24/20 14:35 Pulse Oximetry 98 09/24/20 14:35 Const General: cooperative and comfortable Limitations: mental status not altered HENMT Head: normal to inspection and normocephalic Resp Effort & Inspection: normal respiratory effort Auscultation: clear to auscultation bilaterally Cardio Rate: regular rate GI Inspection: non-distended Palpation: soft External Female Exam: normal external appearance Speculum Exam - Vagina: abnormal vaginal discharge white; not malodorous, not erythematous and no foreign bodies Speculum Exam - Cervix: normal appearance of the cervix OB/External & Speculum: no foreign bodies Skin Lesions: no lesions Rashes: no rashes Extrem General: normal to inspection and capillary refill normal Psych Appearance: grossly normal and well kempt Course Orders Ordered: ED Orders 09/24/20 15:05 Basic Metabolic Panel Stat Complete Blood Count AUTO DIFF Stat Creatine Kinase Stat 09/24/20 16:27 Genital Culture Stat NESTOR Prep Stat 09/24/20 16:28 Wet Prep Tric BV Far[place] Stat Vital Signs Vital signs: Vital Signs - 8 hr 09/24/20 14:35 09/24/20 18:20 Temperature 98.3 F 98 F Pulse Rate 70 56 L Respiratory Rate 20 18 Blood Pressure 118/76 126/69 Pulse Oximetry 98 99 MDM - Nausea/Vomiting/Diarrhea Lab Data Attestation: I reviewed the patient's lab results. Result diagrams: 09/24/20 15:05 09/24/20 15:05 Labs: Lab Results 09/24/20 09/24/20 09/24/20 Range/Units 15:05 15:05 15:05 WBC 6.3 (4.5-11.0) X10^3/uL RBC 4.38 (4.0-5.2) X10^6/uL Hgb 12.5 (12.0-16.0) g/dL Hct 37.8 (36-46) % MCV 86.3 (80-100) fL MCH 28.5 (26-34) PG MCHC 33.0 (30-36) % RDW 14.1 (11.6-14.8) % Plt Count 301 (150-400) X10^3/uL Neut % (Auto) 43.8 L (50-75) % Lymph % (Auto) 45.4 H (25-40) % [place] % (Auto) 9.4 (3-14) % Eos % (Auto) 0.8 L (2-4) % Baso % (Auto) 0.6 (0-2) % Neut # (Auto) 2800 (7484-0709) /uL Lymph # (Auto) 2900 (6901-4514) /uL [place] # (Auto) 600 (0-900) /uL Eos # (Auto) 100 (0-450) /uL Baso # (Auto) 0 (0-100) /uL Sodium 138 (137-145) mmol/L Potassium 4.1 (3.4-5.1) mmol/L Chloride 106 (98-107) mmol/L Carbon Dioxide 26 (22-32) mmol/L BUN 12 (7-17) mg/dL Creatinine 0.63 (0.52-1.04) mg/dL Estimated GFR > 60.0 (>60) mL/min BUN/Creatinine Ratio 19.0 (6-22) Glucose 85 (70-100) mg/dL Calcium 9.3 (8.4-10.2) mg/dL Total Creatine Kinase 70 (30-135) U/L MDM Narrative Medical decision making narrative: exam performed with nursing staff at bedside. She is afebrile. Not hypotensive. Normal labs. Does have a white vaginal discharge however her cultures were unremarkable. There was a vaginal culture pending at the time of discharge we will contact the patient if we need to start on any antibiotics. I did discuss all of this with the patient. No indication for further workup. No indication for antibiotics. She expressed understanding and agreement. Discharge Plan Departure Patient Disposition: Home Clinical Impression: Vaginal discharge Instructions: DI for Vaginal Discharge Activity Restrictions/Additional Instructions: there was a culture pending at the time ear discharge and we will contact you of we need to start any antibiotics. Until then contact your primary provider for follow-up. Return to the emergency department for any new or worsening symptoms Prescriptions: No Action sertraline 50 mg tablet 50 mg PO DAILY Qty: 90 RF: 3 sumatriptan succinate 25 mg tablet 25 mg PO ONCE Qty: 20 RF: 0 ondansetron 4 mg tablet,disintegrating 4 mg PO Q6H PRN (Reason: nausea and vomiting) Qty: 10 RF: 0 Referrals: Cristy Mendoza MD [Primary Care Provider] -
[2020-09-24 18:20] VITALS: BP 126/69; PULSE 56; RESP 18; TEMP 36.6; O2SAT 99
== END 2020-09-24 18:21 | disposition home or self-care (01) ==
PROVIDERS: Emergency Provider Emergency Medicine; PCP Family Medicine
DX: N89.8 Other specified noninflammatory disorders of vagina (principal)
CPT/HCPCS: 36415; 80048; 82550; 85025; 87070; 87205; 87210; 87220; 99283; 99284

== ENCOUNTER 2020-11-20 14:13 | Emergency (ER) | payer OTHER, MEDICAID, SELFPAY ==
[2020-02-22 05:09] VITALS: BMI 19.8
[2020-11-20 14:25] VITALS: BP 109/62; PULSE 80; RESP 16; TEMP 36.7; O2SAT 98; BMI 19.4
--- NOTE | 2020-11-20 14:44 | ED_ITS ---
HPI - Back Pain/Injury General Chief Complaint: Back Pain/Injury Stated Complaint: pain in neck/spine Time Seen by Provider: 11/20/20 14:31 Source: patient Limitations: no limitations History of Present Illness HPI Narrative: The patient is 9 months . She is nursing. She complains of ongoing back pain since epidural during the delivery. She has no shooting pains down her extremities, no incontinence. She has bilateral low b ack pain, increased with motion. There is no central low back pain. She also complains of neck pain, ongoing for some time. She has had no head or neck injury. She has no current complaints of headache. She has no weakness or numbness in the upper extremities. Related Data Previous Rx's Medication Instructions Recorded sertraline 50 mg tablet 50 mg PO DAILY #90 tab 09/14/20 sumatriptan succinate 25 mg tablet 25 mg PO ONCE #20 tab 09/14/20 Allergies Allergy/AdvReac Type Severity Reaction Status Date / Time No Known Drug Allergies Allergy Verified 09/24/20 14:35 Review of Systems Constitutional Constitutional: Reports system reviewed and no additional complaints, except as documented and Denies headache(s) Comments: No recent illness. See HPI. ENT Ears, Nose, Mouth, and Throat: Denies headache(s) Gastrointestinal Comments: No incontinence. Genitourinary Comments: No incontinence. Musculoskeletal Musculoskeletal: Reports as per HPI Neurologic Neurologic: Denies burning sensations, Denies confusion and Denies headache(s) Comments: No weakness or numbness to upper lower extremities. Psychiatric Psychiatric: Denies confusion Patient History Medical History Acute cholecystitis Ankle pain Asthma Depression with anxiety Ovarian cyst (spontaneous vaginal delivery) Surgical History Anesthesia Hx laparoscopic cholecystectomy Stye Norman teeth removed Family History Father Prediabetes Hyperlipidemia Hypertension Mental health problem Stroke Seizure AA (alcohol abuse) Depression Mother Mental health problem Family estrangement Sister Mental health problem Bipolar 1 disorder Grandfather Knee problem Grandmother Hypertension Arthritis Grandmother Mental health problem Family/Other Depression AA (alcohol abuse) Anxiety Social History marital status: unmarried,single household members: significant other, children and other pets and animals: Yes (X2 rabbits, X 2 Guinea pigs and X 1 hamster) education level: college (some college) occupational status: unemployed current occupational exposures/hazards: No Previous occupational history: [employer] Currently : 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/voodoo: [employer] special hayde needs: No Smoking Status: Never smoker second hand exposure: No (used to be growing: not currently) alcohol intake: never substance use type: does not use Smoking Status: Never smoker alcohol intake frequency: holidays/special occasions only Substance Use Type: does not use Exam Initial Vital Signs Initial Vital Signs: Vital Signs Temperature 98.0 F 11/20/20 14:25 Pulse Rate 80 11/20/20 14:25 Respiratory Rate 16 11/20/20 14:25 Blood Pressure 109/62 11/20/20 14:25 Pulse Oximetry 98 11/20/20 14:25 Const General: cooperative, healthy appearing and comfortable HENUT Head: normocephalic and atraumatic Eyes Pupils: PERRL EOM: EOM intact bilaterally Direct ophthalmoscopy: normal light reflex Neck Other: No tenderness over the cervical spine. Bilateral paracervical tenderness at the C1 level. No limitation of motion. Back/Spine/Pelvis Back: normal to inspection and back tenderness (Bilaterally at the SI joints. No thoracic or lumbar pain.) Skin General: no rashes or lesions noted Neuro General: patient alert, patient awake, patient oriented x3 and no focal motor deficits Other: Straight leg raise is normal bilaterally. Extrem General: full ROM Other: No hip tenderness. Full range of motion in all extremities. Psych Appearance: grossly normal Course Vital Signs Vital signs: Vital Signs - 8 hr 11/20/20 14:25 Temperature 98.0 F Pulse Rate 80 Respiratory Rate 16 Blood Pressure 109/62 Pulse Oximetry 98 Discharge Plan Departure Patient Disposition: Home Clinical Impression: Bilateral sacroiliitis Cervical strain Qualifiers: Encounter type: initial encounter Qualified Code(s): S16.1XXA - Strain of muscle, fascia and tendon at neck level, initial encounter Instructions: Whiplash, Sacroiliac Joint Pain Activity Restrictions/Additional Instructions: You have low back pain is not related to the epidural, more likely to the birthing process with pelvic pain. Your neck pain is muscular strain, also not related to the epidural. That pain is from neck strain. Advil 3 tablets every 6 hours as needed for pain. I would recommend walk and stretch your neck frequently. You should be able resolve all these pains. Talk to your doctor about physical therapy. Prescriptions: No Action sertraline 50 mg tablet 50 mg PO DAILY Qty: 90 RF: 3 sumatriptan succinate 25 mg tablet 25 mg PO ONCE Qty: 20 RF: 0 Referrals: Cristy Mendoza MD [Primary Care Provider] -
== END 2020-11-20 15:00 | disposition home or self-care (01) ==
PROVIDERS: Emergency Provider Emergency Medicine; PCP Family Medicine
DX: M46.1 Sacroiliitis, not elsewhere classified (principal); S16.1XXA Strain of muscle, fascia and tendon at neck level, initial encounter
CPT/HCPCS: 99281

== ENCOUNTER → 2020-11-21 11:51 | Outpatient (CLI) | payer OTHER, MEDICAID, SELFPAY ==
[2020-02-22 05:09] VITALS: BMI 19.8
[2020-11-21 14:34] LABS: COVID19 -Nasal RAPID POSITIVE (Negative)
== END ==
PROVIDERS: PCP Family Medicine; Visit Provider Nurse Practitioner
DX: U07.1 COVID-19 (principal)
CPT/HCPCS: 87635

== ENCOUNTER 2020-11-23 16:17 | Emergency (ER) | payer OTHER, MEDICAID, SELFPAY ==
[2020-02-22 05:09] VITALS: BMI 19.8
[2020-11-23 16:30] VITALS: BP 103/60; PULSE 95; RESP 20; TEMP 37.6; O2SAT 98; BMI 19.4
--- NOTE | 2020-11-23 16:48 | DI.RAD.S_ITS ---
PROCEDURE: XR CHEST 1V INDICATIONS: COVID. SOB TECHNIQUE: One view of the chest was acquired. COMPARISON: None. FINDINGS: Surgical changes and devices: None. Lungs and pleura: Lungs are clear. No pleural effusions or pneumothorax. Mediastinum: Mediastinal contours appear normal. Heart size is normal. Bones and chest wall: No suspicious bony lesions. Overlying soft tissues appear unremarkable. IMPRESSION: No acute cardiopulmonary abnormality. Dictated by: Olivier Donaldson M.D. on 11/23/2020 at 17:14 Approved by: Olivier Donaldson M.D. on 11/23/2020 at 17:15
--- NOTE | 2020-11-23 18:09 | ED_ITS ---
HPI - Fever <Saleem Tejeda PA-C - Last Filed: 11/23/20 18:21> General Chief Complaint: Fever Stated Complaint: COVID+ HAVING TROUBLE Time Seen by Provider: 11/23/20 17:42 Source: patient Mode of arrival: Ambulatory Limitations: no limitations History of Present Illness HPI Narrative: Summer presents today with chief complaint fatigue, increased shortness of breath that started 2 days ago. She reports that she was diagnosed with COVID on the of this month and her started having symptoms that very next day. Her symptoms have gotten slightly worse over the last 2 days. She has a history of asthma but has not tried her inhalers because she did not know if that would help with COVID. She reports increased tightness in her chest. She reports decreased appetite and nausea but denies any significant vomiting. She has no other acute concerns or complaints at this time. Related Data Previous Rx's Medication Instructions Recorded sertraline 50 mg tablet 50 mg PO DAILY #90 tab 09/14/20 sumatriptan succinate 25 mg tablet 25 mg PO ONCE #20 tab 09/14/20 prednisone 20 mg tablet 40 mg PO DAILY 7 Days #14 tab 11/23/20 Allergies Allergy/AdvReac Type Severity Reaction Status Date / Time No Known Drug Allergies Allergy Verified 11/23/20 16:43 Review of Systems <Saleem Tejeda PA-C - Last Filed: 11/23/20 18:21> Review of Systems Narrative: As per HPI Patient History <Saleem Tejeda PA-C - Last Filed: 11/23/20 18:21> Medical History Acute cholecystitis Ankle pain Asthma Depression with anxiety Ovarian cyst (spontaneous vaginal delivery) Surgical History Anesthesia Hx laparoscopic cholecystectomy Stye Rindge teeth removed Family History Father Prediabetes Hyperlipidemia Hypertension Mental health problem Stroke Seizure AA (alcohol abuse) Depression Mother Mental health problem Family estrangement Sister Mental health problem Bipolar 1 disorder Grandfather Knee problem Grandmother Hypertension Arthritis Grandmother Mental health problem Family/Other Depression AA (alcohol abuse) Anxiety Social History marital status: unmarried,single household members: significant other, children and other pets and animals: Yes (X2 rabbits, X 2 Guinea pigs and X 1 hamster) education level: college (some college) occupational status: unemployed current occupational exposures/hazards: No Previous occupational history: [employer] Currently : 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/rastafarian: Islam special hayde needs: No Smoking Status: Never smoker second hand exposure: No (used to be growing: not currently) alcohol intake: never substance use type: does not use Smoking Status: Never smoker alcohol intake frequency: holidays/special occasions only Substance Use Type: does not use Exam <Saleem Tejeda PA-C - Last Filed: 11/23/20 18:21> Narrative Exam Narrative: Exam Narrative: Const General: cooperative, healthy appearing, comfortable, no acute distress, well developed and well groomed Nutritional Appearance: average body habitus Orientation: alert and oriented x3 HENMT Head: normal to inspection and atraumatic Ears: hearing grossly normal bilaterally Nose: external nose normal and nares normal Face and sinus: normal facial exam Neck Neck: normal visual inspection and supple Resp Effort & Inspection: normal respiratory effort, able to speak in complete sentences, no audible wheezes, not labored, no nasal flaring and no respiratory distress, clear to auscultation bilaterally Cardiac Regular rate and rhythm, no discernible murmurs, rubs or gallops. Neuro General: alert, oriented x3, gait normal, tone normal and moves all extremities Cognition: normal cognition Speech: speech normal Gait: normal gait Psych Appearance: grossly normal and well kempt Mental Status: mental status grossly normal Speech and Movement: speech and movement normal Mood: congruent mood Affect: normal affect Initial Vital Signs Initial Vital Signs: Vital Signs Temperature 99.6 F 11/23/20 16:30 Pulse Rate 95 H 11/23/20 16:30 Respiratory Rate 20 11/23/20 16:30 Blood Pressure 103/60 11/23/20 16:30 Pulse Oximetry 98 11/23/20 16:30 <Una Gutierrez MD - Last Filed: 11/23/20 18:39> Initial Vital Signs Initial Vital Signs: Vital Signs Temperature 99.6 F 11/23/20 16:30 Pulse Rate 95 H 11/23/20 16:30 Respiratory Rate 20 11/23/20 16:30 Blood Pressure 103/60 11/23/20 16:30 Pulse Oximetry 98 11/23/20 16:30 Course <Saleem Tejeda PA-C - Last Filed: 11/23/20 18:21> Orders Ordered: ED Orders 11/23/20 16:48 XR chest 1V Stat EKG-12 Lead Stat Vital Signs Vital signs: Vital Signs - 8 hr 11/23/20 16:30 Temperature 99.6 F Pulse Rate 95 H Respiratory Rate 20 Blood Pressure 103/60 Pulse Oximetry 98 <Una Gutierrez MD - Last Filed: 11/23/20 18:39> Orders Ordered: ED Orders 11/23/20 16:48 XR chest 1V Stat EKG-12 Lead Stat Vital Signs Vital signs: Vital Signs - 8 hr 11/23/20 16:30 Temperature 99.6 F Pulse Rate 95 H Respiratory Rate 20 Blood Pressure 103/60 Pulse Oximetry 98 MDM - Fever <Saleem Tejeda PA-C - Last Filed: 11/23/20 18:21> MDM Narrative Medical decision making narrative: Patient has a reassuring examination at this time. However, given her history of asthma and current diagnosis of COVID. I would like to treat her with a steroid burst in addition to having her use her albuterol therapy regularly. Strict return precautions were discussed with the patient. Patient verbalizes understanding and agrees to plan and has no further concerns at this time. Thank you A [id number] system was used with the dictation of this note. Please disregard any spelling or grammatical errors. Discharge Plan Departure Patient Disposition: Home Clinical Impression: COVID-19 Activity Restrictions/Additional Instructions: It was nice to meet you this afternoon. Please use the albuterol therapy in addition to taking the oral steroids. If you experience worsening shortness of breath, oxygen level below 92% persistently, chest pain or have any additional concerns or complaints do not hesitate to return for re-evaluation. Thank you Saleem Tejeda PA-C Prescriptions: New prednisone 20 mg tablet 40 mg PO DAILY 7 Days Qty: 14 RF: 0 No Action sertraline 50 mg tablet 50 mg PO DAILY Qty: 90 RF: 3 sumatriptan succinate 25 mg tablet 25 mg PO ONCE Qty: 20 RF: 0 Referrals: Cristy Mendoza MD [Primary Care Provider] - <Una Gutierrez MD - Last Filed: 11/23/20 18:39> Cosign ED Attending Cosignature Attestation: I was immediately available in the department for consultation throughout this patient's visit. I agree with documentation as above. Una Gutierrez MD
[2020-11-23 18:39] VITALS: BP 107/63; PULSE 88; RESP 18; TEMP 38.5; O2SAT 97
== END 2020-11-23 18:40 | disposition home or self-care (01) ==
PROVIDERS: Emergency Provider Physician Assistant; PCP Family Medicine
DX: U07.1 COVID-19 (principal); R06.02 Shortness of breath
CPT/HCPCS: 71045; 93005; 93010; 99283; 99284

== ENCOUNTER 2021-03-16 10:30 | Outpatient (RCR) | payer OTHER, MEDICAID, SELFPAY ==
[2020-02-22 05:09] VITALS: BMI 19.8
--- NOTE | 2021-01-23 16:52 | PT.OIE ---
Current Diagnoses Cervicalgia (01/23/21) Low back pain, unspecified (01/23/21) Pain in thoracic spine (01/23/21) Muscle weakness (generalized) (01/23/21) Pelvic and perineal pain (01/23/21) Past Medical History (Last Reviewed 11/20/20 @ 14:49 by Manny De Paz MD) Acute cholecystitis Ankle pain Asthma Depression with anxiety Hx laparoscopic cholecystectomy Ovarian cyst (spontaneous vaginal delivery) Allen teeth removed Past Surgical History (Last Reviewed 11/20/20 @ 14:49 by Manny De Paz MD) Anesthesia Hx laparoscopic cholecystectomy Stye Allen teeth removed Visit Care Team Role Provider Type Cristy Mendoza MD Attending Provider Physician Family Provider Primary Care Provider Referring Provider Specialty: Family Practice Address: [address] [place] [address], [facility] Email: [email or web address] Physical Therapy Initial Evaluation PT-OP-A Visit Information Start: 01/19/21 17:15 Freq: Status: Active Protocol: Document 01/23/21 09:45 LRN (Rec: 01/23/21 12:17 LRN [id number]) Out-Patient Physical Therapy Visit Information Visit Information Visit Type Initial Evaluation Visit Start Time 09:45 Visit Stop Time 10:34 Total Visit Minutes 49 Visit Number 1 Evaluation Information Evaluation Date 01/23/21 Precautions Precautions 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 Dizziness comes and goes, resulting in her having difficulty walking (once every few months) Decreased hearing of L ear. PT-OP-B Current Condition Start: 01/19/21 17:15 Freq: Status: Active Protocol: Document 01/23/21 09:45 LRN (Rec: 01/23/21 12:17 LRN [id number]) Current Condition History of Current Condition Onset Date 02/14/2020. Current Complaints Back, neck pain. History of Current Condition After having epidural for childbearing on Feb 14 2020, had really bad low back and abdominal pain and was told it didn't look like nerve pain, but just pelvic pain from pushing. Gets better if spouse massages the back, but it comes back the next day. Her son weighs at least 21#'s. Having back pain also from migraines, and occasional headaches when neck gets really bad. Prior Treatments and Tests None Future Testing and Treatments Planned None Treatment Goals Patient/Caregiver Goals Decrease neck pain to be able to lie down and to prevent nausea from pain and headaches . Decrase low and back pain to lift and hold baby without pain, with modifications. Move in bed without sharp pain . 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 Baseline Function- Other helps her lift heavy objects (30-50#) due to back pain (example - heavy garbage if doing too long, repetitively). Current Functional Impairments (Reported) Functional Limitations- ADL's Lifting 30-40# causes back pain. 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 Therapy/Recovery History of depression, currently being treated for post depression. Dizziness that comes and goes. PT-OP-C Subjective Start: 01/19/21 17:15 Freq: Status: Active Protocol: Document 01/23/21 09:45 LRN (Rec: 01/23/21 12:17 LRN [id number]) Patient Questionnaires Oswestry Low Back Index Oswestry Score 18 Oswestry Impairment 1 to 19% Impaired (Score 1-19) OP-PT Pain Assessment Pain Assessment Grid Paper Pain Assessment Grid Completed Yes Location Neck/shoulders Pain Location Details Suboccipital and into head, upper shoulders. Intensity 8 Scale Used Numeric (0 - 10) Description Aching,Tightness Description- Other Stiffness Frequency Constant Pain Alleviating Factors Heat,Massage Other Pain Alleviating Factors Hot shower Mid back Pain Location Details Thoracolumbar junction Intensity 4 Scale Used Numeric (0 - 10) Description Tightness Description- Other Sore,m feels swollen Frequency Intermittent Pain Duration Flares up with low back and neck pain Other Pain Aggravating Factors Low back and neck pain. Pain Alleviating Factors Heat,Massage Other Pain Alleviating Factors Hot shower Low back Pain Location Details Across low back, under the tailbone & across lower pelvis Intensity 7 Scale Used Numeric (0 - 10) Description Sharp,Stabbing Frequency Intermittent Pain Duration Frequent Pain Alleviating Factors Heat Other Pain Alleviating Factors Hot shower PT-OP-H Neuro Start: 01/19/21 17:15 Freq: Status: Active Protocol: Document 01/23/21 09:45 LRN (Rec: 01/23/21 12:17 LRN [id number]) Sensation Evaluation Gross Sensation Gross Sensation WNL PT-OP-J Posture/Palpation/Skin Start: 01/19/21 17:15 Freq: Status: Active Protocol: Document 01/23/21 09:45 LRN (Rec: 01/23/21 12:17 LRN [id number]) Posture Evaluation Position Standing Head/C-Spine Posture Neutral Position,C-Spine Flattened T-Spine Posture Flattened L-Spine Posture Increased Lordosis Pelvis Posture Anteriorly Tilted Comments Posture Comments R Inflare, low R ASIS, posteriorly shifted R innominate (Standing: posterior R ASIS, Prone: R PSIS is posterior Palpation Assessment Location Posterior thoracic region Palpation Location T6-T12 Paraspinals & Spinous processes Palpation Findings Muscle Guarding,Tenderness Posterior Neck Palpation Location Paraspinals and subocciptial Palpation Findings Muscle Guarding,Tenderness Low Back/Sacral region Palpation Location Sacrum superior>inferior. Palpation Findings Tenderness Lower abdomen Palpation Location Lower abdomen Palpation Findings Tenderness PT-OP-K Range of Motion Start: 01/19/21 17:15 Freq: Status: Active Protocol: Document 01/23/21 09:45 LRN (Rec: 01/23/21 12:17 LRN [id number]) Hip Goniometric Range of Motion Hip Right Passive Testing Position Supine Straight Leg Raise 50 Abduction 45 Internal Rotation 20 External Rotation 70 Left Passive Testing Position Supine Straight Leg Raise 55 Abduction 50 Internal Rotation 55 External Rotation 70 PT-OP-M Strength Start: 01/19/21 17:15 Freq: Status: Active Protocol: Document 01/23/21 09:45 LRN (Rec: 01/23/21 12:17 LRN [id number]) Hip Strength Hip Manual Muscle Testing Right Flexion (L2) 5 Normal Extension (S1) 3 Fair Abduction 5 Normal Adduction 3 Fair External Rotation 4+ Good+ Internal Rotation 5 Normal Left Flexion (L2) 5 Normal Extension (S1) 3 Fair Abduction 4- Good- Adduction 5 Normal External Rotation 4+ Good+ Internal Rotation 4+ Good+ PT-OP-Q Treatments Start: 01/19/21 17:15 Freq: Status: Active Protocol: Document 01/23/21 09:45 LRN (Rec: 01/23/21 12:17 LRN [id number]) Self-Care/Home Management Treatment Education Other Education Pt educated in results of evaluation. Discussed and determined appropriate goals and plan of care, with pt agreeable. PT-OP-T Assessment and Plan Start: 01/19/21 17:15 Freq: Status: Active Protocol: Document 01/23/21 09:45 LRN (Rec: 01/23/21 12:17 LRN [id number]) Physical Therapy Assessment Rehab Potential Rehabilitation Potential Good Evaluation Complexity Number of Personal Factors/Comorbidities 3 or More Number of Body Systems Impaired 4 or More Clinical Presentation at Evaluation Evolving Impairments Impairments Activity Tolerance,Functional Activities,Pain,Posture,ROM, Soft Tissue Mobility,Strength, Transfers Goals Three Impairment Neck/bilateral shoulder pain ( 8/10). Impairment Constant pain. Pain limiting ability to lie down and rest (at worst, onset of nausea & headaches). Short Term Goal (STG) Decrease neck/giles shoulder pain to intermittent with ability to lie down in restful position and tolerable pain with mild onset of nausea & headaches. STG Duration 03/09/21 Intermediate Goal (LTG) Decrease onset of neck pain to be able to lie down and position comfortably to prevent nausea, headaches. LTG Duration 04/07/21 Two Impairment Low back (7/10) and mid back pain (4/10). Impairment Frequent, intermittent pain. Sharp pain in low back with moving in bed. Short Term Goal (STG) Pt will be able to move in bed without sharp pain. STG Duration 02/23/21 Professor Of Law Goal (LTG) Decrease low and back pain to lift and hold baby without pain, modifying techniques used. LTG Duration 04/07/21 One Impairment Lacks HEP Short Term Goal (STG) Pt will be educated in self care for proper transfers and body mechanics. STG Duration 02/07/21 Intermediate Goal (LTG) Pt will be independent in a self care HEP for stabilization of the pelvis. LTG Duration 04/07/21 Assessment Summary Assessment Pt is ~11 months post- ( childbirth on 02/14/20) who presents with soft tissue dysfunction of the lower abdomen, pelvis, core muscles, upper back and neck/shoulders , and hamstring tightness. She has weakness of her core and mechanical dysfunction of the pelvis (right innominate inflare), and low back with sharp pain with movement in SIJ/LB. 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 Pt may need extended time with therapy due to her personal factors (wait time for insurance approval), and the coming holidays that may hinder her progress. Physical Therapy Plan Frequency and Duration Frequency of Treatment 2x/Week Plan of Care Start Date 01/23/21 Plan of Care End Date 04/07/21 Therapeutic Interventions Therapeutic Interventions Home Exercise Program,Joint Mobilizations,Manual Therapy, Neuromuscular Re-education, Patient/Caregiver Education, Self-Care/Home Management,Soft Tissue Mobilization,Taping, Therapeutic Activities, Therapeutic Exercises Modalities Cold Pack/Ice Massage,Electric Stimulation,Hot Packs, Ultrasound Next Visit Focus/Plan Next Note Type Treatment Note Next Visit Plan Assess PFM, core mobility & strength. Manual therapy for correction of common pattern, Pelvic mobs, Ischium/ Ilium rebalancing, lower abdominal techniques. Assess bladder, cervix, PFM w/pelvic bones externally, Perineal body, external anal sphincter, and core activation/ stabilization. Mid back Mob ( T/S & ribs), Liver/stomach, abdomen, pelvis. Modalities as needed for pain.
--- NOTE | 2021-01-23 16:52 | PT.OPPOC ---
Physical, Occupational & Speech Therapy At [facility] Current Diagnoses Cervicalgia (01/23/21) Low back pain, unspecified (01/23/21) Pain in thoracic spine (01/23/21) Muscle weakness (generalized) (01/23/21) Pelvic and perineal pain (01/23/21) Visit Care Team Role Provider Type Crsity Mendoza MD Attending Provider Physician Family Provider Primary Care Provider Referring Provider Specialty: Family Practice Address: [address] [place] [address] Email: [email or web address] Plan Of Care PT-OP-T Assessment and Plan Start: 01/19/21 17:15 Freq: Status: Active Protocol: Document 01/23/21 09:45 LRN (Rec: 01/23/21 12:17 LRN [id number]) Physical Therapy Assessment Rehab Potential Rehabilitation Potential Good Evaluation Complexity Number of Personal Factors/Comorbidities 3 or More Number of Body Systems Impaired 4 or More Clinical Presentation at Evaluation Evolving Impairments Impairments Activity Tolerance,Functional Activities,Pain,Posture,ROM, Soft Tissue Mobility,Strength, Transfers Goals Three Impairment Neck/bilateral shoulder pain ( 8/10). Impairment Constant pain. Pain limiting ability to lie down and rest (at worst, onset of nausea & headaches). Short Term Goal (STG) Decrease neck/giles shoulder pain to intermittent with ability to lie down in restful position and tolerable pain with mild onset of nausea & headaches. STG Duration 03/09/21 Shelter Goal (LTG) Decrease onset of neck pain to be able to lie down and position comfortably to prevent nausea, headaches. LTG Duration 04/07/21 Two Impairment Low back (7/10) and mid back pain (4/10). Impairment Frequent, intermittent pain. Sharp pain in low back with moving in bed. Short Term Goal (STG) Pt will be able to move in bed without sharp pain. STG Duration 02/23/21 Agency Service Coordinator Goal (LTG) Decrease low and back pain to lift and hold baby without pain, modifying techniques used. LTG Duration 04/07/21 One Impairment Lacks HEP Short Term Goal (STG) Pt will be educated in self care for proper transfers and body mechanics. STG Duration 02/07/21 Agency Service Coordinator Goal (LTG) Pt will be independent in a self care HEP for stabilization of the pelvis. LTG Duration 04/07/21 Assessment Summary Assessment Pt is ~11 months post- ( childbirth on 02/14/20) who presents with soft tissue dysfunction of the lower abdomen, pelvis, core muscles, upper back and neck/shoulders , and hamstring tightness. She has weakness of her core and mechanical dysfunction of the pelvis (right innominate inflare), and low back with sharp pain with movement in SIJ/LB. 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 Pt may need extended time with therapy due to her personal factors (wait time for insurance approval), and the coming holidays that may hinder her progress. Physical Therapy Plan Frequency and Duration Frequency of Treatment 2x/Week Plan of Care Start Date 01/23/21 Plan of Care End Date 04/07/21 Therapeutic Interventions Therapeutic Interventions Home Exercise Program,Joint Mobilizations,Manual Therapy, Neuromuscular Re-education, Patient/Caregiver Education, Self-Care/Home Management,Soft Tissue Mobilization,Taping, Therapeutic Activities, Therapeutic Exercises Modalities Cold Pack/Ice Massage,Electric Stimulation,Hot Packs, Ultrasound Next Visit Focus/Plan Next Note Type Treatment Note Next Visit Plan Assess PFM, core mobility & strength. Manual therapy for correction of common pattern, Pelvic mobs, Ischium/ Ilium rebalancing, lower abdominal techniques. Assess bladder, cervix, PFM w/pelvic bones externally, Perineal body, external anal sphincter, and core activation/ stabilization. Mid back Mob ( T/S & ribs), Liver/stomach, abdomen, pelvis. Modalities as needed for pain. Plan of Care Dates Plan of Care Start Date 01/23/21 Plan of Care End Date 04/07/21 Electronically Signed by: Phyllis Charles, PT 01/24/21 0854 Please Sign and Return: I have reviewed this Plan of Care and certify that the skilled therapy services above are required to meet the patient?s needs. Physician Signature Date Printed Name and Credentials Clinical Instructor Signature Printed Name and Credentials
--- NOTE | 2021-01-26 14:51 | PT.OTN ---
Current Diagnoses Cervicalgia (01/26/21) Low back pain, unspecified (01/26/21) Pain in thoracic spine (01/26/21) Muscle weakness (generalized) (01/26/21) Pelvic and perineal pain (01/26/21) Physical Therapy Treatment Note PT-OP-A Visit Information Start: 01/19/21 17:15 Freq: Status: Active Protocol: Document 01/26/21 11:20 LRN (Rec: 01/26/21 12:14 LRN [id number]) Out-Patient Physical Therapy Visit Information Visit Information Visit Type Treatment Note Visit Start Time 11:20 Visit Stop Time 12:10 Total Visit Minutes 50 Visit Number 2 Evaluation Information Evaluation Date 01/23/21 Precautions Precautions 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 Dizziness comes and goes, resulting in her having difficulty walking (once every few months) Decreased hearing of L ear. PT-OP-B Current Condition Start: 01/19/21 17:15 Freq: Status: Active Protocol: Document 01/23/21 09:45 LRN (Rec: 01/23/21 12:17 LRN [id number]) Current Condition History of Current Condition Onset Date 02/14/2020. Current Complaints Back, neck pain. History of Current Condition After having epidural for childbearing on Feb 14 2020, had really bad low back and abdominal pain and was told it didn't look like nerve pain, but just pelvic pain from pushing. Gets better if spouse massages the back, but it comes back the next day. Her son weighs at least 21#'s. Having back pain also from migraines, and occasional headaches when neck gets really bad. Prior Treatments and Tests None Future Testing and Treatments Planned None Treatment Goals Patient/Caregiver Goals Decrease neck pain to be able to lie down and to prevent nausea from pain and headaches . Decrase low and back pain to lift and hold baby without pain, with modifications. Move in bed without sharp pain . 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 Baseline Function- Other helps her lift heavy objects (30-50#) due to back pain (example - heavy garbage if doing too long, repetitively). Current Functional Impairments (Reported) Functional Limitations- ADL's Lifting 30-40# causes back pain. 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 Therapy/Recovery History of depression, currently being treated for post depression. Dizziness that comes and goes. PT-OP-C Subjective Start: 01/19/21 17:15 Freq: Status: Active Protocol: Document 01/26/21 11:20 LRN (Rec: 01/26/21 12:14 LRN [id number]) OP-PT Subjective Patient Comments Patient Comments Pain is not as bad, but same, more on left side. Neck is really bothering her. Pain in LB is 4/5, abdomen where ribs are 2/10, neck is 4/10. PT-OP-H Neuro Start: 01/19/21 17:15 Freq: Status: Active Protocol: Document 01/23/21 09:45 LRN (Rec: 01/23/21 12:17 LRN [id number]) Sensation Evaluation Gross Sensation Gross Sensation WNL PT-OP-J Posture/Palpation/Skin Start: 01/19/21 17:15 Freq: Status: Active Protocol: Document 01/23/21 09:45 LRN (Rec: 01/23/21 12:17 LRN [id number]) Posture Evaluation Position Standing Head/C-Spine Posture Neutral Position,C-Spine Flattened T-Spine Posture Flattened L-Spine Posture Increased Lordosis Pelvis Posture Anteriorly Tilted Comments Posture Comments R Inflare, low R ASIS, posteriorly shifted R innominate (Standing: posterior R ASIS, Prone: R PSIS is posterior Palpation Assessment Location Posterior thoracic region Palpation Location T6-T12 Paraspinals & Spinous processes Palpation Findings Muscle Guarding,Tenderness Posterior Neck Palpation Location Paraspinals and subocciptial Palpation Findings Muscle Guarding,Tenderness Low Back/Sacral region Palpation Location Sacrum superior>inferior. Palpation Findings Tenderness Lower abdomen Palpation Location Lower abdomen Palpation Findings Tenderness PT-OP-K Range of Motion Start: 01/19/21 17:15 Freq: Status: Active Protocol: Document 01/23/21 09:45 LRN (Rec: 01/23/21 12:17 LRN [id number]) Hip Goniometric Range of Motion Hip Right Passive Testing Position Supine Straight Leg Raise 50 Abduction 45 Internal Rotation 20 External Rotation 70 Left Passive Testing Position Supine Straight Leg Raise 55 Abduction 50 Internal Rotation 55 External Rotation 70 PT-OP-M Strength Start: 01/19/21 17:15 Freq: Status: Active Protocol: Document 01/23/21 09:45 LRN (Rec: 01/23/21 12:17 LRN [id number]) Hip Strength Hip Manual Muscle Testing Right Flexion (L2) 5 Normal Extension (S1) 3 Fair Abduction 5 Normal Adduction 3 Fair External Rotation 4+ Good+ Internal Rotation 5 Normal Left Flexion (L2) 5 Normal Extension (S1) 3 Fair Abduction 4- Good- Adduction 5 Normal External Rotation 4+ Good+ Internal Rotation 4+ Good+ PT-OP-Q Treatments Start: 01/19/21 17:15 Freq: Status: Active Protocol: Document 01/26/21 11:20 LRN (Rec: 01/26/21 12:14 LRN [id number]) Therapeutic Exercises Supine Exercises TA tightening Supine Exercise Name TA tightening Reps/Minutes 4' Comments Extra time for awareness training. Fair awareness, weak to no contraction. Prone Exercises Press ups Prone Exercise Name JAMES press ups Reps/Minutes 5 hold x 8 Comments Extra time for training and finding max tolerated position Manual Therapy Treatment Soft Tissue Mobilization Rebalancing Body Location Ischium/Ilium/Sacrum Comments Corrected R rotated sacrum, R sacral upshift (L rot), and inferior sacral shear to right . L pubic ramis inferior. 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 Transfer training for sup<>sit <> stand, with much physical and verbal cuing. Activities Self-Care/Home Management Activities I/S pt in hands/knees TA tightening/strengthening exercise. I/S pt in prone on elbows press ups. PT-OP-T Assessment and Plan Start: 01/19/21 17:15 Freq: Status: Active Protocol: Document 01/26/21 11:20 LRN (Rec: 01/26/21 12:14 LRN [id number]) Physical Therapy Assessment Goals Three Impairment Neck/bilateral shoulder pain ( 8/10). Impairment Constant pain. Pain limiting ability to lie down and rest (at worst, onset of nausea & headaches). Short Term Goal (STG) Decrease neck/giles shoulder pain to intermittent with ability to lie down in restful position and tolerable pain with mild onset of nausea & headaches. STG Duration 03/09/21 Water Analyst Goal (LTG) Decrease onset of neck pain to be able to lie down and position comfortably to prevent nausea, headaches. LTG Duration 04/07/21 Two Impairment Low back (7/10) and mid back pain (4/10). Impairment Frequent, intermittent pain. Sharp pain in low back with moving in bed. Short Term Goal (STG) Pt will be able to move in bed without sharp pain. STG Duration 02/23/21 Skilled Nursing Goal (LTG) Decrease low and back pain to lift and hold baby without pain, modifying techniques used. LTG Duration 04/07/21 One Impairment Lacks HEP Short Term Goal (STG) Pt will be educated in self care for proper transfers and body mechanics. (01/26/21: Educated pt in proper transfer sit<>supine and in proper lifting technique of stabilizing the back and using legs to lift). STG Duration 02/07/21 (01/26/21: Partially met goal: transfer, lifting from floor) Water Analyst Goal (LTG) Pt will be independent in a self care HEP for stabilization of the pelvis. LTG Duration 04/07/21 Assessment Summary Assessment + response to manual therapy rebalancing. Pt pelvis appeared level and symmetrical after treatment. Pt had awareness of change in hip/ legs like sore after long run . Pt had pain in posterior knees that she described as possibly tightness. No sharp stabbing pain with movement after treatment. No c/o discomfort with ex's. Pt demonstrates poor body mechanics with bending, lifting, transfers; therefore review is needed. Physical Therapy Plan Frequency and Duration Frequency of Treatment 2x/Week Plan of Care Start Date 01/23/21 Plan of Care End Date 04/07/21 Next Visit Focus/Plan Next Note Type Treatment Note Next Visit Plan 4 more visits allowed. Review & issue HEP: TA progression, JAMES strengthening. Education/training: Sit to stand transfer & daily body mechanics. Add Pelvic stab ex . Assess PFM (including bladder, cervix, PFM w/pelvic bones externally, Perineal body, external anal sphincter, and core activation/stabilization) , Assess core: diastasis, mobility & strength. Cont manual therapy for correction of common pattern, Pelvic mobs, Ischium/ Ilium rebalancing, lower abdominal techniques. Add Mid back Mob (T/S & ribs), Liver/stomach, abdomen, pelvis. Modalities as needed for pain.
--- NOTE | 2021-01-31 12:27 | PT.OTN ---
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 Dizziness comes and goes, resulting in her having difficulty walking (once every few months) Decreased hearing of L ear. PT-OP-B Current Condition Start: 01/19/21 17:15 Freq: Status: Active Protocol: Document 01/23/21 09:45 LRN (Rec: 01/23/21 12:17 LRN [id number]) Current Condition History of Current Condition Onset Date 02/14/2020. Current Complaints Back, neck pain. History of Current Condition After having epidural for childbearing on Feb 14 2020, had really bad low back and abdominal pain and was told it didn't look like nerve pain, but just pelvic pain from pushing. Gets better if spouse massages the back, but it comes back the next day. Her son weighs at least 21#'s. Having back pain also from migraines, and occasional headaches when neck gets really bad. Prior Treatments and Tests None Future Testing and Treatments Planned None Treatment Goals Patient/Caregiver Goals Decrease neck pain to be able to lie down and to prevent nausea from pain and headaches . Decrase low and back pain to lift and hold baby without pain, with modifications. Move in bed without sharp pain . 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 Baseline Function- Other helps her lift heavy objects (30-50#) due to back pain (example - heavy garbage if doing too long, repetitively). Current Functional Impairments (Reported) Functional Limitations- ADL's Lifting 30-40# causes back pain. 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 Therapy/Recovery History of depression, currently being treated for post depression. Dizziness that comes and goes. PT-OP-C Subjective Start: 01/19/21 17:15 Freq: Status: Active Protocol: Document 01/31/21 11:18 LRN (Rec: 01/31/21 12:26 LRN [id number]) OP-PT Subjective Patient Comments Patient Comments No sharp pains in low back. R side shoulder and neck was tense. If press to hard it causes soreness in the arms. No low back or rib pain. Slight leak with sneeze. Sometimes pain with intercourse. PT-OP-H Neuro Start: 01/19/21 17:15 Freq: Status: Active Protocol: Document 01/23/21 09:45 LRN (Rec: 01/23/21 12:17 LRN [id number]) Sensation Evaluation Gross Sensation Gross Sensation WNL PT-OP-J Posture/Palpation/Skin Start: 01/19/21 17:15 Freq: Status: Active Protocol: Document 01/31/21 11:18 LRN (Rec: 01/31/21 12:26 LRN [id number]) Palpation Assessment Location Abdomen Palpation Location Below & above Umbilicus Palpation Details DR: 1.5 finger width above umbilicus 2 1.5 finger width below umbilicus for 3, then 1 finger width 2. PT-OP-K Range of Motion Start: 01/19/21 17:15 Freq: Status: Active Protocol: Document 01/23/21 09:45 LRN (Rec: 01/23/21 12:17 LRN [id number]) Hip Goniometric Range of Motion Hip Right Passive Testing Position Supine Straight Leg Raise 50 Abduction 45 Internal Rotation 20 External Rotation 70 Left Passive Testing Position Supine Straight Leg Raise 55 Abduction 50 Internal Rotation 55 External Rotation 70 PT-OP-M Strength Start: 01/19/21 17:15 Freq: Status: Active Protocol: Document 01/23/21 09:45 LRN (Rec: 01/23/21 12:17 LRN [id number]) Hip Strength Hip Manual Muscle Testing Right Flexion (L2) 5 Normal Extension (S1) 3 Fair Abduction 5 Normal Adduction 3 Fair External Rotation 4+ Good+ Internal Rotation 5 Normal Left Flexion (L2) 5 Normal Extension (S1) 3 Fair Abduction 4- Good- Adduction 5 Normal External Rotation 4+ Good+ Internal Rotation 4+ Good+ PT-OP-Q Treatments Start: 01/19/21 17:15 Freq: Status: Active Protocol: Document 01/31/21 11:18 LRN (Rec: 01/31/21 12:26 LRN [id number]) Therapeutic Exercises Supine Exercises DR protection Supine Exercise Name DR protection using hands to approximate Side bilateral Reps/Minutes 4' Comments DR assessed TA tightening Supine Exercise Name TA tightening Reps/Minutes 4' Comments Extra time for awareness training. Fair awareness, weak to no contraction. Manual Therapy Treatment Soft Tissue Mobilization UT Body Location R>L UT Mobilization Type Sustained Pressure Body Position Supine Cervical paraspinals Body Location L>R Cervical paraspinals Mobilization Type Myofascial Release,Sustained Pressure Subocciptal region Body Location R > L Suboccipital release Mobilization Type Myofascial Release,Sustained Pressure Body Position Supine L QL/lateral trunk Body Location L QL & lateral trunk Mobilization Type Manual Lymphatic Drainage, Strumming Intensity/Depth Moderate Body Position Supine Abdominal STM Body Location Bladder, uterus, Lig, Fascia Mobilization Type Myofascial Release,Sustained Pressure Body Position Supine Joint Mobilizations 1st rib Joint 1st Rib Direction PA Grade II Body Position Supine Reps/Duration 2' Self-Care/Home Management Treatment Education Patient Education Home Exercise Program Other Education Educated pt in self STM of left QL & lateral trunk. Educated pt in self MFR of L abdomen/lateral trunk for R rotation and superior glide Activities Self-Care/Home Management Activities I/S Self care: TA tightening Transfers with DR support Self STM of L lateral trunk/QL PT-OP-T Assessment and Plan Start: 01/19/21 17:15 Freq: Status: Active Protocol: Document 01/31/21 11:18 LRN (Rec: 01/31/21 12:26 LRN [id number]) Physical Therapy Assessment Goals Three Impairment Neck/bilateral shoulder pain ( 8/10). Impairment Constant pain. Pain limiting ability to lie down and rest (at worst, onset of nausea & headaches). Short Term Goal (STG) Decrease neck/giles shoulder pain to intermittent with ability to lie down in restful position and tolerable pain with mild onset of nausea & headaches. STG Duration 03/09/21 Typing Checker Goal (LTG) Decrease onset of neck pain to be able to lie down and position comfortably to prevent nausea, headaches. LTG Duration 04/07/21 Two Impairment Low back (7/10) and mid back pain (4/10). Impairment Frequent, intermittent pain. Sharp pain in low back with moving in bed. Short Term Goal (STG) Pt will be able to move in bed without sharp pain. STG Duration 02/23/21 Typing Checker Goal (LTG) Decrease low and back pain to lift and hold baby without pain, modifying techniques used. LTG Duration 04/07/21 One Impairment Lacks HEP Short Term Goal (STG) Pt will be educated in self care for proper transfers and body mechanics. (01/26/21: Educated pt in proper transfer sit<>supine and in proper lifting technique of stabilizing the back and using legs to lift). STG Duration 02/07/21 (01/26/21: Partially met goal: transfer, lifting from floor) Typing Checker Goal (LTG) Pt will be independent in a self care HEP for stabilization of the pelvis. (01/31/21: I/S pt in TA tightening). LTG Duration 04/07/21 (01/31/21: Progressed HEP). Progress Towards Goals Progress Comments Progressed self care program. Assessment Summary Assessment + response to last treatment. Pelvis is slightly elevated right, R innominate forward. Decreased mobility L abdomen and lateral trunk into R rot, superior glide. L cervical paraspinals tight, active trigger points in R suboccipital region and decreased PA of upper T/S. Pt bladder & uterus is L rotated , tight with R SB. Much fascial tightness present. Per pt report she probably has PF dysfunction with slight leakage with cough and sometimes tingling. Pt has pain with deep thrust with intercourse; therefore possible drop of uterus. Pt probably need PF physical therapy. Pt has diastasis rectus of 1.5 finger width umbilicus to 3 below, and above umbilicus ~2. Pt showed good understanding of protecting diastasis on completion of therapy (doing a TA and holding in approximation). Physical Therapy Plan Frequency and Duration Frequency of Treatment 2x/Week Plan of Care Start Date 01/23/21 Plan of Care End Date 04/07/21 Next Visit Focus/Plan Next Note Type Treatment Note Next Visit Plan 3 more visits allowed. Assess goals 2 & 3. Education/training: Sit to stand transfer & daily body mechanics. Review diastasis protection mechanics. Review & issue HEP : TA progression, JAMES strengthening. Reassess PFM (including bladder, cervix, PFM w/pelvic bones externally, Perineal body, external anal sphincter, and core activation/ stabilization). Cont manual therapy for correction of common pattern, Pelvic mobs, Ischium/ Ilium rebalancing, lower abdominal techniques. Add Mid back Mob (T/S & ribs), Liver/stomach, abdomen, pelvis. Modalities as needed for pain.
--- NOTE | 2021-02-07 11:22 | PT-OP ANOTE ---
Same day cancel due to car not starting
--- NOTE | 2021-02-09 14:38 | PT.OTN ---
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 Dizziness comes and goes, resulting in her having difficulty walking (once every few months) Decreased hearing of L ear. PT-OP-B Current Condition Start: 01/19/21 17:15 Freq: Status: Active Protocol: Document 01/23/21 09:45 LRN (Rec: 01/23/21 12:17 LRN [id number]) Current Condition History of Current Condition Onset Date 02/14/2020. Current Complaints Back, neck pain. History of Current Condition After having epidural for childbearing on Feb 14 2020, had really bad low back and abdominal pain and was told it didn't look like nerve pain, but just pelvic pain from pushing. Gets better if spouse massages the back, but it comes back the next day. Her son weighs at least 21#'s. Having back pain also from migraines, and occasional headaches when neck gets really bad. Prior Treatments and Tests None Future Testing and Treatments Planned None Treatment Goals Patient/Caregiver Goals Decrease neck pain to be able to lie down and to prevent nausea from pain and headaches . Decrase low and back pain to lift and hold baby without pain, with modifications. Move in bed without sharp pain . 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 Baseline Function- Other helps her lift heavy objects (30-50#) due to back pain (example - heavy garbage if doing too long, repetitively). Current Functional Impairments (Reported) Functional Limitations- ADL's Lifting 30-40# causes back pain. 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 Therapy/Recovery History of depression, currently being treated for post depression. Dizziness that comes and goes. PT-OP-C Subjective Start: 01/19/21 17:15 Freq: Status: Active Protocol: Document 02/09/21 09:48 LRN (Rec: 02/09/21 10:33 LRN [id number]) OP-PT Subjective Patient Comments Patient Comments Hips are feeling good, but mid to low back pain after last night when child rolled offer her bed. NEck/shoulder pain comes and goes, worse with migraines. PT-OP-H Neuro Start: 01/19/21 17:15 Freq: Status: Active Protocol: Document 01/23/21 09:45 LRN (Rec: 01/23/21 12:17 LRN [id number]) Sensation Evaluation Gross Sensation Gross Sensation WNL PT-OP-J Posture/Palpation/Skin Start: 01/19/21 17:15 Freq: Status: Active Protocol: Document 01/31/21 11:18 LRN (Rec: 01/31/21 12:26 LRN [id number]) Palpation Assessment Location Abdomen Palpation Location Below & above Umbilicus Palpation Details DR: 1.5 finger width above umbilicus 2 1.5 finger width below umbilicus for 3, then 1 finger width 2. PT-OP-K Range of Motion Start: 01/19/21 17:15 Freq: Status: Active Protocol: Document 01/23/21 09:45 LRN (Rec: 01/23/21 12:17 LRN [id number]) Hip Goniometric Range of Motion Hip Right Passive Testing Position Supine Straight Leg Raise 50 Abduction 45 Internal Rotation 20 External Rotation 70 Left Passive Testing Position Supine Straight Leg Raise 55 Abduction 50 Internal Rotation 55 External Rotation 70 PT-OP-M Strength Start: 01/19/21 17:15 Freq: Status: Active Protocol: Document 01/23/21 09:45 LRN (Rec: 01/23/21 12:17 LRN [id number]) Hip Strength Hip Manual Muscle Testing Right Flexion (L2) 5 Normal Extension (S1) 3 Fair Abduction 5 Normal Adduction 3 Fair External Rotation 4+ Good+ Internal Rotation 5 Normal Left Flexion (L2) 5 Normal Extension (S1) 3 Fair Abduction 4- Good- Adduction 5 Normal External Rotation 4+ Good+ Internal Rotation 4+ Good+ PT-OP-Q Treatments Start: 01/19/21 17:15 Freq: Status: Active Protocol: Document 02/09/21 09:48 LRN (Rec: 02/09/21 10:33 LRN [id number]) Therapeutic Exercises Supine Exercises UT stretch Supine Exercise Name UT stretch Side bilateral Reps/Minutes 1' x 2 each with and without MH Comments Extra time for set up and training DR protection Supine Exercise Name DR protection training with use of towel Side bilateral Reps/Minutes 4' TA tightening Supine Exercise Name TA tightening Reps/Minutes 4' Comments Extra time for awareness training. Weak to no contraction on left side. Sidelying Exercises TA tightening Sidelying Exercise Name TA tightening Side bilateral Reps/Minutes 8' Comments Much phy & v cuing needed, especially for L side Sitting Exercises Hip Hinging training Sitting Exercise Name Hip Hinging training Reps/Minutes 3' Shoulder rolls Side bilateral Reps/Minutes 10-15x Lev Scap stretch Sitting Exercise Name Lev Scap stretch Side bilateral Reps/Minutes 1' x 3 each UT stretch Sitting Exercise Name UT stretch Side bilateral Reps/Minutes 1' x 3 each Self-Care/Home Management Treatment Education Patient Education Home Exercise Program Other Education Educated pt in proper hip hinging technique for transfers using core stab before hip hinging and transfering. Reviewed DR protection techniques using towel (see therapeutic exercise). Activities Self-Care/Home Management Activities Issued & reviewed HEP: Scalene stretches for lateral & posterior (including UT/Lev Scap). Issued & reviewed: Core stab progressive program. PT-OP-T Assessment and Plan Start: 01/19/21 17:15 Freq: Status: Active Protocol: Document 02/09/21 09:48 LRN (Rec: 02/09/21 10:33 LRN [id number]) Physical Therapy Assessment Goals Three Impairment Neck/bilateral shoulder pain ( 8/10). Impairment Constant pain. Pain limiting ability to lie down and rest (at worst, onset of nausea & headaches). Short Term Goal (STG) Decrease neck/giles shoulder pain to intermittent with ability to lie down in restful position and tolerable pain with mild onset of nausea & headaches. (02/09/21: Constant tightness in neck/shoulders & sore. Able to lie down and rest) STG Duration 03/09/21 (02/09/21: Partaily met, tightness not pain) Polytechnic Registrar Goal (LTG) Decrease onset of neck pain to be able to lie down and position comfortably to prevent nausea, headaches. (02/09/21: (02/09/21: Pt is able to lie down comfortably without pain, but has constant tightness) LTG Duration 04/07/21 (02/09/21: Partially met.) Two Impairment Low back (7/10) and mid back pain (4/10). Impairment Frequent, intermittent pain. Sharp pain in low back with moving in bed. Short Term Goal (STG) Pt will be able to move in bed without sharp pain. (02/09/21: Sometimes has sharp pain in low back. Most noticeable when lying on stomach or back. Sidelie, sit or standing no pain). STG Duration 02/23/21 (02/09/21: Pain with lying on back or stomach with movement) Polytechnic Registrar Goal (LTG) Decrease low and back pain to lift and hold baby without pain, modifying techniques used. 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 LTG Duration 04/07/21 (02/09/21: MET GOAL ) One Impairment Lacks HEP Short Term Goal (STG) Pt will be educated in self care for proper transfers and body mechanics. (01/26/21: Educated pt in proper transfer sit<>supine and in proper lifting technique of stabilizing the back and using legs to lift). STG Duration 02/07/21 (01/26/21: Partially met goal: transfer, lifting from floor) Polytechnic Registrar Goal (LTG) Pt will be independent in a self care HEP for stabilization of the pelvis. (01/31/21: I/S pt in TA tightening). (02/09/21: HEP: Neck stretches: Scalene handout) LTG Duration 04/07/21 (01/31/21: Progressed HEP). Assessment Summary Assessment L side is very weak on TA tightening. Improved awareness of TA and is able to contract more the L on command after training. Neck/ shoulder pain is now soreness, but still constant. Pain in LB persists with movement when on back and prone. No pain felt in sidelie. Physical Therapy Plan Frequency and Duration Frequency of Treatment 2x/Week Plan of Care Start Date 01/23/21 Plan of Care End Date 04/07/21 Next Visit Focus/Plan Next Note Type Treatment Note Next Visit Plan 2 more visits allowed. Education/training: daily body mechanics. Review issued HEP: TA progression; Add HEP: JAMES strengthening. Reassess PFM (including bladder, cervix, PFM w/pelvic bones externally, Perineal body, external anal sphincter, and core activation/ stabilization). Manual therapy for neck/ shoulder pain & correction of common pattern, Pelvic mobs, Ischium/Ilium rebalancing, lower abdominal techniques. Add as needed: Mid back Mob (T /S & ribs), Liver/stomach, abdomen, pelvis. CP for pain if needed.
--- NOTE | 2021-02-16 10:12 | PT-OP ANOTE ---
Same day cancel
--- NOTE | 2021-02-21 15:57 | PT.OTN ---
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 Dizziness comes and goes, resulting in her having difficulty walking (once every few months) Decreased hearing of L ear. PT-OP-B Current Condition Start: 01/19/21 17:15 Freq: Status: Active Protocol: Document 01/23/21 09:45 LRN (Rec: 01/23/21 12:17 LRN [id number]) Current Condition History of Current Condition Onset Date 02/14/2020. Current Complaints Back, neck pain. History of Current Condition After having epidural for childbearing on Feb 14 2020, had really bad low back and abdominal pain and was told it didn't look like nerve pain, but just pelvic pain from pushing. Gets better if spouse massages the back, but it comes back the next day. Her son weighs at least 21#'s. Having back pain also from migraines, and occasional headaches when neck gets really bad. Prior Treatments and Tests None Future Testing and Treatments Planned None Treatment Goals Patient/Caregiver Goals Decrease neck pain to be able to lie down and to prevent nausea from pain and headaches . Decrase low and back pain to lift and hold baby without pain, with modifications. Move in bed without sharp pain . 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 Baseline Function- Other helps her lift heavy objects (30-50#) due to back pain (example - heavy garbage if doing too long, repetitively). Current Functional Impairments (Reported) Functional Limitations- ADL's Lifting 30-40# causes back pain. 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 Therapy/Recovery History of depression, currently being treated for post depression. Dizziness that comes and goes. PT-OP-C Subjective Start: 01/19/21 17:15 Freq: Status: Active Protocol: Document 02/21/21 09:02 LRN (Rec: 02/21/21 09:53 LRN [id number]) OP-PT Subjective Patient Comments Patient Comments No LBP. Some in shoulders not too much. State light is really effecting eyes causing nausea. A week ago hit top of head with cabinet really hard and then maybe problem with light started then, or just before. PT-OP-H Neuro Start: 01/19/21 17:15 Freq: Status: Active Protocol: Document 01/23/21 09:45 LRN (Rec: 01/23/21 12:17 LRN [id number]) Sensation Evaluation Gross Sensation Gross Sensation WNL PT-OP-J Posture/Palpation/Skin Start: 01/19/21 17:15 Freq: Status: Active Protocol: Document 01/31/21 11:18 LRN (Rec: 01/31/21 12:26 LRN [id number]) Palpation Assessment Location Abdomen Palpation Location Below & above Umbilicus Palpation Details DR: 1.5 finger width above umbilicus 2 1.5 finger width below umbilicus for 3, then 1 finger width 2. PT-OP-K Range of Motion Start: 01/19/21 17:15 Freq: Status: Active Protocol: Document 01/23/21 09:45 LRN (Rec: 01/23/21 12:17 LRN [id number]) Hip Goniometric Range of Motion Hip Right Passive Testing Position Supine Straight Leg Raise 50 Abduction 45 Internal Rotation 20 External Rotation 70 Left Passive Testing Position Supine Straight Leg Raise 55 Abduction 50 Internal Rotation 55 External Rotation 70 PT-OP-M Strength Start: 01/19/21 17:15 Freq: Status: Active Protocol: Document 01/23/21 09:45 LRN (Rec: 01/23/21 12:17 LRN [id number]) Hip Strength Hip Manual Muscle Testing Right Flexion (L2) 5 Normal Extension (S1) 3 Fair Abduction 5 Normal Adduction 3 Fair External Rotation 4+ Good+ Internal Rotation 5 Normal Left Flexion (L2) 5 Normal Extension (S1) 3 Fair Abduction 4- Good- Adduction 5 Normal External Rotation 4+ Good+ Internal Rotation 4+ Good+ PT-OP-Q Treatments Start: 01/19/21 17:15 Freq: Status: Active Protocol: Document 02/21/21 09:02 LRN (Rec: 02/21/21 09:53 LRN [id number]) Therapeutic Exercises Supine Exercises C. Cruz w/neck ext Supine Exercise Name C. Isometric w/neck ext Equipment Used Lights low Reps/Minutes 2' Comments DC'd due to head discomfort C. Cruz w/neck elongation Supine Exercise Name C. Isometrick w/neck elongation Reps/Minutes 2' Comments Neck pain C. Isometric Supine Exercise Name C. Isometric Equipment Used hand towel rolled to support neck, Lights low Reps/Minutes 5-10 hold x 10 Prone Exercises Press ups Reps/Minutes 30x Sitting Exercises Neck Elongation with Cruz C. EXt Sitting Exercise Name Neck Elongation with Cruz C. Ext Reps/Minutes 2' Neck Elongation Sitting Exercise Name Neck Elongation Reps/Minutes 2' Manual Therapy Treatment Soft Tissue Mobilization Cervical paraspinals Body Location Right C1-C6 Mobilization Type Myofascial Release,Sustained Pressure Intensity/Depth Superficial Body Position Supine Comments Muscles: Paraspinals, Interspinalis, rotators, intertransversarii, possible multifidus. Self-Care/Home Management Treatment Education Patient Education Body Mechanics,Home Exercise Program Other Education Body mechanics training and posturing for daily activities . Long discussion/education: WBing (standing positions), Posture (neutral), SIJ dysuf, yoga vs stab. Activities Self-Care/Home Management Activities HEP issued: back ext sterngthening (4 pt, prone). PT-OP-T Assessment and Plan Start: 01/19/21 17:15 Freq: Status: Active Protocol: Document 02/21/21 09:02 LRN (Rec: 02/21/21 09:53 LRN [id number]) Physical Therapy Assessment Goals Three Impairment Neck/bilateral shoulder pain ( 8/10). Impairment Constant pain. Pain limiting ability to lie down and rest (at worst, onset of nausea & headaches). Short Term Goal (STG) Decrease neck/giles shoulder pain to intermittent with ability to lie down in restful position and tolerable pain with mild onset of nausea & headaches. (02/09/21: Constant tightness in neck/shoulders & sore. Able to lie down and rest) STG Duration 03/09/21 (02/09/21: Partaily met, tightness not pain) Custodial Goal (LTG) Decrease onset of neck pain to be able to lie down and position comfortably to prevent nausea, headaches. (02/09/21: (02/09/21: Pt is able to lie down comfortably without pain, but has constant tightness) LTG Duration 04/07/21 (02/09/21: Partially met.) Two Impairment Low back (7/10) and mid back pain (4/10). Impairment Frequent, intermittent pain. Sharp pain in low back with moving in bed. Short Term Goal (STG) Pt will be able to move in bed without sharp pain. (02/09/21: Sometimes has sharp pain in low back. Most noticeable when lying on stomach or back. Sidelie, sit or standing no pain). STG Duration 02/23/21 (02/21/21: MET GOAL ) Custodial Goal (LTG) Decrease low and back pain to lift and hold baby without pain, modifying techniques used. 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 LTG Duration 04/07/21 (02/09/21: MET GOAL ) One Impairment Lacks HEP Short Term Goal (STG) Pt will be educated in self care for proper transfers and body mechanics. (01/26/21: Educated pt in proper transfer sit<>supine and in proper lifting technique of stabilizing the back and using legs to lift). (02/21/21: Pt educated in proper posturing for daily activities). STG Duration 02/07/21 (02/21/21: MET GOAL ) Reinsurance Claim Analyst Goal (LTG) Pt will be independent in a self care HEP for stabilization of the pelvis. (01/31/21: I/S pt in TA tightening). (02/09/21: HEP: Neck stretches: Scalene handout) LTG Duration 04/07/21 (01/31/21: Progressed HEP). Progress Towards Goals Progress Comments Goal #2, STG & LTG MET STG #1 MET. Assessment Summary Assessment Pt much improved with no c/o's of LBP; therefore reassess of PFM might not be needed ( including bladder, cervix, PFM w/pelvic bones externally, Perineal body, external anal sphincter). + response today to manual therapy with improved mobilty of neck and lessening of tightness feeling . Pt appears to have a good understanding of concepts for proper body mechanics for max protection of the low back. Pt may need a review of back extension strengthening exercises. Physical Therapy Plan Frequency and Duration Frequency of Treatment 2x/Week Plan of Care Start Date 01/23/21 Plan of Care End Date 04/07/21 Next Visit Focus/Plan Next Note Type Treatment Note Next Visit Plan Pt has 3 approved visits scheduled. Quick review of: daily body mechanics & practice lifting of baby or from floor, mid hgt & high up. Assess response to manual therapy for neck/shoulder pain (progress to Goal #3), Review issued HEP: TA progression and trunk ext strengthening, Add core activation/ stabilization. Add as needed: Mid back Mob (T /S & ribs), Liver/stomach, abdomen, pelvis. CP for pain if needed.
--- NOTE | 2021-03-02 10:33 | PT-OP ANOTE ---
Same day cancel for reason pt overbooked self.
--- NOTE | 2021-03-09 16:00 | PT-OP ANOTE ---
Same day cancellation
--- NOTE | 2021-03-13 09:24 | PT-OP ANOTE ---
Pt canceled due to no insurance authorization
--- NOTE | 2021-03-14 09:25 | PT-OP ANOTE ---
Received message that pt canceled due to family unexpectedly arriving. Pt called with message left reminding pt of cancelation policy. Informed pt she has no other PT visits scheduled and her POC expires 04/07/21. Pt notified of PT abscence from 03/20/21 through 04/02/21. Pt advised to schedule a visit in the New Year and/or notify therapist of intent to continue rehab or discharge by end of week (03/17/21).
--- NOTE | 2021-04-04 15:02 | PT-OP ANOTE ---
Same Day cancel
--- NOTE | 2021-04-06 10:26 | PT-OP ANOTE ---
Pt called and notified of no further appointments scheduled. Pt shown as DNS on daily schedule, but no appt listed for today on her list of appointments. Requested pt return call if further therapy needed and informed of discharge from therapy in if clinic not contracted in 2 wks.
--- NOTE | 2021-05-01 12:00 | PT.OPDS ---
Current Diagnoses Cervicalgia (03/16/21) Low back pain, unspecified (03/16/21) Pain in thoracic spine (03/16/21) Muscle weakness (generalized) (03/16/21) Pelvic and perineal pain (03/16/21) Visit Care Team Role Provider Type Cristy Mendoza MD Attending Provider Physician Family Provider Primary Care Provider Referring Provider Specialty: Family Practice Address: [address] [place] [address], [facility] Email: [email or web address] Visit Number Visit Number 6 Discharge Summary PT-OP-B Current Condition Start: 01/19/21 17:15 Freq: Status: Active Protocol: Document 01/23/21 09:45 LRN (Rec: 01/23/21 12:17 LRN [id number]) Current Condition History of Current Condition Onset Date 02/14/2020. Current Complaints Back, neck pain. History of Current Condition After having epidural for childbearing on Feb 14 2020, had really bad low back and abdominal pain and was told it didn't look like nerve pain, but just pelvic pain from pushing. Gets better if spouse massages the back, but it comes back the next day. Her son weighs at least 21#'s. Having back pain also from migraines, and occasional headaches when neck gets really bad. Prior Treatments and Tests None Future Testing and Treatments Planned None Treatment Goals Patient/Caregiver Goals Decrease neck pain to be able to lie down and to prevent nausea from pain and headaches . Decrase low and back pain to lift and hold baby without pain, with modifications. Move in bed without sharp pain . 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 Baseline Function- Other helps her lift heavy objects (30-50#) due to back pain (example - heavy garbage if doing too long, repetitively). Current Functional Impairments (Reported) Functional Limitations- ADL's Lifting 30-40# causes back pain. 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 Therapy/Recovery History of depression, currently being treated for post depression. Dizziness that comes and goes. PT-OP-C Subjective Start: 01/19/21 17:15 Freq: Status: Active Protocol: Document 03/16/21 10:32 LRN (Rec: 03/16/21 11:55 LRN [id number]) OP-PT Subjective Patient Comments Patient Comments Lower back has only hurt onec. What really hurts is the neck. Having pressure inside the skill/brain something inside is blocking it. States she was looking R and felt a pop in the L side of the neck and had had burning pain. Currently just tense in the neck. PT-OP-H Neuro Start: 01/19/21 17:15 Freq: Status: Active Protocol: Document 01/23/21 09:45 LRN (Rec: 01/23/21 12:17 LRN [id number]) Sensation Evaluation Gross Sensation Gross Sensation WNL PT-OP-J Posture/Palpation/Skin Start: 01/19/21 17:15 Freq: Status: Active Protocol: Document 01/31/21 11:18 LRN (Rec: 01/31/21 12:26 LRN [id number]) Palpation Assessment Location Abdomen Palpation Location Below & above Umbilicus Palpation Details DR: 1.5 finger width above umbilicus 2 1.5 finger width below umbilicus for 3, then 1 finger width 2. PT-OP-K Range of Motion Start: 01/19/21 17:15 Freq: Status: Active Protocol: Document 01/23/21 09:45 LRN (Rec: 01/23/21 12:17 LRN [id number]) Hip Goniometric Range of Motion Hip Right Passive Testing Position Supine Straight Leg Raise 50 Abduction 45 Internal Rotation 20 External Rotation 70 Left Passive Testing Position Supine Straight Leg Raise 55 Abduction 50 Internal Rotation 55 External Rotation 70 PT-OP-M Strength Start: 01/19/21 17:15 Freq: Status: Active Protocol: Document 01/23/21 09:45 LRN (Rec: 01/23/21 12:17 LRN [id number]) Hip Strength Hip Manual Muscle Testing Right Flexion (L2) 5 Normal Extension (S1) 3 Fair Abduction 5 Normal Adduction 3 Fair External Rotation 4+ Good+ Internal Rotation 5 Normal Left Flexion (L2) 5 Normal Extension (S1) 3 Fair Abduction 4- Good- Adduction 5 Normal External Rotation 4+ Good+ Internal Rotation 4+ Good+ PT-OP-T Assessment and Plan Start: 01/19/21 17:15 Freq: Status: Active Protocol: Document 05/01/21 11:54 LRN (Rec: 05/01/21 12:00 LRN [id number]) Physical Therapy Assessment Goals Three Impairment Neck/bilateral shoulder pain ( 8/10). Impairment Constant pain. Pain limiting ability to lie down and rest (at worst, onset of nausea & headaches). Short Term Goal (STG) Decrease neck/giles shoulder pain to intermittent with ability to lie down in restful position and tolerable pain with mild onset of nausea & headaches. (02/09/21: Constant tightness in neck/shoulders & sore. Able to lie down and rest) (03/16/21: Pt able to lie on side to sleep) STG Duration 03/09/21 (03/16/21: Partaily met, able to sleep on side) [place] Goal (LTG) Decrease onset of neck pain to be able to lie down and position comfortably to prevent nausea, headaches. (02/09/21: (02/09/21: Pt is able to lie down comfortably without pain, but has constant tightness) LTG Duration 04/07/21 (02/09/21: Partially met.) Two Impairment Low back (7/10) and mid back pain (4/10). Impairment Frequent, intermittent pain. Sharp pain in low back with moving in bed. Short Term Goal (STG) Pt will be able to move in bed without sharp pain. (02/09/21: Sometimes has sharp pain in low back. Most noticeable when lying on stomach or back. Sidelie, sit or standing no pain). STG Duration 02/23/21 (02/21/21: MET GOAL ) [place] Goal (LTG) Decrease low and back pain to lift and hold baby without pain, modifying techniques used. 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 LTG Duration 04/07/21 (02/09/21: MET GOAL ) One Impairment Lacks HEP Short Term Goal (STG) Pt will be educated in self care for proper transfers and body mechanics. (01/26/21: Educated pt in proper transfer sit<>supine and in proper lifting technique of stabilizing the back and using legs to lift). (02/21/21: Pt educated in proper posturing for daily activities). STG Duration 02/07/21 (02/21/21: MET GOAL ) Detention Goal (LTG) Pt will be independent in a self care HEP for stabilization of the pelvis. (01/31/21: I/S pt in TA tightening). (02/09/21: HEP: Neck stretches: Scalene handout) LTG Duration 04/07/21 (01/31/21: Progressed HEP). Assessment Summary Assessment Pt was last seen 02/21/21. She cancelled 6 more apppointments and failed to respond to message left requesting call back; therefore the pt is being discharged for lack of attendance and failing to complete her rehabilitation program. On her last attended visit she was very receptive to information regarding support for the feet. Her R subocciptial pain was reproduced by STM and TrP treatment of the R UT . Her L LBP tightness decreased with STM but not resolved. R Rib tightness treatnent was reportedly felt in her superior abdomen. Physical Therapy Plan Discharge Physical Therapy Discharge Reasons No Longer Attending PT Discharge Comments Goals were partially met due to pt failing to complete her rehabilitation program. Thank you for your referral.
== END 2021-05-02 08:16 ==
LOC: PHYS 10:30
PROVIDERS: Family Provider Family Medicine; PCP Family Medicine; Referring Provider Family Medicine; Visit Provider Family Medicine
DX: M54.6 Pain in thoracic spine (principal); M54.2 Cervicalgia; M54.50 Low back pain, unspecified; M62.81 Muscle weakness (generalized); R10.2 Pelvic and perineal pain
CPT/HCPCS: 97110; 97140; 97162

== ENCOUNTER → 2021-03-19 12:32 | Outpatient (CLI) | payer OTHER, MEDICAID, SELFPAY ==
[2020-02-22 05:09] VITALS: BMI 19.8
--- NOTE | 2021-03-19 12:34 | DI.RAD.S_ITS ---
PROCEDURE: XR ANKLE LT MIN 3V INDICATIONS: Left ankle pain TECHNIQUE: 3 views of the ankle were acquired. COMPARISON: None. FINDINGS: Bones: No fractures or dislocations. Ankle mortise is normally aligned. No suspicious bony lesions. Soft tissues: No tibiotalar joint effusion. Achilles tendon appears normal. IMPRESSION: Normal left ankle Dictated by: Frankie Joseph M.D. on 03/19/2021 at 12:23 Approved by: Frankie Joseph M.D. on 03/19/2021 at 12:24
== END ==
PROVIDERS: Family Provider Family Medicine; PCP Family Medicine; Referring Provider Physician Assistant; Visit Provider Physician Assistant
DX: M25.572 Pain in left ankle and joints of left foot (principal)
CPT/HCPCS: 73610

== ENCOUNTER 2021-05-20 00:57 | Emergency (ER) | payer OTHER, MEDICAID, SELFPAY ==
[2020-02-22 05:09] VITALS: BMI 19.8
[2021-05-20 01:03] VITALS: BP 147/81; PULSE 109; RESP 17; TEMP 36.6; O2SAT 100; BMI 19.1
--- NOTE | 2021-05-20 01:03 | DI.CT.S_ITS ---
PROCEDURE: CT HEAD/BRAIN WO CON INDICATIONS: headache with left sided numbness TECHNIQUE: Noncontrast 4.5 mm thick angled axial sections acquired from the foramen magnum to the vertex, with coronal and sagittal reformats. For radiation dose reduction, the following was used: automated exposure control, adjustment of mA and/or kV according to patient size. COMPARISON: [facility], CT, CT HEAD/BRAIN WO CON, 08/31/2020, 2:58. FINDINGS: Image quality: Excellent. CSF spaces: Basal cisterns are patent. No extra-axial fluid collections. Ventricles are normal in size and shape. Brain: No midline shift. No intracranial masses or hemorrhage. Mckeon-white matter interface is normal. Skull and face: Calvarium and visualized facial bones are intact, without suspicious lesions. Sinuses: Visualized sinuses and mastoids are clear. IMPRESSION: 1. No acute intracranial abnormalities. Dictated by: Teri Sanchez M.D. on 05/20/2021 at 1:38 Approved by: Teri Sanchez M.D. on 05/20/2021 at 1:38
--- NOTE | 2021-05-20 01:18 | ED_ITS ---
HPI - Neuro Symptoms/Deficit General Chief Complaint: Neuro Symptoms/Deficit Stated Complaint: Feels weird Time Seen by Provider: 05/20/21 01:02 Source: patient and EMS Mode of arrival: EMS History of Present Illness HPI Narrative: Patient is a 20-year-old female who a history of headaches progressively getting more frequent over the last 1 month. She said she never used to have migraines but does since she gave 15 months ago. She is still . She states that she is taking edible marijuana which do seem to help her headaches as they are the only thing that seems to help. Tonight she had a headache all day and then decided he taken one. She started having left-sided facial numbness and left arm numbness and left leg numbness but no weakness. She has a sore throat she feels nauseous. She denies any fever or neck pain. She is having some stuttering which is abnormal. She ambulated from the ambulance into the emergency department and into her room. Initially complained of left facial numbness but removed weakness. Sounds as though she does take edibles quite often, without any symptoms or side effects. She has not had fever or body aches. On Anticoagulants: No Related Data Previous Rx's Medication Instructions Recorded sertraline 50 mg tablet 50 mg PO DAILY #90 tab 09/14/20 sumatriptan succinate 25 mg tablet 25 mg PO ONCE #20 tab 09/14/20 Allergies Allergy/AdvReac Type Severity Reaction Status Date / Time acetaminophen [From Tylenol] Allergy Mild Vomiting Verified 03/18/21 17:44 Review of Systems Review of Systems Narrative: GENERAL: Denies chills, fatigue, malaise, fever, sweats, travel HEENT: Denies sinus pain, ear pain, sore throat, difficulty swallowing, neck p ain RESPIRATORY: Denies dyspnea, cough, wheezing, hemoptysis, sputum. CARDIOVASCULAR: Denies chest pain, palpitations, orthopnea, edema GASTROINTESTINAL: Denies nausea, vomiting, abdominal pain, diarrhea, constipation, melena. : Denies dysuria, frequency, incontinence, hematuria, urinary retention, flank pain. MUSCULOSKELETAL: Denies weakness, joint pain, or bony pain SKIN: No rash, no erythema, no pruritus NEUROLOGIC: See HPI PSYCHIATRIC: No concerning psychosocial issues. 12 point review of systems is negative except for those stated above and HPI Hematologic/Lymphatic On Anticoagulants: No Patient History Medical History Acute cholecystitis Ankle pain Asthma Depression with anxiety Ovarian cyst (spontaneous vaginal delivery) Surgical History Anesthesia Hx laparoscopic cholecystectomy [place] teeth removed Family History Father Prediabetes Hyperlipidemia Hypertension Mental health problem Stroke Seizure AA (alcohol abuse) Depression Mother Mental health problem Family estrangement Sister Mental health problem Bipolar 1 disorder Grandfather Knee problem Grandmother Hypertension Arthritis Grandmother Mental health problem Family/Other Depression AA (alcohol abuse) Anxiety Social History marital status: unmarried,single household members: significant other, children and other pets and animals: Yes (X2 rabbits, X 2 Guinea pigs and X 1 hamster) education level: college (some college) occupational status: unemployed current occupational exposures/hazards: No Previous occupational history: [employer] 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 HEENT: Head atraumatic,EOMI, pupils reactive, face symmetric, moist mucous membranes CARDIOVASCULAR: Regular rate and rhythm without murmurs, rubs or gallops. RESPIRATORY: Breath sounds equal bilaterally, no wheezes rales or rhonchi. ABDOMEN: Soft, nontender. Normoactive bowel sounds all 4 quadrants. No guarding or rebound. EXTREMITIES: Normal range of motion, no clubbing or edema. Neurovascularly intact NEUROLOGICAL: Alert and oriented x4.Normal gait and speech. Cranial nerves II through XII grossly intact. Good [id number], good yfdz-[id number], strength equal bilaterally, no dysarthria or aphasia, mild left-sided numbness to arm and leg and face no visual changes, no facial droop speech. She is stuttering but not slurred SKIN: Warm, dry, no laceration, no petechiae, no rashes or lesions. Scores NIH Stroke Scale Level of Conciousness: Alert, keenly responsive Ask month/age: Answers both questions correctly. Open/close eyes, close hand: Performs both tasks correctly Best gaze horizontal: Normal Visual crowley: No visual loss Facial palsy: Normal symetrical movement Left arm drift: No drift for full 10 sec Right arm drift: No drift for full 10 sec Left leg drift: No drift for full 5 sec Right leg drift: No drift for full 5 sec Limb ataxia: Absent Sensory on face/arms/legs: Mild to moderate sensory loss, can tell touch Best language: No aphasia, normal Dysarthria: Normal Extinction or inattention: No abnormality Total NIH Stroke scale score: 1 Course Orders Ordered: ED Orders 05/20/21 01:03 CT head/brain wo con Stat 05/20/21 01:05 CBC Auto Diff [Complete Blood Count AUTO DIFF] Stat CMP [Comprehensive Metabolic Panel] Stat COVID19 -Nasal swab/Pre-Proc Stat 05/20/21 01:38 Urine Drug Screen, Rapid Stat Discontinued Medications Sodium Chloride (Normal Saline 0.9%) 1,000 mls @ 1,000 mls/hr IV BOLUS ONE Stop: 05/20/21 02:02 Last Infusion: 05/20/21 02:48 Dose: 0 mls/hr Documented by: Admin: 05/20/21 01:48 Dose: 1,000 mls/hr Documented by: ARIE Vital Signs Vital signs: Vital Signs - 8 hr 05/20/21 01:03 05/20/21 03:16 Temperature 98 F Pulse Rate 109 H 96 H Respiratory Rate 17 15 Blood Pressure 147/81 H 114/66 Pulse Oximetry 100 98 MDM - Neuro Symptoms/Deficit Lab Data Result diagrams: 05/20/21 01:05 05/20/21 01:05 Labs: Lab Results 05/20/21 05/20/21 05/20/21 Range/Units 01:05 01:05 01:05 WBC 5.6 (4.5-11.0) X10^3/uL RBC 4.23 (4.0-5.2) X10^6/uL Hgb 12.4 (12.0-16.0) g/dL Hct 36.3 (36-46) % MCV 85.8 (80-100) fL MCH 29.3 (26-34) PG MCHC 34.1 (30-36) % RDW 14.2 (11.6-14.8) % Plt Count 227 (150-400) X10^3/uL Neut % (Auto) 30.6 L (50-75) % Lymph % (Auto) 47.9 H (25-40) % [place] % (Auto) 20.7 H (3-14) % Eos % (Auto) 0.5 L (2-4) % Baso % (Auto) 0.3 (0-2) % Neut # (Auto) 1700 (8558-0790) /uL Lymph # (Auto) 2700 (8374-3497) /uL [place] # (Auto) 1200 H (0-900) /uL Eos # (Auto) 0 (0-450) /uL Baso # (Auto) 0 (0-100) /uL Sodium 139 (137-145) mmol/L Potassium 3.5 (3.4-5.1) mmol/L Chloride 106 (98-107) mmol/L Carbon Dioxide 25 (22-32) mmol/L BUN 13 (7-17) mg/dL Creatinine 0.64 (0.52-1.04) mg/dL Estimated GFR > 60.0 (>60) mL/min BUN/Creatinine Ratio 20.3 (6-22) Glucose 151 H (70-100) mg/dL Calcium 9.4 (8.4-10.2) mg/dL Total Bilirubin 0.4 (0.2-1.3) mg/dL AST 24 (14-36) IU/L ALT 14 (<35) IU/L Alkaline Phosphatase 53 (38-126) U/L Total Protein 7.4 (6.3-8.2) g/dL Albumin 4.5 (3.5-5.0) g/dL Globulin 2.9 (1.7-4.1) g/dL Albumin/Globulin Ratio 1.6 (1.0-2.8) U Opiates 300ng/mL cut (Negative) Ur Oxycodone Screen (Negative) Urine Methadone Screen (Negative) Ur Barbiturates Screen (Negative) U Tricyclic Antidepress (Negative) Ur Phencyclidine Scrn (Negative) Ur Amphetamines Screen (Negative) U Methamphetamines Scrn (Negative) Ur MDMA Scrn (Ecstasy) (Negative) U Benzodiazepines Scrn (Negative) Urine Cocaine Screen (Negative) U Marijuana (THC) Screen (Negative) SARS-CoV-2 (PCR) Positive H (Negative) 05/20/21 Range/Units 01:38 WBC (4.5-11.0) X10^3/uL RBC (4.0-5.2) X10^6/uL Hgb (12.0-16.0) g/dL Hct (36-46) % MCV (80-100) fL MCH (26-34) PG MCHC (30-36) % RDW (11.6-14.8) % Plt Count (150-400) X10^3/uL Neut % (Auto) (50-75) % Lymph % (Auto) (25-40) % [place] % (Auto) (3-14) % Eos % (Auto) (2-4) % Baso % (Auto) (0-2) % Neut # (Auto) (7809-2542) /uL Lymph # (Auto) (6484-9076) /uL [place] # (Auto) (0-900) /uL Eos # (Auto) (0-450) /uL Baso # (Auto) (0-100) /uL Sodium (137-145) mmol/L Potassium (3.4-5.1) mmol/L Chloride (98-107) mmol/L Carbon Dioxide (22-32) mmol/L BUN (7-17) mg/dL Creatinine (0.52-1.04) mg/dL Estimated GFR (>60) mL/min BUN/Creatinine Ratio (6-22) Glucose (70-100) mg/dL Calcium (8.4-10.2) mg/dL Total Bilirubin (0.2-1.3) mg/dL AST (14-36) IU/L ALT (<35) IU/L Alkaline Phosphatase (38-126) U/L Total Protein (6.3-8.2) g/dL Albumin (3.5-5.0) g/dL Globulin (1.7-4.1) g/dL Albumin/Globulin Ratio (1.0-2.8) U Opiates 300ng/mL cut Negative (Negative) Ur Oxycodone Screen Negative (Negative) Urine Methadone Screen Negative (Negative) Ur Barbiturates Screen Negative (Negative) U Tricyclic Antidepress Negative (Negative) Ur Phencyclidine Scrn Negative (Negative) Ur Amphetamines Screen Negative (Negative) U Methamphetamines Scrn Negative (Negative) Ur MDMA Scrn (Ecstasy) Negative (Negative) U Benzodiazepines Scrn Negative (Negative) Urine Cocaine Screen Negative (Negative) U Marijuana (THC) Screen Positive H (Negative) SARS-CoV-2 (PCR) (Negative) Point of Care Testing Test Results Negative Urine Dip Bedside Urine Glucose Negative Bedside Urine Bilirubin - Negative Bedside Urine Ketone - Negative Urine Specific [place] 1.020 Bedside Urine Occult Blood + Bedside Urine pH 6.0 Bedside Urine Protein - Negative Bedside Urine Urobilinogen - Negative Bedside Urine Nitrite - Negative Bedside Urine Leukocytes - Negative Esterase Imaging Data CT scan - head: Radiologist's Impression: PROCEDURE:? CT HEAD/BRAIN WO CON ? INDICATIONS:? headache with left sided numbness ? TECHNIQUE:? Noncontrast 4.5 mm thick angled axial sections acquired from the foramen magnum to the vertex, with coronal and sagittal reformats.? For radiation dose reduction, the following was used:? automated exposure control, adjustment of mA and/or kV according to patient size.? ? COMPARISON:? [facility], CT, CT HEAD/BRAIN WO CON, 08/31/2020, 2:58. ? FINDINGS:? Image quality:? Excellent.? ? CSF spaces:? Basal cisterns are patent.? No extra-axial fluid collections.? Ventricles are normal in size and shape.? ? Brain:? No midline shift.? No intracranial masses or hemorrhage.? Mckeon-white matter interface is normal.? ? Skull and face:? Calvarium and visualized facial bones are intact, without suspicious lesions.? ? Sinuses:? Visualized sinuses and mastoids are clear.? ? IMPRESSION:? ? 1. No acute intracranial abnormalities. ? ? Dictated by: Teri Sanchez M.D. on 05/20/2021 at 1:38 ? ? MDM Narrative Medical decision making narrative: While in the emergency department patient's numbness on her left face progressed to left arm weakness she states she is unable to lift it. Upon reexamination she actually is able to sit up pulling with both arms equally. She then states she is unable to move either leg and lift them up off the gurney although she walks to the restroom shortly afterwards. Head CT is negative. She is found to have COVID. Her stuttering persists but it is clearly not aphasia or dysarthria she has no difficulty with word finding. At this time I do not believe this to be a stroke. She does actually have strength in her left arm. When her child is placed on to her she is able to lift up her shirt with her left hand and breast feed without problem. When I discussed with patient and that I do not have a medical reason for her stuttering or her very on weakness which seems to resolve his she pulled her IV with her left hand from her right. She is easily ambulatory in the ED without any difficulty or assistance. At this time I do not believe patient needs any advanced imaging to rule out stroke. She is complaining of brain fog which could be related to COVID. This time she does not need any sort of admission criteria for COVID. 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 Discussed with her to monitor closely and return if symptoms source. I discussed all findings with the patient and , Education has been performed regarding treatment plan, diagnosis, warning signs and symptoms and all concerns have been addressed. Verbally agree with and understood all of the above. Discharge Plan Departure Patient Disposition: Home Clinical Impression: COVID-19 Instructions: DI for COVID-19 (Suspected or Confirmed ) Activity Restrictions/Additional Instructions: *You have been diagnosed with COVID-19 *What to do: At this time no cause for your stuttering. You do have COVID which is likely causing her headache brain fog and sore throat. CT scan was negative for any type of stroke or seizure pain. Monitor your oxygen at home. Fever and pain control Tylenol and Motrin. Increase fluids. Please follow your work policy protocols for return to work. I recommend doing symptom based *Continue to take medications as directed Tylenol 1000 mg every 6 hours if needed for pain Motrin 800 mg every 8 hours if needed for [id number] for pain *Follow up with your primary care provider in 2-3 days or call [phone] *Return to ER if you should have increasing weakness, shaking, oxygen less than 90% any new, worsening or concerning symptoms Prescriptions: No Action sertraline 50 mg tablet 50 mg PO DAILY Qty: 90 3RF sumatriptan succinate 25 mg tablet 25 mg PO ONCE Qty: 20 0RF Rx Instructions: may repeat once after at least 2 hours Referrals: Cristy Mendoza MD [Primary Care Provider] -
[2021-05-20 01:22] LABS: Add Manual Diff / Slide Review NO; Basophils Absolute Auto 0 /uL (0-100); Basophils Percent Auto 0.3 % (0-2); Eosinophils Absolute Auto 0 /uL (0-450); Eosinophils Percent Auto 0.5 % (2-4); Hematocrit 36.3 % (36-46); Hemoglobin 12.4 g/dL (12.0-16.0); Lymphocytes Absolute Auto 2700 /uL (1100-4500); Lymphocytes Percent Auto 47.9 % (25-40); Mean Corpuscular HGB Conc 34.1 % (30-36); Mean Corpuscular Hemoglobin 29.3 PG (26-34); Mean Corpuscular Volume 85.8 fL (80-100); Monocytes Absolute Auto 1200 /uL (0-900); Monocytes Percent Auto 20.7 % (3-14); Neutrophils Absolute Auto 1700 /uL (1500-7000); Neutrophils Percent Auto 30.6 % (50-75); Platelet Count 227 X10^3/uL (150-400); Red Blood Cell Count 4.23 X10^6/uL (4.0-5.2); Red Cell Distribution Width 14.2 % (11.6-14.8); White Blood Cell Count 5.6 X10^3/uL (4.5-11.0)
[2021-05-20 01:26] LABS: Alanine Aminotransferase 14 IU/L (<35); Albumin 4.5 g/dL (3.5-5.0); Albumin Globulin Ratio 1.6 (1.0-2.8); Alkaline Phosphatase 53 U/L (38-126); Aspartate Aminotransferase 24 IU/L (14-36); BUN Creatinine Ratio 20.3 (6-22); Bilirubin Total 0.4 mg/dL (0.2-1.3); Blood Urea Nitrogen 13 mg/dL (7-17); Calcium 9.4 mg/dL (8.4-10.2); Carbon Dioxide 25 mmol/L (22-32); Chloride 106 mmol/L (98-107); Estimated Glomerular Filt Rate > 60.0 mL/min (>60); Globulin 2.9 g/dL (1.7-4.1); Glucose 151 mg/dL (70-100); HEMOLYSIS < 15 (0-50); Potassium 3.5 mmol/L (3.4-5.1); Sodium 139 mmol/L (137-145); Total Protein 7.4 g/dL (6.3-8.2)
[2021-05-20 01:39] LABS: COVID19 -Nasal RAPID POSITIVE (Negative)
[2021-05-20] MEDS: SODIUM CHLORIDE 0.9% 1,000 ML 1000 ML IV (01:48)
[2021-05-20 01:52] LABS: UR Morphine/Opiate cutoff 300 Negative (Negative); Ur Creatinine 20 (Normal); Ur Specific Gravity 1.015 (Normal); Urine Amphetamines Negative (Negative); Urine Barbiturates Negative (Negative); Urine Benzodiazepines Negative (Negative); Urine Cocaine Negative (Negative); Urine MDMA Negative (Negative); Urine Methadone Negative (Negative); Urine Methamphetamines Negative (Negative); Urine Oxycodone Negative (Negative); Urine Phencyclidine Negative (Negative); Urine Tetrahydrocannabinol Positive (Negative); Urine Tricyclic Antidepressant Negative (Negative); Urine pH 5 (Normal)
[2021-05-20 03:16] VITALS: BP 114/66; PULSE 96; RESP 15; O2SAT 98
== END 2021-05-20 04:14 | disposition home or self-care (01) ==
PROVIDERS: Emergency Provider Emergency Medicine; Family Provider Family Medicine; PCP Family Medicine
DX: U07.1 COVID-19 (principal)
CPT/HCPCS: 36415; 70450; 80053; 80305; 81003; 81025; 85025; 87635; 96360; 99284; C9803

== ENCOUNTER 2021-07-09 12:35 | Emergency (ER) | payer OTHER, MEDICAID, SELFPAY ==
[2020-02-22 05:09] VITALS: BMI 19.8
[2021-07-09 13:10] VITALS: BP 114/67; PULSE 76; RESP 16; TEMP 36.6; O2SAT 100
--- NOTE | 2021-07-09 13:20 | ED.ABDPAIN ---
HPI - Abdominal Pain <JIMENA Dumont - Last Filed: 07/09/21 16:03> General Chief Complaint: Nausea/Vomiting/Diarrhea Stated Complaint: Can't eat, diarrhea for a week Time Seen by Provider: 07/09/21 12:48 Source: patient Mode of arrival: Ambulatory History of Present Illness HPI narrative: 21-year-old female history cholecystectomy, migraines, Covid infection 05/20/21, THC user who presents to the emergency department complaining of diarrhea for last 1.5 weeks, nausea, denies any vomiting, blood in her stool, fever, or persistent abdominal pain. Patient states that her family has a history of IBS, she endorses that she ate some sushi while in [place] 1.5 weeks ago after her diarrhea started. She states she looked online and was concerned about a tapeworm. Patient denies any abnormal vaginal discharge but states that she has a copious amount of it. She does have a history of bacterial vaginosis. She denies any dysuria, blood in her urine or her stool, states that she has had issues with diarrhea in the past. She denies any history of abdominal surgery, denies any fever, denies any back pain, fatigue, or increased pain. She states that she had 1 episode of diarrhea today, and 1 yesterday. Related Data Previous Rx's Medication Instructions Recorded sertraline 50 mg tablet 50 mg PO DAILY #90 tab 09/14/20 sumatriptan succinate 25 mg tablet 25 mg PO ONCE #20 tab 09/14/20 Allergies Allergy/AdvReac Type Severity Reaction Status Date / Time acetaminophen [From Tylenol] Allergy Mild Vomiting Verified 03/18/21 17:44 Review of Systems <JIMENA Dumont - Last Filed: 07/09/21 16:03> Review of Systems Narrative: General: denies fever, chills, malaise, sweats, fatigue Head/Neck: denies headache, neck pain, dizziness Eyes: denies visual changes, eye pain Cardio: denies chest pain, palpitations, edema Respiratory: denies dyspnea, cough, orthopnea GI: denies abdominal pain, endorses nausea denies any vomiting, + diarrhea, 1 episode daily : denies dysuria, hematuria, urinary retention, frequency or incontinence MSK: denies joint pain, muscle weakness Skin: denies rash, itching, skin lesions or other Neuro: denies numbness, tingling Patient History <JIMENA Dumont - Last Filed: 07/09/21 16:03> Medical History Acute cholecystitis Ankle pain Asthma Depression with anxiety Ovarian cyst (spontaneous vaginal delivery) Surgical History Anesthesia Hx laparoscopic cholecystectomy [place] teeth removed Family History Father Prediabetes Hyperlipidemia Hypertension Mental health problem Stroke Seizure AA (alcohol abuse) Depression Mother Mental health problem Family estrangement Sister Mental health problem Bipolar 1 disorder Grandfather Knee problem Grandmother Hypertension Arthritis Grandmother Mental health problem Family/Other Depression AA (alcohol abuse) Anxiety Social History marital status: unmarried,single household members: significant other, children and other pets and animals: Yes (X2 rabbits, X 2 Guinea pigs and X 1 hamster) education level: college (some college) occupational status: unemployed current occupational exposures/hazards: No Previous occupational history: [employer] Currently : 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 General: Awake, alert, nontoxic, no cardiorespiratory distress, appears well hydrated, active Head/Neck: Atraumatic, neck full range of motion Eyes: EOMI, conjunctiva normal Nose: nares patent, no rhinorrhea Mouth/Throat: moist mucus membranes, no oral lesions Cardio: Regular rate and rhythm, no peripheral edema Respiratory: respirations unlabored without wheezing, stridor, or rales. No retractions. GI: Abdomen soft, nontender to palpation x4 quadrants, no CVA tenderness, no masses, no exquisite tenderness with exam MSK: Moves all extremities, neurovascularly intact Skin: Normal capillary refill, no rash Neuro: Normal speech and cognition, normal gait Initial Vital Signs Initial Vital Signs: Vital Signs Temperature 97.8 F 07/09/21 13:10 Pulse Rate 76 07/09/21 13:10 Respiratory Rate 16 07/09/21 13:10 Blood Pressure 114/67 07/09/21 13:10 Pulse Oximetry 100 07/09/21 13:10 <Zack Hendrix DO - Last Filed: 07/10/21 09:23> Initial Vital Signs Initial Vital Signs: Vital Signs Temperature 97.8 F 07/09/21 13:10 Pulse Rate 76 07/09/21 13:10 Respiratory Rate 16 07/09/21 13:10 Blood Pressure 114/67 07/09/21 13:10 Pulse Oximetry 100 07/09/21 13:10 Course <JIMENA Dumont - Last Filed: 07/09/21 16:03> Orders Ordered: Discontinued Medications Ketorolac Tromethamine (Ketorolac 30 Mg/Ml Vial) 15 mg IM NOW ONE Stop: 07/09/21 13:24 Last Admin: 07/09/21 14:19 Dose: Not Given Documented by: LUCHO Loperamide HCl (Loperamide 2 Mg Capsule) 2 mg PO NOW ONE Stop: 07/09/21 13:10 Last Admin: 07/09/21 13:21 Dose: 2 mg Documented by: LUCHO Ondansetron HCl (Ondansetron 4 Mg Odt) 4 mg SL NOW ONE Stop: 07/09/21 13:10 Last Admin: 07/09/21 13:21 Dose: 4 mg Documented by: LUCHO Vital Signs Vital signs: Vital Signs - 8 hr 07/09/21 13:10 Temperature 97.8 F Pulse Rate 76 Respiratory Rate 16 Blood Pressure 114/67 Pulse Oximetry 100 <Zack Hendrix DO - Last Filed: 07/10/21 09:23> Orders Ordered: Discontinued Medications Ketorolac Tromethamine (Ketorolac 30 Mg/Ml Vial) 15 mg IM NOW ONE Stop: 07/09/21 13:24 Last Admin: 07/09/21 14:19 Dose: Not Given Documented by: LUCHO Loperamide HCl (Loperamide 2 Mg Capsule) 2 mg PO NOW ONE Stop: 07/09/21 13:10 Last Admin: 07/09/21 13:21 Dose: 2 mg Documented by: LUCHO Ondansetron HCl (Ondansetron 4 Mg Odt) 4 mg SL NOW ONE Stop: 07/09/21 13:10 Last Admin: 07/09/21 13:21 Dose: 4 mg Documented by: LUCHO Vital Signs Vital signs: Vital Signs - 8 hr 07/09/21 13:10 Temperature 97.8 F Pulse Rate 76 Respiratory Rate 16 Blood Pressure 114/67 Pulse Oximetry 100 MDM - Abdominal Pain <JIMENA Dumont - Last Filed: 07/09/21 16:03> Lab Data Labs: Lab Results 07/09/21 Range/Units 13:24 Urine RBC 0-1/hpf (0-5/HPF) Urine WBC 1-5/hpf (0-5/HPF) Ur Squamous Epith Cells 5-10 /hpf H (0-5/HPF) Amorphous Sediment 1+ Urine Bacteria Many (>30) H (None) Urine Mucus 1+ H (Negative) Ur Culture Indicated? Specimen cultured Point of care testing: Point of Care Testing Test Results Negative Urine Dip Bedside Urine Glucose Negative Bedside Urine Bilirubin - Negative Bedside Urine Ketone - Negative Urine Specific [place] 1.03 Bedside Urine Occult Blood +/- Bedside Urine pH 6 Bedside Urine Protein +++ 300 Bedside Urine Urobilinogen - Negative Bedside Urine Nitrite - Negative Bedside Urine Leukocytes - Negative Esterase MDM Narrative Medical decision making narrative: This is a 21-year-old female with history of cholecystectomy, depression with anxiety, COVID infection 05/20/2021 who presents to the emergency department complaining of diarrhea once daily for the last 1.5 weeks since she had susde in [place]. Patient is nontoxic appearing, does not have a fever, does not have any abdominal tenderness on exam, has not had any blood in her stool, has a history taking sertraline, she states that she quit taking this in April. She states that she has had issues with diarrhea in the past related to IBS, and her family has IBS as well. Recommend considering starting her sertraline again with guidance from her PCP provider as possible treatment for her IBS symptoms. Recommend loperamide as needed to have 1 to 3 bowel movements per day although she is only having 1 per day. Recommend follow-up with PCP, she was given loperamide in the emergency department today, declined having any Toradol for pain. Patient endorses having copious amount of vaginal discharge and it was noted that she has a history of bacterial vaginosis. Wet mount completed without abnormal result. Patient is appropriate and amenable to discharge home. Vital signs are stable on repeat examination is unremarkable. Patient has been informed of results. Patient has been given strict return to ER precautions for any new or worsening symptoms. Patient understands to follow up closely with outpatient providers as instructed. Patient understands plan and agrees to discharge home. All questions and concerns answered at this time. <Zack Hendrix, DO - Last Filed: 07/10/21 09:23> Lab Data Labs: Lab Results 07/09/21 Range/Units 13:24 Urine RBC 0-1/hpf (0-5/HPF) Urine WBC 1-5/hpf (0-5/HPF) Ur Squamous Epith Cells 5-10 /hpf H (0-5/HPF) Amorphous Sediment 1+ Urine Bacteria Many (>30) H (None) Urine Mucus 1+ H (Negative) Ur Culture Indicated? Specimen cultured Point of care testing: Point of Care Testing Test Results Negative Urine Dip Bedside Urine Glucose Negative Bedside Urine Bilirubin - Negative Bedside Urine Ketone - Negative Urine Specific [place] 1.03 Bedside Urine Occult Blood +/- Bedside Urine pH 6 Bedside Urine Protein +++ 300 Bedside Urine Urobilinogen - Negative Bedside Urine Nitrite - Negative Bedside Urine Leukocytes - Negative Esterase Discharge Plan Departure Patient Disposition: Home Clinical Impression: Post-cholecystectomy syndrome Frequent loose stools Qualifiers: Diarrhea type: functional diarrhea Qualified Code(s): K59.1 - Functional diarrhea Instructions: Eating a Diet Low in Saturated Fat, Trans Fat, and Cholesterol Activity Restrictions/Additional Instructions: *You have been diagnosed with a functional diarrhea likely due to post cholecystectomy syndrome. This is pain and discomfort associated with loose stools from after having your gallbladder removed. This is most likely IBS, try abiding by your gallbladder diet with low-fat, plenty of fiber and Saturday of foods, stay hydrated, take Tylenol or ibuprofen as necessary for your pain. Please follow-up with your primary care provider about restarting your sertraline. You may start taking it if this has worked well for you in the past, and see if this helps with your loose stool symptoms. Thank you for trusting us with your care, today we did not find anything dangerous with your exam or tests. I hope you feel better soon. You can try Maalox, Pepto-Bismol, or Imodium as needed for your abdominal pain. *What to do: *Please continue to take your regular medications as directed. [ ] New medication prescriptions sent to your pharmacy: [ ] [ ] New medication written as a paper prescription [x ] No new medications given *Please follow up with your primary care provider in 2-3 days, call for an appointment. Let them know you were seen in the Emergency Department and that we asked that you be seen for follow-up. We will electronically transmit a record of today's note if your PCP is in our system *If you do not have a primary care provider please contact [phone] to establish care with one of the [facility] primary care providers. *Return to Emergency Department if you should have any new, worsening or concerning symptoms, such as [fever greater than 101F, chills, worsening pain, persistent vomiting or other bothersome symptoms] Prescriptions: No Action sertraline 50 mg tablet 50 mg PO DAILY Qty: 90 3RF sumatriptan succinate 25 mg tablet 25 mg PO ONCE Qty: 20 0RF Rx Instructions: may repeat once after at least 2 hours Referrals: Cristy Mendoza MD [Primary Care Provider] - <Zack Hendrix DO - Last Filed: 07/10/21 09:23> [facility]: I was immediately available in the department for consultation. This documentation has been reviewed and I agree with assessment and plan. Supervised by Zack Hendrix DO
[2021-07-09] MEDS: ONDANSETRON 4 MG ODT SL (13:21)
[2021-07-09] MEDS: LOPERAMIDE 2 MG CAPSULE PO (13:21)
[2021-07-09 13:53] LABS: Amorphous Sediment Urine 1+; Bacteria Urine Many (>30); Culture Indicated Urine Specimen Cultured; Mucus Urine 1+ (Negative); RBC Urine 0-1/HPF (0-5/HPF); Squamous Epithelial Cell Urine 5-10 /HPF (0-5/HPF); WBC Urine 1-5/HPF (0-5/HPF)
== END 2021-07-09 14:56 | disposition home or self-care (01) ==
PROVIDERS: Emergency Provider Nurse Practitioner Critical Care Medicine; Family Provider Family Medicine; PCP Family Medicine
DX: K59.1 Functional diarrhea (principal); K91.5 Postcholecystectomy syndrome
CPT/HCPCS: 81003; 81015; 81025; 87086; 87210; 96372; 99283

== ENCOUNTER → 2021-07-13 09:45 | Outpatient (CLI) | payer OTHER, MEDICAID, SELFPAY ==
[2020-02-22 05:09] VITALS: BMI 19.8
[2021-07-13 12:18] LABS: Add Manual Diff / Slide Review NO; Basophils Absolute Auto 0 /uL (0-100); Basophils Percent Auto 0.3 % (0-2); Eosinophils Absolute Auto 0 /uL (0-450); Eosinophils Percent Auto 0.9 % (2-4); Hematocrit 38.6 % (36-46); Hemoglobin 12.9 g/dL (12.0-16.0); Lymphocytes Absolute Auto 2000 /uL (1100-4500); Lymphocytes Percent Auto 45.4 % (25-40); Mean Corpuscular HGB Conc 33.3 % (30-36); Mean Corpuscular Hemoglobin 29.3 PG (26-34); Monocytes Absolute Auto 300 /uL (0-900); Neutrophils Absolute Auto 2100 /uL (1500-7000); Neutrophils Percent Auto 46.4 % (50-75); Platelet Count 273 X10^3/uL (150-400); Red Blood Cell Count 4.39 X10^6/uL (4.0-5.2); Red Cell Distribution Width 14.1 % (11.6-14.8); White Blood Cell Count 4.4 X10^3/uL (4.5-11.0)
[2021-07-13 13:30] LABS: HCG Quantitative /Beta subunit < 2.4 mIU/mL; HEMOLYSIS < 15 (0-50)
[2021-07-13 13:31] LABS: Alanine Aminotransferase 13 IU/L (<35); Albumin 4.5 g/dL (3.5-5.0); Albumin Globulin Ratio 1.6 (1.0-2.8); Alkaline Phosphatase 46 U/L (38-126); Aspartate Aminotransferase 21 IU/L (14-36); BUN Creatinine Ratio 20.3 (6-22); Bilirubin Total 0.5 mg/dL (0.2-1.3); Blood Urea Nitrogen 14 mg/dL (7-17); Calcium 9.1 mg/dL (8.4-10.2); Carbon Dioxide 26 mmol/L (22-32); Chloride 110 mmol/L (98-107); Estimated Glomerular Filt Rate > 60 mL/min (>60); Globulin 2.9 g/dL (1.7-4.1); Glucose 87 mg/dL (70-100); Potassium 4.4 mmol/L (3.4-5.1); Sodium 144 mmol/L (137-145); Total Protein 7.4 g/dL (6.3-8.2)
[2021-07-13 13:45] LABS: TSH w/ Reflex to FT4 1.66 uIU/mL (0.47-4.68)
[2021-07-13 14:03] LABS: Vitamin B12 559 pg/mL (239-931)
== END ==
PROVIDERS: Family Provider Family Medicine; PCP Family Medicine; Referring Provider Physician Assistant; Visit Provider Physician Assistant
DX: R10.9 Unspecified abdominal pain (principal); R19.7 Diarrhea, unspecified; R53.83 Other fatigue; R10.31 Right lower quadrant pain
CPT/HCPCS: 36415; 80053; 82607; 84443; 84702; 85025; 87177; 87493

== ENCOUNTER → 2021-07-25 16:46 | Outpatient (CLI) | payer OTHER, MEDICAID, SELFPAY ==
[2020-02-22 05:09] VITALS: BMI 19.8
[2021-07-25 17:53] LABS: C-Reactive Protein Quant < 0.5 mg/dL (<1.0); Lipase 78 U/L (23-300)
[2021-07-25 18:48] LABS: Erythrocyte Sedimentation Rate 4 MM/HR (0-20)
[2021-07-27 16:51] LABS: Deamidated Gliadin Ab IgA 37 units (0-19); Deamidated Gliadin Ab IgG 10 units (0-19); Immunoglobulin A,Qn 199 mg/dL (87-352); t-Transglutaminase IgA <2 U/mL (0-3)
== END ==
PROVIDERS: Family Provider Family Medicine; PCP Family Medicine; Referring Provider Family Medicine; Visit Provider Family Medicine
DX: K52.9 Noninfective gastroenteritis and colitis, unspecified (principal); R10.9 Unspecified abdominal pain
CPT/HCPCS: 36415; 82784; 83516; 83690; 85651; 86140

== ENCOUNTER → 2021-07-26 14:45 | Outpatient (CLI) | payer OTHER, MEDICAID, SELFPAY ==
[2020-02-22 05:09] VITALS: BMI 19.8
== END ==
PROVIDERS: Family Provider Family Medicine; PCP Family Medicine; Referring Provider Family Medicine; Visit Provider Family Medicine
DX: K52.9 Noninfective gastroenteritis and colitis, unspecified (principal)
CPT/HCPCS: 87045; 87899

== ENCOUNTER → 2021-07-27 14:13 | Outpatient (CLI) | payer OTHER, MEDICAID, SELFPAY ==
[2020-02-22 05:09] VITALS: BMI 19.8
--- NOTE | 2021-07-27 14:15 | DI.CT.S_ITS ---
PROCEDURE: CT ABDOMEN PELVIS W CON INDICATIONS: abd pain, chronic diarrhea TECHNIQUE: After the administration of oral and intravenous contrast, axial sections were acquired from the lung bases to the pubic symphysis. Coronal and sagittal reformats were performed. For radiation dose reduction, the following was used: automated exposure control, adjustment of mA and/or kV according to patient size. COMPARISON:[facility], CT, CT ABDOMEN PELVIS W CON, 08/30/2020, 14:58. FINDINGS: Image quality: Excellent. Lung bases: Unremarkable. Heart: No significant findings. ABDOMEN: Liver: Unremarkable. Gallbladder: Surgically absent Biliary ducts: Unremarkable. Pancreas: Unremarkable. Spleen: Unremarkable. Adrenal Glands: Unremarkable. Kidneys and Ureters: Unremarkable. Stomach and Bowel: Stomach, small bowel loops, and colon are unremarkable. Peritoneum: No abnormal intraperitoneal fluid. No free air. Ventral Wall: No hernia. Abdominal Nodes: No retroperitoneal or mesenteric adenopathy by size criteria. Vessels: Aorta and inferior vena cava are normal in size. PELVIS: Pelvic Organs: Incidental note made of a retroverted uterus.. Bladder: Unremarkable. Pelvic Nodes: No enlarged lymph nodes. Miscellaneous: No inguinal hernias are seen. Bones: Unremarkable. IMPRESSION: 1. The uterus is incidentally noted to be retroverted. 2. Remote cholecystectomy. 3. Otherwise unremarkable study. No evidence of acute abdominal process. Dictated by: Bud Cuba M.D. on 07/27/2021 at 17:03 Approved by: Bud Cuba M.D. on 07/27/2021 at 17:07
== END ==
PROVIDERS: Family Provider Family Medicine; PCP Family Medicine; Referring Provider Family Medicine; Visit Provider Family Medicine
DX: R10.9 Unspecified abdominal pain (principal); R19.7 Diarrhea, unspecified; N85.4 Malposition of uterus; Z90.49 Acquired absence of other specified parts of digestive tract
CPT/HCPCS: 74177

== ENCOUNTER → 2021-09-11 08:29 | Outpatient (CLI) | payer OTHER, MEDICAID, SELFPAY ==
[2020-02-22 05:09] VITALS: BMI 19.8
== END ==
PROVIDERS: Family Provider Family Medicine; PCP Family Medicine; Visit Provider Nurse Practitioner Family
DX: R30.0 Dysuria (principal); N89.8 Other specified noninflammatory disorders of vagina
CPT/HCPCS: 81002; 87077; 87086; 87186; 87210

== ENCOUNTER 2021-09-13 06:34 | Emergency (ER) | payer OTHER, MEDICAID, SELFPAY ==
[2020-02-22 05:09] VITALS: BMI 19.8
[2021-09-13 06:47] VITALS: BP 105/70; PULSE 65; RESP 17; TEMP 36.5; O2SAT 98; BMI 17.6
--- NOTE | 2021-09-13 07:00 | ED_ITS ---
HPI - Neck Pain/Injury General Chief Complaint: Neck Pain/Injury Stated Complaint: migraines Time Seen by Provider: 09/13/21 06:57 Mode of arrival: Ambulatory History of Present Illness HPI Narrative: 21-year-old female nonsmoker without significant medical history presents with a gradually worsening headache over the past 3 or 4 days. She denies any trauma, fever, or use of blood thinners. She states there is no obvious provocation or palliation of her discomfort, it is relatively squeezing and moderate in its severity. She denies any blurred vision, trouble speech or dizziness but does have some tingling in her left arm. She states that she has been having headaches off and on ever since the delivery of her child about a year and half ago and has been diagnosed with migraines. She frequently takes Tylenol or Motrin at home but it rarely helps. Her primary care provider had encouraged her to consider CBD or THC mints which historically will help. She is otherwise well and free of complaint Related Data Previous Rx's Medication Instructions Recorded hyoscyamine sulfate 0.125 mg tablet 0.125 mg PO BID-TID PRN dyspepsia 07/19/21 #60 tabs cephalexin 500 mg capsule 500 mg PO QID 5 days #20 caps 09/11/21 metronidazole 500 mg tablet 500 mg PO BID 7 days #14 tabs 09/11/21 Allergies Allergy/AdvReac Type Severity Reaction Status Date / Time acetaminophen [From Tylenol] Allergy Mild Vomiting Verified 09/11/21 08:37 Review of Systems Review of Systems Narrative: GENERAL: Denies chills, fatigue, malaise, fever, sweats. HEENT: See HPI RESPIRATORY: Denies dyspnea, cough, wheezing, hemoptysis, sputum. CARDIOVASCULAR: Denies chest pain, palpitations, orthopnea, edema, GASTROINTESTINAL: Denies nausea, vomiting, abdominal pain, diarrhea, c onstipation, melena. : Denies dysuria, frequency, incontinence, hematuria, urinary retention. MUSCULOSKELETAL: denies weakness, joint pain, or bony pain SKIN: Denies rash, skin lesions, or other NEUROLOGIC: See HPI PSYCHIATRIC: No concerning psychosocial issues. 12 point review of systems is negative except for those stated above Patient History Medical History Acute cholecystitis Ankle pain Asthma COVID-19 Depression with anxiety Ovarian cyst depression (spontaneous vaginal delivery) Surgical History Anesthesia Hx laparoscopic cholecystectomy [place] teeth removed Family History Father Prediabetes Hyperlipidemia Hypertension Mental health problem Stroke Seizure AA (alcohol abuse) Depression Mother Mental health problem Family estrangement Sister Mental health problem Bipolar 1 disorder Grandfather Knee problem Grandmother Hypertension Arthritis Grandmother Mental health problem Family/Other Depression AA (alcohol abuse) Anxiety Social History marital status: unmarried,single household members: significant other, children and other pets and animals: Yes (X2 rabbits, X 2 Guinea pigs and X 1 hamster) education level: college (some college) occupational status: unemployed current occupational exposures/hazards: No Previous occupational history: [employer] Currently : 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 special hayde needs: No Smoking Status: Never smoker second hand exposure: No (used to be growing: not currently) alcohol intake: never substance use type: does not use Smoking Status: Never smoker alcohol intake frequency: 0-2 drinks per day Substance Use Type: marijuana Exam Narrative Exam Narrative: GENERAL: [21] year old patient appears stated age. Well-developed patient, in mild distress. Obviously uncomfortable, sitting in a dark room. GCS 15 HEAD: Atraumatic. Normocephalic. No temporal discomfort or reproducible pain EYES: Pupils equal round and reactive. Extraocular motions intact. No scleral icterus. No injection or drainage. ENT: Nose without bleeding, purulent drainage. Throat without erythema, tonsillar hypertrophy or exudate. Airway patent. NECK: Trachea midline. Non tender, right-sided paraspinal musculature is tender, no midline tenderness, no change with axial load, negative Brudzinski's or Kernig sign. CARDIOVASCULAR: Regular rate and rhythm without murmurs, gallops, or rubs. RESPIRATORY: Clear to auscultation. Breath sounds equal bilaterally. No wheezes, rales, or rhonchi. GASTROINTESTINAL: Abdomen soft, non-tender, nondistended. EXTREMITIES: No edema or joint tenderness. BACK: Nontender without deformity or crepitance. No flank tenderness. NEURO: AOx3. SKIN: No rash or erythema of visible areas NIH Stroke Scale 1a. LOC: Patient is alert and keenly responsive (0) 1b. LOC Questions: Patient answers both LOC questions accurately (0) 1c. LOC Commands: Patient performs both tasks correctly (0) 2. Best Gaze: Normal (0) 3. Visual: No visual loss (0) 4. Facial palsy: Normal symmetrical movements (0) 5. Motor arm: No drift (0) 6. Motor leg: No drift (0) 7. Limb ataxia: Absent (0) 8. Sensory: Normal (1) 9. Best language: No aphasia; normal (0) 10. Dysarthria: Normal (0) 11. Extinction and inattention: No abnormality (0) NIHSS: 1 Initial Vital Signs Initial Vital Signs: Vital Signs Temperature 97.7 F 09/13/21 06:47 Pulse Rate 65 09/13/21 06:47 Respiratory Rate 17 09/13/21 06:47 Blood Pressure 105/70 09/13/21 06:47 Pulse Oximetry 98 09/13/21 06:47 Oxygen Delivery Method 09/13/21 06:47 Course Course Course Narrative: Given relative chronicity of pain, occasional neurologic symptoms imaging is ordered. Headache considerations include, but not limited to: Subarachnoid hemorrhage, but unlikely as patient denies sudden onset of pain, not worst of life, or neck pain Meningitis considered, but thought unlikely given lack of Brudzinski's, Kernig's sign, altered mental status or fever Giant cell arteritis considered, but thought unlikely given lack of unilateral findings, pain in bahai, vision change HTN Emergency considered, but thought unlikely given normal vitals Other serious diagnoses considered unlikely given lack of red flag findings such as sudden onset, increasing frequency, immunocompromise, systemic signs (fever, chills, stiff neck, or rash), focal neurologic findings, trauma, blood thinners, etc. Orders Ordered: ED Orders 09/13/21 07:21 Covid-19 + FLU A/B by PCR Stat 09/13/21 08:19 CT angio head and neck Stat 09/13/21 08:55 UA Complete [Urinalysis and Microscopic] Stat 09/13/21 09:00 Basic Metabolic Panel Stat C-Reactive Protein Quant Stat Complete Blood Count AUTO DIFF Stat Erythrocyte Sedimentation Rate Stat Magnesium Stat Discontinued Medications Diphenhydramine HCl (Diphenhydramine 50 Mg/Ml Vial) 25 mg IV NOW ONE Stop: 09/13/21 10:26 Last Admin: 09/13/21 10:35 Dose: 25 mg Documented By: JANELLE Sodium Chloride (Normal Saline 0.9%) 1,000 mls @ 1,000 mls/hr IV BOLUS ONE Stop: 09/13/21 09:18 Last Infusion: 09/13/21 10:25 Dose: 0 mls/hr Documented By: JANELLE(2) Admin: 09/13/21 09:04 Dose: 1,000 mls/hr Documented By: JANELLE(2) Ketorolac Tromethamine (Ketorolac 30 Mg/Ml Vial) 15 mg IV NOW ONE Stop: 09/13/21 10:26 Last Admin: 09/13/21 10:35 Dose: 15 mg Documented By: JANELLE Metoclopramide HCl (Metoclopramide 10 Mg/2 Ml Inj) 10 mg IV NOW ONE Stop: 09/13/21 10:26 Last Admin: 09/13/21 10:35 Dose: 10 mg Documented By: JANELLE Vital Signs Vital signs: Vital Signs - 8 hr 09/13/21 06:47 09/13/21 08:56 09/13/21 09:00 Temperature 97.7 F Pulse Rate 65 65 64 Respiratory Rate 17 Blood Pressure 105/70 Pulse Oximetry 98 99 100 Oxygen Delivery Method Room Air 09/13/21 09:02 09/13/21 09:02 09/13/21 11:34 Temperature Pulse Rate 61 65 Respiratory Rate Blood Pressure 103/67 112/55 L Pulse Oximetry 99 97 Oxygen Delivery Method Room Air MDM - Neck Pain/Injury Lab Data Result diagrams: 09/13/21 09:00 09/13/21 09:00 Labs: Lab Results 09/13/21 09/13/21 09/13/21 Range/Units 07:21 08:55 09:00 WBC 3.9 L (4.5-11.0) X10^3/uL RBC 4.37 (4.0-5.2) X10^6/uL Hgb 12.8 (12.0-16.0) g/dL Hct 37.6 (36-46) % MCV 86.0 (80-100) fL MCH 29.3 (26-34) PG MCHC 34.1 (30-36) % RDW 13.7 (11.6-14.8) % Plt Count 223 (150-400) X10^3/uL Neut % (Auto) 45.9 L (50-75) % Lymph % (Auto) 44.1 H (25-40) % Forrest % (Auto) 8.9 (3-14) % Eos % (Auto) 0.8 L (2-4) % Baso % (Auto) 0.3 (0-2) % Neut # (Auto) 1800 (2479-1144) /uL Lymph # (Auto) 1700 (9662-0010) /uL Forrest # (Auto) 300 (0-900) /uL Eos # (Auto) 0 (0-450) /uL Baso # (Auto) 0 (0-100) /uL ESR 6 (0-20) MM/HR Sodium (137-145) mmol/L Potassium (3.4-5.1) mmol/L Chloride (98-107) mmol/L Carbon Dioxide (22-32) mmol/L BUN (7-17) mg/dL Creatinine (0.52-1.04) mg/dL Estimated GFR (>60) mL/min BUN/Creatinine Ratio (6-22) Glucose (70-100) mg/dL Calcium (8.4-10.2) mg/dL Magnesium (1.6-2.3) mg/dL C-Reactive Protein (<1.0) mg/dL Urine Color Yellow Urine Appearance Sl cloudy Urine pH 5.5 (4.5-8.0) Ur Specific Jenkins 1.025 (1.000-1.035) Urine Protein Trace H (Negative) Urine Glucose (UA) Negative (Negative) g/dL Urine Ketones Negative (NEGATIVE) Urine Occult Blood Trace-intact (Negative) Urine Nitrate Negative (Negative) Urine Bilirubin Negative (NEGATIVE) Urine Urobilinogen 0.2 (0.2) E.U./dL Ur Leukocyte Esterase Trace H (NEGATIVE) Urine RBC 0-1/hpf (0-5/HPF) Urine WBC 5-10/hpf H (0-5/HPF) Ur Squamous Epith Cells >30 /hpf H (0-5/HPF) Urine Bacteria Many (>30) H (None) Ur Culture Indicated? Cult not indicated SARS-CoV-2 (PCR) Negative (Negative) Influenza A (RT-PCR) Flu a negative (NEGATIVE) Influenza B (RT-PCR) Flu b negative (NEGATIVE) 09/13/21 Range/Units 09:00 WBC (4.5-11.0) X10^3/uL RBC (4.0-5.2) X10^6/uL Hgb (12.0-16.0) g/dL Hct (36-46) % MCV (80-100) fL MCH (26-34) PG MCHC (30-36) % RDW (11.6-14.8) % Plt Count (150-400) X10^3/uL Neut % (Auto) (50-75) % Lymph % (Auto) (25-40) % Forrest % (Auto) (3-14) % Eos % (Auto) (2-4) % Baso % (Auto) (0-2) % Neut # (Auto) (1314-5502) /uL Lymph # (Auto) (0922-1217) /uL Forrest # (Auto) (0-900) /uL Eos # (Auto) (0-450) /uL Baso # (Auto) (0-100) /uL ESR (0-20) MM/HR Sodium 139 (137-145) mmol/L Potassium 4.2 (3.4-5.1) mmol/L Chloride 108 H (98-107) mmol/L Carbon Dioxide 25 (22-32) mmol/L BUN 16 (7-17) mg/dL Creatinine 0.73 (0.52-1.04) mg/dL Estimated GFR > 60 (>60) mL/min BUN/Creatinine Ratio 21.9 (6-22) Glucose 92 (70-100) mg/dL Calcium 8.5 (8.4-10.2) mg/dL Magnesium 2.1 (1.6-2.3) mg/dL C-Reactive Protein < 0.5 (<1.0) mg/dL Urine Color Urine Appearance Urine pH (4.5-8.0) Ur Specific Jenkins (1.000-1.035) Urine Protein (Negative) Urine Glucose (UA) (Negative) g/dL Urine Ketones (NEGATIVE) Urine Occult Blood (Negative) Urine Nitrate (Negative) Urine Bilirubin (NEGATIVE) Urine Urobilinogen (0.2) E.U./dL Ur Leukocyte Esterase (NEGATIVE) Urine RBC (0-5/HPF) Urine WBC (0-5/HPF) Ur Squamous Epith Cells (0-5/HPF) Urine Bacteria (None) Ur Culture Indicated? SARS-CoV-2 (PCR) (Negative) Influenza A (RT-PCR) (NEGATIVE) Influenza B (RT-PCR) (NEGATIVE) Point of Care Testing Test Results Negative Imaging Data CTA - brain/neck: Radiologist's Impression: [address] [address] [address] Scan Report Signed Patient: Summer Persaud MR#: [id number] : 2000 Acct:[id number] Age/Sex: 21 / F Date of Service: 09/13/21 Loc: ED Accession Number: [id number] ?? Procedure: CT angio head and neck Ordering Provider: Zack Hendrix D.O. PROCEDURE:? CT ANGIO HEAD AND NECK ? INDICATIONS:? right eye vision change, left arm numb, SEBASTIAN since delivery of ? TECHNIQUE:? Pre-contrast 4.5 mm thick sections acquired from the foramen magnum to the vertex.? After the administration of intravenous contrast, 1 mm thick sections acquired from the aortic arch through the [place] of [place].? Post-contrast 4.5 mm thick sections then re- acquired from the foramen magnum to the vertex.? 3-dimensional qjjltzs-akfvmxexn-ojmezkmfht (MIP) and/or volume rendering reformats were acquired of the central intracranial vasculature and neck separately. For radiation dose reduction, the following was used:? automated exposure control, adjustment of mA and/or kV according to patient size.? ? COMPARISON:? [facility], MR, MR HEAD/BRAIN WO CON, 04/10/2019, 11:58.? [facility], CT, CT HEAD/BRAIN WO CON, 08/31/2020, 2:58.? Former[facility], CT, CT HEAD/BRAIN WO CON, 05/20/2021, 1:19. ? FINDINGS:? Image quality:? Mild streak artifact can be seen through the skull base. ? BRAIN:? CSF spaces:? Ventricles are normal in size and shape.? Basal cisterns are patent.? No extra-axial fluid collections.? ? Brain:? No midline shift.? No intracranial bleeds or masses.? Mckeon-white matter interface appears intact.? ? Skull and face:? Calvarium and facial bones appear intact, without suspicious lesions.? Orbits appear normal.? ? Sinuses:? Sinuses and mastoids are clear.? ? HEAD CT ANGIOGRAPHY:? Anterior circulation:? Intracranial internal carotid arteries are normal in size and flow.? There is a diminutive right A1 segment, with a corresponding robust left A1 segment.? This is considered to be a normal developmental variant of the [place] of [place], of typically no clinical consequence.? There is also.? Abdomen the of a single dominant left anterior cerebral artery.? The flow within the middle cerebral arteries is normal and symmetric.? The anterior communicating artery is seen.? No aneurysms are seen. ? ? Posterior circulation:? Visualized portions of the vertebral arteries demonstrat e normal caliber, and join to form a normal appearing basilar artery.? There is a prominent right posterior communicating artery seen, with an accompanying diminutive right P1 segment. This is attributed to a type origin of the right posterior cerebral artery, which is considered to be a normal developmental variant of typically no clinical consequence. Flow within the posterior cerebral arteries is normal and symmetric.? No aneurysms are seen.? ? NECK CT ANGIOGRAPHY:? Carotid system:? The great vessels demonstrate a conventional anatomy as they arise from the aortic arch.? The origins of the common carotid arteries appear patent.? The common carotid arteries demonstrate normal caliber and courses.? The bifurcation regions are both widely patent.? The internal carotid arteries demonstrate normal calibers and courses.? ? Posterior circulation:? The origins of the vertebral arteries both appear widely patent.? The more superior extracranial portions of both vertebral arteries also demonstrate normal courses and calibers.? The right vertebral artery is highly dominant to the left. ? Soft tissues:? Visualized neck soft tissues demonstrate no suspicious abnormalities.? ? Bones:? No suspicious bony lesions.? Visualized cervical spine appears normally aligned.? IMPRESSION:? ? No acute intracranial process is seen.? No acute intracranial hemorrhage is seen.? ? No significant intracranial arterial abnormality is seen.? ? Within the arteries of the neck, no hemodynamically significant stenosis can be seen. ? No findings of dissection are seen. ? ? ? Incidental note is made of: Naxmob-cl-Yzkjmj developmental anomalies. ? ? ? Any quantitative measurements of stenosis were performed using NASCET criteria.? ? ? Dictated by: Salvador Irving M.D. on 09/13/2021 at 8:52 ? ? Approved by: Salvador Irving M.D. on 09/13/2021 at 8:57 ? MDM Narrative Medical decision making narrative: Headache considerations include, but not limited to: Subarachnoid hemorrhage, but unlikely as patient denies sudden onset of pain, not worst of life, or neck pain Meningitis considered, but thought unlikely given lack of Brudzinski's, Kernig's sign, altered mental status or fever Giant cell arteritis considered, but thought unlikely given lack of unilateral findings, pain in bahai, vision change HTN Emergency considered, but thought unlikely given normal vitals Other serious diagnoses considered unlikely given lack of red flag findings such as sudden onset, increasing frequency, immunocompromise, systemic signs (fever, chills, stiff neck, or rash), focal neurologic findings, trauma, blood thinners, etc. Patient has noted improvement after the above-stated therapies. Return precautions given and questions answered to her apparent satisfaction Discharge Plan Departure Patient Disposition: Home Clinical Impression: Atypical migraine Instructions: DI for Migraine Activity Restrictions/Additional Instructions: *You have been diagnosed with [ Headache ] *What to do: *Take medications as directed *Follow up with your primary care provider in 2-3 days, call for an appointment. Let them know you were seen in the Emergency Department and that we ask that you be seen in follow up *Return to ER if you should have any new, worsening or concerning symptoms, such as [ fever > 101F, neck pain or stiffness, vomiting, confusion, seizure, focal weakness, vision change, speech deficit or other concerning symptoms ] Prescriptions: No Action cephalexin 500 mg capsule 500 mg PO QID 5 Days Qty: 20 0RF hyoscyamine sulfate 0.125 mg tablet 0.125 mg PO BID-TID PRN (Reason: dyspepsia) Qty: 60 3RF Rx Instructions: Take one tablet prior to meal up to 3 times a day as needed metronidazole 500 mg tablet 500 mg PO BID 7 Days Qty: 14 0RF Referrals: Cristy Mendoza MD [Primary Care Provider] - Visit Report Forms: Patient Portal/API
--- NOTE | 2021-09-13 08:19 | DI.CT.S_ITS ---
PROCEDURE: CT ANGIO HEAD AND NECK INDICATIONS: right eye vision change, left arm numb, SEBASTIAN since delivery of TECHNIQUE: Pre-contrast 4.5 mm thick sections acquired from the foramen magnum to the vertex. After the administration of intravenous contrast, 1 mm thick sections acquired from the aortic arch through the [place] of [place]. Post-contrast 4.5 mm thick sections then re-acquired from the foramen magnum to the vertex. 3-dimensional zqpceds-xmkusbyjj-rowkefgckh (MIP) and/or volume rendering reformats were acquired of the central intracranial vasculature and neck separately. For radiation dose reduction, the following was used: automated exposure control, adjustment of mA and/or kV according to patient size. COMPARISON: Merged With [facility], MR, MR HEAD/BRAIN WO CON, 04/10/2019, 11:58. Merged With [facility], CT, CT HEAD/BRAIN WO CON, 08/31/2020, 2:58. Merged With [facility], CT, CT HEAD/BRAIN WO CON, 05/20/2021, 1:19. FINDINGS: Image quality: Mild streak artifact can be seen through the skull base. BRAIN: CSF spaces: Ventricles are normal in size and shape. Basal cisterns are patent. No extra-axial fluid collections. Brain: No midline shift. No intracranial bleeds or masses. Mckeon-white matter interface appears intact. Skull and face: Calvarium and facial bones appear intact, without suspicious lesions. Orbits appear normal. Sinuses: Sinuses and mastoids are clear. HEAD CT ANGIOGRAPHY: Anterior circulation: Intracranial internal carotid arteries are normal in size and flow. There is a diminutive right A1 segment, with a corresponding robust left A1 segment. This is considered to be a normal developmental variant of the [place] of [place], of typically no clinical consequence. There is also. Abdomen the of a single dominant left anterior cerebral artery. The flow within the middle cerebral arteries is normal and symmetric. The anterior communicating artery is seen. No aneurysms are seen. Posterior circulation: Visualized portions of the vertebral arteries demonstrate normal caliber, and join to form a normal appearing basilar artery. There is a prominent right posterior communicating artery seen, with an accompanying diminutive right P1 segment. This is attributed to a type origin of the right posterior cerebral artery, which is considered to be a normal developmental variant of typically no clinical consequence. Flow within the posterior cerebral arteries is normal and symmetric. No aneurysms are seen. NECK CT ANGIOGRAPHY: Carotid system: The great vessels demonstrate a conventional anatomy as they arise from the aortic arch. The origins of the common carotid arteries appear patent. The common carotid arteries demonstrate normal caliber and courses. The bifurcation regions are both widely patent. The internal carotid arteries demonstrate normal calibers and courses. Posterior circulation: The origins of the vertebral arteries both appear widely patent. The more superior extracranial portions of both vertebral arteries also demonstrate normal courses and calibers. The right vertebral artery is highly dominant to the left. Soft tissues: Visualized neck soft tissues demonstrate no suspicious abnormalities. Bones: No suspicious bony lesions. Visualized cervical spine appears normally aligned. IMPRESSION: No acute intracranial process is seen. No acute intracranial hemorrhage is seen. No significant intracranial arterial abnormality is seen. Within the arteries of the neck, no hemodynamically significant stenosis can be seen. No findings of dissection are seen. Incidental note is made of: Jrkapo-gi-Enhydp developmental anomalies. Any quantitative measurements of stenosis were performed using NASCET criteria. Dictated by: Salvador Irving M.D. on 09/13/2021 at 8:52 Approved by: Salvador Irving M.D. on 09/13/2021 at 8:57
[2021-09-13 08:56] VITALS: PULSE 65; O2SAT 99
[2021-09-13 09:00] VITALS: PULSE 64; O2SAT 100
[2021-09-13 09:02] VITALS: BP 103/67; PULSE 61; O2SAT 99
[2021-09-13] MEDS: SODIUM CHLORIDE 0.9% 1,000 ML 1000 ML IV (09:04)
[2021-09-13 09:09] LABS: Add Manual Diff / Slide Review NO; Basophils Absolute Auto 0 /uL (0-100); Basophils Percent Auto 0.3 % (0-2); Eosinophils Absolute Auto 0 /uL (0-450); Eosinophils Percent Auto 0.8 % (2-4); Hematocrit 37.6 % (36-46); Hemoglobin 12.8 g/dL (12.0-16.0); Lymphocytes Absolute Auto 1700 /uL (1100-4500); Lymphocytes Percent Auto 44.1 % (25-40); Mean Corpuscular HGB Conc 34.1 % (30-36); Mean Corpuscular Hemoglobin 29.3 PG (26-34); Monocytes Absolute Auto 300 /uL (0-900); Monocytes Percent Auto 8.9 % (3-14); Neutrophils Absolute Auto 1800 /uL (1500-7000); Neutrophils Percent Auto 45.9 % (50-75); Platelet Count 223 X10^3/uL (150-400); Red Blood Cell Count 4.37 X10^6/uL (4.0-5.2); Red Cell Distribution Width 13.7 % (11.6-14.8); White Blood Cell Count 3.9 X10^3/uL (4.5-11.0)
[2021-09-13 09:26] LABS: Erythrocyte Sedimentation Rate 6 MM/HR (0-20)
[2021-09-13 09:34] LABS: Appearance Urine UA SL CLOUDY; Bilirubin Urine UA NEGATIVE (NEGATIVE); Color Urine UA YELLOW; Glucose Urine UA NEGATIVE (Negative); Ketones Urine UA NEGATIVE (NEGATIVE); Leukocyte Esterase Urine UA TRACE (NEGATIVE); Nitrite Urine UA NEGATIVE (Negative); Occult Blood Urine UA TRACE-INTACT (Negative); Protein Urine UA TRACE (Negative); Specific Gravity Urine UA 1.025 (1.000-1.035); Urobilinogen Urine UA 0.2 E.U./dL (0.2)
[2021-09-13 09:34] LABS: Influenza A - CEPHEID Flu A NEGATIVE (NEGATIVE); Influenza B - CEPHEID Flu B NEGATIVE (NEGATIVE)
[2021-09-13 09:41] LABS: BUN Creatinine Ratio 21.9 (6-22); Blood Urea Nitrogen 16 mg/dL (7-17); C-Reactive Protein Quant < 0.5 mg/dL (<1.0); Calcium 8.5 mg/dL (8.4-10.2); Carbon Dioxide 25 mmol/L (22-32); Chloride 108 mmol/L (98-107); Estimated Glomerular Filt Rate > 60 mL/min (>60); Glucose 92 mg/dL (70-100); HEMOLYSIS < 15 (0-50); Magnesium 2.1 mg/dL (1.6-2.3); Potassium 4.2 mmol/L (3.4-5.1); Sodium 139 mmol/L (137-145)
[2021-09-13 09:43] LABS: pH Urine UA 5.5 (4.5-8.0)
[2021-09-13 09:46] LABS: COVID-19 CEPHEID PCR (VTM/NP) Negative (Negative)
[2021-09-13 09:55] LABS: RBC Urine 0-1/HPF (0-5/HPF); WBC Urine 5-10/HPF (0-5/HPF)
[2021-09-13 09:56] LABS: Bacteria Urine Many (>30); Culture Indicated Urine Cult Not Indicated; Squamous Epithelial Cell Urine >30 /HPF (0-5/HPF)
[2021-09-13] MEDS: KETOROLAC 30 MG/ML VIAL 15 MG IV (10:35)
[2021-09-13] MEDS: METOCLOPRAMIDE 10 MG/2 ML INJ IV (10:35)
[2021-09-13] MEDS: diphenhydrAMINE 50 MG/ML VIAL 25 MG IV (10:35)
[2021-09-13 11:34] VITALS: BP 112/55; PULSE 65; O2SAT 97
== END 2021-09-13 11:35 | disposition home or self-care (01) ==
PROVIDERS: Emergency Provider Emergency Medicine; Family Provider Family Medicine; PCP Family Medicine
DX: G43.009 Migraine without aura, not intractable, without status migrainosus (principal); R20.0 Anesthesia of skin; H53.8 Other visual disturbances; Z20.822 Contact with and (suspected) exposure to COVID-19
CPT/HCPCS: 36415; 70496; 70498; 80048; 81001; 81025; 83735; 85025; 85651; 86140; 87635; 96361; 96374; 96375; 99284; C9803; J1200; J1885; J2765

== ENCOUNTER 2022-01-02 14:30 | Outpatient (RCR) | payer OTHER, MEDICAID, SELFPAY ==
[2020-02-22 05:09] VITALS: BMI 19.8
--- NOTE | 2021-09-19 17:54 | PT.OIE ---
Current Diagnoses Migraine, unspecified, not intractable, without status migrainosus (09/19/21) Cervicalgia (09/19/21) Past Medical History (Last Reviewed 09/13/21 @ 08:49 by Zack Hendrix DO) Acute cholecystitis Ankle pain Asthma COVID-19 Depression with anxiety Ovarian cyst depression (spontaneous vaginal delivery) Past Surgical History (Last Reviewed 09/13/21 @ 08:49 by Zack Hendrix DO) Anesthesia Hx laparoscopic cholecystectomy [place] teeth removed Visit Care Team Role Provider Type Cristy Mendoza MD Attending Provider Physician Family Provider Primary Care Provider Referring Provider Specialty: Family Practice Address: [address] [place] [address], [facility] Email: [email or web address] Physical Therapy Initial Evaluation PT-OP-A Visit Information Start: 09/18/21 16:58 Freq: Status: Active Protocol: Document 09/19/21 08:15 LRN (Rec: 09/19/21 09:10 LRN [id number]) Out-Patient Physical Therapy Visit Information Visit Information Visit Type Initial Evaluation Visit Start Time 08:15 Visit Stop Time 09:10 Total Visit Minutes 55 Visit Number 1 Evaluation Information Evaluation Date 09/19/21 Precautions Precautions Depression, history of back pain since of son 1.5 yrs ago ( PT-OP-B Current Condition Start: 09/18/21 16:58 Freq: Status: Active Protocol: Document 09/19/21 08:15 LRN (Rec: 09/19/21 09:10 LRN [id number]) Current Condition History of Current Condition Onset Date 1.25 yrs ago. Current Complaints Neck pain R>L, leading to Migraines History of Current Condition Onset of migraines after childbirth of her only son . Bilateral neck pain that goes into the base of the skill. Constant neck pain of variable intensity and is not able sleep without having to set herself in a permanent position. Was able to read for hours, and sleep more comfortable, moving around at night. Prior Treatments and Tests THC Pills and [place] Angio Scan: No suspicious abnormalities of head/neck. Vertebral arteries both widely patent. The more superior extracranial portions of both vertebral arteries demonstrate normal courses and calibers. The R vertebral artery is highly dominant to the left. Developmental History Developmental History .............................. ........... Previously at PT for low back and now has only tension. Has tried Trigger point treatments but sometimes it makes it worse. Alleviation of pain with [place]. Causing her to call out at work and is having to quit her other job due to migraine. Has never had migraines before , but now has them when neck/ shoulders flare up, sometimes lasting a week. Gets sick with taking Tylenol. Taking mints with THC 6-7 months ago, but feels it is not working anymore or has had to up the dosage, making her feel buzzed. Has 1.5 yr old son that she lifts and carries. Can't look down for >1 minute due neck becoming very painful. Treatment Goals Patient/Caregiver Goals Pt goal is to alleviate the neck pain, get muscles back to normal state, eliminate migraines and find something to help manage them. Looking down to read a book for 30 minutes, being able to sleep in a position that doesn't have to be permantly set; normal head movements without increased tension or pain; no difficulty with looking around in a car. Personal Factors Other Personal Factors That May Effect Depression, Jaw pain sometimes Therapy/Recovery - can't keep jaw open sometimes, Childbearing of son 02/14/2020 with ongoing back pain (tension around where epidural was). Visions problems with migraines. PT-OP-C Subjective Start: 09/18/21 16:58 Freq: Status: Active Protocol: Document 09/19/21 08:15 LRN (Rec: 09/19/21 09:10 LRN [id number]) OP-PT Subjective Patient Comments Patient Comments Previously at PT for low back and now has only tension. Has tried Trigger point treatments but sometimes it makes it worse. Alleviation of pain with [place]. Causing her to call out at work and is having to quit her other job due to migraine. Has never had migraines before , but now has them when neck/shoulders flare up, sometimes lasting a week. Gets sick with taking Tylenol. Taking mints with THC 6-7 months ago, but feels it is not working anymore or has had to up the dosage, making her feel buzzed, that she doesn' t like and doesn't want to have to do anymore. Has 1.5 yr old son that she lifts and carries. Can't look down for >1 minute due neck becoming very painful. Patient Questionnaires Neck Disability Index NDI Score 14 Neck Disability Index Impairment 20 to 39% Impaired (Score 10- 19) Quick Dash- Upper Extremity Quick Dash UE Score 11497 Upper Extremity Functional Scale UEFS Score 45.18 Upper Extremity Functional Scale 40 to 59% Impaired (Score 32- Impairment 47) OP-PT Pain Assessment Location R lower rib Pain Location Details Lateral R lower rib Intensity 1 Scale Used Numeric (0 - 10) Description Sharp Frequency Intermittent R eye Pain Location Details R eye Intensity 8 Scale Used Numeric (0 - 10) Description Aching,Sharp Description- Other Onset with neck pain sometimes Frequency Intermittent Other Pain Aggravating Factors Looking at glaring lights/ screen, and if moves neck to avoid glares. Other Pain Alleviating Factors [place] and THC pills Neck Pain Location Details Zeb neck and upper shoulder pain. Intensity 8 Scale Used Numeric (0 - 10) Description Aching,Sharp Frequency Constant Other Pain Aggravating Factors Intensity increases with certain positionis or with pressure/massage. Other Pain Alleviating Factors [place] and THC pills PT-OP-H Neuro Start: 09/18/21 16:58 Freq: Status: Active Protocol: Document 09/19/21 08:15 LRN (Rec: 09/19/21 09:10 LRN [id number]) Sensation Evaluation Gross Sensation Gross Sensation WNL Comments Summary Comments Pt reports sometimes feels pins/needles in hands after onset of neck pain and after applying [place]. Deep Tendon Reflex & Clonus Assessment Deep Tendon Reflex Bilateral Brachioradialis Deep Tendon Reflex 2+ Normal Bilateral Tricep Deep Tendon Reflex 2+ Normal Bilateral Bicep Deep Tendon Reflex 2+ Normal PT-OP-J Posture/Palpation/Skin Start: 09/18/21 16:58 Freq: Status: Active Protocol: Document 09/19/21 08:15 LRN (Rec: 09/19/21 09:10 LRN [id number]) Posture Evaluation Position Standing Head/C-Spine Posture C-Spine Flattened,Forward Head T-Spine Posture Flattened L-Spine Posture Increased Lordosis Shoulder Posture (R) Forward Scapula Posture (R) Protracted,(R) Depressed,( L) Winged,(R) Winged Arm Posture (L) Internally Rotated,(R) Internally Rotated Comments Posture Comments C6 Spinous process appears most posterior, Low R shoulder & R Breast, R breast is larger, Winged scapula R>L, Slight C-curve with apex on L in lower T/S. PT-OP-K Range of Motion Start: 09/18/21 16:58 Freq: Status: Active Protocol: Document 09/19/21 08:15 LRN (Rec: 09/19/21 09:10 LRN [id number]) Cervical Spine Range of Motion Cervical Spine Active Degrees Testing Position Sitting Flexion 29 Extension 55 Rotation Left 60 Rotation Right 70 Lateral Flexion Left 25 Lateral Flexion Right 28 ROM Limitations Pain Shoulder Goniometric Range of Motion Shoulder Right Active Testing Position Sitting Flexion 140 Extension 40 Abduction 90 Comments Pain in upper shoulder Left Active Testing Position Sitting Flexion 155 Extension 45 Abduction 110 Comments Stiffness in upper shoulder, with shoulder pop in anterior shoulder with active AB (first movement). PT-OP-L Special Tests Start: 09/18/21 16:58 Freq: Status: Active Protocol: Document 09/19/21 08:15 LRN (Rec: 09/19/21 09:10 LRN [id number]) Special Tests Cervical Spine Special Tests Upper Limb Tension Test Test Results + bilaterally all tests Spurling's Test Test Results SB head to R increased tension in back, + postive R Vertebral Artery Test Results R neck rot alleviated R eye pain, L rot incrd R equity structurer scalene pain, Comments L rot shows incr SCM tension. jaw pain and collor bone L side tension Traction Test Results positive Comments decreased in pain in neck/ upper shoulders pain 3 > 0 Foraminal Compression Test Results Eliminated pain after traction PT-OP-M Strength Start: 09/18/21 16:58 Freq: Status: Active Protocol: Document 09/19/21 08:15 LRN (Rec: 09/19/21 09:10 LRN [id number]) Cervical Spine Strength Cervical Spine Manual Muscle Testing Testing Position Sitting Flexion (C1-2) 5 Normal Extension 5 Normal Rotation Left 3+ Fair+ Rotation Right 3+ Fair+ Lateral Flexion Left (C3) 5 Normal Lateral Flexion Right (C3) 5 Normal Shoulder Strength Shoulder Manual Muscle Testing Right Flexion 5 Normal Extension 3 Fair Abduction (C5) 5 Normal External Rotation 3 Fair Internal Rotation 4 Good Left Flexion 5 Normal Extension 3 Fair Adduction 5 Normal External Rotation 3 Fair Internal Rotation 4 Good PT-OP-Q Treatments Start: 09/18/21 16:58 Freq: Status: Active Protocol: Document 09/19/21 08:15 LRN (Rec: 09/19/21 09:10 LRN [id number]) Self-Care/Home Management Treatment Education Patient Education Home Exercise Program Other Education Discussed results of evaluation, goals, and plan of care (POC). Pt agreeable to goals and POC. Activities Self-Care/Home Management Activities Neck rot and shoulder rolls. Reviewed body mechanics for lifting to protect low back. PT-OP-T Assessment and Plan Start: 09/18/21 16:58 Freq: Status: Active Protocol: Document 09/19/21 08:15 LRN (Rec: 09/19/21 09:10 LRN [id number]) Physical Therapy Assessment Rehab Potential Rehabilitation Potential Good Evaluation Complexity Number of Personal Factors/Comorbidities 3 or More Number of Body Systems Impaired 4 or More Clinical Presentation at Evaluation Evolving Impairments Impairments Activity Tolerance,Functional Activities,Pain,Posture,ROM, Sensation,Soft Tissue Mobility ,Strength,Tone,Transfers Other Concerns Barriers to Rehabilitation Depression, Migraines, TMJ dysfunction Goals One Impairment Lacks appropriate self care HEP Impairment Pain limiting ability to lie down and rest (at worst, onset of nausea & headaches). Pt must sleep in a permantly set position. Short Term Goal (STG) Pt will be educated in best sleep positions of the head and neck to minimize onset of neck pain and self care of neck/jaw positioning. 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 STG Duration 10/22/21 Long-Term Goal (LTG) Pt ofelia be educated in a remote computer terminal operator self care HEP to manage her neck/head pain and with pt able to tolerate different sleep positions through the night for improved sleep ability (not limited to a set sleep position). LTG to achieve on a self care HEP: Normal head movements without increased tension or pain. LTG Duration 11/18/21 Three Impairment Decreased C. ROM Impairment Pt not able to tolerate looking to read a book ( initially was able to read for hours). Short Term Goal (STG) Improve tolerable Cervical AROM with pt able to tolerate looking down > 5 minutes for reading. STG Duration 10/22/21 Long-Term Goal (LTG) Improve C. AROM to improve ability to be able to drive and look around while in a car . LTG Duration 11/18/21 Two Impairment Neck Pain Impairment Constant neck pain. Frequent, intermittent low back pain, Sharp pain moving in bed. Short Term Goal (STG) Improve neck stability with normalization of neck muscles to a more normal state/tone with pt noting tolerance to looking down for > 10', while minimizing low back pain. STG Duration 10/22/21 Subsurface Augmentee Operator Goal (LTG) Alleviate the neck pain with pt able to read 30'. Alleviate onset of migraines and find something to help manage them. LTG Duration 11/18/21 Assessment Summary Assessment Patient present with significant soft tissue restriction of cervical region and shoulders, and appears to have mechanical dysfunction of the cervical spine with postural changes of the head/ neck shoulders/scapulas. Subjectively, the pt indicates that she is still performing heavy lifting of her 1.5 yr old son; therefore much education is needed for proper body mechanics and positioning to minimize stress at her neck/shoulders. The pt also indicates that she is having jaw dysfunction; therefore it is recommended that after her neck/shoulder therapy she is referred for TMJ therapy with our TMJ specialist Ely Vora PT. The pt also demonstrates UE neural tension. The pt's detention goals are to eliminate her neck pain with return to prior level of function, but her insurance is very restricted in allowed visits; therefore it is expected the the pt will not reach all her remote computer terminal operator goals, but instead will be placed on a self care program that she will be able to progress on her own. It is expected that the pt will require further therapy once she reaches a plateau on her HEP. The pt will benefit from skilled physical therapy to work towards achieving the above stated goals. Physical Therapy Plan Frequency and Duration Frequency of Treatment 1x/Week Duration of Treatment 6 visits. Plan of Care Start Date 09/19/21 Plan of Care End Date 11/18/21 Therapeutic Interventions Therapeutic Interventions Home Exercise Program,Joint Mobilizations,Manual Therapy, Neuromuscular Re-education, Patient/Caregiver Education, Self-Care/Home Management,Soft Tissue Mobilization,Taping, Therapeutic Activities, Therapeutic Exercises Modalities Cold Pack/Ice Massage,Electric Stimulation,Hot Packs Other Referrals/Consults Referrals/Consults Recommended TMJ rehabilitiation on completion of current therapy. Next Visit Focus/Plan Next Note Type Treatment Note Next Visit Plan Review I/S HEP: neck rot & shoulder rolls. 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 STM in prep for cervical JMT, manual traction > ending with compression. Stretch to neck ms with inital focus on anterior, suboccipital and rotation ms. Strengthening: C/S stab (note : rot weakness), Shoulder (R>L ER>IR, ext and scapular stab of lat, subscap), HEP: shoulder stretches/ scapular stab and UE neural stretch, fascial self STM of jaw muscles and fascial STM if migraines. End with modalities unless pt able to do at home.
--- NOTE | 2021-09-19 17:55 | PT.OPPOC ---
Physical, Occupational & Speech Therapy At [facility] Current Diagnoses Migraine, unspecified, not intractable, without status migrainosus (09/19/21) Cervicalgia (09/19/21) Visit Care Team Role Provider Type Cristy Mendoza MD Attending Provider Physician Family Provider Primary Care Provider Referring Provider Specialty: Family Practice Address: [address] [place] [address], [facility] Email: [email or web address] Plan Of Care PT-OP-T Assessment and Plan Start: 09/18/21 16:58 Freq: Status: Active Protocol: Document 09/19/21 08:15 LRN (Rec: 09/19/21 09:10 LRN [id number]) Physical Therapy Assessment Rehab Potential Rehabilitation Potential Good Evaluation Complexity Number of Personal Factors/Comorbidities 3 or More Number of Body Systems Impaired 4 or More Clinical Presentation at Evaluation Evolving Impairments Impairments Activity Tolerance,Functional Activities,Pain,Posture,ROM, Sensation,Soft Tissue Mobility ,Strength,Tone,Transfers Other Concerns Barriers to Rehabilitation Depression, Migraines, TMJ dysfunction Goals One Impairment Lacks appropriate self care HEP Impairment Pain limiting ability to lie down and rest (at worst, onset of nausea & headaches). Pt must sleep in a permantly set position. Short Term Goal (STG) Pt will be educated in best sleep positions of the head and neck to minimize onset of neck pain and self care of neck/jaw positioning. 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 STG Duration 10/22/21 Medical Records Field Technician Goal (LTG) Pt ofelia be educated in a prison self care HEP to manage her neck/head pain and with pt able to tolerate different sleep positions through the night for improved sleep ability (not limited to a set sleep position). LTG to achieve on a self care HEP: Normal head movements without increased tension or pain. LTG Duration 11/18/21 Three Impairment Decreased C. ROM Impairment Pt not able to tolerate looking to read a book ( initially was able to read for hours). Short Term Goal (STG) Improve tolerable Cervical AROM with pt able to tolerate looking down > 5 minutes for reading. STG Duration 10/22/21 Medical Records Field Technician Goal (LTG) Improve C. AROM to improve ability to be able to drive and look around while in a car . LTG Duration 11/18/21 Two Impairment Neck Pain Impairment Constant neck pain. Frequent, intermittent low back pain, Sharp pain moving in bed. Short Term Goal (STG) Improve neck stability with normalization of neck muscles to a more normal state/tone with pt noting tolerance to looking down for > 10', while minimizing low back pain. STG Duration 10/22/21 Medical Records Field Technician Goal (LTG) Alleviate the neck pain with pt able to read 30'. Alleviate onset of migraines and find something to help manage them. LTG Duration 11/18/21 Assessment Summary Assessment Patient present with significant soft tissue restriction of cervical region and shoulders, and appears to have mechanical dysfunction of the cervical spine with postural changes of the head/ neck shoulders/scapulas. Subjectively, the pt indicates that she is still performing heavy lifting of her 1.5 yr old son; therefore much education is needed for proper body mechanics and positioning to minimize stress at her neck/shoulders. The pt also indicates that she is having jaw dysfunction; therefore it is recommended that after her neck/shoulder therapy she is referred for TMJ therapy with our TMJ specialist Ely Vora, PT. The pt also demonstrates UE neural tension. 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 It is expected that the pt will require further therapy once she reaches a plateau on her HEP. The pt will benefit from skilled physical therapy to work towards achieving the above stated goals. Physical Therapy Plan Frequency and Duration Frequency of Treatment 1x/Week Duration of Treatment 6 visits. Plan of Care Start Date 09/19/21 Plan of Care End Date 11/18/21 Therapeutic Interventions Therapeutic Interventions Home Exercise Program,Joint Mobilizations,Manual Therapy, Neuromuscular Re-education, Patient/Caregiver Education, Self-Care/Home Management,Soft Tissue Mobilization,Taping, Therapeutic Activities, Therapeutic Exercises Modalities Cold Pack/Ice Massage,Electric Stimulation,Hot Packs Other Referrals/Consults Referrals/Consults Recommended TMJ rehabilitiation on completion of current therapy. Next Visit Focus/Plan Next Note Type Treatment Note Next Visit Plan Review I/S HEP: neck rot & shoulder rolls. 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 STM in prep for cervical JMT, manual traction > ending with compression. Stretch to neck ms with inital focus on anterior, suboccipital and rotation ms. Strengthening: C/S stab (note : rot weakness), Shoulder (R>L ER>IR, ext and scapular stab of lat, subscap), HEP: shoulder stretches/ scapular stab and UE neural stretch, fascial self STM of jaw muscles and fascial STM if migraines. End with modalities unless pt able to do at home. Plan of Care Dates Plan of Care Start Date 09/19/21 Plan of Care End Date 11/18/21 Electronically Signed by: Phyllis Charles, PT 09/24/21 [id number] If you are in agreement with this Plan of Care, please return a signed and dated copy. I have reviewed this Plan of Care and certify that the skilled therapy services above are required to meet the patient?s needs. Physician Signature Date Printed Name and Credentials Clinical Instructor Signature Printed Name and Credentials
--- NOTE | 2021-09-29 16:37 | PT.OTN ---
Current Diagnoses Migraine, unspecified, not intractable, without status migrainosus (09/29/21) Cervicalgia (09/29/21) Physical Therapy Treatment Note PT-OP-A Visit Information Start: 09/18/21 16:58 Freq: Status: Active Protocol: Document 09/29/21 13:53 LRN (Rec: 09/29/21 16:36 LRN [id number]) Out-Patient Physical Therapy Visit Information Visit Information Visit Type Treatment Note Visit Start Time 13:53 Visit Stop Time 14:35 Total Visit Minutes 42 Visit Number 2 Evaluation Information Evaluation Date 09/19/21 Precautions Precautions Depression, history of back pain since of son 1.5 yrs ago PT-OP-B Current Condition Start: 09/18/21 16:58 Freq: Status: Active Protocol: Document 09/19/21 08:15 LRN (Rec: 09/19/21 09:10 LRN [id number]) Current Condition History of Current Condition Onset Date 1.25 yrs ago. Current Complaints Neck pain R>L, leading to Migraines History of Current Condition Onset of migraines after childbirth of her only son . Bilateral neck pain that goes into the base of the skill. Constant neck pain of variable intensity and is not able sleep without having to set herself in a permanent position. Was able to read for hours, and sleep more comfortable, moving around at night. Prior Treatments and Tests THC Pills and [employer] [place] CT Angio Scan: No suspicious abnormalities of head/neck. Vertebral arteries both widely patent. The more superior extracranial portions of both vertebral arteries demonstrate normal courses and calibers. The R vertebral artery is highly dominant to the left. Developmental History Developmental History .............................. ........... Previously at PT for low back and now has only tension. Has tried Trigger point treatments but sometimes it makes it worse. Alleviation of pain with [employer]. Causing her to call out at work and is having to quit her other job due to migraine. Has never had migraines before , but now has them when neck/ shoulders flare up, sometimes lasting a week. Gets sick with taking Tylenol. Taking mints with THC 6-7 months ago, but feels it is not working anymore or has had to up the dosage, making her feel buzzed. Has 1.5 yr old son that she lifts and carries. Can't look down for >1 minute due neck becoming very painful. Treatment Goals Patient/Caregiver Goals Pt goal is to alleviate the neck pain, get muscles back to normal state, eliminate migraines and find something to help manage them. Looking down to read a book for 30 minutes, being able to sleep in a position that doesn't have to be permantly set; normal head movements without increased tension or pain; no difficulty with looking around in a car. Personal Factors Other Personal Factors That May Effect Depression, Jaw pain sometimes Therapy/Recovery - can't keep jaw open sometimes, Childbearing of son 02/14/2020 with ongoing back pain (tension around where epidural was). Visions problems with migraines. PT-OP-C Subjective Start: 09/18/21 16:58 Freq: Status: Active Protocol: Document 09/29/21 13:53 LRN (Rec: 09/29/21 16:36 LRN [id number]) OP-PT Subjective Patient Comments Patient Comments ABle to move head farther. Has been using tennis ball to press into back. Sometimes during a 10 minute session was getting shooting pain and arm going numb. Her spouse helped her with neck motion pressing and she felt like she improved. Reports tension in subocciptal area. Migraines are the same. If turn head to R too fast, gets pain in R eye . Has had more pain in R eye lately PT-OP-H Neuro Start: 09/18/21 16:58 Freq: Status: Active Protocol: Document 09/19/21 08:15 LRN (Rec: 09/19/21 09:10 LRN [id number]) Sensation Evaluation Gross Sensation Gross Sensation WNL Comments Summary Comments Pt reports sometimes feels pins/needles in hands after onset of neck pain and after applying [employer]. Deep Tendon Reflex & Clonus Assessment Deep Tendon Reflex Bilateral Brachioradialis Deep Tendon Reflex 2+ Normal Bilateral Tricep Deep Tendon Reflex 2+ Normal Bilateral Bicep Deep Tendon Reflex 2+ Normal PT-OP-J Posture/Palpation/Skin Start: 09/18/21 16:58 Freq: Status: Active Protocol: Document 09/19/21 08:15 LRN (Rec: 09/19/21 09:10 LRN [id number]) Posture Evaluation Position Standing Head/C-Spine Posture C-Spine Flattened,Forward Head T-Spine Posture Flattened L-Spine Posture Increased Lordosis Shoulder Posture (R) Forward Scapula Posture (R) Protracted,(R) Depressed,( L) Winged,(R) Winged Arm Posture (L) Internally Rotated,(R) Internally Rotated Comments Posture Comments C6 Spinous process appears most posterior, Low R shoulder & R Breast, R breast is larger, Winged scapula R>L, Slight C-curve with apex on L in lower T/S. PT-OP-K Range of Motion Start: 09/18/21 16:58 Freq: Status: Active Protocol: Document 09/19/21 08:15 LRN (Rec: 09/19/21 09:10 [facility] [id number]) Cervical Spine Range of Motion Cervical Spine Active Degrees Testing Position Sitting Flexion 29 Extension 55 Rotation Left 60 Rotation Right 70 Lateral Flexion Left 25 Lateral Flexion Right 28 ROM Limitations Pain Shoulder Goniometric Range of Motion Shoulder Right Active Testing Position Sitting Flexion 140 Extension 40 Abduction 90 Comments Pain in upper shoulder Left Active Testing Position Sitting Flexion 155 Extension 45 Abduction 110 Comments Stiffness in upper shoulder, with shoulder pop in anterior shoulder with active AB (first movement). PT-OP-L Special Tests Start: 09/18/21 16:58 Freq: Status: Active Protocol: Document 09/19/21 08:15 LRN (Rec: 09/19/21 09:10 [facility] [id number]) Special Tests Cervical Spine Special Tests Upper Limb Tension Test Test Results + bilaterally all tests Spurling's Test Test Results SB head to R increased tension in back, + postive R Vertebral Artery Test Results R neck rot alleviated R eye pain, L rot incrd R metal grader scalene pain, Comments L rot shows incr SCM tension. jaw pain and collor bone L side tension Traction Test Results positive Comments decreased in pain in neck/ upper shoulders pain 3 > 0 Foraminal Compression Test Results Eliminated pain after traction PT-OP-M Strength Start: 09/18/21 16:58 Freq: Status: Active Protocol: Document 09/19/21 08:15 LRN (Rec: 09/19/21 09:10 [facility] [id number]) Cervical Spine Strength Cervical Spine Manual Muscle Testing Testing Position Sitting Flexion (C1-2) 5 Normal Extension 5 Normal Rotation Left 3+ Fair+ Rotation Right 3+ Fair+ Lateral Flexion Left (C3) 5 Normal Lateral Flexion Right (C3) 5 Normal Shoulder Strength Shoulder Manual Muscle Testing Right Flexion 5 Normal Extension 3 Fair Abduction (C5) 5 Normal External Rotation 3 Fair Internal Rotation 4 Good Left Flexion 5 Normal Extension 3 Fair Adduction 5 Normal External Rotation 3 Fair Internal Rotation 4 Good PT-OP-Q Treatments Start: 09/18/21 16:58 Freq: Status: Active Protocol: Document 09/29/21 13:53 LRN (Rec: 09/29/21 16:36 LRN [id number]) Therapeutic Exercises Supine Exercises Neck Elongation Supine Exercise Name Neck Elongation training/ awareness - HEP Reps/Minutes 3' Comments Cuing with finger on top of head and for chin tuck Sitting Exercises Thoracic Flexion Sitting Exercise Name Rounding thoracic region> neutral with neck elongation Reps/Minutes 2' C. Ext Sitting Exercise Name Active C extension w/fingers supporting neck Reps/Minutes 3' Shoulder rolls Sitting Exercise Name Shoulder rolls Side bilateral Reps/Minutes 2' Standing Exercises Shdr IR strengthening Standing Exercise Name Shoulder IR strengthening Side bilateral Equipment Used Lev 2 TB Reps/Minutes 10x each Comments Cuing for resistance to be max w/hand across chest & w/o incr pain. Manual Therapy Treatment Soft Tissue Mobilization Upper thoracic Body Location T3, T4 Mobilization Type Sustained Pressure Intensity/Depth MIld Body Position Supine Comments Balancing of T3, T4 with pressure at sternum - middle and lateral sides. L side of head Body Location L buddhism & lateral head above ear, forhead, posterior head Mobilization Type Myofascial Release Intensity/Depth Superficial Body Position Supine Self-Care/Home Management Treatment Education Patient Education Home Exercise Program,Posture Other Education *Pt educated in protective posturing and lifting for protection of neck/shoudler *Pt education in proper positioning of head/neck in sitting/supine and proper body mechanics for daily activities and child care group leader. Educated pt in head positioning in nighttime using towel roll under neck, and on sides pillows or rolled towels. *Educated pt in depth needed for side sleeping to support head in neutral position. Activities Self-Care/Home Management Activities I/S pt in neck elongation in sitting and supine, & Shoulder IR strengthening. Lev 2 TBand and White strap for securing to door issued. PT-OP-T Assessment and Plan Start: 09/18/21 16:58 Freq: Status: Active Protocol: Document 09/29/21 13:53 LRN (Rec: 09/29/21 16:36 LRN [id number]) Physical Therapy Assessment Goals One Impairment Lacks appropriate self care HEP Impairment Pain limiting ability to lie down and rest (at worst, onset of nausea & headaches). Pt must sleep in a permantly set position. Short Term Goal (STG) Pt will be educated in best sleep positions of the head and neck to minimize onset of neck pain and self care of neck/jaw positioning. Pt will be educated in proper body mechanics for child care group leader and daily activities to miimize neck/head pain. STG Duration 10/22/21 (09/29/21: MET GOAL) Half-Way Goal (LTG) Pt ofelia be educated in a termite treater helper self care HEP to manage her neck/head pain and with pt able to tolerate different sleep positions through the night for improved sleep ability (not limited to a set sleep position). LTG to achieve on a self care HEP: Normal head movements without increased tension or pain. (09/29/21: HEP I/S: TBand Shldr IR and neck elongation ex). LTG Duration 11/18/21 (09/29/21: Progressed ) Three Impairment Decreased C. ROM Impairment Pt not able to tolerate looking to read a book ( initially was able to read for hours). Short Term Goal (STG) Improve tolerable Cervical AROM with pt able to tolerate looking down > 5 minutes for reading. STG Duration 10/22/21 Half-Way Goal (LTG) Improve C. AROM to improve ability to be able to drive and look around while in a car . LTG Duration 11/18/21 Two Impairment Neck Pain Impairment Constant neck pain. Frequent, intermittent low back pain, Sharp pain moving in bed. Short Term Goal (STG) Improve neck stability with normalization of neck muscles to a more normal state/tone with pt noting tolerance to looking down for > 10', while minimizing low back pain. STG Duration 10/22/21 Computer Installation Engineer Goal (LTG) Alleviate the neck pain with pt able to read 30'. Alleviate onset of migraines and find something to help manage them. LTG Duration 11/18/21 Assessment Summary Assessment Pt is very weak in shoulder with fatigue in shoulders from shoulder roll exercises. Pt has fascial tightness of the R side of her head from migraines; further MFR needed. Improved thoracic posturing of spine after manual balancing, but posture in sitting tends to be flattening of spine. Physical Therapy Plan Frequency and Duration Frequency of Treatment 1x/Week Duration of Treatment 6 visits. Plan of Care Start Date 09/19/21 Plan of Care End Date 11/18/21 Next Visit Focus/Plan Next Note Type Treatment Note Next Visit Plan Assess if pt pain relief with self fascial STM for migraines . Review I/S HEP (issue handouts ): neck rot, neck elongation and shldr IR strengthening ( issue shdr rolls and thoracic flex AROM). STM in prep for cervical JMT, manual traction > ending with compression. ?Stretch to neck ms with inital focus on anterior, suboccipital and rotation ms. Strengthening: C/S stab (note : rot weakness), Shoulder (R>L ER>IR, ext and scapular stab of lat, subscap), HEP: shoulder stretches/ scapular stab and UE neural stretch, fascial self STM of jaw muscles. End with modalities unless pt able to do at home.
--- NOTE | 2021-10-06 17:26 | PT.OTN ---
Current Diagnoses Migraine, unspecified, not intractable, without status migrainosus (10/06/21) Cervicalgia (10/06/21) Physical Therapy Treatment Note PT-OP-A Visit Information Start: 09/18/21 16:58 Freq: Status: Active Protocol: Document 10/06/21 14:33 NBM (Rec: 10/06/21 17:26 NBM [id number]) Out-Patient Physical Therapy Visit Information Visit Information Visit Type Treatment Note Visit Start Time 14:35 Visit Stop Time 15:20 Total Visit Minutes 45 Visit Number 3 Number of STUDY ABROAD ADVISOR Visits 1 PT-OP-B Current Condition Start: 09/18/21 16:58 Freq: Status: Active Protocol: Document 09/19/21 08:15 LRN (Rec: 09/19/21 09:10 LRN [id number]) Current Condition History of Current Condition Onset Date 1.25 yrs ago. Current Complaints Neck pain R>L, leading to Migraines History of Current Condition Onset of migraines after childbirth of her only son . Bilateral neck pain that goes into the base of the skill. Constant neck pain of variable intensity and is not able sleep without having to set herself in a permanent position. Was able to read for hours, and sleep more comfortable, moving around at night. Prior Treatments and Tests THC Pills and [place] CT Angio Scan: No suspicious abnormalities of head/neck. Vertebral arteries both widely patent. The more superior extracranial portions of both vertebral arteries demonstrate normal courses and calibers. The R vertebral artery is highly dominant to the left. Developmental History Developmental History .............................. ........... Previously at PT for low back and now has only tension. Has tried Trigger point treatments but sometimes it makes it worse. Alleviation of pain with [place]. Causing her to call out at work and is having to quit her other job due to migraine. Has never had migraines before , but now has them when neck/ shoulders flare up, sometimes lasting a week. Gets sick with taking Tylenol. Taking mints with THC 6-7 months ago, but feels it is not working anymore or has had to up the dosage, making her feel buzzed. Has 1.5 yr old son that she lifts and carries. Can't look down for >1 minute due neck becoming very painful. Treatment Goals Patient/Caregiver Goals Pt goal is to alleviate the neck pain, get muscles back to normal state, eliminate migraines and find something to help manage them. Looking down to read a book for 30 minutes, being able to sleep in a position that doesn't have to be permantly set; normal head movements without increased tension or pain; no difficulty with looking around in a car. Personal Factors Other Personal Factors That May Effect Depression, Jaw pain sometimes Therapy/Recovery - can't keep jaw open sometimes, Childbearing of son 02/14/2020 with ongoing back pain (tension around where epidural was). Visions problems with migraines. PT-OP-C Subjective Start: 09/18/21 16:58 Freq: Status: Active Protocol: Document 10/06/21 14:33 NBM (Rec: 10/06/21 17:26 NBM [id number]) OP-PT Subjective Patient Comments Patient Comments Pt reports tension in occipital area R>L. Spouse has been helping with self fascial areas. She has been doing her exercises and isn't sure how long to do them. She does not feel pain with them but does them until her muscles are exhausted. PT-OP-H Neuro Start: 09/18/21 16:58 Freq: Status: Active Protocol: Document 09/19/21 08:15 LRN (Rec: 09/19/21 09:10 LRN [id number]) Sensation Evaluation Gross Sensation Gross Sensation WNL Comments Summary Comments Pt reports sometimes feels pins/needles in hands after onset of neck pain and after applying [place]. Deep Tendon Reflex & Clonus Assessment Deep Tendon Reflex Bilateral Brachioradialis Deep Tendon Reflex 2+ Normal Bilateral Tricep Deep Tendon Reflex 2+ Normal Bilateral Bicep Deep Tendon Reflex 2+ Normal PT-OP-J Posture/Palpation/Skin Start: 09/18/21 16:58 Freq: Status: Active Protocol: Document 09/19/21 08:15 LRN (Rec: 09/19/21 09:10 LRN [id number]) Posture Evaluation Position Standing Head/C-Spine Posture C-Spine Flattened,Forward Head T-Spine Posture Flattened L-Spine Posture Increased Lordosis Shoulder Posture (R) Forward Scapula Posture (R) Protracted,(R) Depressed,( L) Winged,(R) Winged Arm Posture (L) Internally Rotated,(R) Internally Rotated Comments Posture Comments C6 Spinous process appears most posterior, Low R shoulder & R Breast, R breast is larger, Winged scapula R>L, Slight C-curve with apex on L in lower T/S. PT-OP-K Range of Motion Start: 09/18/21 16:58 Freq: Status: Active Protocol: Document 09/19/21 08:15 LRN (Rec: 09/19/21 09:10 LRN [id number]) Cervical Spine Range of Motion Cervical Spine Active Degrees Testing Position Sitting Flexion 29 Extension 55 Rotation Left 60 Rotation Right 70 Lateral Flexion Left 25 Lateral Flexion Right 28 ROM Limitations Pain Shoulder Goniometric Range of Motion Shoulder Right Active Testing Position Sitting Flexion 140 Extension 40 Abduction 90 Comments Pain in upper shoulder Left Active Testing Position Sitting Flexion 155 Extension 45 Abduction 110 Comments Stiffness in upper shoulder, with shoulder pop in anterior shoulder with active AB (first movement). PT-OP-L Special Tests Start: 09/18/21 16:58 Freq: Status: Active Protocol: Document 09/19/21 08:15 LRN (Rec: 09/19/21 09:10 LRN [id number]) Special Tests Cervical Spine Special Tests Upper Limb Tension Test Test Results + bilaterally all tests Spurling's Test Test Results SB head to R increased tension in back, + postive R Vertebral Artery Test Results R neck rot alleviated R eye pain, L rot incrd R industrial pharmacist scalene pain, Comments L rot shows incr SCM tension. jaw pain and collor bone L side tension Traction Test Results positive Comments decreased in pain in neck/ upper shoulders pain 3 > 0 Foraminal Compression Test Results Eliminated pain after traction PT-OP-M Strength Start: 09/18/21 16:58 Freq: Status: Active Protocol: Document 09/19/21 08:15 LRN (Rec: 09/19/21 09:10 LRN [id number]) Cervical Spine Strength Cervical Spine Manual Muscle Testing Testing Position Sitting Flexion (C1-2) 5 Normal Extension 5 Normal Rotation Left 3+ Fair+ Rotation Right 3+ Fair+ Lateral Flexion Left (C3) 5 Normal Lateral Flexion Right (C3) 5 Normal Shoulder Strength Shoulder Manual Muscle Testing Right Flexion 5 Normal Extension 3 Fair Abduction (C5) 5 Normal External Rotation 3 Fair Internal Rotation 4 Good Left Flexion 5 Normal Extension 3 Fair Adduction 5 Normal External Rotation 3 Fair Internal Rotation 4 Good PT-OP-Q Treatments Start: 09/18/21 16:58 Freq: Status: Active Protocol: Document 10/06/21 14:33 NB (Rec: 10/06/21 17:26 [facility] [id number]) Therapeutic Exercises Sitting Exercises Levator Scap. Stretch Side bilateral Reps/Minutes 2 x 30 ea Thoracic Flexion Sitting Exercise Name Rounding thoracic region> neutral with neck elongation Reps/Minutes 2' C. Ext Sitting Exercise Name Active C extension w/fingers supporting neck Reps/Minutes 2' Shoulder rolls Sitting Exercise Name Shoulder rolls Side bilateral Reps/Minutes 2' Standing Exercises Shdr IR strengthening Standing Exercise Name Shoulder IR strengthening Side bilateral Equipment Used Lev 2 TB Reps/Minutes 5x each Comments Cuing for scapular setting before initiating Manual Therapy Treatment Soft Tissue Mobilization C.Spine Body Location Paraspinals, Sub-occipitals, Levator Scap., Upper Trapezius Mobilization Type Myofascial Release,Rolling, Sustained Pressure Intensity/Depth Superficial Body Position Hooklying Comments R>L suboccipital tightness. Pt reported tension relief with STM. Self-Care/Home Management Treatment Education Patient Education Home Exercise Program,Posture Other Education Discussed impact on cervical region of looking down at phone in lap. Pt educated to bring phone towards eye level, can support elbows on table or place phone at eye level. PT-OP-T Assessment and Plan Start: 09/18/21 16:58 Freq: Status: Active Protocol: Document 10/06/21 14:33 [facility] (Rec: 10/06/21 17:26 [facility] [id number]) Physical Therapy Assessment Goals One Impairment Lacks appropriate self care HEP Impairment Pain limiting ability to lie down and rest (at worst, onset of nausea & headaches). Pt must sleep in a permantly set position. Short Term Goal (STG) Pt will be educated in best sleep positions of the head and neck to minimize onset of neck pain and self care of neck/jaw positioning. Pt will be educated in proper body mechanics for attendant child activity and daily activities to miimize neck/head pain. STG Duration 10/22/21 (09/29/21: MET GOAL) Bone Plant Supervisor Goal (LTG) Pt ofelia be educated in a dedicated intermodal truck driver self care HEP to manage her neck/head pain and with pt able to tolerate different sleep positions through the night for improved sleep ability (not limited to a set sleep position). LTG to achieve on a self care HEP: Normal head movements without increased tension or pain. (09/29/21: HEP I/S: TBand Shldr IR and neck elongation ex). LTG Duration 11/18/21 (09/29/21: Progressed ) Three Impairment Decreased C. ROM Impairment Pt not able to tolerate looking to read a book ( initially was able to read for hours). Short Term Goal (STG) Improve tolerable Cervical AROM with pt able to tolerate looking down > 5 minutes for reading. STG Duration 10/22/21 Alf Goal (LTG) Improve C. AROM to improve ability to be able to drive and look around while in a car . LTG Duration 11/18/21 Two Impairment Neck Pain Impairment Constant neck pain. Frequent, intermittent low back pain, Sharp pain moving in bed. Short Term Goal (STG) Improve neck stability with normalization of neck muscles to a more normal state/tone with pt noting tolerance to looking down for > 10', while minimizing low back pain. STG Duration 10/22/21 Alf Goal (LTG) Alleviate the neck pain with pt able to read 30'. Alleviate onset of migraines and find something to help manage them. LTG Duration 11/18/21 Assessment Summary Assessment Pt presents with cervical tension and tightness and right-sided subocciptal pain which was relieved with STM. She presents with protracted shoulders which improves cues for scapular setting for IR exercise. Pt reports pain relief with self fascial STM for migraines. HEP compliant. Physical Therapy Plan Next Visit Focus/Plan Next Note Type Treatment Note Next Visit Plan Assess response to STM last visit. Review HEP and issue handouts for neck rot, neck elongation, shldr IR strengthening, shdr rolls. Issue thoracic flex AROM. POC: STM in prep for cervical JMT, manual traction > ending with compression. ?Stretch to neck ms with inital focus on anterior, suboccipital and rotation ms. Strengthening: C/S stab (note : rot weakness), Shoulder (R>L ER>IR, ext and scapular stab of lat, subscap), HEP: shoulder stretches/ scapular stab and UE neural stretch, fascial self STM of jaw muscles. End with modalities unless pt able to do at home.
--- NOTE | 2021-10-13 17:08 | PT.OTN ---
Current Diagnoses Migraine, unspecified, not intractable, without status migrainosus (10/13/21) Cervicalgia (10/13/21) Physical Therapy Treatment Note PT-OP-A Visit Information Start: 09/18/21 16:58 Freq: Status: Active Protocol: Document 10/13/21 09:10 LRN (Rec: 10/13/21 09:57 LRN [id number]) Out-Patient Physical Therapy Visit Information Visit Information Visit Type Treatment Note Visit Start Time 09:10 Visit Stop Time 09:56 Total Visit Minutes 46 Visit Number 4 Evaluation Information Evaluation Date 09/19/21 Precautions Precautions Depression, history of back pain since of son 1.5 yrs ago PT-OP-B Current Condition Start: 09/18/21 16:58 Freq: Status: Active Protocol: Document 09/19/21 08:15 LRN (Rec: 09/19/21 09:10 LRN [id number]) Current Condition History of Current Condition Onset Date 1.25 yrs ago. Current Complaints Neck pain R>L, leading to Migraines History of Current Condition Onset of migraines after childbirth of her only son . Bilateral neck pain that goes into the base of the skill. Constant neck pain of variable intensity and is not able sleep without having to set herself in a permanent position. Was able to read for hours, and sleep more comfortable, moving around at night. Prior Treatments and Tests THC Pills and [place] CT Angio Scan: No suspicious abnormalities of head/neck. Vertebral arteries both widely patent. The more superior extracranial portions of both vertebral arteries demonstrate normal courses and calibers. The R vertebral artery is highly dominant to the left. Developmental History Developmental History .............................. ........... Previously at PT for low back and now has only tension. Has tried Trigger point treatments but sometimes it makes it worse. Alleviation of pain with [place]. Causing her to call out at work and is having to quit her other job due to migraine. Has never had migraines before , but now has them when neck/ shoulders flare up, sometimes lasting a week. Gets sick with taking Tylenol. Taking mints with THC 6-7 months ago, but feels it is not working anymore or has had to up the dosage, making her feel buzzed. Has 1.5 yr old son that she lifts and carries. Can't look down for >1 minute due neck becoming very painful. Treatment Goals Patient/Caregiver Goals Pt goal is to alleviate the neck pain, get muscles back to normal state, eliminate migraines and find something to help manage them. Looking down to read a book for 30 minutes, being able to sleep in a position that doesn't have to be permantly set; normal head movements without increased tension or pain; no difficulty with looking around in a car. Personal Factors Other Personal Factors That May Effect Depression, Jaw pain sometimes Therapy/Recovery - can't keep jaw open sometimes, Childbearing of son 02/14/2020 with ongoing back pain (tension around where epidural was). Visions problems with migraines. PT-OP-C Subjective Start: 09/18/21 16:58 Freq: Status: Active Protocol: Document 10/13/21 09:10 LRN (Rec: 10/13/21 09:57 LRN [id number]) OP-PT Subjective Patient Comments Patient Comments Sleep roll has helped neck with sleeping with baby. Starting last night, can't sleep on R shoulder and placing hands in goal post position, the R shoulder. If not stretching with tennis ball gets tight in R neck and shoulder. Recognizing posture at work. Migraines better, sometimes just occular. Ms in the neck have not been painful. Has tension in the skull of the neck. PT-OP-H Neuro Start: 09/18/21 16:58 Freq: Status: Active Protocol: Document 09/19/21 08:15 LRN (Rec: 09/19/21 09:10 LRN [id number]) Sensation Evaluation Gross Sensation Gross Sensation WNL Comments Summary Comments Pt reports sometimes feels pins/needles in hands after onset of neck pain and after applying [place]. Deep Tendon Reflex & Clonus Assessment Deep Tendon Reflex Bilateral Brachioradialis Deep Tendon Reflex 2+ Normal Bilateral Tricep Deep Tendon Reflex 2+ Normal Bilateral Bicep Deep Tendon Reflex 2+ Normal PT-OP-J Posture/Palpation/Skin Start: 09/18/21 16:58 Freq: Status: Active Protocol: Document 10/13/21 09:10 LRN (Rec: 10/13/21 09:57 LRN [id number]) Palpation Assessment Location T4 Palpation Location T4 Palpation Findings Tenderness Palpation Details Posterior on T5 PT-OP-K Range of Motion Start: 09/18/21 16:58 Freq: Status: Active Protocol: Document 09/19/21 08:15 LRN (Rec: 09/19/21 09:10 LRN [id number]) Cervical Spine Range of Motion Cervical Spine Active Degrees Testing Position Sitting Flexion 29 Extension 55 Rotation Left 60 Rotation Right 70 Lateral Flexion Left 25 Lateral Flexion Right 28 ROM Limitations Pain Shoulder Goniometric Range of Motion Shoulder Right Active Testing Position Sitting Flexion 140 Extension 40 Abduction 90 Comments Pain in upper shoulder Left Active Testing Position Sitting Flexion 155 Extension 45 Abduction 110 Comments Stiffness in upper shoulder, with shoulder pop in anterior shoulder with active AB (first movement). PT-OP-L Special Tests Start: 09/18/21 16:58 Freq: Status: Active Protocol: Document 09/19/21 08:15 LRN (Rec: 09/19/21 09:10 LRN [id number]) Special Tests Cervical Spine Special Tests Upper Limb Tension Test Test Results + bilaterally all tests Spurling's Test Test Results SB head to R increased tension in back, + postive R Vertebral Artery Test Results R neck rot alleviated R eye pain, L rot incrd R lusterer scalene pain, Comments L rot shows incr SCM tension. jaw pain and collor bone L side tension Traction Test Results positive Comments decreased in pain in neck/ upper shoulders pain 3 > 0 Foraminal Compression Test Results Eliminated pain after traction PT-OP-M Strength Start: 09/18/21 16:58 Freq: Status: Active Protocol: Document 09/19/21 08:15 LRN (Rec: 09/19/21 09:10 LR [id number]) Cervical Spine Strength Cervical Spine Manual Muscle Testing Testing Position Sitting Flexion (C1-2) 5 Normal Extension 5 Normal Rotation Left 3+ Fair+ Rotation Right 3+ Fair+ Lateral Flexion Left (C3) 5 Normal Lateral Flexion Right (C3) 5 Normal Shoulder Strength Shoulder Manual Muscle Testing Right Flexion 5 Normal Extension 3 Fair Abduction (C5) 5 Normal External Rotation 3 Fair Internal Rotation 4 Good Left Flexion 5 Normal Extension 3 Fair Adduction 5 Normal External Rotation 3 Fair Internal Rotation 4 Good PT-OP-Q Treatments Start: 09/18/21 16:58 Freq: Status: Active Protocol: Document 10/13/21 09:10 LRN (Rec: 10/13/21 09:57 LRN [id number]) Therapeutic Exercises Sitting Exercises C. SB Sitting Exercise Name Active C. SB Side bilateral Reps/Minutes 3' Shoulder IR/ER Sitting Exercise Name Active shoulder IR/ER with holding end range Side bilateral Reps/Minutes 6' C. rot Sitting Exercise Name Active C. rot Side bilateral Reps/Minutes 3' Thoracic Flexion Sitting Exercise Name Rounding thoracic region> neutral with neck elongation Reps/Minutes 3' Shoulder rolls Sitting Exercise Name Shoulder rolls Side bilateral Reps/Minutes 2' Manual Therapy Treatment Soft Tissue Mobilization C.Spine Body Location Paraspinals, Sub-occipitals Mobilization Type Myofascial Release,Rolling, Sustained Pressure Intensity/Depth Superficial Body Position Hooklying Comments R>L suboccipital tightness. Pt reported tension relief with STM. Upper thoracic Body Location T4 Mobilization Type Sustained Pressure Intensity/Depth MIld Body Position Supine Comments Balancing of T3, T4 with pressure at sternum - middle and lateral sides. Self-Care/Home Management Treatment Education Patient Education Home Exercise Program Other Education Educated pt in use of tennis balls to place in suboccipital region for suboccipital release. Issued tubing to hold balls together. Activities Self-Care/Home Management Activities Issued & reviewed HEP: Active C/S ROM for SB & Rot; neck elongation to regain posture; shoulder strengthening: active shoulder IR/ER and arm circles. PT-OP-T Assessment and Plan Start: 09/18/21 16:58 Freq: Status: Active Protocol: Document 10/13/21 09:10 LRN (Rec: 10/13/21 09:57 LRN [id number]) Physical Therapy Assessment Goals One Impairment Lacks appropriate self care HEP Impairment Pain limiting ability to lie down and rest (at worst, onset of nausea & headaches). Pt must sleep in a permantly set position. Short Term Goal (STG) Pt will be educated in best sleep positions of the head and neck to minimize onset of neck pain and self care of neck/jaw positioning. 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 STG Duration 10/22/21 (09/29/21: MET GOAL) Half-Way Goal (LTG) Pt ofelia be educated in a care home self care HEP to manage her neck/head pain and with pt able to tolerate different sleep positions through the night for improved sleep ability (not limited to a set sleep position). LTG to achieve on a self care HEP: Normal head movements without increased tension or pain. (09/29/21: HEP I/S: TBand Shldr IR and neck elongation ex). LTG Duration 11/18/21 (09/29/21: Progressed ) Three Impairment Decreased C. ROM Impairment Pt not able to tolerate looking to read a book ( initially was able to read for hours). Short Term Goal (STG) Improve tolerable Cervical AROM with pt able to tolerate looking down > 5 minutes for reading. (10/13/21: Able to read from phone 1-2 hrs holding phone at eye level, looking down is uncomfortable but not painful, can't look down for 5') STG Duration 10/22/21 (10/13/21: Progressing) [employer] Goal (LTG) Improve C. AROM to improve ability to be able to drive and look around while in a car . (10/13/21: Pt reports holds body/head stiff to look around ). LTG Duration 11/18/21 Two Impairment Neck Pain Impairment Constant neck pain. Frequent, intermittent low back pain, Sharp pain moving in bed. Short Term Goal (STG) Improve neck stability with normalization of neck muscles to a more normal state/tone with pt noting tolerance to looking down for > 10', while minimizing low back pain. STG Duration 10/22/21 Half-Way Goal (LTG) Alleviate the neck pain with pt able to read 30'. Alleviate onset of migraines and find something to help manage them. LTG Duration 11/18/21 Assessment Summary Assessment Last session massage helped a lot. No pain with thoracic flex after manual therapy, but discomfort. Physical Therapy Plan Frequency and Duration Frequency of Treatment 1x/Week Duration of Treatment 6 visits. Plan of Care Start Date 09/19/21 Plan of Care End Date 11/18/21 Next Visit Focus/Plan Next Note Type Treatment Note Next Visit Plan Assess response to manual mob. Review HEP and issue handout for shldr rolls. Issue thoracic flex AROM. Assess need for , fascial self STM of jaw muscles. Gentle stretch to neck ms with inital focus on rotation, anterior, suboccipital. Strengthening: C/S stab (note : rot weakness), Shoulder (R>L ER>IR, ext and scapular stab of lat, subscap), HEP: shoulder stretches/ scapular stab and UE neural stretch. End with modalities if needed.
--- NOTE | 2021-10-20 09:15 | PT-OP ANOTE ---
Therapist cancel due to late arrival, pt visit limit for year is 6.
--- NOTE | 2021-10-24 17:54 | PT.OTN ---
Current Diagnoses Migraine, unspecified, not intractable, without status migrainosus (10/24/21) Cervicalgia (10/24/21) Physical Therapy Treatment Note PT-OP-A Visit Information Start: 09/18/21 16:58 Freq: Status: Active Protocol: Document 10/24/21 14:39 LRN (Rec: 10/24/21 15:20 LRN [id number]) Out-Patient Physical Therapy Visit Information Visit Information Visit Type Treatment Note Visit Start Time 14:40 Visit Stop Time 15:18 Total Visit Minutes 38 Visit Number 4 Evaluation Information Evaluation Date 09/19/21 Precautions Precautions Depression, history of back pain since of son 1.5 yrs ago PT-OP-B Current Condition Start: 09/18/21 16:58 Freq: Status: Active Protocol: Document 09/19/21 08:15 LRN (Rec: 09/19/21 09:10 LRN [id number]) Current Condition History of Current Condition Onset Date 1.25 yrs ago. Current Complaints Neck pain R>L, leading to Migraines History of Current Condition Onset of migraines after childbirth of her only son . Bilateral neck pain that goes into the base of the skill. Constant neck pain of variable intensity and is not able sleep without having to set herself in a permanent position. Was able to read for hours, and sleep more comfortable, moving around at night. Prior Treatments and Tests THC Pills and [place] CT Angio Scan: No suspicious abnormalities of head/neck. Vertebral arteries both widely patent. The more superior extracranial portions of both vertebral arteries demonstrate normal courses and calibers. The R vertebral artery is highly dominant to the left. Developmental History Developmental History .............................. ........... Previously at PT for low back and now has only tension. Has tried Trigger point treatments but sometimes it makes it worse. Alleviation of pain with [place]. Causing her to call out at work and is having to quit her other job due to migraine. Has never had migraines before , but now has them when neck/ shoulders flare up, sometimes lasting a week. Gets sick with taking Tylenol. Taking mints with THC 6-7 months ago, but feels it is not working anymore or has had to up the dosage, making her feel buzzed. Has 1.5 yr old son that she lifts and carries. Can't look down for >1 minute due neck becoming very painful. Treatment Goals Patient/Caregiver Goals Pt goal is to alleviate the neck pain, get muscles back to normal state, eliminate migraines and find something to help manage them. Looking down to read a book for 30 minutes, being able to sleep in a position that doesn't have to be permantly set; normal head movements without increased tension or pain; no difficulty with looking around in a car. Personal Factors Other Personal Factors That May Effect Depression, Jaw pain sometimes Therapy/Recovery - can't keep jaw open sometimes, Childbearing of son 02/14/2020 with ongoing back pain (tension around where epidural was). Visions problems with migraines. PT-OP-C Subjective Start: 09/18/21 16:58 Freq: Status: Active Protocol: Document 10/24/21 14:39 LRN (Rec: 10/24/21 15:20 LRN [id number]) OP-PT Subjective Patient Comments Patient Comments Getting better. Tension in upper back (point to T2-T4). States she can now drive and look around without pain. PT-OP-H Neuro Start: 09/18/21 16:58 Freq: Status: Active Protocol: Document 09/19/21 08:15 LRN (Rec: 09/19/21 09:10 LRN [id number]) Sensation Evaluation Gross Sensation Gross Sensation WNL Comments Summary Comments Pt reports sometimes feels pins/needles in hands after onset of neck pain and after applying [place]. Deep Tendon Reflex & Clonus Assessment Deep Tendon Reflex Bilateral Brachioradialis Deep Tendon Reflex 2+ Normal Bilateral Tricep Deep Tendon Reflex 2+ Normal Bilateral Bicep Deep Tendon Reflex 2+ Normal PT-OP-J Posture/Palpation/Skin Start: 09/18/21 16:58 Freq: Status: Active Protocol: Document 10/13/21 09:10 LRN (Rec: 10/13/21 09:57 LRN [id number]) Palpation Assessment Location T4 Palpation Location T4 Palpation Findings Tenderness Palpation Details Posterior on T5 PT-OP-K Range of Motion Start: 09/18/21 16:58 Freq: Status: Active Protocol: Document 09/19/21 08:15 LRN (Rec: 09/19/21 09:10 [facility] [id number]) Cervical Spine Range of Motion Cervical Spine Active Degrees Testing Position Sitting Flexion 29 Extension 55 Rotation Left 60 Rotation Right 70 Lateral Flexion Left 25 Lateral Flexion Right 28 ROM Limitations Pain Shoulder Goniometric Range of Motion Shoulder Right Active Testing Position Sitting Flexion 140 Extension 40 Abduction 90 Comments Pain in upper shoulder Left Active Testing Position Sitting Flexion 155 Extension 45 Abduction 110 Comments Stiffness in upper shoulder, with shoulder pop in anterior shoulder with active AB (first movement). 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 jaw pain and collor bone L side tension Traction Test Results positive Comments decreased in pain in neck/ upper shoulders pain 3 > 0 Foraminal Compression Test Results Eliminated pain after traction PT-OP-M Strength Start: 09/18/21 16:58 Freq: Status: Active Protocol: Document 09/19/21 08:15 LRN (Rec: 09/19/21 09:10 LRN [id number]) Cervical Spine Strength Cervical Spine Manual Muscle Testing Testing Position Sitting Flexion (C1-2) 5 Normal Extension 5 Normal Rotation Left 3+ Fair+ Rotation Right 3+ Fair+ Lateral Flexion Left (C3) 5 Normal Lateral Flexion Right (C3) 5 Normal Shoulder Strength Shoulder Manual Muscle Testing Right Flexion 5 Normal Extension 3 Fair Abduction (C5) 5 Normal External Rotation 3 Fair Internal Rotation 4 Good Left Flexion 5 Normal Extension 3 Fair Adduction 5 Normal External Rotation 3 Fair Internal Rotation 4 Good PT-OP-Q Treatments Start: 09/18/21 16:58 Freq: Status: Active Protocol: Document 10/24/21 14:39 LRN (Rec: 10/24/21 15:20 LRN [id number]) Therapeutic Exercises Supine Exercises Chest press w/extra push Supine Exercise Name Chest press plus Side bilateral Reps/Minutes 3' Sitting Exercises C. SB Sitting Exercise Name Active C. SB Side bilateral Reps/Minutes 1' C. rot Sitting Exercise Name Active C. rot Side bilateral Reps/Minutes 1' Manual Therapy Treatment Soft Tissue Mobilization Upper Thoracic Paraspinals Body Location Bilateral Upper T/S paraspinals Mobilization Type Myofascial Release,Strumming, Sustained Pressure Intensity/Depth Superficial to Moderate Body Position Prone Comments MFR Restriction on L side prone, R side ms tightness in sitting. Upper thoracic Body Location T2-T4 Mobilization Type Sustained Pressure Intensity/Depth MIld Body Position Prone Comments Balancing of T3, T4 with pressure at sternum, middle and lateral sides of sternum. Manual Techniques MWM at T3-T4 Type Lift of T3 at T4 with neck flexion Body Location T3-T4 Body Position Sitting Reps/Duration 15x Comments No pinch in upper back during MWM, mild decreased without manual lift. PT-OP-T Assessment and Plan Start: 09/18/21 16:58 Freq: Status: Active Protocol: Document 10/24/21 14:39 LRN (Rec: 10/24/21 15:20 LRN [id number]) Physical Therapy Assessment Goals One Impairment Lacks appropriate self care HEP Impairment Pain limiting ability to lie down and rest (at worst, onset of nausea & headaches). Pt must sleep in a permantly set position. Short Term Goal (STG) Pt will be educated in best sleep positions of the head and neck to minimize onset of neck pain and self care of neck/jaw positioning. 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 STG Duration 10/22/21 (09/29/21: MET GOAL) [facility] Goal (LTG) Pt ofelia be educated in a usp self care HEP to manage her neck/head pain and with pt able to tolerate different sleep positions through the night for improved sleep ability (not limited to a set sleep position). LTG to achieve on a self care HEP: Normal head movements without increased tension or pain. (09/29/21: HEP I/S: TBand Shldr IR and neck elongation ex). LTG Duration 11/18/21 (09/29/21: Progressed ) Three Impairment Decreased C. ROM Impairment Pt not able to tolerate looking to read a book ( initially was able to read for hours). Short Term Goal (STG) Improve tolerable Cervical AROM with pt able to tolerate looking down > 5 minutes for reading. (10/13/21: Able to read from phone 1-2 hrs holding phone at eye level, looking down is uncomfortable but not painful, can't look down for 5') STG Duration 10/22/21 (10/13/21: Progressing) [facility] Goal (LTG) Improve C. AROM to improve ability to be able to drive and look around while in a car . (10/13/21: Pt reports holds body/head stiff to look around ). LTG Duration 11/18/21 (10/24/21: MET GOAL) Two Impairment Neck Pain Impairment Constant neck pain. Frequent, intermittent low back pain, Sharp pain moving in bed. Short Term Goal (STG) Improve neck stability with normalization of neck muscles to a more normal state/tone with pt noting tolerance to looking down for > 10', while minimizing low back pain. STG Duration 10/22/21 [facility] Goal (LTG) Alleviate the neck pain with pt able to read 30'. Alleviate onset of migraines and find something to help manage them. LTG Duration 11/18/21 Progress Towards Goals Progress Comments LTG #3 MET: Neck mobility improved, pt can look side to side without pain. Assessment Summary Assessment Pt appears to have more flexion in the T/S and she is feeling like she is in flexion . Her pinch pain is at ~T4 with no pain with MWM of lifting of T3 on T4. Stabilization is needed and IFES may be helpful in mobilizing T3-T4. Pt is very tight in T2-T4 paraspinals. Physical Therapy Plan Frequency and Duration Frequency of Treatment 1x/Week Duration of Treatment 6 visits. Plan of Care Start Date 09/19/21 Plan of Care End Date 11/18/21 Next Visit Focus/Plan Next Note Type Treatment Note Next Visit Plan Review HEP and issue handout for shldr rolls & thoracic flex AROM. Assess need for fascial self STM of jaw muscles. Start Strengthening (end with IFES at T4): C/S stab (note: rot weakness), Shoulder (R>L ER>IR, ext and scapular stab of lat, subscap), Gentle stretch to neck ms with inital focus on rotation, anterior, suboccipital. HEP: shoulder stretches/ scapular stab and UE neural stretch.
--- NOTE | 2021-11-02 08:28 | PT-OP ANOTE ---
DNS. Pt called and reminded of next visit.
--- NOTE | 2021-11-08 13:08 | PT.OTN ---
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 Current Complaints Neck pain R>L, leading to Migraines History of Current Condition Onset of migraines after childbirth of her only son . Bilateral neck pain that goes into the base of the skill. Constant neck pain of variable intensity and is not able sleep without having to set herself in a permanent position. Was able to read for hours, and sleep more comfortable, moving around at night. Prior Treatments and Tests THC Pills and Beaver Fred CT Angio Scan: No suspicious abnormalities of head/neck. Vertebral arteries both widely patent. The more superior extracranial portions of both vertebral arteries demonstrate normal courses and calibers. The R vertebral artery is highly dominant to the left. Developmental History Developmental History .............................. ........... Previously at PT for low back and now has only tension. Has tried Trigger point treatments but sometimes it makes it worse. Alleviation of pain with Beaver Fred. Causing her to call out at work and is having to quit her other job due to migraine. Has never had migraines before , but now has them when neck/ shoulders flare up, sometimes lasting a week. Gets sick with taking Tylenol. Taking mints with THC 6-7 months ago, but feels it is not working anymore or has had to up the dosage, making her feel buzzed. Has 1.5 yr old son that she lifts and carries. Can't look down for >1 minute due neck becoming very painful. Treatment Goals Patient/Caregiver Goals Pt goal is to alleviate the neck pain, get muscles back to normal state, eliminate migraines and find something to help manage them. Looking down to read a book for 30 minutes, being able to sleep in a position that doesn't have to be permantly set; normal head movements without increased tension or pain; no difficulty with looking around in a car. Personal Factors Other Personal Factors That May Effect Depression, Jaw pain sometimes Therapy/Recovery - can't keep jaw open sometimes, Childbearing of son 02/14/2020 with ongoing back pain (tension around where epidural was). Visions problems with migraines. PT-OP-C Subjective Start: 09/18/21 16:58 Freq: Status: Active Protocol: Document 11/08/21 12:15 SP (Rec: 11/08/21 13:10 SP [id number]) OP-PT Subjective Patient Comments Patient Comments Pt reported having pain posterior neck upper between scap and at times hard time breath ribcage expansion over front R>L. Didn't do many of stretches busy with her child. Trying to be conscious side sleep positioning but challenged due to 2 y/o in front of her and thick pillow under head. Just had dental work so unsure about TMJ involvement lately so unable to assess. PT-OP-H Neuro Start: 09/18/21 16:58 Freq: Status: Active Protocol: Document 09/19/21 08:15 LRN (Rec: 09/19/21 09:10 LRN [id number]) Sensation Evaluation Gross Sensation Gross Sensation WNL Comments Summary Comments Pt reports sometimes feels pins/needles in hands after onset of neck pain and after applying Beaver Fred. Deep Tendon Reflex & Clonus Assessment Deep Tendon Reflex Bilateral Brachioradialis Deep Tendon Reflex 2+ Normal Bilateral Tricep Deep Tendon Reflex 2+ Normal Bilateral Bicep Deep Tendon Reflex 2+ Normal PT-OP-J Posture/Palpation/Skin Start: 09/18/21 16:58 Freq: Status: Active Protocol: Document 10/13/21 09:10 LRN (Rec: 10/13/21 09:57 LRN [id number]) Palpation Assessment Location T4 Palpation Location T4 Palpation Findings Tenderness Palpation Details Posterior on T5 PT-OP-K Range of Motion Start: 09/18/21 16:58 Freq: Status: Active Protocol: Document 09/19/21 08:15 LRN (Rec: 09/19/21 09:10 [facility] [id number]) Cervical Spine Range of Motion Cervical Spine Active Degrees Testing Position Sitting Flexion 29 Extension 55 Rotation Left 60 Rotation Right 70 Lateral Flexion Left 25 Lateral Flexion Right 28 ROM Limitations Pain Shoulder Goniometric Range of Motion Shoulder Right Active Testing Position Sitting Flexion 140 Extension 40 Abduction 90 Comments Pain in upper shoulder Left Active Testing Position Sitting Flexion 155 Extension 45 Abduction 110 Comments Stiffness in upper shoulder, with shoulder pop in anterior shoulder with active AB (first movement). 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 jaw pain and collor bone L side tension Traction Test Results positive Comments decreased in pain in neck/ upper shoulders pain 3 > 0 Foraminal Compression Test Results Eliminated pain after traction PT-OP-M Strength Start: 09/18/21 16:58 Freq: Status: Active Protocol: Document 09/19/21 08:15 LRN (Rec: 09/19/21 09:10 [facility] [id number]) Cervical Spine Strength Cervical Spine Manual Muscle Testing Testing Position Sitting Flexion (C1-2) 5 Normal Extension 5 Normal Rotation Left 3+ Fair+ Rotation Right 3+ Fair+ Lateral Flexion Left (C3) 5 Normal Lateral Flexion Right (C3) 5 Normal Shoulder Strength Shoulder Manual Muscle Testing Right Flexion 5 Normal Extension 3 Fair Abduction (C5) 5 Normal External Rotation 3 Fair Internal Rotation 4 Good Left Flexion 5 Normal Extension 3 Fair Adduction 5 Normal External Rotation 3 Fair Internal Rotation 4 Good PT-OP-Q Treatments Start: 09/18/21 16:58 Freq: Status: Active Protocol: Document 11/08/21 12:15 SP (Rec: 11/08/21 13:10 SP [id number]) Therapeutic Exercises Supine Exercises self STMs Supine Exercise Name SCM pincer knead massage Side bilateral Comments good feedback response, states uses ball wall for post scap at home Neck Elongation Supine Exercise Name Neck Elongation training/ awareness - HEP Reps/Minutes 3' Comments Cuing with finger on top of head and for chin tuck Sidelying Exercises open book Sidelying Exercise Name added to HEP Side bilateral Resistance AROM Sitting Exercises theracane Sitting Exercise Name add next tx >8/10 Comments post neck: sustained pressure head nods/turns SCM/Scalene stretch Sitting Exercise Name R>L Reps/Minutes 30 x2 Comments cued set up and performance, good response See HO. C. SB Sitting Exercise Name Active C. SB stretch (UT)- then AROM Side bilateral Equipment Used HEP reviewed Reps/Minutes 1' Comments elevated head, neutral ext and chin nod/tuck C. rot Sitting Exercise Name Active C. rot stretch then AROM Side bilateral Reps/Minutes 1' Comments elevated head, neutral ext and chin nod/tuck Levator Scap. Stretch Sitting Exercise Name HEP reviewed Side bilateral Reps/Minutes 2 x 30 ea Comments good form Thoracic Flexion Sitting Exercise Name Rounding thoracic region> neutral with neck elongation Resistance quadruped best Reps/Minutes 3' Comments cued more scap ROM, CS ext neutral chin tuck Shoulder rolls Sitting Exercise Name Shoulder rolls Side bilateral Reps/Minutes 2' Comments up back down, feels rubbing superior angle scap- less post manual Manual Therapy Treatment Soft Tissue Mobilization ribcage/intercostals/diaphragm Body Location L>R Mobilization Type Myofascial Release,Sustained Pressure Intensity/Depth Superficial Body Position Sidelying Comments Extra time spent manual, ed pillows between knees. Good feedback to pressure manual and instruction how perform self. C.Spine Body Location Paraspinals, Sub-occipitals, SCM, LS Mobilization Type Myofascial Release,Rolling, Sustained Pressure Intensity/Depth Superficial Body Position Hooklying Comments R>L suboccipital tightness, SCM more distal to head. Pt reported tension relief with STM.Manual and instruct self relief. Self-Care/Home Management Treatment Education Patient Education Home Exercise Program Other Education Ed regarding depth pillow under head depends on ear to side of shld 3-4 when side sleeping, folded towel under ribcage for ribcage elevation neutral, pillow between knees and arms for neutral TS and arm positioning away from each other. Provided HO for recall from discussed/ performed in tx. Pt reported immediate relief with towel under ribcage support. INitiated open book w/ HO, SCM /Scalene stretch. PT-OP-T Assessment and Plan Start: 09/18/21 16:58 Freq: Status: Active Protocol: Document 11/08/21 12:15 SP (Rec: 11/08/21 13:10 SP [id number]) Physical Therapy Assessment Goals One Impairment Lacks appropriate self care HEP Impairment Pain limiting ability to lie down and rest (at worst, onset of nausea & headaches). Pt must sleep in a permantly set position. Short Term Goal (STG) Pt will be educated in best sleep positions of the head and neck to minimize onset of neck pain and self care of neck/jaw positioning. 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 LTG to achieve on a self care HEP: Normal head movements without increased tension or pain. (09/29/21: HEP I/S: TBand Shldr IR and neck elongation ex). 11/08/21: added open book, side sleeping use pillows/folded towel. LTG Duration 11/18/21 (11/08/21: Progressed) Three Impairment Decreased C. ROM Impairment Pt not able to tolerate looking to read a book ( initially was able to read for hours). Short Term Goal (STG) Improve tolerable Cervical AROM with pt able to tolerate looking down > 5 minutes for reading. (10/13/21: Able to read from phone 1-2 hrs holding phone at eye level, looking down is uncomfortable but not painful, can't look down for 5') STG Duration 10/22/21 (10/13/21: Progressing) [facility] Goal (LTG) Improve C. AROM to improve ability to be able to drive and look around while in a car . (10/13/21: Pt reports holds body/head stiff to look around ). LTG Duration 11/18/21 (10/24/21: MET GOAL) Two Impairment Neck Pain Impairment Constant neck pain. Frequent, intermittent low back pain, Sharp pain moving in bed. Short Term Goal (STG) Improve neck stability with normalization of neck muscles to a more normal state/tone with pt noting tolerance to looking down for > 10', while minimizing low back pain. 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 Alleviate onset of migraines and find something to help manage them. LTG Duration 11/18/21 Assessment Summary Assessment Pt improved response able to turn head and trunk more into rotation and upright extension post manual and instruct how do self at home. Provided HOs for open book and sleeping with good feedback response. Physical Therapy Plan Frequency and Duration Frequency of Treatment 1x/Week Duration of Treatment 6 visits. Plan of Care Start Date 09/19/21 Plan of Care End Date 11/18/21 Therapeutic Interventions Therapeutic Interventions Home Exercise Program,Joint Mobilizations,Manual Therapy, Neuromuscular Re-education, Patient/Caregiver Education, Self-Care/Home Management,Soft Tissue Mobilization,Taping, Therapeutic Activities, Therapeutic Exercises Modalities Cold Pack/Ice Massage,Electric Stimulation,Hot Packs Other Referrals/Consults Referrals/Consults Recommended TMJ rehabilitiation on completion of current therapy. Next Visit Focus/Plan Next Note Type Treatment Note Next Visit Plan Review HEP SCM/Scalene stretch , open book, self STMs abdominal/intercostals. Next tx: add theracane, quadruped scap cat/camel,. re Assess need for fascial self STM of jaw muscles. Start Strengthening (end with IFES at T4): C/S stab (note: rot weakness), Shoulder (R>L ER>IR, ext and scapular stab of lat, subscap), Gentle stretch to neck ms with inital focus on rotation, anterior, suboccipital. HEP: shoulder stretches/ scapular stab and UE neural stretch.
--- NOTE | 2021-11-16 13:29 | PT.OTN ---
Current Diagnoses Migraine, unspecified, not intractable, without status migrainosus (11/16/21) Cervicalgia (11/16/21) Physical Therapy Treatment Note PT-OP-A Visit Information Start: 09/18/21 16:58 Freq: Status: Active Protocol: Document 11/16/21 10:38 LRN (Rec: 11/16/21 11:23 LRN [id number]) Out-Patient Physical Therapy Visit Information Visit Information Visit Type Treatment Note Visit Start Time 10:38 Visit Stop Time 11:21 Total Visit Minutes 43 Visit Number 7 Evaluation Information Evaluation Date 09/19/21 Precautions Precautions Depression, history of back pain since of son 1.5 yrs ago PT-OP-B Current Condition Start: 09/18/21 16:58 Freq: Status: Active Protocol: Document 09/19/21 08:15 LRN (Rec: 09/19/21 09:10 LRN [id number]) Current Condition History of Current Condition Onset Date 1.25 yrs ago. Current Complaints Neck pain R>L, leading to Migraines History of Current Condition Onset of migraines after childbirth of her only son . Bilateral neck pain that goes into the base of the skill. Constant neck pain of variable intensity and is not able sleep without having to set herself in a permanent position. Was able to read for hours, and sleep more comfortable, moving around at night. Prior Treatments and Tests THC Pills and [place] CT Angio Scan: No suspicious abnormalities of head/neck. Vertebral arteries both widely patent. The more superior extracranial portions of both vertebral arteries demonstrate normal courses and calibers. The R vertebral artery is highly dominant to the left. Developmental History Developmental History .............................. ........... Previously at PT for low back and now has only tension. Has tried Trigger point treatments but sometimes it makes it worse. Alleviation of pain with [place]. Causing her to call out at work and is having to quit her other job due to migraine. Has never had migraines before , but now has them when neck/ shoulders flare up, sometimes lasting a week. Gets sick with taking Tylenol. Taking mints with THC 6-7 months ago, but feels it is not working anymore or has had to up the dosage, making her feel buzzed. Has 1.5 yr old son that she lifts and carries. Can't look down for >1 minute due neck becoming very painful. Treatment Goals Patient/Caregiver Goals Pt goal is to alleviate the neck pain, get muscles back to normal state, eliminate migraines and find something to help manage them. Looking down to read a book for 30 minutes, being able to sleep in a position that doesn't have to be permantly set; normal head movements without increased tension or pain; no difficulty with looking around in a car. Personal Factors Other Personal Factors That May Effect Depression, Jaw pain sometimes Therapy/Recovery - can't keep jaw open sometimes, Childbearing of son 02/14/2020 with ongoing back pain (tension around where epidural was). Visions problems with migraines. PT-OP-C Subjective Start: 09/18/21 16:58 Freq: Status: Active Protocol: Document 11/16/21 10:38 LRN (Rec: 11/16/21 11:23 LRN [id number]) OP-PT Subjective Patient Comments Patient Comments States she had a massage yesterday and suction was used , so has bruises, also had metal pieces to break up knots . L shoulder blade is worse than the R. Was more sore in L shoulder and had tingling/ numbness in the L >R arm with massage (in prone). Has a new pillow with divit in the middle and woke without pain. Pain L shldr 0/10, R shldr radiating to suboccip is 6/10. States she is able to sleep in different positions and feels her sleep is getting better. Don't wake up with SEBASTIAN 's anymore when waking up early. PT-OP-H Neuro Start: 09/18/21 16:58 Freq: Status: Active Protocol: Document 09/19/21 08:15 LRN (Rec: 09/19/21 09:10 LRN [id number]) Sensation Evaluation Gross Sensation Gross Sensation WNL Comments Summary Comments Pt reports sometimes feels pins/needles in hands after onset of neck pain and after applying [place]. Deep Tendon Reflex & Clonus Assessment Deep Tendon Reflex Bilateral Brachioradialis Deep Tendon Reflex 2+ Normal Bilateral Tricep Deep Tendon Reflex 2+ Normal Bilateral Bicep Deep Tendon Reflex 2+ Normal PT-OP-J Posture/Palpation/Skin Start: 09/18/21 16:58 Freq: Status: Active Protocol: Document 10/13/21 09:10 LRN (Rec: 10/13/21 09:57 LRN [id number]) Palpation Assessment Location T4 Palpation Location T4 Palpation Findings Tenderness Palpation Details Posterior on T5 PT-OP-K Range of Motion Start: 09/18/21 16:58 Freq: Status: Active Protocol: Document 09/19/21 08:15 LRN (Rec: 09/19/21 09:10 LRN [id number]) Cervical Spine Range of Motion Cervical Spine Active Degrees Testing Position Sitting Flexion 29 Extension 55 Rotation Left 60 Rotation Right 70 Lateral Flexion Left 25 Lateral Flexion Right 28 ROM Limitations Pain Shoulder Goniometric Range of Motion Shoulder Right Active Testing Position Sitting Flexion 140 Extension 40 Abduction 90 Comments Pain in upper shoulder Left Active Testing Position Sitting Flexion 155 Extension 45 Abduction 110 Comments Stiffness in upper shoulder, with shoulder pop in anterior shoulder with active AB (first movement). PT-OP-L Special Tests Start: 09/18/21 16:58 Freq: Status: Active Protocol: Document 09/19/21 08:15 LRN (Rec: 09/19/21 09:10 LRN [id number]) Special Tests Cervical Spine Special Tests Upper Limb Tension Test Test Results + bilaterally all tests Spurling's Test Test Results SB head to R increased tension in back, + postive R Vertebral Artery Test Results R neck rot alleviated R eye pain, L rot incrd R childcare provider scalene pain, Comments L rot shows incr SCM tension. jaw pain and collor bone L side tension Traction Test Results positive Comments decreased in pain in neck/ upper shoulders pain 3 > 0 Foraminal Compression Test Results Eliminated pain after traction PT-OP-M Strength Start: 09/18/21 16:58 Freq: Status: Active Protocol: Document 09/19/21 08:15 LRN (Rec: 09/19/21 09:10 LRN [id number]) Cervical Spine Strength Cervical Spine Manual Muscle Testing Testing Position Sitting Flexion (C1-2) 5 Normal Extension 5 Normal Rotation Left 3+ Fair+ Rotation Right 3+ Fair+ Lateral Flexion Left (C3) 5 Normal Lateral Flexion Right (C3) 5 Normal Shoulder Strength Shoulder Manual Muscle Testing Right Flexion 5 Normal Extension 3 Fair Abduction (C5) 5 Normal External Rotation 3 Fair Internal Rotation 4 Good Left Flexion 5 Normal Extension 3 Fair Adduction 5 Normal External Rotation 3 Fair Internal Rotation 4 Good PT-OP-Q Treatments Start: 09/18/21 16:58 Freq: Status: Active Protocol: Document 11/16/21 10:38 LRN (Rec: 11/16/21 11:23 LRN [id number]) Therapeutic Exercises Supine Exercises self STMs Supine Exercise Name SCM pincer knead massage Side bilateral Comments good feedback response, states uses ball wall for post scap at home Sidelying Exercises open book Sidelying Exercise Name Open book, watching her hands Side bilateral Resistance AROM Comments Cuing to breath and extra time taken for set up. Sitting Exercises theracane Sitting Exercise Name T-Cane: to R shoulder Side right Comments UT: sustained pressure R shoulder SCM/Scalene stretch Sitting Exercise Name R>L Reps/Minutes 30 x2 Comments cued set up and performance, good response See HO. Manual Therapy Treatment Soft Tissue Mobilization SCM Body Location R SCM, C/S paraspinals Mobilization Type Strumming,Sustained Pressure Intensity/Depth Superficial to moderate Body Position Supine Self-Care/Home Management Treatment Education Other Education Discussed posturing with her new pillow and correct positioning of her head on the pillow with changes in position. PT-OP-T Assessment and Plan Start: 09/18/21 16:58 Freq: Status: Active Protocol: Document 11/16/21 10:38 LRN (Rec: 11/16/21 11:23 LRN [id number]) Physical Therapy Assessment Goals One Impairment Lacks appropriate self care HEP Impairment Pain limiting ability to lie down and rest (at worst, onset of nausea & headaches). Pt must sleep in a permantly set position. Short Term Goal (STG) Pt will be educated in best sleep positions of the head and neck to minimize onset of neck pain and self care of neck/jaw positioning. 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 STG Duration 10/22/21 (09/29/21: MET GOAL) Personal Support Worker Goal (LTG) Pt ofelia be educated in a assistant terminal manager self care HEP to manage her neck/head pain and with pt able to tolerate different sleep positions through the night for improved sleep ability (not limited to a set sleep position). LTG to achieve on a self care HEP: Normal head movements without increased tension or pain. (09/29/21: HEP I/S: TBand Shldr IR and neck elongation ex). 11/08/21: added open book, side sleeping use pillows/folded towel. LTG Duration 11/18/21 (11/08/21: Progressed) Three Impairment Decreased C. ROM Impairment Pt not able to tolerate looking to read a book ( initially was able to read for hours). Short Term Goal (STG) Improve tolerable Cervical AROM with pt able to tolerate looking down > 5 minutes for reading. (10/13/21: Able to read from phone 1-2 hrs holding phone at eye level, looking down is uncomfortable but not painful, can't look down for 5') (11/16/21: With new reading glasses and modification of her reading position, she is able to do 15-20' of reading) STG Duration 10/22/21 (11/16/21: MET GOAL) Mcfp Goal (LTG) Improve C. AROM to improve ability to be able to drive and look around while in a car . (10/13/21: Pt reports holds body/head stiff to look around ). LTG Duration 11/18/21 (10/24/21: MET GOAL) Two Impairment Neck Pain Impairment Constant neck pain. Frequent, intermittent low back pain, Sharp pain moving in bed. Short Term Goal (STG) Improve neck stability with normalization of neck muscles to a more normal state/tone with pt noting tolerance to looking down for > 10', while minimizing low back pain. (11/16/21: With new reading glasses and modification of her reading position, she is able to do 15-20' of reading). STG Duration 10/22/21 (11/16/21: MET GOAL) Personal Support Worker Goal (LTG) Alleviate the neck pain with pt able to read 30'. Alleviate onset of migraines and find something to help manage them. LTG Duration 11/18/21 Progress Towards Goals Progress Comments STG #2 & #3 MET. Assessment Summary Assessment Pt progressing slowly with improve tolerance to activity and slow reducation of pain. Pt moves very slow and cautious through exercises. Pt has trigger points in R UT, but she must be gentle with pressure due to onset of numbness/tingling in the arm. Good recall of HEP issued: SCM/Scalene stretch, open book , self STMs. Physical Therapy Plan Frequency and Duration Frequency of Treatment 1x/Week Duration of Treatment 6 visits. Plan of Care Start Date 11/16/21 Plan of Care End Date 01/15/22 Next Visit Focus/Plan Next Note Type Treatment Note Next Visit Plan Review HEP abdominal/ intercostals & theracane. Next tx: quadruped scap cat/ camel,. re Assess need for fascial self STM of jaw muscles. Start Strengthening (end with IFES at T4): C/S stab (note: rot weakness), Shoulder stab ( R>L ER>IR, ext and scapular stab of lat, subscap), After stabilizing, gentle stretch to neck ms with inital focus on rotation, anterior, suboccipital. HEP: shoulder stretches/ scapular stab and UE neural stretch.
--- NOTE | 2021-11-22 12:29 | PT-OP ANOTE ---
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 Original Note: Pt DNS for today's appt, called left message regarding and that only 1 more appt scheduled with PT Pari on 11/28. Unsure of plan for continue or ready for self DC to HEP but to discuss with PT next appt.
--- NOTE | 2021-11-27 17:18 | PT-OP ANOTE ---
Per phone pt states she had rescheduled 11/22 appt due to concerns of covid and on 11/23/21 cx'd same day due to +Covid Test. Pt will come to therapy 11/28/21 if - Covid in the morning.
--- NOTE | 2021-11-28 17:11 | PT.OTN ---
Current Diagnoses Migraine, unspecified, not intractable, without status migrainosus (11/28/21) Cervicalgia (11/28/21) Physical Therapy Treatment Note PT-OP-A Visit Information Start: 09/18/21 16:58 Freq: Status: Active Protocol: Document 11/28/21 13:51 LRN (Rec: 11/28/21 15:12 LRN [id number]) Out-Patient Physical Therapy Visit Information Visit Information Visit Type Treatment Note Visit Start Time 13:51 Visit Stop Time 14:51 Total Visit Minutes 60 Visit Number 8 Evaluation Information Evaluation Date 09/19/21 Precautions Precautions Depression, history of back pain since of son 1.5 yrs ago PT-OP-B Current Condition Start: 09/18/21 16:58 Freq: Status: Active Protocol: Document 09/19/21 08:15 LRN (Rec: 09/19/21 09:10 LRN [id number]) Current Condition History of Current Condition Onset Date 1.25 yrs ago. Current Complaints Neck pain R>L, leading to Migraines History of Current Condition Onset of migraines after childbirth of her only son . Bilateral neck pain that goes into the base of the skill. Constant neck pain of variable intensity and is not able sleep without having to set herself in a permanent position. Was able to read for hours, and sleep more comfortable, moving around at night. Prior Treatments and Tests THC Pills and [place] CT Angio Scan: No suspicious abnormalities of head/neck. Vertebral arteries both widely patent. The more superior extracranial portions of both vertebral arteries demonstrate normal courses and calibers. The R vertebral artery is highly dominant to the left. Developmental History Developmental History .............................. ........... Previously at PT for low back and now has only tension. Has tried Trigger point treatments but sometimes it makes it worse. Alleviation of pain with [place]. Causing her to call out at work and is having to quit her other job due to migraine. Has never had migraines before , but now has them when neck/ shoulders flare up, sometimes lasting a week. Gets sick with taking Tylenol. Taking mints with THC 6-7 months ago, but feels it is not working anymore or has had to up the dosage, making her feel buzzed. Has 1.5 yr old son that she lifts and carries. Can't look down for >1 minute due neck becoming very painful. Treatment Goals Patient/Caregiver Goals Pt goal is to alleviate the neck pain, get muscles back to normal state, eliminate migraines and find something to help manage them. Looking down to read a book for 30 minutes, being able to sleep in a position that doesn't have to be permantly set; normal head movements without increased tension or pain; no difficulty with looking around in a car. Personal Factors Other Personal Factors That May Effect Depression, Jaw pain sometimes Therapy/Recovery - can't keep jaw open sometimes, Childbearing of son 02/14/2020 with ongoing back pain (tension around where epidural was). Visions problems with migraines. PT-OP-C Subjective Start: 09/18/21 16:58 Freq: Status: Active Protocol: Document 11/28/21 13:51 LRN (Rec: 11/28/21 15:12 LRN [id number]) OP-PT Subjective Patient Comments Patient Comments Covid test was negative this morning. C/O sore tightness in the mid back and with open book streth felt it in the L arm and in mid back. Yesterday woke with migraine and nausea. Neck was tense with trying to do stretches. Tried to work on pinches and rubbing oSCM and found it alwayys a good pain, and it is the ms that goes into the tension headache. Feels the spot in the R UT is the worst. PT-OP-H Neuro Start: 09/18/21 16:58 Freq: Status: Active Protocol: Document 09/19/21 08:15 LRN (Rec: 09/19/21 09:10 LRN [id number]) Sensation Evaluation Gross Sensation Gross Sensation WNL Comments Summary Comments Pt reports sometimes feels pins/needles in hands after onset of neck pain and after applying [place]. Deep Tendon Reflex & Clonus Assessment Deep Tendon Reflex Bilateral Brachioradialis Deep Tendon Reflex 2+ Normal Bilateral Tricep Deep Tendon Reflex 2+ Normal Bilateral Bicep Deep Tendon Reflex 2+ Normal PT-OP-J Posture/Palpation/Skin Start: 09/18/21 16:58 Freq: Status: Active Protocol: Document 10/13/21 09:10 LRN (Rec: 10/13/21 09:57 LRN [id number]) Palpation Assessment Location T4 Palpation Location T4 Palpation Findings Tenderness Palpation Details Posterior on T5 PT-OP-K Range of Motion Start: 09/18/21 16:58 Freq: Status: Active Protocol: Document 09/19/21 08:15 LRN (Rec: 09/19/21 09:10 LRN [id number]) Cervical Spine Range of Motion Cervical Spine Active Degrees Testing Position Sitting Flexion 29 Extension 55 Rotation Left 60 Rotation Right 70 Lateral Flexion Left 25 Lateral Flexion Right 28 ROM Limitations Pain Shoulder Goniometric Range of Motion Shoulder Right Active Testing Position Sitting Flexion 140 Extension 40 Abduction 90 Comments Pain in upper shoulder Left Active Testing Position Sitting Flexion 155 Extension 45 Abduction 110 Comments Stiffness in upper shoulder, with shoulder pop in anterior shoulder with active AB (first movement). PT-OP-L Special Tests Start: 09/18/21 16:58 Freq: Status: Active Protocol: Document 09/19/21 08:15 LRN (Rec: 09/19/21 09:10 LRN [id number]) Special Tests Cervical Spine Special Tests Upper Limb Tension Test Test Results + bilaterally all tests Spurling's Test Test Results SB head to R increased tension in back, + postive R Vertebral Artery Test Results R neck rot alleviated R eye pain, L rot incrd R pourer buggy ladle scalene pain, Comments L rot shows incr SCM tension. jaw pain and collor bone L side tension Traction Test Results positive Comments decreased in pain in neck/ upper shoulders pain 3 > 0 Foraminal Compression Test Results Eliminated pain after traction PT-OP-M Strength Start: 09/18/21 16:58 Freq: Status: Active Protocol: Document 09/19/21 08:15 LRN (Rec: 09/19/21 09:10 LRN [id number]) Cervical Spine Strength Cervical Spine Manual Muscle Testing Testing Position Sitting Flexion (C1-2) 5 Normal Extension 5 Normal Rotation Left 3+ Fair+ Rotation Right 3+ Fair+ Lateral Flexion Left (C3) 5 Normal Lateral Flexion Right (C3) 5 Normal Shoulder Strength Shoulder Manual Muscle Testing Right Flexion 5 Normal Extension 3 Fair Abduction (C5) 5 Normal External Rotation 3 Fair Internal Rotation 4 Good Left Flexion 5 Normal Extension 3 Fair Adduction 5 Normal External Rotation 3 Fair Internal Rotation 4 Good PT-OP-Q Treatments Start: 09/18/21 16:58 Freq: Status: Active Protocol: Document 11/28/21 13:51 LRN (Rec: 11/28/21 15:12 LRN [id number]) Therapeutic Exercises Sidelying Exercises open book Sidelying Exercise Name Open book, watching her hands Side left Resistance AROM Comments Cuing to breath and extra time taken for set up. Standing Exercises Median n stretch Standing Exercise Name Median n stretch Side right Equipment Used Wall Posture training Standing Exercise Name Ribs over pelvis, L shoulder retracted and elevated Side right Equipment Used Mirror Row Standing Exercise Name Row: single and double Side bilateral Shoulder ER strengthening Standing Exercise Name Shoulder ER Side right Equipment Used Lev 1 TB Shdr IR strengthening Standing Exercise Name Held Self-Care/Home Management Treatment Education Other Education Discussed at length postural changes with nighttime and childcare positioning. Recommended multiple areas to change to improve nighttime ( changing of pillow support stuffing, pillow positioning and adjusting/alternating side of lying), and childcare posturing to include alternating hand hold side of child, assistive support devices (child chest vest w/ leash) and changing side of purse on shoulder to R side. Activities Self-Care/Home Management Activities I/S pt in Median n stretch with R UE hand on wall (elbow flex/ext to stretch). PT-OP-T Assessment and Plan Start: 09/18/21 16:58 Freq: Status: Active Protocol: Document 11/28/21 13:51 LRN (Rec: 11/28/21 15:12 N [id number]) Physical Therapy Assessment Goals One Impairment Lacks appropriate self care HEP Impairment Pain limiting ability to lie down and rest (at worst, onset of nausea & headaches). Pt must sleep in a permantly set position. Short Term Goal (STG) Pt will be educated in best sleep positions of the head and neck to minimize onset of neck pain and self care of neck/jaw positioning. 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 STG Duration 10/22/21 (09/29/21: MET GOAL) Glue Mounter Operator Goal (LTG) Pt ofelia be educated in a motorcycle subassembly repairer self care HEP to manage her neck/head pain and with pt able to tolerate different sleep positions through the night for improved sleep ability (not limited to a set sleep position). LTG to achieve on a self care HEP: Normal head movements without increased tension or pain. (09/29/21: HEP I/S: TBand Shldr IR and neck elongation ex). 11/08/21: added open book, side sleeping use pillows/folded towel. LTG Duration 11/18/21 (11/08/21: Progressed) Two Impairment Neck Pain Impairment Constant neck pain. Frequent, intermittent low back pain, Sharp pain moving in bed. Short Term Goal (STG) Improve neck stability with normalization of neck muscles to a more normal state/tone with pt noting tolerance to looking down for > 10', while minimizing low back pain. (11/16/21: With new reading glasses and modification of her reading position, she is able to do 15-20' of reading). STG Duration 10/22/21 (11/16/21: MET GOAL) Senior Living Goal (LTG) Alleviate the neck pain with pt able to read 30'. Alleviate onset of migraines and find something to help manage them. LTG Duration 11/18/21 Assessment Summary Assessment On IFES after 5' pt did not have sensation awareness in her L UT. Unable to get + response to IFES; therefore EStim stopped. Pt had + response to use of MH with resolution of numbness/ tingling from EStim. Pt had decrease in neck/L UT tension after therapy. Pt posture shows L shoulder is noticeably low and forward rounded. L Scapula is winged > R. During shoulder ER strengthening her ribcage comes fwd over her pelvis. I was able to correct form but only temporary. Pt has habitual poor posturing with use of her UE's. Pt education to discuss nighttime and childcare posturing was very beneficial in helping pt problem solve postural issues. Physical Therapy Plan Frequency and Duration Frequency of Treatment 1x/Week Duration of Treatment 6 visits. Plan of Care Start Date 11/16/21 Plan of Care End Date 01/15/22 Next Visit Focus/Plan Next Note Type Treatment Note Next Visit Plan Review ex's: shoulder ER, row & scap protraction and UE medial n stretch. Review HEP abdominal/ intercostals & theracane. Next tx: quadruped scap cat/ camel. re-assess need for fascial self STM of jaw muscles. Shoulder stab (R>L ER>IR, ext and scapular stab of lat, subscap) C/S stab (note: rot weakness), After stabilizing, gentle stretch to neck ms with inital focus on rotation, anterior, suboccipital. HEP: shoulder stretches/ scapular stab and UE neural stretch. MODALITY: Try end with IFES at T4.
--- NOTE | 2021-12-06 14:35 | PT.OTN ---
Current Diagnoses Migraine, unspecified, not intractable, without status migrainosus (12/06/21) Cervicalgia (12/06/21) Physical Therapy Treatment Note PT-OP-A Visit Information Start: 09/18/21 16:58 Freq: Status: Active Protocol: Document 12/06/21 13:49 SP (Rec: 12/06/21 14:37 SP [id number]) Out-Patient Physical Therapy Visit Information Visit Information Visit Type Treatment Note Visit Note REcheck if insurance supports more appts, 4 left per schedulers. *Updated Goals and PN due soon . Visit Start Time 13:49 Visit Stop Time 14:35 Total Visit Minutes 46 Visit Number 9 Number of [employer] Visits 1 Evaluation Information Evaluation Date 09/19/21 Precautions Precautions Depression, history of back pain since of son 1.5 yrs ago PT-OP-B Current Condition Start: 09/18/21 16:58 Freq: Status: Active Protocol: Document 09/19/21 08:15 LRN (Rec: 09/19/21 09:10 LRN [id number]) Current Condition History of Current Condition Onset Date 1.25 yrs ago. Current Complaints Neck pain R>L, leading to Migraines History of Current Condition Onset of migraines after childbirth of her only son . Bilateral neck pain that goes into the base of the skill. Constant neck pain of variable intensity and is not able sleep without having to set herself in a permanent position. Was able to read for hours, and sleep more comfortable, moving around at night. Prior Treatments and Tests THC Pills and Welcome [place] CT Angio Scan: No suspicious abnormalities of head/neck. Vertebral arteries both widely patent. The more superior extracranial portions of both vertebral arteries demonstrate normal courses and calibers. The R vertebral artery is highly dominant to the left. Developmental History Developmental History .............................. ........... Previously at PT for low back and now has only tension. Has tried Trigger point treatments but sometimes it makes it worse. Alleviation of pain with Welcome [place]. Causing her to call out at work and is having to quit her other job due to migraine. Has never had migraines before , but now has them when neck/ shoulders flare up, sometimes lasting a week. Gets sick with taking Tylenol. Taking mints with THC 6-7 months ago, but feels it is not working anymore or has had to up the dosage, making her feel buzzed. Has 1.5 yr old son that she lifts and carries. Can't look down for >1 minute due neck becoming very painful. Treatment Goals Patient/Caregiver Goals Pt goal is to alleviate the neck pain, get muscles back to normal state, eliminate migraines and find something to help manage them. Looking down to read a book for 30 minutes, being able to sleep in a position that doesn't have to be permantly set; normal head movements without increased tension or pain; no difficulty with looking around in a car. Personal Factors Other Personal Factors That May Effect Depression, Jaw pain sometimes Therapy/Recovery - can't keep jaw open sometimes, Childbearing of son 02/14/2020 with ongoing back pain (tension around where epidural was). Visions problems with migraines. PT-OP-C Subjective Start: 09/18/21 16:58 Freq: Status: Active Protocol: Document 12/06/21 13:49 SP (Rec: 12/06/21 14:37 SP [id number]) OP-PT Subjective Patient Comments Patient Comments Pt reports the open book has been helping alot self massage with beneficial pressure so no arm tingling. The bright light outside is giving her little headache. She is trying be more level shld/head alignment for improved posture . Her provide sustained pressure at home for help decrease shld tension and awareness of breath and relaxing helps. PT-OP-H Neuro Start: 09/18/21 16:58 Freq: Status: Active Protocol: Document 09/19/21 08:15 LRN (Rec: 09/19/21 09:10 LRN [id number]) Sensation Evaluation Gross Sensation Gross Sensation WNL Comments Summary Comments Pt reports sometimes feels pins/needles in hands after onset of neck pain and after applying Welcome [place]. Deep Tendon Reflex & Clonus Assessment Deep Tendon Reflex Bilateral Brachioradialis Deep Tendon Reflex 2+ Normal Bilateral Tricep Deep Tendon Reflex 2+ Normal Bilateral Bicep Deep Tendon Reflex 2+ Normal PT-OP-J Posture/Palpation/Skin Start: 09/18/21 16:58 Freq: Status: Active Protocol: Document 10/13/21 09:10 LRN (Rec: 10/13/21 09:57 LRN [id number]) Palpation Assessment Location T4 Palpation Location T4 Palpation Findings Tenderness Palpation Details Posterior on T5 PT-OP-K Range of Motion Start: 09/18/21 16:58 Freq: Status: Active Protocol: Document 09/19/21 08:15 LRN (Rec: 09/19/21 09:10 LRN [id number]) Cervical Spine Range of Motion Cervical Spine Active Degrees Testing Position Sitting Flexion 29 Extension 55 Rotation Left 60 Rotation Right 70 Lateral Flexion Left 25 Lateral Flexion Right 28 ROM Limitations Pain Shoulder Goniometric Range of Motion Shoulder Right Active Testing Position Sitting Flexion 140 Extension 40 Abduction 90 Comments Pain in upper shoulder Left Active Testing Position Sitting Flexion 155 Extension 45 Abduction 110 Comments Stiffness in upper shoulder, with shoulder pop in anterior shoulder with active AB (first movement). 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 jaw pain and collor bone L side tension Traction Test Results positive Comments decreased in pain in neck/ upper shoulders pain 3 > 0 Foraminal Compression Test Results Eliminated pain after traction PT-OP-M Strength Start: 09/18/21 16:58 Freq: Status: Active Protocol: Document 09/19/21 08:15 LRN (Rec: 09/19/21 09:10 LR [id number]) Cervical Spine Strength Cervical Spine Manual Muscle Testing Testing Position Sitting Flexion (C1-2) 5 Normal Extension 5 Normal Rotation Left 3+ Fair+ Rotation Right 3+ Fair+ Lateral Flexion Left (C3) 5 Normal Lateral Flexion Right (C3) 5 Normal Shoulder Strength Shoulder Manual Muscle Testing Right Flexion 5 Normal Extension 3 Fair Abduction (C5) 5 Normal External Rotation 3 Fair Internal Rotation 4 Good Left Flexion 5 Normal Extension 3 Fair Adduction 5 Normal External Rotation 3 Fair Internal Rotation 4 Good PT-OP-Q Treatments Start: 09/18/21 16:58 Freq: Status: Active Protocol: Document 12/06/21 13:49 SP (Rec: 12/06/21 14:37 SP [id number]) Therapeutic Exercises Supine Exercises self STMs Supine Exercise Name SCM pincer knead massage Side bilateral Reps/Minutes MWM Comments good feedback response, states uses ball wall for post scap at home Sidelying Exercises open book Sidelying Exercise Name Open book, watching her hands Side left Resistance AROM Comments Cuing to breath and extra time taken for set up. Standing Exercises Median n stretch Standing Exercise Name Median n stretch Side right Equipment Used Wall Posture training Standing Exercise Name Ribs over pelvis, L shoulder retracted and elevated Side right Equipment Used Mirror Comments scapular press Other Exercises quadruped Other Exercise Name cat camel w/ CS ROM, then neutral spinal/CS alignment for effor Reps/Minutes held for 30s before tired Comments painfree, just tired quickly. Manual Therapy Treatment Soft Tissue Mobilization SCM Body Location R SCM, C/S paraspinals Mobilization Type Strumming,Sustained Pressure Intensity/Depth Superficial to moderate Body Position Supine C.Spine Body Location Paraspinals, Sub-occipitals, SCM, LS Mobilization Type Myofascial Release,Rolling, Sustained Pressure Intensity/Depth Superficial Body Position Hooklying Comments R>L suboccipital tightness, SCM more distal to head. Pt reported tension relief with STM.Manual and instruct self relief. PT-OP-T Assessment and Plan Start: 09/18/21 16:58 Freq: Status: Active Protocol: Document 12/06/21 13:49 SP (Rec: 12/06/21 14:37 SP [id number]) Physical Therapy Assessment Goals One Impairment Lacks appropriate self care HEP Impairment Pain limiting ability to lie down and rest (at worst, onset of nausea & headaches). Pt must sleep in a permantly set position. Short Term Goal (STG) Pt will be educated in best sleep positions of the head and neck to minimize onset of neck pain and self care of neck/jaw positioning. 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 STG Duration 10/22/21 (09/29/21: MET GOAL) Gold Assayer Goal (LTG) Pt ofelia be educated in a terminal superintendent self care HEP to manage her neck/head pain and with pt able to tolerate different sleep positions through the night for improved sleep ability (not limited to a set sleep position). LTG to achieve on a self care HEP: Normal head movements without increased tension or pain. (09/29/21: HEP I/S: TBand Shldr IR and neck elongation ex). 11/08/21: added open book, side sleeping use pillows/folded towel. 12/06/21: hard using pillows for with son (baby) sleeping with her. Tries to adjust posture after son settles, uses leg between hers for comfort. LTG Duration 11/18/21 (12/06/21: Progressed ) Two Impairment Neck Pain Impairment Constant neck pain. Frequent, intermittent low back pain, Sharp pain moving in bed. Short Term Goal (STG) Improve neck stability with normalization of neck muscles to a more normal state/tone with pt noting tolerance to looking down for > 10', while minimizing low back pain. (11/16/21: With new reading glasses and modification of her reading position, she is able to do 15-20' of reading). STG Duration 10/22/21 (11/16/21: MET GOAL) Gold Assayer Goal (LTG) Alleviate the neck pain with pt able to read 30'. Alleviate onset of migraines and find something to help manage them. 12/06/21 progressing: headaches is hereditary and more stress related. Trying to have massage/sustained pressure w/ breath before bed, calm mind before bed and focus breath. Improves post demonstration. LTG Duration 11/18/21 progressing 12/06/21 Assessment Summary Assessment Pt responded well to manual and understanding MWM can do with at home and or massage therapist for releases . Extra time spent education of sleep positioning, challenge with son in bed, discussed try transition him to alternate place for self care. Postural awareness with son. Improved muscle tiring quadruped and posture at facing wall scap protractions/ retranctions and median nerve glide. Reports deltoid tiring but no pain. Physical Therapy Plan Frequency and Duration Frequency of Treatment 1x/Week Duration of Treatment 6 visits. Plan of Care Start Date 11/16/21 Plan of Care End Date 01/15/22 Therapeutic Interventions Therapeutic Interventions Home Exercise Program,Joint Mobilizations,Manual Therapy, Neuromuscular Re-education, Patient/Caregiver Education, Self-Care/Home Management,Soft Tissue Mobilization,Taping, Therapeutic Activities, Therapeutic Exercises Modalities Cold Pack/Ice Massage,Electric Stimulation,Hot Packs Next Visit Focus/Plan Next Note Type Treatment Note Next Visit Plan REvisit quadruped for home. Review ex's: shoulder ER, row & scap protraction and UE medial n stretch. Add Shld scapular stabilization HEP. Review HEP abdominal/ intercostals & theracane. Re-assess need for fascial self STM of jaw muscles. Shoulder stab (R>L ER>IR, ext and scapular stab of lat, subscap) C/S stab (note: rot weakness), After stabilizing, gentle stretch to neck ms with inital focus on rotation, anterior, suboccipital. HEP: shoulder stretches/ scapular stab and UE neural stretch. MODALITY: Try end with IFES at T4.
--- NOTE | 2021-12-27 08:29 | PT-OP ANOTE ---
Pt unable to attend appt, called <24 hrs due to car won't start.
--- NOTE | 2021-12-29 14:33 | PT.OTN ---
Current Diagnoses Migraine, unspecified, not intractable, without status migrainosus (12/29/21) Cervicalgia (12/29/21) Physical Therapy Treatment Note PT-OP-A Visit Information Start: 09/18/21 16:58 Freq: Status: Active Protocol: Document 12/29/21 14:23 SP (Rec: 12/29/21 14:35 SP [id number]) Out-Patient Physical Therapy Visit Information Visit Information Visit Type Treatment Note Visit Note REcheck if insurance supports more appts, 4 left per schedulers. *Updated Goals and PN due soon . Visit Start Time 13:50 Visit Stop Time 14:33 Total Visit Minutes 43 Visit Number 10 Number of PROFESSOR OF COMMUNICATION Visits 2 Evaluation Information Evaluation Date 09/19/21 Precautions Precautions Depression, history of back pain since of son 1.5 yrs ago PT-OP-B Current Condition Start: 09/18/21 16:58 Freq: Status: Active Protocol: Document 09/19/21 08:15 LRN (Rec: 09/19/21 09:10 LRN [id number]) Current Condition History of Current Condition Onset Date 1.25 yrs ago. Current Complaints Neck pain R>L, leading to Migraines History of Current Condition Onset of migraines after childbirth of her only son . Bilateral neck pain that goes into the base of the skill. Constant neck pain of variable intensity and is not able sleep without having to set herself in a permanent position. Was able to read for hours, and sleep more comfortable, moving around at night. Prior Treatments and Tests THC Pills and [place] CT Angio Scan: No suspicious abnormalities of head/neck. Vertebral arteries both widely patent. The more superior extracranial portions of both vertebral arteries demonstrate normal courses and calibers. The R vertebral artery is highly dominant to the left. Developmental History Developmental History .............................. ........... Previously at PT for low back and now has only tension. Has tried Trigger point treatments but sometimes it makes it worse. Alleviation of pain with [place] [employer]. Causing her to call out at work and is having to quit her other job due to migraine. Has never had migraines before , but now has them when neck/ shoulders flare up, sometimes lasting a week. Gets sick with taking Tylenol. Taking mints with THC 6-7 months ago, but feels it is not working anymore or has had to up the dosage, making her feel buzzed. Has 1.5 yr old son that she lifts and carries. Can't look down for >1 minute due neck becoming very painful. Treatment Goals Patient/Caregiver Goals Pt goal is to alleviate the neck pain, get muscles back to normal state, eliminate migraines and find something to help manage them. Looking down to read a book for 30 minutes, being able to sleep in a position that doesn't have to be permantly set; normal head movements without increased tension or pain; no difficulty with looking around in a car. Personal Factors Other Personal Factors That May Effect Depression, Jaw pain sometimes Therapy/Recovery - can't keep jaw open sometimes, Childbearing of son 02/14/2020 with ongoing back pain (tension around where epidural was). Visions problems with migraines. PT-OP-C Subjective Start: 09/18/21 16:58 Freq: Status: Active Protocol: Document 12/29/21 14:23 SP (Rec: 12/29/21 14:35 SP [id number]) OP-PT Subjective Patient Comments Patient Comments Pt states core feeling sore with postural engagement. Her child is able to walk more and climb into vechicle self with little assistance which notices not as much pain but arms are weak. Having muscle tension point specific over L lateral sternum and sometime affects breath and R posterior neck tendon spot that when releases feels like warm water up over or into back of her head. PT-OP-H Neuro Start: 09/18/21 16:58 Freq: Status: Active Protocol: Document 09/19/21 08:15 LRN (Rec: 09/19/21 09:10 LRN [id number]) Sensation Evaluation Gross Sensation Gross Sensation WNL Comments Summary Comments Pt reports sometimes feels pins/needles in hands after onset of neck pain and after applying [place] [employer]. Deep Tendon Reflex & Clonus Assessment Deep Tendon Reflex Bilateral Brachioradialis Deep Tendon Reflex 2+ Normal Bilateral Tricep Deep Tendon Reflex 2+ Normal Bilateral Bicep Deep Tendon Reflex 2+ Normal PT-OP-J Posture/Palpation/Skin Start: 09/18/21 16:58 Freq: Status: Active Protocol: Document 10/13/21 09:10 LRN (Rec: 10/13/21 09:57 LRN [id number]) Palpation Assessment Location T4 Palpation Location T4 Palpation Findings Tenderness Palpation Details Posterior on T5 PT-OP-K Range of Motion Start: 09/18/21 16:58 Freq: Status: Active Protocol: Document 09/19/21 08:15 LRN (Rec: 09/19/21 09:10 LRN [id number]) Cervical Spine Range of Motion Cervical Spine Active Degrees Testing Position Sitting Flexion 29 Extension 55 Rotation Left 60 Rotation Right 70 Lateral Flexion Left 25 Lateral Flexion Right 28 ROM Limitations Pain Shoulder Goniometric Range of Motion Shoulder Right Active Testing Position Sitting Flexion 140 Extension 40 Abduction 90 Comments Pain in upper shoulder Left Active Testing Position Sitting Flexion 155 Extension 45 Abduction 110 Comments Stiffness in upper shoulder, with shoulder pop in anterior shoulder with active AB (first movement). PT-OP-L Special Tests Start: 09/18/21 16:58 Freq: Status: Active Protocol: Document 09/19/21 08:15 LRN (Rec: 09/19/21 09:10 LRN [id number]) Special Tests Cervical Spine Special Tests Upper Limb Tension Test Test Results + bilaterally all tests Spurling's Test Test Results SB head to R increased tension in back, + postive R Vertebral Artery Test Results R neck rot alleviated R eye pain, L rot incrd R resource protection specialist scalene pain, Comments L rot shows incr SCM tension. jaw pain and collor bone L side tension Traction Test Results positive Comments decreased in pain in neck/ upper shoulders pain 3 > 0 Foraminal Compression Test Results Eliminated pain after traction PT-OP-M Strength Start: 09/18/21 16:58 Freq: Status: Active Protocol: Document 09/19/21 08:15 LRN (Rec: 09/19/21 09:10 LRN [id number]) Cervical Spine Strength Cervical Spine Manual Muscle Testing Testing Position Sitting Flexion (C1-2) 5 Normal Extension 5 Normal Rotation Left 3+ Fair+ Rotation Right 3+ Fair+ Lateral Flexion Left (C3) 5 Normal Lateral Flexion Right (C3) 5 Normal Shoulder Strength Shoulder Manual Muscle Testing Right Flexion 5 Normal Extension 3 Fair Abduction (C5) 5 Normal External Rotation 3 Fair Internal Rotation 4 Good Left Flexion 5 Normal Extension 3 Fair Adduction 5 Normal External Rotation 3 Fair Internal Rotation 4 Good PT-OP-Q Treatments Start: 09/18/21 16:58 Freq: Status: Active Protocol: Document 12/29/21 14:23 SP (Rec: 12/29/21 14:35 SP [id number]) Therapeutic Exercises Supine Exercises HABD Supine Exercise Name added to HEP Side bilateral Resistance #2 DB Reps/Minutes x10 Comments cued slow no UT er Chest press w/extra push Supine Exercise Name Chest press plus Side bilateral Resistance DB 2# Reps/Minutes x10 Sidelying Exercises open book Sidelying Exercise Name Open book, watching her hands Side left Resistance AROM Comments Cuing to breath and extra time taken for set up. Sitting Exercises Shoulder rolls Sitting Exercise Name Shoulder rolls Side bilateral Reps/Minutes x10 Comments cued up back down Standing Exercises pec stretch Standing Exercise Name added to HEP: various angles Reps/Minutes 30 x3 Comments cued lunge stance, CS back neutral, lean into doorway- good stretch respons Posture training Standing Exercise Name Ribs over pelvis, L shoulder retracted and elevated Side right Equipment Used Mirror Comments scapular press Manual Therapy Treatment Soft Tissue Mobilization SCM Body Location R SCM, C/S paraspinals Mobilization Type Strumming,Sustained Pressure Intensity/Depth Superficial to moderate Body Position Supine Comments manual and instruct self. ribcage/intercostals/diaphragm Body Location L (standing and supine) Mobilization Type Myofascial Release,Sustained Pressure Intensity/Depth Moderate Comments MWM sustained pressure over rib or intercostal muscle approx T5 w/ breath and UE FF OH- instruction on self application to decrease anterior ribcage discomfort. Good release reported. C.Spine Body Location Paraspinals, Sub-occipitals, SCM, LS Mobilization Type Myofascial Release,Rolling, Sustained Pressure Intensity/Depth Superficial Body Position Hooklying Comments R>L suboccipital tightness, SCM more distal to head. Pt reported tension relief with STM.Manual and instruct self relief. Self-Care/Home Management Treatment Education Patient Education Home Exercise Program Other Education added HABD, pec stretch, reviewed serratus punch for scapular/trunk strengthening support head/neck. Instructed MWM pressure rib/ intercostal w/ breath/UE ROM PT-OP-T Assessment and Plan Start: 09/18/21 16:58 Freq: Status: Active Protocol: Document 12/29/21 14:23 SP (Rec: 12/29/21 14:35 SP [id number]) Physical Therapy Assessment Goals One Impairment Lacks appropriate self care HEP Impairment Pain limiting ability to lie down and rest (at worst, onset of nausea & headaches). Pt must sleep in a permantly set position. Short Term Goal (STG) Pt will be educated in best sleep positions of the head and neck to minimize onset of neck pain and self care of neck/jaw positioning. Pt will be educated in proper body mechanics for child nutrition manager and daily activities to miimize neck/head pain. STG Duration 10/22/21 (09/29/21: MET GOAL) Utility Maintenance Worker Goal (LTG) Pt ofelia be educated in a ad terminal makeup operator self care HEP to manage her neck/head pain and with pt able to tolerate different sleep positions through the night for improved sleep ability (not limited to a set sleep position). LTG to achieve on a self care HEP: Normal head movements without increased tension or pain. (09/29/21: HEP I/S: TBand Shldr IR and neck elongation ex). 11/08/21: added open book, side sleeping use pillows/folded towel. 12/06/21: hard using pillows for with son (baby) sleeping with her. Tries to adjust posture after son settles, uses leg between hers for comfort. 12/29/21: progressing: sleeping on side with pillows helping with lessening pain/tightness anterior ribcage. LTG Duration 11/18/21 (12/29/21: Progressed) Two Impairment Neck Pain Impairment Constant neck pain. Frequent, intermittent low back pain, Sharp pain moving in bed. Short Term Goal (STG) Improve neck stability with normalization of neck muscles to a more normal state/tone with pt noting tolerance to looking down for > 10', while minimizing low back pain. (11/16/21: With new reading glasses and modification of her reading position, she is able to do 15-20' of reading). STG Duration 10/22/21 (11/16/21: MET GOAL) Utility Maintenance Worker Goal (LTG) Alleviate the neck pain with pt able to read 30'. Alleviate onset of migraines and find something to help manage them. 12/06/21 progressing: headaches is hereditary and more stress related. Trying to have massage/sustained pressure w/ breath before bed, calm mind before bed and focus breath. Improves post demonstration. 12/29/21: progressing: has been pressing on tight spot (UT) and helps lessen headache, stated wants to get theracane so doesn't have to reach back. LTG Duration 11/18/21 progressing 12/29/21 Assessment Summary Assessment Pt reports improvement in body mechanics helping child and not hurting as much. She improved decrease anterior lateral chest and neck tightness post manual MWM head nod/turns and review discussed use theracane with agreement wants to get. Good response to pec stretch and active resistive HABD and serratus press review for carryover at home for active elongation pec and scap stab for posture support. Physical Therapy Plan Frequency and Duration Frequency of Treatment 1x/Week Plan of Care Start Date 11/16/21 Plan of Care End Date 01/15/22 Therapeutic Interventions Therapeutic Interventions Home Exercise Program,Joint Mobilizations,Manual Therapy, Neuromuscular Re-education, Patient/Caregiver Education, Self-Care/Home Management,Soft Tissue Mobilization,Taping, Therapeutic Activities, Therapeutic Exercises Modalities Cold Pack/Ice Massage,Electric Stimulation,Hot Packs Next Visit Focus/Plan Next Note Type Treatment Note Next Visit Plan Add scap IR/ER/ext/ protraction w/ TB to HEP next tx. Review HEP abdominal/ intercostals & theracane. POC: Shoulder stab (R>L ER>IR, ext and scapular stab of lat, subscap) C/S stab (note: rot weakness), After stabilizing, gentle stretch to neck ms with inital focus on rotation, anterior, suboccipital. HEP: shoulder stretches/ scapular stab and UE neural stretch. MODALITY: Try end with IFES at T4.
--- NOTE | 2022-01-02 15:58 | PT.OTN ---
Current Diagnoses Migraine, unspecified, not intractable, without status migrainosus (01/02/22) Cervicalgia (01/02/22) Physical Therapy Treatment Note PT-OP-A Visit Information Start: 09/18/21 16:58 Freq: Status: Active Protocol: Document 01/02/22 14:40 LRN (Rec: 01/02/22 15:57 LRN [id number]) Out-Patient Physical Therapy Visit Information Visit Information Visit Type Treatment Note Visit Start Time 14:40 Visit Stop Time 15:21 Total Visit Minutes 41 Visit Number 11 Evaluation Information Evaluation Date 09/19/21 Precautions Precautions Depression, history of back pain since of son 1.5 yrs ago PT-OP-B Current Condition Start: 09/18/21 16:58 Freq: Status: Active Protocol: Document 09/19/21 08:15 LRN (Rec: 09/19/21 09:10 LRN [id number]) Current Condition History of Current Condition Onset Date 1.25 yrs ago. Current Complaints Neck pain R>L, leading to Migraines History of Current Condition Onset of migraines after childbirth of her only son . Bilateral neck pain that goes into the base of the skill. Constant neck pain of variable intensity and is not able sleep without having to set herself in a permanent position. Was able to read for hours, and sleep more comfortable, moving around at night. Prior Treatments and Tests THC Pills and [place] CT Angio Scan: No suspicious abnormalities of head/neck. Vertebral arteries both widely patent. The more superior extracranial portions of both vertebral arteries demonstrate normal courses and calibers. The R vertebral artery is highly dominant to the left. Developmental History Developmental History .............................. ........... Previously at PT for low back and now has only tension. Has tried Trigger point treatments but sometimes it makes it worse. Alleviation of pain with [place]. Causing her to call out at work and is having to quit her other job due to migraine. Has never had migraines before , but now has them when neck/ shoulders flare up, sometimes lasting a week. Gets sick with taking Tylenol. Taking mints with THC 6-7 months ago, but feels it is not working anymore or has had to up the dosage, making her feel buzzed. Has 1.5 yr old son that she lifts and carries. Can't look down for >1 minute due neck becoming very painful. Treatment Goals Patient/Caregiver Goals Pt goal is to alleviate the neck pain, get muscles back to normal state, eliminate migraines and find something to help manage them. Looking down to read a book for 30 minutes, being able to sleep in a position that doesn't have to be permantly set; normal head movements without increased tension or pain; no difficulty with looking around in a car. Personal Factors Other Personal Factors That May Effect Depression, Jaw pain sometimes Therapy/Recovery - can't keep jaw open sometimes, Childbearing of son 02/14/2020 with ongoing back pain (tension around where epidural was). Visions problems with migraines. PT-OP-C Subjective Start: 09/18/21 16:58 Freq: Status: Active Protocol: Document 01/02/22 14:40 LRN (Rec: 01/02/22 15:57 LRN [id number]) OP-PT Subjective Patient Comments Patient Comments Doing better at not picking son up. Not having nearly as much shoulder pain and uses self accupressure that helps to loosen her muscles. Trying to work on posture and belly tightening. Has had les migranes and can read a lot more. PT-OP-H Neuro Start: 09/18/21 16:58 Freq: Status: Active Protocol: Document 09/19/21 08:15 LRN (Rec: 09/19/21 09:10 LRN [id number]) Sensation Evaluation Gross Sensation Gross Sensation WNL Comments Summary Comments Pt reports sometimes feels pins/needles in hands after onset of neck pain and after applying [place]. Deep Tendon Reflex & Clonus Assessment Deep Tendon Reflex Bilateral Brachioradialis Deep Tendon Reflex 2+ Normal Bilateral Tricep Deep Tendon Reflex 2+ Normal Bilateral Bicep Deep Tendon Reflex 2+ Normal PT-OP-J Posture/Palpation/Skin Start: 09/18/21 16:58 Freq: Status: Active Protocol: Document 10/13/21 09:10 LRN (Rec: 10/13/21 09:57 LRN [id number]) Palpation Assessment Location T4 Palpation Location T4 Palpation Findings Tenderness Palpation Details Posterior on T5 PT-OP-K Range of Motion Start: 09/18/21 16:58 Freq: Status: Active Protocol: Document 01/02/22 14:40 LRN (Rec: 01/02/22 15:57 LRN [id number]) Cervical Spine Range of Motion Cervical Spine Active Degrees Testing Position Sitting Flexion 47 Extension 55 Rotation Left 60 Rotation Right 72 Lateral Flexion Left 35 Lateral Flexion Right 40 ROM Limitations Soft Tissue Tightness PT-OP-L Special Tests Start: 09/18/21 16:58 Freq: Status: Active Protocol: Document 09/19/21 08:15 LRN (Rec: 09/19/21 09:10 LRN [id number]) Special Tests Cervical Spine Special Tests Upper Limb Tension Test Test Results + bilaterally all tests Spurling's Test Test Results SB head to R increased tension in back, + postive R Vertebral Artery Test Results R neck rot alleviated R eye pain, L rot incrd R tool filer scalene pain, Comments L rot shows incr SCM tension. jaw pain and collor bone L side tension Traction Test Results positive Comments decreased in pain in neck/ upper shoulders pain 3 > 0 Foraminal Compression Test Results Eliminated pain after traction PT-OP-M Strength Start: 09/18/21 16:58 Freq: Status: Active Protocol: Document 09/19/21 08:15 LRN (Rec: 09/19/21 09:10 LRN [id number]) Cervical Spine Strength Cervical Spine Manual Muscle Testing Testing Position Sitting Flexion (C1-2) 5 Normal Extension 5 Normal Rotation Left 3+ Fair+ Rotation Right 3+ Fair+ Lateral Flexion Left (C3) 5 Normal Lateral Flexion Right (C3) 5 Normal Shoulder Strength Shoulder Manual Muscle Testing Right Flexion 5 Normal Extension 3 Fair Abduction (C5) 5 Normal External Rotation 3 Fair Internal Rotation 4 Good Left Flexion 5 Normal Extension 3 Fair Adduction 5 Normal External Rotation 3 Fair Internal Rotation 4 Good PT-OP-Q Treatments Start: 09/18/21 16:58 Freq: Status: Active Protocol: Document 01/02/22 14:40 LRN (Rec: 01/02/22 15:57 LRN [id number]) Therapeutic Exercises Sitting Exercises C. Flexion Sitting Exercise Name Active C. Flexion Reps/Minutes 2' Comments ROM taken C. SB Sitting Exercise Name Active C. SB stretch (UT)- then AROM Side bilateral Equipment Used HEP reviewed Reps/Minutes 3' Comments elevated head, neutral ext and chin nod/tuck, ROM taken C. rot Sitting Exercise Name Active C. rot stretch then AROM Side bilateral Reps/Minutes 3' Comments elevated head, neutral ext and chin nod/tuck, ROM taken C. Ext Sitting Exercise Name Active C extension Reps/Minutes 2' Comments ROM taken Manual Therapy Treatment Soft Tissue Mobilization SCM Body Location R SCM, C/S paraspinals Mobilization Type Strumming,Sustained Pressure Intensity/Depth Superficial to moderate Body Position Supine Comments manual and instruct self. C.Spine Body Location Paraspinals, Sub-occipitals, SCM, LS Mobilization Type Myofascial Release,Rolling, Sustained Pressure Intensity/Depth Superficial Body Position Hooklying Comments R>L suboccipital tightness, SCM more distal to head. Pt reported tension relief with STM.Manual and instruct self relief. Self-Care/Home Management Treatment Education Patient Education Body Mechanics Other Education Discussed transferring of son in/out of truck with modification and education of use of stool for son's independent transfer into her truck. Activities Self-Care/Home Management Activities Review of pt's current HEP. PT-OP-T Assessment and Plan Start: 09/18/21 16:58 Freq: Status: Active Protocol: Document 01/02/22 14:40 LRN (Rec: 01/02/22 15:57 LRN [id number]) Physical Therapy Assessment Goals One Impairment Lacks appropriate self care HEP Impairment Pain limiting ability to lie down and rest (at worst, onset of nausea & headaches). Pt must sleep in a permantly set position. Short Term Goal (STG) Pt will be educated in best sleep positions of the head and neck to minimize onset of neck pain and self care of neck/jaw positioning. Pt will be educated in proper body mechanics for child and family therapist and daily activities to miimize neck/head pain. STG Duration 10/22/21 (09/29/21: MET GOAL) Sack Lifter Goal (LTG) Pt ofelia be educated in a senior living self care HEP to manage her neck/head pain and with pt able to tolerate different sleep positions through the night for improved sleep ability (not limited to a set sleep position). LTG to achieve on a self care HEP: Normal head movements without increased tension or pain. (09/29/21: HEP I/S: TBand Shldr IR and neck elongation ex). 11/08/21: added open book, side sleeping use pillows/folded towel. 12/06/21: hard using pillows for with son (baby) sleeping with her. Tries to adjust posture after son settles, uses leg between hers for comfort. 12/29/21: progressing: sleeping on side with pillows helping with lessening pain/tightness anterior ribcage. 01/02/22: Able to sleep without pain and tolerates different sleep positions. Neck mobility is normal without pain, tightness with L rot & L SB. LTG Duration 11/18/21 (01/02/22: MET GOAL) Three Impairment Decreased C. ROM Impairment Pt not able to tolerate looking to read a book ( initially was able to read for hours). Short Term Goal (STG) Improve tolerable Cervical AROM with pt able to tolerate looking down > 5 minutes for reading. (10/13/21: Able to read from phone 1-2 hrs holding phone at eye level, looking down is uncomfortable but not painful, can't look down for 5') (11/16/21: With new reading glasses and modification of her reading position, she is able to do 15-20' of reading) STG Duration 10/22/21 (11/16/21: MET GOAL) Sack Lifter Goal (LTG) Improve C. AROM to improve ability to be able to drive and look around while in a car . (10/13/21: Pt reports holds body/head stiff to look around ). LTG Duration 11/18/21 (10/24/21: MET GOAL) Two Impairment Neck Pain Impairment Constant neck pain. Frequent, intermittent low back pain, Sharp pain moving in bed. Short Term Goal (STG) Improve neck stability with normalization of neck muscles to a more normal state/tone with pt noting tolerance to looking down for > 10', while minimizing low back pain. (11/16/21: With new reading glasses and modification of her reading position, she is able to do 15-20' of reading). STG Duration 10/22/21 (11/16/21: MET GOAL) Sack Lifter Goal (LTG) Alleviate the neck pain with pt able to read 30'. Alleviate onset of migraines and find something to help manage them. 12/06/21 progressing: headaches is hereditary and more stress related. Trying to have massage/sustained pressure w/ breath before bed, calm mind before bed and focus breath. Improves post demonstration. 12/29/21: progressing: has been pressing on tight spot (UT) and helps lessen headache, stated wants to get theracane so doesn't have to reach back. 01/02/22: Pt able to read in 1 position 15', but able to read 1 hr with breaks and position changes. Posture is better and neck is not hurting as much. Migraines intermittent, last one in last 2 weeks. LTG Duration 11/18/21 (01/02/22: Improved , NOT MET GOAL) Assessment Summary Assessment The pt has reached the visit limit for her insurance and has choosen to discharge from therapy for now. The pt is very happy with her progress and would like to continue in the new year. She doesn't have pain with sleeping and has improved her ability to read at nights to 1 hour with postional changes. Her neck mobility is considered normal but she does have mild tightness of cervical L rotation and L sidebend. She has been educated in a self care HEP of ROM and light level strengthening of the UE' s that she will continue. Pt needs more thoracic flex than ext strengthening. She is aware that if she needs further strengthening in the future she seek another PT referral in the New Year. Physical Therapy Plan Discharge Physical Therapy Discharge Comments Pt has met the insurance limit for therapy treatments; therefore the pt is choosing to discharge from therapy over paying out of pocket. She could benefit from added strengthening of shoulder stab (R>L ER>IR, ext and scapular stab of lat, subscap) and C/S stab (rot weakness).
--- NOTE | 2022-01-02 16:04 | PT.OTN ---
Current Diagnoses Migraine, unspecified, not intractable, without status migrainosus (01/02/22) Cervicalgia (01/02/22) Physical Therapy Treatment Note PT-OP-A Visit Information Start: 09/18/21 16:58 Freq: Status: Active Protocol: Document 01/02/22 14:40 LRN (Rec: 01/02/22 15:57 LRN [id number]) Out-Patient Physical Therapy Visit Information Visit Information Visit Type Treatment Note Visit Start Time 14:40 Visit Stop Time 15:21 Total Visit Minutes 41 Visit Number 11 Evaluation Information Evaluation Date 09/19/21 Precautions Precautions Depression, history of back pain since of son 1.5 yrs ago PT-OP-B Current Condition Start: 09/18/21 16:58 Freq: Status: Active Protocol: Document 09/19/21 08:15 LRN (Rec: 09/19/21 09:10 LRN [id number]) Current Condition History of Current Condition Onset Date 1.25 yrs ago. Current Complaints Neck pain R>L, leading to Migraines History of Current Condition Onset of migraines after childbirth of her only son . Bilateral neck pain that goes into the base of the skill. Constant neck pain of variable intensity and is not able sleep without having to set herself in a permanent position. Was able to read for hours, and sleep more comfortable, moving around at night. Prior Treatments and Tests THC Pills and [place] [facility] CT Angio Scan: No suspicious abnormalities of head/neck. Vertebral arteries both widely patent. The more superior extracranial portions of both vertebral arteries demonstrate normal courses and calibers. The R vertebral artery is highly dominant to the left. Developmental History Developmental History .............................. ........... Previously at PT for low back and now has only tension. Has tried Trigger point treatments but sometimes it makes it worse. Alleviation of pain with [place] [employer]. Causing her to call out at work and is having to quit her other job due to migraine. Has never had migraines before , but now has them when neck/ shoulders flare up, sometimes lasting a week. Gets sick with taking Tylenol. Taking mints with THC 6-7 months ago, but feels it is not working anymore or has had to up the dosage, making her feel buzzed. Has 1.5 yr old son that she lifts and carries. Can't look down for >1 minute due neck becoming very painful. Treatment Goals Patient/Caregiver Goals Pt goal is to alleviate the neck pain, get muscles back to normal state, eliminate migraines and find something to help manage them. Looking down to read a book for 30 minutes, being able to sleep in a position that doesn't have to be permantly set; normal head movements without increased tension or pain; no difficulty with looking around in a car. Personal Factors Other Personal Factors That May Effect Depression, Jaw pain sometimes Therapy/Recovery - can't keep jaw open sometimes, Childbearing of son 02/14/2020 with ongoing back pain (tension around where epidural was). Visions problems with migraines. PT-OP-C Subjective Start: 09/18/21 16:58 Freq: Status: Active Protocol: Document 01/02/22 14:40 LRN (Rec: 01/02/22 15:57 LRN [id number]) OP-PT Subjective Patient Comments Patient Comments Doing better at not picking son up. Not having nearly as much shoulder pain and uses self accupressure that helps to loosen her muscles. Trying to work on posture and belly tightening. Has had les migranes and can read a lot more. Patient Questionnaires Neck Disability Index NDI Score 16 Neck Disability Index Impairment 20 to 39% Impaired (Score 10- 19) Quick Dash- Upper Extremity Quick Dash UE Score 25 Quick Dash UE Impairment 20 to 39% Impaired (Score 20- 39) PT-OP-H Neuro Start: 09/18/21 16:58 Freq: Status: Active Protocol: Document 09/19/21 08:15 LRN (Rec: 09/19/21 09:10 LRN [id number]) Sensation Evaluation Gross Sensation Gross Sensation WNL Comments Summary Comments Pt reports sometimes feels pins/needles in hands after onset of neck pain and after applying [place] [employer]. Deep Tendon Reflex & Clonus Assessment Deep Tendon Reflex Bilateral Brachioradialis Deep Tendon Reflex 2+ Normal Bilateral Tricep Deep Tendon Reflex 2+ Normal Bilateral Bicep Deep Tendon Reflex 2+ Normal PT-OP-J Posture/Palpation/Skin Start: 09/18/21 16:58 Freq: Status: Active Protocol: Document 10/13/21 09:10 LRN (Rec: 10/13/21 09:57 LRN [id number]) Palpation Assessment Location T4 Palpation Location T4 Palpation Findings Tenderness Palpation Details Posterior on T5 PT-OP-K Range of Motion Start: 09/18/21 16:58 Freq: Status: Active Protocol: Document 01/02/22 14:40 LRN (Rec: 01/02/22 15:57 LRN [id number]) Cervical Spine Range of Motion Cervical Spine Active Degrees Testing Position Sitting Flexion 47 Extension 55 Rotation Left 60 Rotation Right 72 Lateral Flexion Left 35 Lateral Flexion Right 40 ROM Limitations Soft Tissue Tightness PT-OP-L Special Tests Start: 09/18/21 16:58 Freq: Status: Active Protocol: Document 09/19/21 08:15 LRN (Rec: 09/19/21 09:10 LRN [id number]) Special Tests Cervical Spine Special Tests Upper Limb Tension Test Test Results + bilaterally all tests Spurling's Test Test Results SB head to R increased tension in back, + postive R Vertebral Artery Test Results R neck rot alleviated R eye pain, L rot incrd R clinical care coordinator scalene pain, Comments L rot shows incr SCM tension. jaw pain and collor bone L side tension Traction Test Results positive Comments decreased in pain in neck/ upper shoulders pain 3 > 0 Foraminal Compression Test Results Eliminated pain after traction PT-OP-M Strength Start: 09/18/21 16:58 Freq: Status: Active Protocol: Document 09/19/21 08:15 LRN (Rec: 09/19/21 09:10 LRN [id number]) Cervical Spine Strength Cervical Spine Manual Muscle Testing Testing Position Sitting Flexion (C1-2) 5 Normal Extension 5 Normal Rotation Left 3+ Fair+ Rotation Right 3+ Fair+ Lateral Flexion Left (C3) 5 Normal Lateral Flexion Right (C3) 5 Normal Shoulder Strength Shoulder Manual Muscle Testing Right Flexion 5 Normal Extension 3 Fair Abduction (C5) 5 Normal External Rotation 3 Fair Internal Rotation 4 Good Left Flexion 5 Normal Extension 3 Fair Adduction 5 Normal External Rotation 3 Fair Internal Rotation 4 Good PT-OP-Q Treatments Start: 09/18/21 16:58 Freq: Status: Active Protocol: Document 01/02/22 14:40 LRN (Rec: 01/02/22 15:57 LRN [id number]) Therapeutic Exercises Sitting Exercises C. Flexion Sitting Exercise Name Active C. Flexion Reps/Minutes 2' Comments ROM taken C. SB Sitting Exercise Name Active C. SB stretch (UT)- then AROM Side bilateral Equipment Used HEP reviewed Reps/Minutes 3' Comments elevated head, neutral ext and chin nod/tuck, ROM taken C. rot Sitting Exercise Name Active C. rot stretch then AROM Side bilateral Reps/Minutes 3' Comments elevated head, neutral ext and chin nod/tuck, ROM taken C. Ext Sitting Exercise Name Active C extension Reps/Minutes 2' Comments ROM taken Manual Therapy Treatment Soft Tissue Mobilization SCM Body Location R SCM, C/S paraspinals Mobilization Type Strumming,Sustained Pressure Intensity/Depth Superficial to moderate Body Position Supine Comments manual and instruct self. C.Spine Body Location Paraspinals, Sub-occipitals, SCM, LS Mobilization Type Myofascial Release,Rolling, Sustained Pressure Intensity/Depth Superficial Body Position Hooklying Comments R>L suboccipital tightness, SCM more distal to head. Pt reported tension relief with STM.Manual and instruct self relief. Self-Care/Home Management Treatment Education Patient Education Body Mechanics Other Education Discussed transferring of son in/out of truck with modification and education of use of stool for son's independent transfer into her truck. Activities Self-Care/Home Management Activities Review of pt's current HEP. PT-OP-T Assessment and Plan Start: 09/18/21 16:58 Freq: Status: Active Protocol: Document 01/02/22 14:40 LRN (Rec: 01/02/22 15:57 LRN [id number]) Physical Therapy Assessment Goals One Impairment Lacks appropriate self care HEP Impairment Pain limiting ability to lie down and rest (at worst, onset of nausea & headaches). Pt must sleep in a permantly set position. Short Term Goal (STG) Pt will be educated in best sleep positions of the head and neck to minimize onset of neck pain and self care of neck/jaw positioning. 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 STG Duration 10/22/21 (09/29/21: MET GOAL) Flame Cutting Machine Operator Goal (LTG) Pt ofelia be educated in a middle or intermediate school principal self care HEP to manage her neck/head pain and with pt able to tolerate different sleep positions through the night for improved sleep ability (not limited to a set sleep position). LTG to achieve on a self care HEP: Normal head movements without increased tension or pain. (09/29/21: HEP I/S: TBand Shldr IR and neck elongation ex). 11/08/21: added open book, side sleeping use pillows/folded towel. 12/06/21: hard using pillows for with son (baby) sleeping with her. Tries to adjust posture after son settles, uses leg between hers for comfort. 12/29/21: progressing: sleeping on side with pillows helping with lessening pain/tightness anterior ribcage. 01/02/22: Able to sleep without pain and tolerates different sleep positions. Neck mobility is normal without pain, tightness with L rot & L SB. LTG Duration 11/18/21 (01/02/22: MET GOAL) Three Impairment Decreased C. ROM Impairment Pt not able to tolerate looking to read a book ( initially was able to read for hours). Short Term Goal (STG) Improve tolerable Cervical AROM with pt able to tolerate looking down > 5 minutes for reading. (10/13/21: Able to read from phone 1-2 hrs holding phone at eye level, looking down is uncomfortable but not painful, can't look down for 5') (11/16/21: With new reading glasses and modification of her reading position, she is able to do 15-20' of reading) STG Duration 10/22/21 (11/16/21: MET GOAL) Flame Cutting Machine Operator Goal (LTG) Improve C. AROM to improve ability to be able to drive and look around while in a car . (10/13/21: Pt reports holds body/head stiff to look around ). LTG Duration 11/18/21 (10/24/21: MET GOAL) Two Impairment Neck Pain Impairment Constant neck pain. Frequent, intermittent low back pain, Sharp pain moving in bed. Short Term Goal (STG) Improve neck stability with normalization of neck muscles to a more normal state/tone with pt noting tolerance to looking down for > 10', while minimizing low back pain. (11/16/21: With new reading glasses and modification of her reading position, she is able to do 15-20' of reading). STG Duration 10/22/21 (11/16/21: MET GOAL) Flame Cutting Machine Operator Goal (LTG) Alleviate the neck pain with pt able to read 30'. Alleviate onset of migraines and find something to help manage them. 12/06/21 progressing: headaches is hereditary and more stress related. Trying to have massage/sustained pressure w/ breath before bed, calm mind before bed and focus breath. Improves post demonstration. 12/29/21: progressing: has been pressing on tight spot (UT) and helps lessen headache, stated wants to get theracane so doesn't have to reach back. 01/02/22: Pt able to read in 1 position 15', but able to read 1 hr with breaks and position changes. Posture is better and neck is not hurting as much. Migraines intermittent, last one in last 2 weeks. LTG Duration 11/18/21 (01/02/22: Improved , NOT MET GOAL) Assessment Summary Assessment The pt has reached the visit limit for her insurance and has choosen to discharge from therapy for now. The pt is very happy with her progress and would like to continue in the new year. She doesn't have pain with sleeping and has improved her ability to read at nights to 1 hour with postional changes. Her neck mobility is considered normal but she does have mild tightness of cervical L rotation and L sidebend. She has been educated in a self care HEP of ROM and light level strengthening of the UE' s that she will continue. Pt needs more thoracic flex than ext strengthening. She is aware that if she needs further strengthening in the future she seek another PT referral in the New Year. Physical Therapy Plan Discharge Physical Therapy Discharge Comments Pt has met the insurance limit for therapy treatments; therefore the pt is choosing to discharge from therapy over paying out of pocket. She could benefit from added strengthening of shoulder stab (R>L ER>IR, ext and scapular stab of lat, subscap) and C/S stab (rot weakness).
== END 2022-01-04 11:57 | disposition home or self-care (01) ==
LOC: PHYS 14:30
PROVIDERS: Family Provider Family Medicine; PCP Family Medicine; Referring Provider Family Medicine; Visit Provider Family Medicine
DX: M54.2 Cervicalgia (principal); G43.909 Migraine, unspecified, not intractable, without status migrainosus
CPT/HCPCS: 97010; 97110; 97140; 97162; 97535

== ENCOUNTER → 2022-01-16 10:58 | Outpatient (CLI) | payer OTHER, MEDICAID, SELFPAY ==
[2020-02-22 05:09] VITALS: BMI 19.8
--- NOTE | 2022-01-16 11:00 | DI.US.S_ITS ---
PROCEDURE: US PELVIC COMPLETE INDICATIONS: r/o ovarian cyst, RLQ pain TECHNIQUE: Real-time scanning was performed of the pelvic organs, with image documentation. Additional endovaginal scanning was necessary due to incomplete visualization of the adnexal and endometrial structures by transabdominal scanning. COMPARISON: None. FINDINGS: Uterus: Uterus is retroverted and normal in size at 7.2 x 5.3 x 4.5 cm. The myometrium is homogeneous. The endometrium measures 8.5 mm combined thickness. Ovaries: The right ovary measures 3.6 x 2.2 x 1.8 cm, with a calculated ovarian volume of 7.4 cc. The left ovary measures 3.2 x 2.7 x 2.6 cm, with a calculated ovarian volume of 11.7 cc. The ovaries have a normal sonographic appearance. Less than 12 follicles can be seen in each ovary. No adnexal masses are seen. Other: No pathologic free abdominal or pelvic fluid. IMPRESSION: 1. Unremarkable pelvic ultrasound. No ovarian cysts. We strive to produce accurate, complete, and clear reports of imaging services. To assist us in improving patient care, this report was composed using standard report templates and voice recognition software. Therefore, it may contain abnormal punctuation, insertions and/or omissions. Occasional wrong-word or sound-alike substitutions may occur. Though we review the report and make efforts to correct it, we do recommend that the report be read carefully in proper context to recognize any text inaccuracies. Dictated by: Phyllis Grande M.D. on 01/16/2022 at 13:25 Approved by: Phyllis Grande M.D. on 01/16/2022 at 13:26
== END ==
PROVIDERS: Family Provider Family Medicine; PCP Family Medicine; Referring Provider Family Medicine; Visit Provider Family Medicine
DX: R10.31 Right lower quadrant pain (principal); N83.209 Unspecified ovarian cyst, unspecified side
CPT/HCPCS: 76830; 76856

== ENCOUNTER → 2022-02-01 18:50 | Outpatient (CLI) | payer OTHER, MEDICAID, SELFPAY ==
[2020-02-22 05:09] VITALS: BMI 19.8
== END ==
PROVIDERS: Family Provider Family Medicine; PCP Family Medicine; Visit Provider Nurse Practitioner Family
DX: R10.31 Right lower quadrant pain (principal)
CPT/HCPCS: 81002; 81025; 87086

== ENCOUNTER 2022-02-28 17:51 | Emergency (ER) | payer OTHER, MEDICAID, SELFPAY ==
[2020-02-22 05:09] VITALS: BMI 19.8
[2022-02-28 17:57] VITALS: BP 116/66; PULSE 83; RESP 15; TEMP 36.4; O2SAT 98; BMI 19.1
--- NOTE | 2022-02-28 18:00 | DI.US.S_ITS ---
PROCEDURE: US OB <= 14 WEEKS FETUS INDICATIONS: BLEEDING OUTSIDE/PRIOR DATING DATA: Last menstrual period (LMP): 01/15/2022. LMP-based estimated date of delivery (HAI): 10/22/2022. First dating scan (date and location): 02/28/2022. Estimated date of delivery (HAI) from first dating scan: 10/22/2022. TECHNIQUE: Real-time scanning was performed of the fetus and maternal pelvic organs, with image documentation. Endovaginal scanning was also performed to better visualize the fetus and maternal ovaries. COMPARISON: [facility], OB <= 14 WEEKS FETUS, 07/15/2019, 12:59. FINDINGS: Embryo: Present with crown-rump length of 0.6 cm corresponding to gestational age of 6 weeks 2 days Heart rate: 115 No perigestational hemorrhage visualized. Maternal organs: Ovaries appear unremarkable. A right corpus luteum is present. IMPRESSION: Single living intrauterine . Gestational age of 6 weeks 2 days by crown-rump length, concordant with clinical dates. We strive to produce accurate, complete, and clear reports of imaging services. To assist us in improving patient care, this report was composed using standard report templates and voice recognition software. Therefore, it may contain abnormal punctuation, insertions and/or omissions. Occasional wrong-word or sound-alike substitutions may occur. Though we review the report and make efforts to correct it, we do recommend that the report be read carefully in proper context to recognize any text inaccuracies. Dictated by: Olivier Nelson M.D. on 02/28/2022 at 17:55 Approved by: Olivier Nelson M.D. on 02/28/2022 at 18:00
--- NOTE | 2022-02-28 18:20 | ED.FEMALEGU ---
HPI - Female Genitourinary General Chief complaint: Vaginal Bleeding Stated complaint: Worried having a miscarriage Time Seen by Provider: 02/28/22 18:09 Source: patient Mode of arrival: Ambulatory History of Present Illness HPI Narrative: 21-year-old female nonsmoker with history of bronchospasm is a G to P1 at about 6 weeks with last menstrual cycle in mid December presents with a chief complaint of mild spotting over the course of the day and some associated cramping. She has no leakage of fluid and denies fever or chills. She is not dizzy nor weak or lightheaded. She states the bleeding is very minimal. She denies nausea, vomiting or diarrhea. She has no dysuria, frequency or urgency. She is not yet established care for this as she just found out yesterday. Related Data Previous Rx's Medication Instructions Recorded sumatriptan succinate 50 mg tablet See Rx Instructions PO .COMPLEX 09/22/21 #10 tabs albuterol sulfate 90 mcg/actuation 2 puff inhalation Q4-6H PRN 11/10/21 aerosol inhaler (Ventolin HFA) bronchospasm #8.5 grams Allergies Allergy/AdvReac Type Severity Reaction Status Date / Time acetaminophen [From Tylenol] Allergy Mild Vomiting Verified 02/28/22 17:57 Review of Systems Review of Systems Narrative: GENERAL: Denies chills, fatigue, malaise, fever, sweats. HEENT: Denies sinus pain, ear pain, sore throat, difficulty swallowing, dizziness. RESPIRATORY: Denies dyspnea, cough, wheezing, hemoptysis, sputum. CARDIOVASCULAR: Denies chest pain, palpitations, orthopnea, edema, GASTROINTESTINAL: Denies nausea, vomiting, abdominal pain, diarrhea, constipation, melena. : See HPI MUSCULOSKELETAL: denies weakness, joint pain, or bony pain SKIN: Denies rash, skin lesions, or other NEUROLOGIC: Denies weakness, headache, numbness, change in speech, confusion, seizures, incoordination. PSYCHIATRIC: No concerning psychosocial issues. 12 point review of systems is negative except for those stated above Patient History Medical History Acute cholecystitis Ankle pain Asthma COVID-19 Depression with anxiety Ovarian cyst depression (spontaneous vaginal delivery) Surgical History Anesthesia Hx laparoscopic cholecystectomy Stye [place] teeth removed Family History Father Prediabetes Hyperlipidemia Hypertension Mental health problem Stroke Seizure AA (alcohol abuse) Depression Mother Mental health problem Family estrangement Sister Mental health problem Bipolar 1 disorder Grandfather Knee problem Grandmother Hypertension Arthritis Grandmother Mental health problem Family/Other Depression AA (alcohol abuse) Anxiety alcohol intake frequency: holidays/special occasions only Substance Use Type: does not use Exam Narrative Exam Narrative: GENERAL: [21] year old patient appears stated age. Well-developed patient, in mild distress. HEAD: Atraumatic. Normocephalic. EYES: Pupils equal round and reactive. Extraocular motions intact. No scleral icterus. No injection or drainage. ENT: Nose without bleeding, purulent drainage. Throat without erythema, tonsillar hypertrophy or exudate. Airway patent. NECK: Trachea midline. Non tender CARDIOVASCULAR: Regular rate and rhythm without murmurs, gallops, or rubs. RESPIRATORY: Clear to auscultation. Breath sounds equal bilaterally. No wheezes, rales, or rhonchi. GASTROINTESTINAL: Abdomen soft, non-tender, nondistended. EXTREMITIES: No edema or joint tenderness. BACK: Nontender without deformity or crepitance. No flank tenderness. NEURO: AOx3. SKIN: No rash or erythema of visible areas Initial Vital Signs Initial Vital Signs: Vital Signs Temperature 97.6 F 02/28/22 17:57 Pulse Rate 83 02/28/22 17:57 Respiratory Rate 15 02/28/22 17:57 Blood Pressure 116/66 02/28/22 17:57 Pulse Oximetry 98 02/28/22 17:57 Oxygen Delivery Method 02/28/22 17:57 Course Orders Ordered: ED Orders 02/28/22 18:00 US OB <= 14 weeks fetus Stat 02/28/22 18:50 Complete Blood Count AUTO DIFF Stat Comprehensive Metabolic Panel Stat HCG Quantitative /Beta subunit Stat Type and Screen Stat 02/28/22 19:10 Urine Microscopic Stat Vital Signs Vital signs: Vital Signs - 8 hr 02/28/22 17:57 02/28/22 19:19 02/28/22 19:19 Temperature 97.6 F Pulse Rate 83 80 80 Respiratory Rate 15 Blood Pressure 116/66 101/64 101/67 Pulse Oximetry 98 98 98 Oxygen Delivery Method Room Air Room Air Room Air MDM - Female Genitourinary Lab Data Result diagrams: 02/28/22 18:50 02/28/22 18:50 Labs: Lab Results 02/28/22 02/28/22 02/28/22 Range/Units 18:50 18:50 18:50 WBC 4.8 (4.5-11.0) X10^3/uL RBC 4.56 (4.0-5.2) X10^6/uL Hgb 13.6 (12.0-16.0) g/dL Hct 39.0 (36-46) % MCV 85.5 (80-100) fL MCH 29.8 (26-34) PG MCHC 34.9 (30-36) % RDW 13.3 (11.6-14.8) % Plt Count 240 (150-400) X10^3/uL Neut % (Auto) 32.9 L (50-75) % Lymph % (Auto) 51.7 H (25-40) % Worth % (Auto) 13.7 (3-14) % Eos % (Auto) 1.3 L (2-4) % Baso % (Auto) 0.4 (0-2) % Neut # (Auto) 1600 (9246-8057) /uL Lymph # (Auto) 2500 (2925-7869) /uL Worth # (Auto) 700 (0-900) /uL Eos # (Auto) 100 (0-450) /uL Baso # (Auto) 0 (0-100) /uL Sodium 140 (137-145) mmol/L Potassium 3.8 (3.4-5.1) mmol/L Chloride 101 (98-107) mmol/L Carbon Dioxide 27 (22-32) mmol/L BUN 7 (7-17) mg/dL Creatinine 0.54 (0.52-1.04) mg/dL Estimated GFR > 60 (>60) mL/min BUN/Creatinine Ratio 13.0 (6-22) Glucose 87 (70-100) mg/dL Calcium 9.4 (8.4-10.2) mg/dL Total Bilirubin 0.4 (0.2-1.3) mg/dL AST 21 (14-36) IU/L ALT 18 (<35) IU/L Alkaline Phosphatase 58 (38-126) U/L Total Protein 8.1 (6.3-8.2) g/dL Albumin 4.7 (3.5-5.0) g/dL Globulin 3.4 (1.7-4.1) g/dL Albumin/Globulin Ratio 1.4 (1.0-2.8) HCG, Quant 17426 mIU/mL Urine RBC (0-5/HPF) Urine WBC (0-5/HPF) Ur Squamous Epith Cells (0-5/HPF) Amorphous Sediment Urine Bacteria (None) Urine Mucus (Negative) Ur Culture Indicated? Blood Type A Positive Antibody Screen Negative 02/28/22 Range/Units 19:10 WBC (4.5-11.0) X10^3/uL RBC (4.0-5.2) X10^6/uL Hgb (12.0-16.0) g/dL Hct (36-46) % MCV (80-100) fL MCH (26-34) PG MCHC (30-36) % RDW (11.6-14.8) % Plt Count (150-400) X10^3/uL Neut % (Auto) (50-75) % Lymph % (Auto) (25-40) % Worth % (Auto) (3-14) % Eos % (Auto) (2-4) % Baso % (Auto) (0-2) % Neut # (Auto) (0631-9295) /uL Lymph # (Auto) (2929-2201) /uL Worth # (Auto) (0-900) /uL Eos # (Auto) (0-450) /uL Baso # (Auto) (0-100) /uL Sodium (137-145) mmol/L Potassium (3.4-5.1) mmol/L Chloride (98-107) mmol/L Carbon Dioxide (22-32) mmol/L BUN (7-17) mg/dL Creatinine (0.52-1.04) mg/dL Estimated GFR (>60) mL/min BUN/Creatinine Ratio (6-22) Glucose (70-100) mg/dL Calcium (8.4-10.2) mg/dL Total Bilirubin (0.2-1.3) mg/dL AST (14-36) IU/L ALT (<35) IU/L Alkaline Phosphatase (38-126) U/L Total Protein (6.3-8.2) g/dL Albumin (3.5-5.0) g/dL Globulin (1.7-4.1) g/dL Albumin/Globulin Ratio (1.0-2.8) HCG, Quant mIU/mL Urine RBC 1-5/hpf (0-5/HPF) Urine WBC 0-1/hpf (0-5/HPF) Ur Squamous Epith Cells 1-5 /hpf D (0-5/HPF) Amorphous Sediment 1+ Urine Bacteria None seen (None) Urine Mucus 1+ H (Negative) Ur Culture Indicated? Cult not indicated Blood Type Antibody Screen Urine Dip Bedside Urine Glucose Negative Bedside Urine Bilirubin - Negative Bedside Urine Ketone - Negative Urine Specific [place] 1.025 Bedside Urine Occult Blood ++ Bedside Urine pH 6 Bedside Urine Protein + 30 Bedside Urine Urobilinogen - Negative Bedside Urine Nitrite - Negative Bedside Urine Leukocytes - Negative Esterase Imaging Data US - OB: Radiologist's Impression: [address] [id number] ReportSigned Patient: Summer Calloway BMR#: [id number]: [id number]:[id number]/Sex: 21 / FDate of Service: 02/28/22Loc: EDAccession Number: [id number] Procedure: US OB <= 14 weeks fetus Ordering Provider: Al Beltran D.O. PROCEDURE: US OB <= 14 WEEKS FETUS INDICATIONS: BLEEDING OUTSIDE/PRIOR DATING DATA: Last menstrual period (LMP): 01/15/2022. LMP-based estimated date of delivery (HAI): 10/22/2022. First dating scan (date and location): 02/28/2022. Estimated date of delivery (HAI) from first dating scan: 10/22/2022. TECHNIQUE: Real-time scanning was performed of the fetus and maternal pelvic organs, with image documentation. Endovaginal scanning was also performed to better visualize the fetus and maternal ovaries. COMPARISON: [facility], OB <= 14 WEEKS FETUS, 07/15/2019, 12:59. FINDINGS: Embryo: Present with crown-rump length of 0.6 cm corresponding to gestational age of 6 weeks 2 days Heart rate: 115 No perigestational hemorrhage visualized. Maternal organs: Ovaries appear unremarkable. A right corpus luteum is present. IMPRESSION: Single living intrauterine . Gestational age of 6 weeks 2 days by crown-rump length, concordant with clinical dates. We strive to produce accurate, complete, and clear reports of imaging services. To assist us in improving patient care, this report was composed using standard report templates and voice recognition software. Therefore, it may contain abnormal punctuation, insertions and/or omissions. Occasional wrong-word or sound-alike substitutions may occur. Though we review the report and make efforts to correct it, we do recommend that the report be read carefully in proper context to recognize any text inaccuracies. Dictated by: Olivier Nelson M.D. on 02/28/2022 at 17:55 Approved by: Olivier Nelson M.D. on 02/28/2022 at 18:00 [facility] Narrative Medical decision making narrative: 21-year-old female with history of asthma as a at about 6 weeks with complaint of some mild spotting earlier today. Differential diagnosis includes implantation bleeding, subchorionic hemorrhage, ectopic or early miscarriage She denies much in the way of other symptoms, labs are reviewed and unremarkable, Rh type reviewed from prior note. Patient has minimal if any ongoing bleeding, urine evaluated and no evidence of infection. Ultrasound shows intrauterine without any hemorrhage. No indication for further evaluation or intervention, encouraged to follow closely with her OB team, discussed return precautions and questions answered to her apparent satisfaction Discharge Plan Departure Patient Disposition: Home Clinical Impression: Bleeding in early Instructions: DI for Vaginal Bleeding During Activity Restrictions/Additional Instructions: *You have been diagnosed with [vaginal bleeding in early . As we discussed your ultrasound is very reassuring and demonstrates an intrauterine at about 6 weeks without abnormal finding.] *What to do: *Please continue to take your regular medications as directed. [ ] New medication prescriptions sent to your pharmacy: [ ] [ ] New medication written as a paper prescription [ ] No new medications given *Please follow up with your OB provider in 2-3 days, call for an appointment. Let them know you were seen in the Emergency Department and that we ask that you be seen in follow up. We will electronically transmit a record of today's note if your PCP is in our system *If you do not have a primary care provider please contact the [facility] Resource line at [phone]. They will ask some questions about your medical history and help get you set up with a doctor in the community. *Return to Emergency Department if you should have any new, worsening or concerning symptoms, such as [fever greater than 101 F, shaking chills, worsening pain, persistent vomiting, increased bleeding (saturating a pad every hour) or other bothersome symptoms] Prescriptions: No Action sumatriptan succinate 50 mg tablet See Rx Instructions PO .COMPLEX Qty: 10 6RF Rx Instructions: take 1 tab at onset of headache; if no relief may repeat 1 tab after at least 2 hrs; max = 4 tabs/24 hr PO albuterol sulfate [Ventolin HFA] 90 mcg/actuation HFA aerosol inhaler 2 puff INHALATION Q4-6H PRN (Reason: bronchospasm) Qty: 8.5 1RF Referrals: Cristy Mendoza MD [Primary Care Provider] - Visit Report Forms: Patient Portal/API
[2022-02-28 19:17] LABS: Add Manual Diff / Slide Review NO; Basophils Absolute Auto 0 /uL (0-100); Basophils Percent Auto 0.4 % (0-2); Eosinophils Absolute Auto 100 /uL (0-450); Eosinophils Percent Auto 1.3 % (2-4); Hemoglobin 13.6 g/dL (12.0-16.0); Lymphocytes Absolute Auto 2500 /uL (1100-4500); Lymphocytes Percent Auto 51.7 % (25-40); Mean Corpuscular HGB Conc 34.9 % (30-36); Mean Corpuscular Hemoglobin 29.8 PG (26-34); Mean Corpuscular Volume 85.5 fL (80-100); Monocytes Absolute Auto 700 /uL (0-900); Monocytes Percent Auto 13.7 % (3-14); Neutrophils Absolute Auto 1600 /uL (1500-7000); Neutrophils Percent Auto 32.9 % (50-75); Platelet Count 240 X10^3/uL (150-400); Red Blood Cell Count 4.56 X10^6/uL (4.0-5.2); Red Cell Distribution Width 13.3 % (11.6-14.8); White Blood Cell Count 4.8 X10^3/uL (4.5-11.0)
[2022-02-28 19:19] VITALS: BP 101/64; BP 101/67; PULSE 80; O2SAT 98
[2022-02-28 19:32] LABS: Alanine Aminotransferase 18 IU/L (<35); Albumin 4.7 g/dL (3.5-5.0); Albumin Globulin Ratio 1.4 (1.0-2.8); Alkaline Phosphatase 58 U/L (38-126); Aspartate Aminotransferase 21 IU/L (14-36); Bilirubin Total 0.4 mg/dL (0.2-1.3); Blood Urea Nitrogen 7 mg/dL (7-17); Calcium 9.4 mg/dL (8.4-10.2); Carbon Dioxide 27 mmol/L (22-32); Chloride 101 mmol/L (98-107); Estimated Glomerular Filt Rate > 60 mL/min (>60); Globulin 3.4 g/dL (1.7-4.1); Glucose 87 mg/dL (70-100); HEMOLYSIS < 15 (0-50); Potassium 3.8 mmol/L (3.4-5.1); Sodium 140 mmol/L (137-145); Total Protein 8.1 g/dL (6.3-8.2)
[2022-02-28 19:34] LABS: Amorphous Sediment Urine 1+; Bacteria Urine None Seen; Mucus Urine 1+ (Negative); Squamous Epithelial Cell Urine 1-5 /HPF (0-5/HPF); WBC Urine 0-1/HPF (0-5/HPF)
[2022-02-28 19:35] LABS: Culture Indicated Urine Cult Not Indicated; RBC Urine 1-5/HPF (0-5/HPF)
[2022-02-28 20:12] LABS: HCG Quantitative /Beta subunit 32743 mIU/mL
== END 2022-02-28 19:19 | disposition home or self-care (01) ==
PROVIDERS: Emergency Medicine; Emergency Provider Emergency Medicine; Family Provider Family Medicine; PCP Family Medicine
DX: O20.9 Hemorrhage in early pregnancy, unspecified (principal); Z3A.01 Less than 8 weeks gestation of pregnancy
CPT/HCPCS: 36415; 76801; 76830; 80053; 81003; 81015; 84702; 85025; 86850; 86900; 86901; 99282; 99284

== ENCOUNTER → 2022-05-02 14:15 | Outpatient (CLI) | payer OTHER, MEDICAID, SELFPAY ==
[2022-04-18 10:48] VITALS: BMI 19.8
[2022-05-02 14:46] LABS: Add Manual Diff / Slide Review NO; Basophils Absolute Auto 0 /uL (0-100); Basophils Percent Auto 0.4 % (0-2); Eosinophils Absolute Auto 0 /uL (0-450); Eosinophils Percent Auto 0.7 % (2-4); Hematocrit 37.2 % (36-46); Hemoglobin 12.6 g/dL (12.0-16.0); Lymphocytes Absolute Auto 2200 /uL (1100-4500); Lymphocytes Percent Auto 38.3 % (25-40); Mean Corpuscular HGB Conc 33.7 % (30-36); Mean Corpuscular Hemoglobin 29.4 PG (26-34); Mean Corpuscular Volume 87.2 fL (80-100); Monocytes Absolute Auto 500 /uL (0-900); Monocytes Percent Auto 9.5 % (3-14); Neutrophils Absolute Auto 2900 /uL (1500-7000); Neutrophils Percent Auto 51.1 % (50-75); Platelet Count 247 X10^3/uL (150-400); Red Blood Cell Count 4.26 X10^6/uL (4.0-5.2); Red Cell Distribution Width 15.1 % (11.6-14.8); White Blood Cell Count 5.6 X10^3/uL (4.5-11.0)
[2022-05-02 15:17] LABS: Appearance Urine UA SL CLOUDY; Bilirubin Urine UA NEGATIVE (NEGATIVE); Color Urine UA YELLOW; Glucose Urine UA NEGATIVE (Negative); Ketones Urine UA NEGATIVE (NEGATIVE); Leukocyte Esterase Urine UA NEGATIVE (NEGATIVE); Nitrite Urine UA NEGATIVE (Negative); Occult Blood Urine UA 1+ (Negative); Protein Urine UA NEGATIVE (Negative); Specific Gravity Urine UA >=1.030 (1.000-1.035); Urobilinogen Urine UA 0.2 E.U./dL (0.2)
[2022-05-02 15:49] LABS: RBC Urine 5-10/HPF (0-5/HPF); Squamous Epithelial Cell Urine 10-30 /HPF (0-5/HPF); WBC Urine 1-5/HPF (0-5/HPF)
[2022-05-02 15:50] LABS: Bacteria Urine Few (2-10); Culture Indicated Urine Cult Not Indicated
[2022-05-03 07:53] LABS: RPR Screen Non Reactive (Non Reactive); Varicella IgG Antibody <135 index (Immune >165)
[2022-05-03 16:28] LABS: HIV 1 & 2 Ab/Ag 4th Gen Combo NEGATIVE (NEGATIVE); Hep C Virus Ab w/Reflex Quant NEGATIVE s/c (NEGATIVE); Hepatitis B Surface Antigen NEGATIVE s/c (NEGATIVE)
== END ==
PROVIDERS: Family Provider Family Medicine; PCP Family Medicine; Referring Provider Family Medicine; Visit Provider Family Medicine
DX: Z34.81 Encounter for supervision of other normal pregnancy, first trimester (principal)
CPT/HCPCS: 36415; 80055; 81003; 81015; 86787; 86803; 86850; 86900; 86901; 87086; 87389

== ENCOUNTER → 2022-06-04 09:56 | Outpatient (CLI) | payer OTHER, MEDICAID, SELFPAY ==
[2022-04-18 10:48] VITALS: BMI 19.8
--- NOTE | 2022-06-04 09:57 | DI.US.S_ITS ---
PROCEDURE: US OB >= 14 WEEKS FETUS INDICATIONS: Anatomy US OUTSIDE/PRIOR DATING DATA: Last menstrual period (LMP): 01/15/2022 LMP-based estimated date of delivery (HAI): 10/22/2022. First dating scan (date and location): 02/28/2022. Estimated date of delivery (HAI) from first dating scan: 10/22/2022. The calculations are made using the clinical HAI of 10/22/2022. TECHNIQUE: Real-time scanning was performed of the fetus, with image documentation and biometric measurements. Endovaginal scanning: Not performed COMPARISON: [facility], OB >= 14 WEEKS FETUS, 10/13/2019, 12:27. FINDINGS: General: A single living intrauterine gestation is present. Presentation: Vertex. Placenta: Placental position is posterior , without previa. Amniotic fluid index: 10.6 cm, normal range is 5-24 cm. Single deepest vertical pocket is 3.4 cm. heart rate: 132 beats per minute. Maternal cervical canal: 3.2 cm long. Normal lower limit is 2.5 cm. biometrics: Biparietal diameter: 4.8 cm, 20 weeks 3 days Head circumference: 18.4 cm, 20 weeks 5 days Abdominal circumference: 15.6 cm, 20 weeks 5 days Femur length: 3.1 cm, 19 weeks 5 days Clinically estimated gestational age: 20 weeks Composite gestational age from present scan: 20 weeks 3 days Estimated weight and percentile: 346 g, 64th percentile Anatomic survey: Neuro: Ventricles are non-dilated at less than 10 mm. Cisterna magna is normal at 3-11 mm. Cerebellum is normal in size and morphology. Nuchal skin fold: Normal at less than 6 mm between 14-21 weeks gestational age. Face: Nose and lips, facial profile are normal. Spine: No evidence for spina bifida. Heart: 4-chambered heart is present, with normal ventricular outflow tracts. Diaphragm: Diaphragm is intact. Stomach: Left-sided stomach is present. Kidneys: No hydronephrosis. Normal is less than 5 mm in 2nd trimester, less than 7 mm in 3rd trimester. Cord: 3-vessel cord has orthotopic insertion. Bladder: Normal in size. Extremities: All 4 extremities identified. IMPRESSION: Single living intrauterine at 20 weeks, HAI of 10/22/2022. Normal anatomy survey. We strive to produce accurate, complete, and clear reports of imaging services. To assist us in improving patient care, this report was composed using standard report templates and voice recognition software. Therefore, it may contain abnormal punctuation, insertions and/or omissions. Occasional wrong-word or sound-alike substitutions may occur. Though we review the report and make efforts to correct it, we do recommend that the report be read carefully in proper context to recognize any text inaccuracies. Dictated by: Donnie De La Garza M.D. on 06/04/2022 at 12:27 Approved by: Donnie De La Garza M.D. on 06/04/2022 at 12:33
== END ==
PROVIDERS: Family Provider Family Medicine; PCP Family Medicine; Referring Provider Family Medicine; Visit Provider Family Medicine
DX: Z34.92 Encounter for supervision of normal pregnancy, unspecified, second trimester (principal); Z3A.20 20 weeks gestation of pregnancy
CPT/HCPCS: 76811

== ENCOUNTER 2022-06-22 11:21 | Outpatient (CLI) | payer OTHER, MEDICAID, SELFPAY ==
[2022-04-18 10:48] VITALS: BMI 19.8
--- NOTE | 2022-06-22 12:13 | PM.OBTRLD ---
Visit Information Visit Information Date of evaluation: 06/22/22 Primary OB Provider: Cristy Mendoza Comments/Additional reasons for admission: 22yo at 22w4d here for monitoring for decreased movement. She had one episode of emesis yesterday. She has not felt her baby move as much since, and wants to ensure baby is okay. No blood in her emesis. She has been tolering PO well since then. [facility] Medical History Acute cholecystitis Ankle pain Asthma COVID-19 Depression with anxiety Ovarian cyst depression (spontaneous vaginal delivery) Surgical History Anesthesia Hx laparoscopic cholecystectomy Stye [place] teeth removed Family History (Updated 03/16/22 @ 11:42 by Mulu Forrester RN) Father Prediabetes Hyperlipidemia Hypertension Mental health problem Stroke Seizure AA (alcohol abuse) Depression Vascular malformation Mother Mental health problem Family estrangement Bipolar disorder Depression AA (alcohol abuse) Sister Mental health problem Bipolar disorder PTSD (post-traumatic stress disorder) Depression Anxiety Schizophrenia Twin hemorrhage Grandmother Anxiety Migraine Hypertension Family/Other Depression AA (alcohol abuse) Anxiety Drug addiction Diabetes mellitus Grandfather Migraine Grandmother Arrhythmia Social History marital status: household members: spouse, children and other lives independently: Yes caregiver/support person: Yes housing: other pets and animals: No education level: college occupational status: unemployed current occupational exposures/hazards: No Previous occupational history: [employer] 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: [employer] special hayde needs: No travel history: recent seatbelt use: sometimes water heater temp set < 120 deg: Yes working smoke detector in home: Yes fire extinguisher in home: Yes carbon monox detector in home: Yes firearms in home: Yes firearms unloaded and locked: No (Pt will ask to move rifles to his parents' home) Smoking Status: Never smoker second hand exposure: No alcohol intake: never substance use type: does not use and marijuana during the past year weight has: decreased > 10 lbs well-balanced diet: rarely or never daily servings fruits/ve-4 caffeine: Yes (discussed 200mg limit) Type(s) of exercise: none Evaluation Evaluation Baseline heart rate: 140 Diagnosis, Plan/Disposition Final Diagnosis (1) Decreased movement: Status: Acute Plan/Disposition Plan: 22yo at 22w4d here for monitoring for decreased movement. Doppler of heart tones in the 140s with good beat to beat variability. No need for additional testing at this time. Reassuring exam. Stable for d/c home. OB Disposition: home
== END 2022-06-22 12:20 | disposition home or self-care (01) ==
LOC: LABOR 12:13 → OB 06-28 16:58
PROVIDERS: Family Provider Family Medicine; PCP Family Medicine; Referring Provider Family Medicine; Visit Provider Family Medicine
DX: O36.8120 Decreased fetal movements, second trimester, not applicable or unspecified (principal); Z3A.22 22 weeks gestation of pregnancy
CPT/HCPCS: G0378; G0379

== ENCOUNTER 2022-08-04 19:53 | Outpatient (CLI) | payer OTHER, MEDICAID, SELFPAY ==
[2022-04-18 10:48] VITALS: BMI 19.8
--- NOTE | 2022-08-05 08:19 | P.TNLD_ITS ---
Visit Information Visit Information Date of evaluation: 08/04/22 Primary OB Provider: Cristy Mendoza On-call OB Provider: Irina Cunningham Reason for Evaluation: Yes other Comments/Additional reasons for admission: Patient complaining of sudden pain from belly button to vagina with numbness in vagina. Patient comes in because she feels something is ?not right? Vital Signs Vital Signs: Blood pressure 108/65, pulse 64, temperature 36.2? PFSH Medical History Acute cholecystitis Ankle pain Asthma COVID-19 Depression with anxiety Ovarian cyst depression (spontaneous vaginal delivery) Surgical History Anesthesia Hx laparoscopic cholecystectomy Stye [place] teeth removed Family History (Updated 03/16/22 @ 11:42 by Mulu Forrester RN) Father Prediabetes Hyperlipidemia Hypertension Mental health problem Stroke Seizure AA (alcohol abuse) Depression Vascular malformation Mother Mental health problem Family estrangement Bipolar disorder Depression AA (alcohol abuse) Sister Mental health problem Bipolar disorder PTSD (post-traumatic stress disorder) Depression Anxiety Schizophrenia Twin hemorrhage Grandmother Anxiety Migraine Hypertension Family/Other Depression AA (alcohol abuse) Anxiety Drug addiction Diabetes mellitus Grandfather Migraine Grandmother Arrhythmia Social History marital status: household members: spouse, children and other lives independently: Yes caregiver/support person: Yes housing: other pets and animals: No education level: college occupational status: unemployed current occupational exposures/hazards: No Previous occupational history: [employer] 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 : 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/christianity: Catholic special hayde needs: No travel history: recent seatbelt use: sometimes water heater temp set < 120 deg: Yes working smoke detector in home: Yes fire extinguisher in home: Yes carbon monox detector in home: Yes firearms in home: Yes firearms unloaded and locked: No (Pt will ask to move rifles to his parents' home) Smoking Status: Never smoker second hand exposure: No alcohol intake: never substance use type: does not use and marijuana during the past year weight has: decreased > 10 lbs well-balanced diet: rarely or never daily servings fruits/ve-4 caffeine: Yes (discussed 200mg limit) Type(s) of exercise: none Review of Systems Review of Systems Narrative: Patient denies fevers. She denies vaginal bleeding. She has movement although she states maybe somewhat decreased. Some increased vaginal discharge but no leakage of fluid. Evaluation Evaluation Baseline heart rate: 130 Variability: Moderate (11-25) monitor accelerations: Present Monitor Decelerations: Variable (20 beats per minute x1) Contraction Frequency (minutes): 0 Category of Tracing: Reactive Status: Category l Diagnosis, Plan/Disposition Final Diagnosis (1) Abdominal pain affecting , antepartum: Status: Acute Plan/Disposition Plan: No evidence concern for labor or abruption. Patient reassured as her pain is not current likely just stretching of ligaments. Patient is advised to call if she has vaginal bleeding, contractions, increasing pain. OB Disposition: home
== END 2022-08-04 20:40 | disposition home or self-care (01) ==
LOC: OB 08-06 06:14
PROVIDERS: Family Provider Family Medicine; PCP Family Medicine; Referring Provider Specialist; Visit Provider Specialist
DX: O36.8130 Decreased fetal movements, third trimester, not applicable or unspecified (principal); O26.893 Other specified pregnancy related conditions, third trimester; R10.9 Unspecified abdominal pain; Z3A.28 28 weeks gestation of pregnancy
CPT/HCPCS: 59025; G0378; G0379

== ENCOUNTER → 2022-08-08 10:01 | Outpatient (CLI) | payer OTHER, MEDICAID, SELFPAY ==
[2022-04-18 10:48] VITALS: BMI 19.8
[2022-08-08 12:31] LABS: Add Manual Diff / Slide Review NO; Basophils Absolute Auto 0 /uL (0-100); Basophils Percent Auto 0.1 % (0-2); Eosinophils Absolute Auto 0 /uL (0-450); Eosinophils Percent Auto 0.5 % (2-4); Hematocrit 32.8 % (36-46); Hemoglobin 11.4 g/dL (12.0-16.0); Lymphocytes Absolute Auto 1600 /uL (1100-4500); Lymphocytes Percent Auto 25.4 % (25-40); Mean Corpuscular HGB Conc 34.7 % (30-36); Mean Corpuscular Hemoglobin 30.6 PG (26-34); Mean Corpuscular Volume 88.1 fL (80-100); Monocytes Absolute Auto 500 /uL (0-900); Neutrophils Absolute Auto 4000 /uL (1500-7000); Platelet Count 234 X10^3/uL (150-400); Red Blood Cell Count 3.72 X10^6/uL (4.0-5.2); Red Cell Distribution Width 13.9 % (11.6-14.8); White Blood Cell Count 6.1 X10^3/uL (4.5-11.0)
[2022-08-08 14:15] LABS: GTT (PREG) 1 Hour PP 50gm Dose 74 mg/dL (76-139)
== END ==
PROVIDERS: Family Provider Family Medicine; PCP Family Medicine; Referring Provider Family Medicine; Visit Provider Family Medicine
DX: Z34.82 Encounter for supervision of other normal pregnancy, second trimester (principal); Z3A.26 26 weeks gestation of pregnancy
CPT/HCPCS: 36415; 82950; 85025

== ENCOUNTER 2022-08-30 18:01 | Observation (INO) | payer OTHER, MEDICAID, SELFPAY ==
[2022-04-18 10:48] VITALS: BMI 19.8
[2022-08-30 20:27] LABS: Bilirubin Urine UA NEGATIVE (NEGATIVE); Color Urine UA YELLOW; Glucose Urine UA NEGATIVE (Negative); Ketones Urine UA NEGATIVE (NEGATIVE); Leukocyte Esterase Urine UA NEGATIVE (NEGATIVE); Nitrite Urine UA NEGATIVE (Negative); Occult Blood Urine UA NEGATIVE (Negative); Protein Urine UA NEGATIVE (Negative); Specific Gravity Urine UA 1.015 (1.000-1.035); Urobilinogen Urine UA 0.2 E.U./dL (0.2)
[2022-08-30 20:30] LABS: pH Urine UA 6.5 (4.5-8.0)
[2022-08-30 20:33] LABS: Amorphous Sediment Urine 1+; Appearance Urine UA Slightly Cloudy; Bacteria Urine Moderate (10-30); RBC Urine None Seen (0-5/HPF); Squamous Epithelial Cell Urine 5-10 /HPF (0-5/HPF); WBC Urine 1-5/HPF (0-5/HPF)
[2022-08-30 20:34] LABS: Culture Indicated Urine Specimen Cultured
--- NOTE | 2022-08-31 07:52 | P.TNLD_ITS ---
Visit Information Visit Information Date of evaluation: 08/30/22 Primary OB Provider: Bereket May On-call OB Provider: Liz Angel Reason for Evaluation: Yes other Comments/Additional reasons for admission: 22YO @ [id number] here for evaluation after falling out of her rocking chair. Fell forward onto her abdomen. Feeling occasional, mild uterine tightening and lightening crotch since. +FM. No vaginal bleeding or abdominal or pelvic pain. Vital Signs Vital Signs: BP 115/61, HR 82bpm, RR 16, T 98.8F Temporal PFSH Medical History Acute cholecystitis Ankle pain Asthma COVID-19 Depression with anxiety Ovarian cyst depression (spontaneous vaginal delivery) Surgical History Anesthesia Hx laparoscopic cholecystectomy Stye [place] teeth removed Family History Father Prediabetes Hyperlipidemia Hypertension Mental health problem Stroke Seizure AA (alcohol abuse) Depression Vascular malformation Mother Mental health problem Family estrangement Bipolar disorder Depression AA (alcohol abuse) Sister Mental health problem Bipolar disorder PTSD (post-traumatic stress disorder) Depression Anxiety Schizophrenia Twin hemorrhage Grandmother Anxiety Migraine Hypertension Family/Other Depression AA (alcohol abuse) Anxiety Drug addiction Diabetes mellitus Grandfather Migraine Grandmother Arrhythmia Social History marital status: household members: spouse, children and other lives independently: Yes caregiver/support person: Yes housing: other pets and animals: No education level: college occupational status: unemployed current occupational exposures/hazards: No Previous occupational history: [employer] 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: [employer] special hayde needs: No travel history: recent seatbelt use: sometimes water heater temp set < 120 deg: Yes working smoke detector in home: Yes fire extinguisher in home: Yes carbon monox detector in home: Yes firearms in home: Yes firearms unloaded and locked: No (Pt will ask to move rifles to his parents' home) Smoking Status: Never smoker second hand exposure: No alcohol intake: never substance use type: does not use and marijuana during the past year weight has: decreased > 10 lbs well-balanced diet: rarely or never daily servings fruits/ve-4 caffeine: Yes (discussed 200mg limit) Type(s) of exercise: none Review of Systems Review of Systems ROS: Yes All systems reviewed with the patient and are negative except as otherwise documented Exam Vital Signs (past 8 hours): see above Resp Effort & Inspection: normal respiratory effort and able to speak in complete sentences Presentation: vertex Objective Labs Labs: Laboratory Results - last 24 hr 08/30/22 20:10 Urine Color Yellow Urine Appearance Slightly cloudy Urine pH 6.5 Ur Specific Brogan 1.015 Urine Protein Negative Urine Glucose (UA) Negative Urine Ketones Negative Urine Occult Blood Negative Urine Nitrate Negative Urine Bilirubin Negative Urine Urobilinogen 0.2 Ur Leukocyte Esterase Negative Urine RBC None seen Urine WBC 1-5/hpf Ur Squamous Epith Cells 5-10 /hpf H Amorphous Sediment 1+ Urine Bacteria Moderate (10-30) H Ur Culture Indicated? Specimen cultured Evaluation Evaluation Baseline heart rate: 130 Variability: Moderate (11-25) monitor accelerations: Present Monitor Decelerations: Absent Contraction Frequency (minutes): 0 Comments: CE not inciated Diagnosis, Plan/Disposition Final Diagnosis (1) Fall from standing: Status: Acute Plan/Disposition Plan: After 2 hours of monitoring, patient was given reassurance of well-being and no concern for contractions. Encouraged her to go home and rest and follwo-up with as previously scheduled. Routine precautions given. UA collected prior to discharge and reflexed to culture. 's office to call if treatment is indicated. OB Disposition: home
== END 2022-08-30 20:12 | disposition home or self-care (01) ==
PROVIDERS: Nurse Practitioner Obstetrics & Gynecology; Admitting Provider Obstetrics & Gynecology; Family Provider Family Medicine; PCP Family Medicine; Referring Provider Obstetrics & Gynecology; Visit Provider Obstetrics & Gynecology
DX: O47.03 False labor before 37 completed weeks of gestation, third trimester (principal); W07.XXXA Fall from chair, initial encounter; Z3A.32 32 weeks gestation of pregnancy
CPT/HCPCS: 59025; 59050; 81001; 87086; G0378; G0379

== ENCOUNTER 2022-09-16 07:38 | Outpatient (CLI) | payer OTHER, MEDICAID, SELFPAY ==
[2022-04-18 10:48] VITALS: BMI 19.8
== END 2022-09-16 08:13 | disposition home or self-care (01) ==
LOC: OB 09-17 07:40
PROVIDERS: Family Provider Family Medicine; PCP Family Medicine; Referring Provider Obstetrics & Gynecology; Visit Provider Obstetrics & Gynecology
DX: Z03.71 Encounter for suspected problem with amniotic cavity and membrane ruled out (principal); Z3A.34 34 weeks gestation of pregnancy
CPT/HCPCS: 59025; 84112; G0378; G0379

== ENCOUNTER 2022-09-21 14:21 | Outpatient (CLI) | payer OTHER, MEDICAID, SELFPAY ==
[2022-04-18 10:48] VITALS: BMI 19.8
--- NOTE | 2022-09-21 16:19 | P.TNLD_ITS ---
Visit Information Visit Information Date of evaluation: 09/21/22 Primary OB Provider: Cristy Mendoza Comments/Additional reasons for admission: 22yo at 35w4d here due to concerns for labor. She reports feeling contractions throughout the day. No LOF, vaginal bleeding. She is feeling her baby move regularly. [facility] Medical History Acute cholecystitis Ankle pain Asthma COVID-19 Depression with anxiety Ovarian cyst depression (spontaneous vaginal delivery) Surgical History Anesthesia Hx laparoscopic cholecystectomy Stye [place] teeth removed Family History Father Prediabetes Hyperlipidemia Hypertension Mental health problem Stroke Seizure AA (alcohol abuse) Depression Vascular malformation Mother Mental health problem Family estrangement Bipolar disorder Depression AA (alcohol abuse) Sister Mental health problem Bipolar disorder PTSD (post-traumatic stress disorder) Depression Anxiety Schizophrenia Twin hemorrhage Grandmother Anxiety Migraine Hypertension Family/Other Depression AA (alcohol abuse) Anxiety Drug addiction Diabetes mellitus Grandfather Migraine Grandmother Arrhythmia Social History marital status: household members: spouse, children and other lives independently: Yes caregiver/support person: Yes housing: other pets and animals: No education level: college occupational status: unemployed current occupational exposures/hazards: No Previous occupational history: [employer] 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 : 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: [employer] special 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 needs: No travel history: recent seatbelt use: sometimes water heater temp set < 120 deg: Yes working smoke detector in home: Yes fire extinguisher in home: Yes carbon monox detector in home: Yes firearms in home: Yes firearms unloaded and locked: No (Pt will ask to move rifles to his parents' home) Smoking Status: Never smoker second hand exposure: No alcohol intake: never substance use type: does not use and marijuana during the past year weight has: decreased > 10 lbs well-balanced diet: rarely or never daily servings fruits/ve-4 caffeine: Yes (discussed 200mg limit) Type(s) of exercise: none Evaluation Evaluation Baseline heart rate: 130 Variability: Moderate (11-25) monitor accelerations: Present Monitor Decelerations: Absent Category of Tracing: Reactive Diagnosis, Plan/Disposition Final Diagnosis (1) False labor: Status: Acute Plan/Disposition Plan: 22yo at 35w4d here due to concerns for labor. No contractions on monitoring. No evidence of labor. Pt declined to give urine. Stable for d/c home. OB Disposition: home
== END 2022-09-21 15:50 | disposition home or self-care (01) ==
LOC: LABOR 14:26 → OB 09-24 09:49
PROVIDERS: Family Provider Family Medicine; PCP Family Medicine; Referring Provider Family Medicine; Visit Provider Family Medicine
DX: O47.03 False labor before 37 completed weeks of gestation, third trimester (principal); Z3A.35 35 weeks gestation of pregnancy
CPT/HCPCS: 59025; G0378; G0379

== ENCOUNTER → 2022-10-01 10:43 | Outpatient (CLI) | payer OTHER, MEDICAID, SELFPAY ==
[2022-04-18 10:48] VITALS: BMI 19.8
[2022-10-02 08:28] LABS: Strep Grp B PCR POS for Grp B Strep
== END ==
PROVIDERS: Family Provider Family Medicine; PCP Family Medicine; Visit Provider Family Medicine
DX: Z34.83 Encounter for supervision of other normal pregnancy, third trimester (principal); Z3A.37 37 weeks gestation of pregnancy
CPT/HCPCS: 87653

== ENCOUNTER 2022-10-12 11:37 | Outpatient (CLI) | payer OTHER, MEDICAID, SELFPAY ==
[2022-04-18 10:48] VITALS: BMI 19.8
--- NOTE | 2022-10-12 12:34 | PM.OBTRLD ---
Visit Information Visit Information Date of evaluation: 10/12/22 Primary OB Provider: Cristy Mendoza Comments/Additional reasons for admission: 22yo at 38w4d here for NST for low FHT in clinic. Pt is feeling her baby move regularly. No vaginal bleeding, LOF, contractions. PFSH Medical History Acute cholecystitis Ankle pain Asthma COVID-19 Depression with anxiety Ovarian cyst depression (spontaneous vaginal delivery) Surgical History Anesthesia Hx laparoscopic cholecystectomy Stye [place] teeth removed Family History Father Prediabetes Hyperlipidemia Hypertension Mental health problem Stroke Seizure AA (alcohol abuse) Depression Vascular malformation Mother Mental health problem Family estrangement Bipolar disorder Depression AA (alcohol abuse) Sister Mental health problem Bipolar disorder PTSD (post-traumatic stress disorder) Depression Anxiety Schizophrenia Twin hemorrhage Grandmother Anxiety Migraine Hypertension Family/Other Depression AA (alcohol abuse) Anxiety Drug addiction Diabetes mellitus Grandfather Migraine Grandmother Arrhythmia Social History marital status: household members: spouse, children and other lives independently: Yes caregiver/support person: Yes housing: other pets and animals: No education level: college occupational status: unemployed current occupational exposures/hazards: No Previous occupational history: [employer] 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 : 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: [employer] special hayde needs: No travel history: recent seatbelt use: sometimes water heater temp set < 120 deg: Yes working smoke detector in home: Yes fire extinguisher in home: Yes carbon monox detector in home: Yes firearms in home: Yes firearms unloaded and locked: No (Pt will ask to move rifles to his parents' home) Smoking Status: Never smoker second hand exposure: No alcohol intake: never substance use type: does not use and marijuana during the past year weight has: decreased > 10 lbs well-balanced diet: rarely or never daily servings fruits/ve-4 caffeine: Yes (discussed 200mg limit) Type(s) of exercise: none Evaluation Evaluation Baseline heart rate: 105 Variability: Moderate (11-25) monitor accelerations: Present Monitor Decelerations: Absent Category of Tracing: Reactive Diagnosis, Plan/Disposition Plan/Disposition Plan: 22yo at 38w4d here for NST for low FHT in clinic. Baseline is indeed lower, however very reactive NST with excellent accels. Stable for d/c home. OB Disposition: home
== END 2022-10-12 12:35 | disposition home or self-care (01) ==
LOC: LABOR 11:41 → OB 10-18 09:00
PROVIDERS: Family Provider Family Medicine; PCP Family Medicine; Referring Provider Family Medicine; Visit Provider Family Medicine
DX: O36.8330 Maternal care for abnormalities of the fetal heart rate or rhythm, third trimester, not applicable or unspecified (principal); Z3A.38 38 weeks gestation of pregnancy
CPT/HCPCS: 59025; G0378; G0379

== ENCOUNTER 2022-10-16 12:54 | Observation (INO) | payer OTHER, MEDICAID, SELFPAY ==
[2022-04-18 10:48] VITALS: BMI 19.8
== END 2022-10-16 13:40 | disposition home or self-care (01) ==
PROVIDERS: Admitting Provider Family Medicine; Family Provider Family Medicine; PCP Family Medicine; Referring Provider Family Medicine; Visit Provider Family Medicine
DX: O36.8130 Decreased fetal movements, third trimester, not applicable or unspecified (principal); Z3A.39 39 weeks gestation of pregnancy
CPT/HCPCS: 59025; G0378; G0379

== ENCOUNTER 2022-10-16 19:17 | Inpatient (IN) | payer OTHER, MEDICAID, SELFPAY ==
[2022-04-18 10:48] VITALS: BMI 19.8
[2022-10-16 19:52] VITALS: BP 110/59
[2022-10-16] MEDS: LACTATED RINGERS 1,000 ML 100 ML IV (20:42)
[2022-10-16] MEDS: AMPICILLIN 2,000 MG in SODIUM CHLORIDE 0.9% 100 ML 200 MG IV (20:42)
[2022-10-16 20:52] LABS: Add Manual Diff / Slide Review NO; Basophils Absolute Auto 100 /uL (0-100); Basophils Percent Auto 0.7 % (0-2); Eosinophils Absolute Auto 0 /uL (0-450); Eosinophils Percent Auto 0.4 % (2-4); Hematocrit 32.9 % (36-46); Hemoglobin 11.4 g/dL (12.0-16.0); Lymphocytes Absolute Auto 2200 /uL (1100-4500); Lymphocytes Percent Auto 23.7 % (25-40); Mean Corpuscular HGB Conc 34.5 % (30-36); Mean Corpuscular Hemoglobin 29.6 PG (26-34); Mean Corpuscular Volume 85.9 fL (80-100); Monocytes Absolute Auto 1100 /uL (0-900); Monocytes Percent Auto 11.6 % (3-14); Neutrophils Absolute Auto 5800 /uL (1500-7000); Neutrophils Percent Auto 63.6 % (50-75); Platelet Count 294 X10^3/uL (150-400); Red Blood Cell Count 3.83 X10^6/uL (4.0-5.2); Red Cell Distribution Width 13.9 % (11.6-14.8); White Blood Cell Count 9.1 X10^3/uL (4.5-11.0)
[2022-10-16 21:04] LABS: BUN Creatinine Ratio 18.6 (6-22); Blood Urea Nitrogen 11 mg/dL (7-17); Carbon Dioxide 25 mmol/L (22-32); Chloride 106 mmol/L (98-107); Estimated Glomerular Filt Rate > 60 mL/min (>60); Glucose 83 mg/dL (70-100); HEMOLYSIS < 15 (0-50); Sodium 135 mmol/L (137-145)
[2022-10-16] MEDS: DINOPROSTONE VAG (CERVIDIL) 10 MG VAG (21:40)
[2022-10-17] MEDS: AMPICILLIN 1,000 MG in SODIUM CHLORIDE 0.9% 100 ML 200 MG IV ×2 (00:48→04:40)
[2022-10-17 01:14] LABS: Creatinine Urine Random 88.7 mg/dL; Protein (Total) Urine Random 13 mg/dL (0-12); Protein Creatinine Ratio Urine 0.14 GRAM/24H
[2022-10-17] MEDS: FENT 2MCG/ML BUPIV 0.125% EPI 200 MCG/100 ML PLAST..BAG 10 MCG EPIDURAL (06:01)
--- NOTE | 2022-10-17 06:22 | P.PCN_ITS ---
Regional Block Pre-procedure Procedure: Continuous Lumbar Epidural for L&D Attending OB provider: Cristy Mendoza PMH/MONICA narrative: Please see paper preoperative evaluation Hx: No personal or family history of anesthesia problems. ASA Class: II Labs: Hct 32.9 % (36-46) L 10/16/22 20:28 Plt Count 294 X10^3/uL (150-400) 10/16/22 20:28 Medications: Current Medications Generic Name Dose Route Start Last Admin Trade Name Freq PRN Reason Stop Dose Admin Calcium Carbonate 1,000 mg 10/16/22 19:51 Calcium Carbonate 500 Mg Tab PO Q4HR PRN Dyspepsia Carboprost Tromethamine 250 mcg 10/16/22 19:51 Carboprost 250 Mcg/Ml Ampul IM Q90M PRN Bleeding Diphenhydramine HCl 25 mg 10/17/22 05:07 Diphenhydramine 50 Mg/Ml Vial IV Q10M PRN Pruritis Ephedrine Sulfate 10 mg 10/17/22 05:07 Ephedrine 50 Mg/Ml Vial IV Q5M PRN Blood pressure decrease more than 20% of baseline. Ampicillin Sodium 1,000 mg/ 100 mls @ 200 mls/hr 10/17/22 00:00 10/17/22 04:40 Sodium Chloride IV 200 mls/hr Q4H THEA Administration Oxytocin/Lactated Ringer's 30 unit in 500 mls @ 200 mls/hr 10/16/22 19:51 Oxytocin Premix IV CONT PRN Bleeding Protocol Tranexamic Acid 1,000 mg/ 100 mls @ 200 mls/hr 10/16/22 19:51 Sodium Chloride IV NOW PRN Bleeding Oxytocin/Lactated Ringer's 30 unit in 500 mls @ 2 mls/hr 10/16/22 20:00 Oxytocin Premix IV TITRATE THEA Protocol 2 MILLIUNIT/MIN Lactated Ringer's 1,000 mls @ 100 mls/hr 10/16/22 20:00 10/16/22 20:42 Lactated Ringers IV 100 mls/hr CONT THEA Administration FENT 2MCG/ML BUPIV 0.125% EPI 200 mcg in 100 mls @ 10 mls/hr 10/17/22 05:15 Fentanyl/Bupiv/Ns 2mcg/Ml - 0.125% EPIDURAL CONT THEA Lidocaine HCl 20 ml 10/16/22 19:51 Lidocaine 1% 20 Ml INJ INTRA-OP PRN Post Delivery Methylergonovine Maleate 0.2 mg 10/16/22 19:51 Methylergonovine 0.2 Mg Tablet PO Q6HR PRN Heavy Bleeding Methylergonovine Maleate 0.2 mg 10/16/22 19:51 Methylergonovine 0.2 Mg/Ml Vial IM NOW PRN Bleeding Misoprostol 800 mcg 10/16/22 19:51 Misoprostol 200 Mcg Tablet OR NOW PRN Bleeding Misoprostol 25 mcg 10/16/22 20:00 Misoprostol 25 Mcg Tablet VAG Q4H THEA Misoprostol 400 mcg 10/16/22 19:51 Misoprostol 200 Mcg Tablet SL NOW PRN Bleeding Nalbuphine HCl 2.5 mg 10/17/22 05:07 Nalbuphine 20 Mg/Ml Ampul IV Q10M PRN Pruritis Naloxone HCl 0.2 mg 10/16/22 19:51 Naloxone 0.4 Mg/Ml Vial IV Q2MIN PRN Opiate Reversal Ondansetron HCl 4 mg 10/16/22 19:51 Ondansetron 4 Mg/2 Ml Inj IV Q4HR PRN Nausea And Vomiting Oxytocin 10 unit 10/16/22 19:51 Oxytocin 10 Unit/Ml Vial IM NOW PRN Bleeding Zolpidem Tartrate 5 mg 10/16/22 20:22 Zolpidem 5 Mg Tablet PO BEDTIME PRN Sleep Allergies: Allergies Allergy/AdvReac Type Severity Reaction Status Date / Time wheat AdvReac Intermediate Diarrhea Verified 10/12/22 09:59 acetaminophen [From Tylenol] AdvReac Mild Vomiting Verified 10/12/22 09:59 Procedure Insertion date: 10/17/22 Insertion time: 05:50 Prep/Local: 1% lidocaine (Chlorhexadine prep ) Interspace: L2-3 Patient position: sitting Needle: 18 gauge Rajiv Loss of resistance with: saline (with air bubble) DOMINIQUE at (cm): 5 Catheter placed at SKIN (cm): 11 Catheter in SPACE (cm): 6 Insertion: No CSF, No Blood, Yes Paresthesia with insertion, No Paresthesia with injection and No Test dose reaction Initial Medications TEST DOSE time: 05:52 TEST DOSE: 1.5% lidocaine with epinephrine 1:200k (mL): 3 BOLUS DOSE time: 06:10 BOLUS DOSE (mL): 5 BOLUS DOSE med: other (Bag solution) Infusion INFUSION: 0.125% bupivacaine and with fentanyl 2 mcg/mL Initial rate (mL/hr): 10 Post-procedure Anesthesia time START: 05:25 Anesthesia time END: 06:58 Post-procedure Anesthesia Assessment: Yes CV function: HR/BP stable, Yes Resp function: RR/sat/airway adequate, Yes Post-op hydration adequate, Yes Pain control adequate, Yes Nausea & vomiting absent, Yes Temperature > 36 C, Yes Me ntal status appropriate and Yes Anesthesia complications
--- NOTE | 2022-10-17 07:08 | P.HPOB_ITS ---
OB HPI Date/Time Date of admission: 10/17/22 Date Patient Seen: 10/16/22 History of Present Condition Chief complaint: observation of labor HAI Calculator Estimated Delivery Date Method Current WG Current Estimate 10/22/22 Manual 39w 2d Final HAI - KARTHIK Other Estimates 10/22/22 LMP (Certain) 39w 2d 10/22/22 Ultrasound #1 39w 2d Estimated Gestational Age (weeks): 39w2d : 2 Para: 1 Narrative: 22yo at 39w2d here for elective IOL. Pt denied any vaginal bleeding, cont ractions, LOF prior to presentation. She was feeling her baby move regularly. No complications with her . care: good care, initiated at week # (9) and pounds weight gain (37) Dating criteria OB: LMP confirmed by 1st trimester US Ultrasounds: normal 1st trimester US and normal mid trimester US Obstetrical complications: none Medical complications OB: none Indications Indication for induction OB: other (elective) Preadmission Labs Last OB Lab Results: Blood Type A Positive 10/16/22 20:28 Antibody Screen Negative 10/16/22 20:28 Hematocrit 32.9 % (36-46) L 10/16/22 20:28 Hemoglobin 11.4 g/dL (12.0-16.0) L 10/16/22 20:28 Hepatitis B Surface Antigen Negative s/c (NEGATIVE) 05/02/22 14 :19 Hepatitis C Antibody Negative s/c (NEGATIVE) 05/02/22 14:19 Rubella Antibody 1.0 IU/mL (>15) L 05/02/22 14:19 Varicella-Zoster IgG Antibody <135 index (Immune >165) L 14:19 Glucose 1 Hour 74 mg/dL (76-139) L 08/08/22 11:37 Group B Streptococcus (PCR) Pos for grp b strep H 10/01/22 10:4 3 -: Urine: negative External Labs -: Urine: negative Prior (ies) Past Pregnancies Del. Date GA/Weeks Labor Lgth Wt Sex Route Outcome Anesthesia Place Delv Breastfeed Preg Comp Name 02/14/20 39.5 6 lb 12 oz Male vaginal live - full term e pidural IH still going as of 03/16/22 none [place] Delivery Date: 02/14/20 Last Updated by: Mulu Forrester RN induction for decreased movement and oligo; cholecystitis Evaluation Evaluation Baseline heart rate: 110 Variability: Moderate (11-25) monitor accelerations: Present Monitor Decelerations: Absent Contraction Frequency (minutes): 2 Uterine Contraction Intensity: Strong/Firm Status: Category l Dilation (cm): 8 Effacement (%): 90 station: +2 PFSH Medical History Acute cholecystitis Ankle pain Asthma COVID-19 Depression with anxiety Ovarian cyst depression (spontaneous vaginal delivery) Surgical History Anesthesia Hx laparoscopic cholecystectomy Stye [place] teeth removed Family History Father Prediabetes Hyperlipidemia Hypertension Mental health problem Stroke Seizure AA (alcohol abuse) Depression Vascular malformation Mother Mental health problem Family estrangement Bipolar disorder Depression AA (alcohol abuse) Sister Mental health problem Bipolar disorder PTSD (post-traumatic stress disorder) Depression Anxiety Schizophrenia Twin hemorrhage Grandmother Anxiety Migraine Hypertension Family/Other Depression AA (alcohol abuse) Anxiety Drug addiction Diabetes mellitus Grandfather Migraine Grandmother Arrhythmia Social History marital status: household members: spouse, children and other lives independently: Yes caregiver/support person: Yes housing: other pets and animals: No education level: college occupational status: unemployed current occupational exposures/hazards: No Previous occupational history: [employer] 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: [employer] special hayde needs: No travel history: recent seatbelt use: sometimes water heater temp set < 120 deg: Yes working smoke detector in home: Yes fire extinguisher in home: Yes carbon monox detector in home: Yes firearms in home: Yes firearms unloaded and locked: No (Pt will ask to move rifles to his parents' home) Smoking Status: Never smoker second hand exposure: No alcohol intake: never substance use type: does not use and marijuana during the past year weight has: decreased > 10 lbs well-balanced diet: rarely or never daily servings fruits/ve-4 caffeine: Yes (discussed 200mg limit) Type(s) of exercise: none Meds Home Medications and Allergies Home Medications Medication Instructions Recorded Confirmed Type sumatriptan succinate 50 mg tablet See Rx Instructions PO .COMPLEX 09/22/21 10/12/22 Rx #10 tabs albuterol sulfate 90 mcg/actuation 2 puff inhalation Q4-6H PRN 11/10/21 10/12/22 Rx aerosol inhaler (Ventolin HFA) bronchospasm #8.5 grams ondansetron 4 mg disintegrating 4 mg PO Q8H PRN nausea and 03/07/22 10/12/22 Rx tablet vomiting #30 tabs vitamin no.180-ferrous 1 tab PO DAILY #90 tabs 03/15/22 10/12/22 Rx fumarate 27 mg-folic acid 1 mg tablet ( Plus Vitamin-Mineral) Allergies Allergy/AdvReac Type Severity Reaction Status Date / Time wheat AdvReac Intermediate Diarrhea Verified 10/12/22 09:59 acetaminophen [From Tylenol] AdvReac Mild Vomiting Verified 10/12/22 09:59 OB Exam Narrative Exam Narrative: Gen: NAD, sitting comfortably in bed, appears well CV: RRR, no murmurs Resp: clear to auscultation bilaterally Abd: soft, nontender, gravid Ext: no edema Objective Labs 10/16/22 20:28 10/16/22 20:28 Labs: Laboratory Results - last 24 hr 10/16/22 10/16/22 10/16/22 20:28 20:28 20:28 WBC 9.1 RBC 3.83 L Hgb 11.4 L Hct 32.9 L MCV 85.9 MCH 29.6 MCHC 34.5 RDW 13.9 Plt Count 294 Neut % (Auto) 63.6 Lymph % (Auto) 23.7 L [place] % (Auto) 11.6 Eos % (Auto) 0.4 L Baso % (Auto) 0.7 Neut # (Auto) 5800 Lymph # (Auto) 2200 [place] # (Auto) 1100 H Eos # (Auto) 0 Baso # (Auto) 100 Sodium 135 L Potassium 4.0 Chloride 106 Carbon Dioxide 25 BUN 11 Creatinine 0.59 Estimated GFR > 60 BUN/Creatinine Ratio 18.6 Glucose 83 Calcium 9.0 U Random Total Protein Urine Creatinine Protein/Creatinin Ratio Blood Type A Positive Antibody Screen Negative 10/17/22 00:12 WBC RBC Hgb Hct MCV MCH MCHC RDW Plt Count Neut % (Auto) Lymph % (Auto) [place] % (Auto) Eos % (Auto) Baso % (Auto) Neut # (Auto) Lymph # (Auto) [place] # (Auto) Eos # (Auto) Baso # (Auto) Sodium Potassium Chloride Carbon Dioxide BUN Creatinine Estimated GFR BUN/Creatinine Ratio Glucose Calcium U Random Total Protein 13 H Urine Creatinine 88.7 Protein/Creatinin Ratio 0.14 Blood Type Antibody Screen Assessment and Plan Assessment and Plan Assessment and Plan narrative: 22yo at 39w2d here for elective IOL. GBS positive, Rh positive. Received cervidil overnight, now in active labor. - Expectant management, anticipate - FHT reassuring, although low baseline - GBS positive, has received adequate prophylaxis with ampicillin - Epidural in place for pain control
--- NOTE | 2022-10-17 07:18 | PM.OBPRVD ---
Labor & Delivery Delivery date: 10/17/22 Cervical ripening method: per Cervidil protocol Induction method: none Delivery monitor: external FHT and external uterine Route of delivery: Episiotomy description: None L&D Laceration Description: None Quantitative Blood Loss: 100 Anesthesia Type: Epidural Complications: None Narrative: PROCEDURE: at 39w1d presented for elective IOL and was admitted to Labor and Delivery. The patient progressed through the 1st stage over 4.5 hours. The pt received adequate GBS prophylaxis with ampicillin. Pain was controlled with an epidural. SROM occured at 6:53 with clear fluid. The patient progressed through the 2nd stage over 5 minutes and delivered a viable female infant with APGARs 8/9 at 6:58 via without complications. The cord was cut and clamped after it stopped pulsating. The placenta delivered with gentle cord traction, and appeared complete. The perineum and vagina were inspected with no lacerations. Needle and sponge counts were correct.? The vagina was inspected and no items were left in situ. Summer was doing well with Verna, her and her at bedside. PREPROCEDURE DIAGNOSIS: Intrauterine at 39w2d GBS positive RH positive POSTPROCEDURE DIAGNOSIS: Intrauterine at 39w2d, delivered Same as preprocedure Baby 1: gender: Female Presentation: vertex Position: Left Occiput Anterior Placenta delivery description: Spontaneous Cord Vessel Description: 3 Vessels score (1 min): 8 score (5 min): 10 weight: 6 lb 12.326 oz Plan for aftercare: Routine care
[2022-10-17] MEDS: DERMOPLAST SPRAY 20% 60 ML 1 SPRAY TOP (08:11)
[2022-10-17] MEDS: LANOLIN OINT 7 GM 1 APPLIC TOP (08:11)
[2022-10-17] MEDS: IBUPROFEN 600 MG TABLET PO (18:04)
--- NOTE | 2022-10-17 23:49 | P.DS_ITS ---
Discharge Providers Provider Date of admission: 10/16/22 19:17 Discharge Date: 10/18/22 Primary care physician: Cristy Mendoza MD Consults: 10/18/22 07:23 Consult to [employer] Routine Comment: Discharge provider: Cristy Mendoza MD Summary Hospital Course Diagnoses: 39w2d gestation GBS positive Rh positive Hospital Course: The pt presented for elective IOL. She received cervidil for induction, and progressed into active labor. She received adequate GBS prophylaxis with a mpicillin. She progressed to complete and had an of a viable baby girl on 10/17/22. There were no lacerations. , there were no complications. At the time of discharge she was voiding, ambulating, and passing flatus without difficulty. Her lochia was decreasing appropriately. Her pain was well controlled. She was with good latch. She requested early hospital discharge. She will f/u in 6 weeks for check. Peripartum Data Delivery Method: Natural Vaginal Laceration Description: None Episiotomy description: None Procedures: Spontaneous vaginal delivery complications: none [place] 1: Gender: Female Disposition of : home Discharge Diagnosis (1) (spontaneous vaginal delivery): Status: Acute Time Spent with Patient Time attestation: Total time spent providing and/or coordinating discharge services: Objective Labs 10/16/22 20:28 10/16/22 20:28 Labs: Laboratory Results - last 24 hr 10/17/22 00:12 U Random Total Protein 13 H Urine Creatinine 88.7 Protein/Creatinin Ratio 0.14 Discharge Plan Discharge Plan Patient Disposition: Home Discharge orders & Medications Prescriptions: New docusate sodium 100 mg Capsule 100 mg PO DAILY Qty: 30 0RF ibuprofen 600 mg Tablet 600 mg PO Q6HR PRN (Reason: Pain, Mild (1-3)) Qty: 30 0RF Continued sumatriptan succinate 50 mg tablet See Rx Instructions PO .COMPLEX Qty: 10 6RF Rx Instructions: take 1 tab at onset of headache; if no relief may repeat 1 tab after at least 2 hrs; max = 4 tabs/24 hr PO albuterol sulfate [Ventolin HFA] 90 mcg/actuation HFA aerosol inhaler 2 puff INHALATION Q4-6H PRN (Reason: bronchospasm) Qty: 8.5 1RF Plus Vitamin-Mineral 27 mg iron- 1 mg tablet 1 tab PO DAILY Qty: 90 3RF Discontinued ondansetron 4 mg tablet,disintegrating 4 mg PO Q8H PRN (Reason: nausea and vomiting) Qty: 30 2RF Follow up/Referrals: Cristy Mendoza MD [Primary Care Provider] - 6 Weeks Diet/Activity/Treatments Diet: Diet as Tolerated and Regular Skin/Wound/Dressing Care Report to your healthcare provider any signs of infection, such as:: chills, fever, increased pain and unusual drainage Visit Report/Discharge Packet Instructions: DI for Labor and Delivery, Vaginal Stand Alone Forms: Discharge: Care, Patient Portal/API, Stroke Signs & Symptoms Discharge Data Primary Care Provider: Cristy Mendoza Discharges patient from system. Discharge Date/Time: 10/18/22 02:30
== END 2022-10-18 02:30 | disposition home or self-care (01) | DRG 560 ==
PROVIDERS: Admitting Provider Family Medicine; Family Provider Family Medicine; PCP Family Medicine; Referring Provider Family Medicine; Visit Provider Family Medicine
DX: O99.824 Streptococcus B carrier state complicating childbirth (principal); Z3A.39 39 weeks gestation of pregnancy; Z37.0 Single live birth; Z67.10 Type A blood, Rh positive; O36.8130 Decreased fetal movements, third trimester, not applicable or unspecified
CPT/HCPCS: 36415; 59025; 59050; 59200; 59409; 80048; 82570; 84156; 85025; 86850; 86900; 86901; G0378; G0379; J0290

== ENCOUNTER 2022-12-07 13:57 | Emergency (ER) | payer OTHER, MEDICAID, SELFPAY ==
[2022-04-18 10:48] VITALS: BMI 19.8
[2022-12-07 13:59] VITALS: BP 110/60; PULSE 66; RESP 17; TEMP 36.2; O2SAT 100
[2022-12-07] MEDS: ONDANSETRON 4 MG/2 ML INJ IV ×2 (14:25→20:02)
[2022-12-07 14:27] LABS: Add Manual Diff / Slide Review NO; Basophils Absolute Auto 0 /uL (0-100); Basophils Percent Auto 0.2 % (0-2); Eosinophils Absolute Auto 0 /uL (0-450); Eosinophils Percent Auto 0.6 % (2-4); Hematocrit 39.3 % (36-46); Hemoglobin 13.1 g/dL (12.0-16.0); Lymphocytes Absolute Auto 3100 /uL (1100-4500); Lymphocytes Percent Auto 48.6 % (25-40); Mean Corpuscular HGB Conc 33.3 % (30-36); Mean Corpuscular Volume 87.1 fL (80-100); Monocytes Absolute Auto 500 /uL (0-900); Neutrophils Absolute Auto 2700 /uL (1500-7000); Neutrophils Percent Auto 42.6 % (50-75); Platelet Count 316 X10^3/uL (150-400); Red Blood Cell Count 4.51 X10^6/uL (4.0-5.2); Red Cell Distribution Width 14.6 % (11.6-14.8); White Blood Cell Count 6.4 X10^3/uL (4.5-11.0)
[2022-12-07 14:40] LABS: Alanine Aminotransferase 53 IU/L (<35); Albumin 4.8 g/dL (3.5-5.0); Albumin Globulin Ratio 1.5 (1.0-2.8); Alkaline Phosphatase 58 U/L (38-126); Aspartate Aminotransferase 37 IU/L (14-36); BUN Creatinine Ratio 18.2 (6-22); Bilirubin Total 0.5 mg/dL (0.2-1.3); Blood Urea Nitrogen 16 mg/dL (7-17); Calcium 9.3 mg/dL (8.4-10.2); Carbon Dioxide 27 mmol/L (22-32); Chloride 104 mmol/L (98-107); Estimated Glomerular Filt Rate > 60 mL/min (>60); Globulin 3.2 g/dL (1.7-4.1); Glucose 95 mg/dL (70-100); HEMOLYSIS < 15 (0-50); Lipase 94 U/L (23-300); Potassium 3.9 mmol/L (3.4-5.1); Sodium 142 mmol/L (137-145)
[2022-12-07 15:03] LABS: Bacteria Urine Many (>30); Culture Indicated Urine Cult Not Indicated; RBC Urine 30-100/HPF (0-5/HPF); Squamous Epithelial Cell Urine 10-30 /HPF (0-5/HPF); WBC Urine 1-5/HPF (0-5/HPF)
[2022-12-07 16:23] VITALS: BP 126/63; PULSE 54; O2SAT 100
[2022-12-07 17:37] VITALS: BP 124/65; PULSE 86; RESP 20; O2SAT 97
--- NOTE | 2022-12-07 18:35 | DI.CT.S_ITS ---
PROCEDURE: CT KIDNEY URETER BLADDER (KUB) INDICATIONS: Right side flank pain. TECHNIQUE: Axial sections were acquired from the lung bases to the pubic symphysis. Coronal and sagittal reformats were performed. For radiation dose reduction, the following was used: automated exposure control, adjustment of mA and/or kV according to patient size. COMPARISON: None. FINDINGS: Image quality: Excellent. Lung bases: Unremarkable. Heart: No significant findings. URINARY: Right Kidney: There is severe right-sided hydronephrosis. Mild right-sided perinephric fat stranding is seen. No nonobstructing right-sided kidney stones are seen. Right Ureter: There is severe right-sided hydroureter. There is an obstructing stone seen within the distal right ureter, as on series 2, image 73 and on series 4, image 36 that measures up to 7 mm. This stone demonstrates a density of 700 Hounsfield units. Left Kidney: No stones or hydronephrosis. Left Ureter: No hydroureter. Bladder: Normal wall thickness. No stones. ABDOMEN: Liver: Unremarkable. Gallbladder: Removed. Biliary ducts: Unremarkable. Pancreas: Unremarkable. Spleen: Unremarkable. Adrenal Glands: Unremarkable. Stomach and Bowel: Stomach, small bowel loops, and colon are unremarkable. Peritoneum: No abnormal intraperitoneal fluid. No free air. Ventral Wall: No hernia. Abdominal Nodes: No enlarged retroperitoneal or mesenteric lymph nodes. Vessels: Aorta and inferior vena cava are normal in size. PELVIS: Pelvic Organs: The uterus appears normal for age. No adnexal masses are seen. Pelvic Nodes: Unremarkable. Miscellaneous: No inguinal hernias are seen. Bones: Mild levoconvex scoliotic curvature is noted. IMPRESSION: 7 mm structure in stone seen within the distal right ureter, with associated severe right-sided hydronephrosis. No nonobstructing kidney stones are seen. Additional findings: Cholecystectomy Levoconvex scoliotic curvature Dictated by: Salvador Irving M.D. on 12/07/2022 at 18:06 Approved by: Salvador Irving M.D. on 12/07/2022 at 18:08
--- NOTE | 2022-12-07 18:35 | ED.GENADULT ---
HPI - General Adult General Chief complaint: Abdominal Pain Stated complaint: extreme RT side pain Time Seen by Provider: 12/07/22 18:03 Source: patient Mode of arrival: Ambulatory History of Present Illness HPI narrative: Patient is a 22-year-old female. She is recently . Is . No fevers. At approximately 1400 hours this afternoon had a fairly sudden onset of right-sided right-sided abdominal pain that is radiating to her back. She states she is having urinary hesitancy but no burning. No blood in her urine. No vomiting. No skin rashes. No vaginal bleeding. Has never had a kidney stone in the past. Related Data Previous Rx's Medication Instructions Recorded norethindrone (contraceptive) 0.35 0.35 mg PO DAILY #84 tabs 11/28/22 mg tablet hydrocodone 5 mg-acetaminophen 325 1 tab PO Q6H PRN pain #20 tabs 12/07/22 mg tablet ondansetron 4 mg disintegrating 4 mg PO Q6H PRN nausea and 12/07/22 tablet vomiting #20 tabs Allergies Allergy/AdvReac Type Severity Reaction Status Date / Time acetaminophen [From Tylenol] AdvReac Mild Vomiting Verified 12/07/22 13:59 Review of Systems Constitutional Constitutional: Reports system reviewed and no additional complaints, except as documented Gastrointestinal Gastrointestinal: Reports system reviewed and no additional complaints, except as documented Genitourinary Genitourinary: Reports system reviewed and no additional complaints, except as documented Integumentary/Breasts Skin/Breast: Reports system reviewed and no additional complaints, except as documented Patient History Medical History Acute cholecystitis Ankle pain Asthma COVID-19 Depression with anxiety Ovarian cyst depression (spontaneous vaginal delivery) Surgical History Anesthesia Hx laparoscopic cholecystectomy Stye Orrum teeth removed Family History Father Prediabetes Hyperlipidemia Hypertension Mental health problem Stroke Seizure AA (alcohol abuse) Depression Vascular malformation Mother Mental health problem Family estrangement Bipolar disorder Depression AA (alcohol abuse) Sister Mental health problem Bipolar disorder PTSD (post-traumatic stress disorder) Depression Anxiety Schizophrenia Twin hemorrhage Grandmother Anxiety Migraine Hypertension Family/Other Depression AA (alcohol abuse) Anxiety Drug addiction Diabetes mellitus Grandfather Migraine Grandmother Arrhythmia Social History marital status: household members: spouse, children and other lives independently: Yes caregiver/support person: Yes housing: other pets and animals: No education level: college occupational status: unemployed current occupational exposures/hazards: No Previous occupational history: [employer] 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: [employer] special hayde needs: No travel history: recent seatbelt use: sometimes water heater temp set < 120 deg: Yes working smoke detector in home: Yes fire extinguisher in home: Yes carbon monox detector in home: Yes firearms in home: Yes firearms unloaded and locked: No (Pt will ask to move rifles to his parents' home) Smoking Status: Never smoker second hand exposure: No alcohol intake: never substance use type: does not use and marijuana during the past year weight has: decreased > 10 lbs well-balanced diet: rarely or never daily servings fruits/ve-4 caffeine: Yes (discussed 200mg limit) Type(s) of exercise: none Smoking Status: Never smoker alcohol intake frequency: holidays/special occasions only Substance Use Type: does not use Exam Initial Vital Signs Initial Vital Signs: Vital Signs Temperature 97.1 F L 12/07/22 13:59 Pulse Rate 66 12/07/22 13:59 Respiratory Rate 17 12/07/22 13:59 Blood Pressure 110/60 12/07/22 13:59 Pulse Oximetry 100 12/07/22 13:59 Oxygen Delivery Method Room Air 12/07/22 13:59 Const General: cooperative and No ill appearing HENMT Head: normal to inspection and normocephalic Resp Effort & Inspection: normal respiratory effort Cardio Rate: regular rate GI Inspection: normal to inspection and non-distended Skin General: no rashes or lesions noted Extrem General: normal to inspection Course Orders Ordered: ED Orders 12/07/22 18:35 CT kidney ureter bladder (KUB) Stat Discontinued Medications Ketorolac Tromethamine (Ketorolac 30 Mg/Ml Vial) 30 mg IV NOW ONE Stop: 12/07/22 19:47 Last Admin: 12/07/22 20:01 Dose: 30 mg Documented By: GC Ondansetron HCl (Ondansetron 4 Mg Odt) 4 mg PO NOW PRN PRN Reason: Nausea And Vomiting Ondansetron HCl (Ondansetron 4 Mg/2 Ml Inj) 4 mg IV NOW PRN PRN Reason: Nausea And Vomiting Last Admin: 12/07/22 14:25 Dose: 4 mg Documented By: ALEJANDRA Ondansetron HCl (Ondansetron 4 Mg/2 Ml Inj) 4 mg IV NOW ONE Stop: 12/07/22 19:47 Last Admin: 12/07/22 20:02 Dose: 4 mg Documented By: MARILU Vital Signs Vital signs: Vital Signs - 8 hr 12/07/22 16:23 12/07/22 17:37 12/07/22 20:08 Temperature 97.7 F Pulse Rate 54 L 86 72 Respiratory Rate 20 16 Blood Pressure 126/63 124/65 120/62 Pulse Oximetry 100 97 99 Oxygen Delivery Method Room Air Room Air Room Air Medical Decision Making Lab Data Lab results reviewed: Yes I reviewed the patient's lab results. 12/07/22 14:20 12/07/22 14:20 Labs: Lab Results 12/07/22 12/07/22 12/07/22 Range/Units 14:20 14:20 14:20 WBC 6.4 (4.5-11.0) X10^3/uL RBC 4.51 (4.0-5.2) X10^6/uL Hgb 13.1 (12.0-16.0) g/dL Hct 39.3 (36-46) % MCV 87.1 (80-100) fL MCH 29.0 (26-34) PG MCHC 33.3 (30-36) % RDW 14.6 (11.6-14.8) % Plt Count 316 (150-400) X10^3/uL Neut % (Auto) 42.6 L (50-75) % Lymph % (Auto) 48.6 H (25-40) % [place] % (Auto) 8.0 (3-14) % Eos % (Auto) 0.6 L (2-4) % Baso % (Auto) 0.2 (0-2) % Neut # (Auto) 2700 (8293-2466) /uL Lymph # (Auto) 3100 (3733-1052) /uL [place] # (Auto) 500 (0-900) /uL Eos # (Auto) 0 (0-450) /uL Baso # (Auto) 0 (0-100) /uL Sodium 142 (137-145) mmol/L Potassium 3.9 (3.4-5.1) mmol/L Chloride 104 (98-107) mmol/L Carbon Dioxide 27 (22-32) mmol/L BUN 16 (7-17) mg/dL Creatinine 0.88 (0.52-1.04) mg/dL Estimated GFR > 60 (>60) mL/min BUN/Creatinine Ratio 18.2 (6-22) Glucose 95 (70-100) mg/dL Calcium 9.3 (8.4-10.2) mg/dL Total Bilirubin 0.5 (0.2-1.3) mg/dL AST 37 H (14-36) IU/L ALT 53 H (<35) IU/L Alkaline Phosphatase 58 (38-126) U/L Total Protein 8.0 (6.3-8.2) g/dL Albumin 4.8 (3.5-5.0) g/dL Globulin 3.2 (1.7-4.1) g/dL Albumin/Globulin Ratio 1.5 (1.0-2.8) Lipase 94 (23-300) U/L Urine RBC 30-100/hpf H (0-5/HPF) Urine WBC 1-5/hpf (0-5/HPF) Ur Squamous Epith Cells 10-30 /hpf H (0-5/HPF) Urine Bacteria Many (>30) H (None) Ur Culture Indicated? Cult not indicated Point of Care Testing Test Results Negative Urine Dip Bedside Urine Glucose Negative Bedside Urine Bilirubin - Negative Bedside Urine Ketone - Negative Urine Specific [place] 1.020 Bedside Urine Occult Blood +++ Bedside Urine pH 6.0 Bedside Urine Protein +/- 15 Bedside Urine Urobilinogen - Negative Bedside Urine Nitrite - Negative Bedside Urine Leukocytes - Negative Esterase Point of care testing: Point of Care Testing Test Results Negative Urine Dip Bedside Urine Glucose Negative Bedside Urine Bilirubin - Negative Bedside Urine Ketone - Negative Urine Specific [place] 1.020 Bedside Urine Occult Blood +++ Bedside Urine pH 6.0 Bedside Urine Protein +/- 15 Bedside Urine Urobilinogen - Negative Bedside Urine Nitrite - Negative Bedside Urine Leukocytes - Negative Esterase Imaging Data CT scan - abdomen/pelvis: Radiologist's Impression: PROCEDURE:? CT KIDNEY URETER BLADDER (KUB) ? INDICATIONS:? Right side flank pain. ? TECHNIQUE:? Axial sections were acquired from the lung bases to the pubic symphysis.? Coronal and sagittal reformats were performed.? For radiation dose reduction, the following was used: ?automated exposure control, adjustment of mA and/or kV according to patient size.? ? COMPARISON:? None. ? FINDINGS:? Image quality:? Excellent.? ? Lung bases:? Unremarkable.? ? Heart:? No significant findings. ? URINARY: Right Kidney:? There is severe right-sided hydronephrosis.? Mild right-sided perinephric fat stranding is seen.? No nonobstructing right-sided kidney stones are seen. Right Ureter:? There is severe right-sided hydroureter.? There is an obstructing stone seen within the distal right ureter, as on series 2, image 73 and on series 4, image 36 that measures up to 7 mm.? This stone demonstrates a density of 700 Hounsfield units.? ? Left Kidney: ? No stones or hydronephrosis. Left Ureter:? No hydroureter.? ? Bladder:? Normal wall thickness. No stones. ? ? ? ABDOMEN: Liver:? Unremarkable.? ? Gallbladder:? Removed.? ? Biliary ducts:? Unremarkable.? ? Pancreas:? Unremarkable.? ? Spleen:? Unremarkable.? ? Adrenal Glands:? Unremarkable.? ? ? Stomach and Bowel:? Stomach, small bowel loops, and colon are unremarkable.? Peritoneum:? No abnormal intraperitoneal fluid.? No free air.? ? Ventral Wall: ? No hernia.? Abdominal Nodes:? No enlarged retroperitoneal or mesenteric lymph nodes.? Vessels:? Aorta and inferior vena cava are normal in size.? ? PELVIS: Pelvic Organs: The uterus appears normal for age.? No adnexal masses are seen.? Pelvic Nodes: Unremarkable. Miscellaneous: No inguinal hernias are seen. ? ? ? Bones:? Mild levoconvex scoliotic curvature is noted.? ? IMPRESSION:? ? 7 mm structure in stone seen within the distal right ureter, with associated severe right-sided hydronephrosis. ? No nonobstructing kidney stones are seen. MDM Narrative Medical decision making narrative: Urinalysis has blood. No leukocyte esterase. Has epithelial cells and bacteria on the micro. I suspect given her presentation today that this was a contaminated sample. Kidney function is unremarkable. Does have a right-sided distal ureteral stone and right-sided hydronephrosis. This is consistent with her presentation today. I discuss this with her. She is but she states that she would give formula as we discussed that the medications that she would take does cross into breast milk. Despite the size of the stone we will hold on Flomax because there is no evidence that this is safe in . Will send home with nausea medicine and pain medication. Patient was given strict return precautions. She expressed understanding and agreement. Discharge Plan Departure Patient Disposition: Home Clinical Impression: Right ureteral stone Instructions: Kidney Stones -- Adult Activity Restrictions/Additional Instructions: You do have a kidney stone on the right side which is most likely causing all of your discomfort. I do recommend that you use the pain medicine and nausea medicine as needed. You can also take ibuprofen. These medications are excreted in your breast milk. If you would like to supplement with formula that would probably be appropriate. I recommend that you contact your primary doctor for a follow-up. Return to the emergency department for new or worsening symptoms. Prescriptions: New ondansetron 4 mg tablet,disintegrating 4 mg PO Q6H PRN (Reason: nausea and vomiting) Qty: 20 0RF hydrocodone-acetaminophen 5-325 mg tablet 1 tab PO Q6H PRN (Reason: pain) Qty: 20 0RF No Action norethindrone (contraceptive) 0.35 mg tablet 0.35 mg PO DAILY Qty: 84 3RF Referrals: Cristy Mendoza MD [Primary Care Provider] - Stand Alone Forms: Patient Portal/API
[2022-12-07] MEDS: KETOROLAC 30 MG/ML VIAL IV (20:01)
[2022-12-07 20:08] VITALS: BP 120/62; PULSE 72; RESP 16; TEMP 36.5; O2SAT 99
== END 2022-12-07 20:09 | disposition home or self-care (01) ==
PROVIDERS: Emergency Medicine; Emergency Provider Emergency Medicine; Family Provider Family Medicine; PCP Family Medicine
DX: N20.1 Calculus of ureter (principal)
CPT/HCPCS: 36415; 74176; 80053; 81003; 81015; 81025; 83690; 85025; 87086; 96374; 96375; 96376; 99284; J1885; J2405

== ENCOUNTER → 2022-12-13 14:00 | Outpatient (CLI) | payer OTHER, MEDICAID, SELFPAY ==
[2022-04-18 10:48] VITALS: BMI 19.8
[2022-12-13 14:17] LABS: Bacteria Urine Many (>30); Culture Indicated Urine Cult Not Indicated; RBC Urine None Seen (0-5/HPF); Squamous Epithelial Cell Urine 5-10 /HPF (0-5/HPF); WBC Urine 5-10/HPF (0-5/HPF)
== END ==
PROVIDERS: Family Provider Family Medicine; PCP Family Medicine; Visit Provider Physician Assistant
DX: N13.30 Unspecified hydronephrosis (principal); N20.1 Calculus of ureter
CPT/HCPCS: 81015

== ENCOUNTER → 2022-12-14 15:10 | Outpatient (CLI) | payer OTHER, MEDICAID, SELFPAY ==
[2022-04-18 10:48] VITALS: BMI 19.8
--- NOTE | 2022-12-14 15:11 | DI.US.S_ITS ---
PROCEDURE: US RENAL COMPLETE INDICATIONS: RENAL STONE HYDRONEPHROSIS TECHNIQUE: Real-time scanning was performed of the kidneys and bladder, with image documentation. COMPARISON: [facility], CT, CT ABDOMEN PELVIS W CON, 07/27/2021, 15:12. US, US PELVIC COMPLETE, 01/16/2022, 11:08. [facility], CT, CT KIDNEY URETER BLADDER (KUB), 12/07/2022, 18:37. FINDINGS: Kidneys: Kidneys are normal in size. Right kidney measures 11.0 cm long; left kidney measures 11.6 cm long. Right renal cortical thickness is 1.4 cm; left renal cortical thickness is 1.5 cm. Renal cortical echotexture is normal. Moderate right hydronephrosis. Proximal right ureter is also dilated. No renal stones. No suspicious solid mass lesions. Bladder: Pre-void bladder volume is 213.7 mL. Post-void residual is 0 mL. Pre-void images demonstrate no intraluminal masses or stones. On pre-void images, left ureteral jet is noted with color Doppler interrogation. (Of note, ureteral jets may not be detectable in up to 25% of cases due to insufficient differences in specific gravity between ureteral and bladder urine). Miscellaneous: No free pelvic fluid. IMPRESSION: 1. Persistent moderate right hydronephrosis. 2. Proximal right ureter. A right ureteral stone is not visualized. The right ureteral jet is, however, not seen. Dictated by: Teri Sanchez M.D. on 12/14/2022 at 17:19 Approved by: Teri Sanchez M.D. on 12/14/2022 at 21:13
== END ==
PROVIDERS: Family Provider Family Medicine; PCP Family Medicine; Referring Provider Physician Assistant; Visit Provider Physician Assistant
DX: N20.1 Calculus of ureter (principal); N13.30 Unspecified hydronephrosis
CPT/HCPCS: 76770

== ENCOUNTER → 2023-05-28 08:56 | Outpatient (CLI) | payer OTHER, MEDICAID, SELFPAY ==
[2022-04-18 10:48] VITALS: BMI 19.8
[2023-05-28 09:59] LABS: Add Manual Diff / Slide Review NO; Basophils Absolute Auto 0 /uL (0-100); Basophils Percent Auto 0.4 % (0-2); Eosinophils Absolute Auto 100 /uL (0-450); Eosinophils Percent Auto 1.7 % (2-4); Hematocrit 38.6 % (36-46); Hemoglobin 12.9 g/dL (12.0-16.0); Lymphocytes Absolute Auto 2400 /uL (1100-4500); Lymphocytes Percent Auto 48.7 % (25-40); Mean Corpuscular HGB Conc 33.3 % (30-36); Mean Corpuscular Hemoglobin 28.6 PG (26-34); Mean Corpuscular Volume 85.9 fL (80-100); Monocytes Absolute Auto 400 /uL (0-900); Monocytes Percent Auto 8.1 % (3-14); Neutrophils Absolute Auto 2100 /uL (1500-7000); Neutrophils Percent Auto 41.1 % (50-75); Platelet Count 320 X10^3/uL (150-400); Red Cell Distribution Width 13.9 % (11.6-14.8)
[2023-05-28 10:14] LABS: Hemoglobin A1C% w Est Avg Glu 5.2 % (4.0-6.0)
[2023-05-28 10:23] LABS: Alanine Aminotransferase 23 IU/L (<35); Albumin 4.4 g/dL (3.5-5.0); Albumin Globulin Ratio 1.5 (1.0-2.8); Alkaline Phosphatase 62 U/L (38-126); Aspartate Aminotransferase 26 IU/L (14-36); BUN Creatinine Ratio 15.7 (6-22); Bilirubin Total 0.7 mg/dL (0.2-1.3); Blood Urea Nitrogen 13 mg/dL (7-17); Calcium 9.1 mg/dL (8.4-10.2); Carbon Dioxide 24 mmol/L (22-32); Chloride 108 mmol/L (98-107); Estimated Glomerular Filt Rate > 60 mL/min (>60); Glucose 85 mg/dL (70-100); HEMOLYSIS < 15 (0-50); Lipase 41 U/L (23-300); Potassium 4.5 mmol/L (3.4-5.1); Sodium 140 mmol/L (137-145); Total Protein 7.4 g/dL (6.3-8.2)
[2023-05-29 21:51] LABS: Deamidated Gliadin Ab IgA 41 units (0-19); Deamidated Gliadin Ab IgG 10 units (0-19); Immunoglobulin A,Qn 197 mg/dL (87-352); t-Transglutaminase IgA <2 U/mL (0-3)
== END ==
PROVIDERS: Family Provider Family Medicine; PCP Family Medicine; Referring Provider Family Medicine; Visit Provider Family Medicine
DX: K90.0 Celiac disease (principal); R10.11 Right upper quadrant pain; E16.2 Hypoglycemia, unspecified
CPT/HCPCS: 36415; 80053; 82784; 83036; 83516; 83690; 85025

== ENCOUNTER → 2023-11-01 10:07 | Outpatient (CLI) | payer SELFPAY ==
[2022-04-18 10:48] VITALS: BMI 19.8
[2023-11-01 10:44] LABS: Add Manual Diff / Slide Review NO; Basophils Absolute Auto 0 /uL (0-100); Basophils Percent Auto 0.6 % (0-2); Eosinophils Absolute Auto 100 /uL (0-450); Eosinophils Percent Auto 1.3 % (2-4); Hematocrit 37.6 % (36-46); Hemoglobin 12.8 g/dL (12.0-16.0); Lymphocytes Absolute Auto 2200 /uL (1100-4500); Lymphocytes Percent Auto 47.8 % (25-40); Mean Corpuscular HGB Conc 34.2 % (30-36); Mean Corpuscular Hemoglobin 29.4 PG (26-34); Mean Corpuscular Volume 86.1 fL (80-100); Monocytes Absolute Auto 400 /uL (0-900); Monocytes Percent Auto 8.3 % (3-14); Neutrophils Absolute Auto 1900 /uL (1500-7000); Platelet Count 264 X10^3/uL (150-400); Red Blood Cell Count 4.36 X10^6/uL (4.0-5.2); Red Cell Distribution Width 13.8 % (11.6-14.8); White Blood Cell Count 4.6 X10^3/uL (4.5-11.0)
[2023-11-01 10:58] LABS: Hemoglobin A1C% w Est Avg Glu 5.1 % (4.0-6.0)
[2023-11-01 11:08] LABS: Alanine Aminotransferase 14 IU/L (<35); Albumin 4.5 g/dL (3.5-5.0); Alkaline Phosphatase 52 U/L (38-126); Aspartate Aminotransferase 21 IU/L (14-36); BUN Creatinine Ratio 12.8 (6-22); Bilirubin Total 0.8 mg/dL (0.2-1.3); Blood Urea Nitrogen 10 mg/dL (7-17); C-Reactive Protein Quant < 0.5 mg/dL (<1.0); Calcium 9.1 mg/dL (8.4-10.2); Carbon Dioxide 23 mmol/L (22-32); Chloride 110 mmol/L (98-107); Cholesterol 140 mg/dL (140-199); Estimated Glomerular Filt Rate > 60 mL/min (>60); Globulin 2.3 g/dL (1.7-4.1); Glucose 101 mg/dL (70-100); HDL Cholesterol 69 mg/dL (40-60); HEMOLYSIS < 15 (0-50); LDL Cholesterol Calculated 64 mg/dL (<100); Potassium 4.3 mmol/L (3.4-5.1); Sodium 141 mmol/L (137-145); Total Protein 6.8 g/dL (6.3-8.2); Triglycerides 37 mg/dL (35-150)
[2023-11-01 11:14] LABS: Erythrocyte Sedimentation Rate 4 MM/HR (0-20)
[2023-11-01 11:16] LABS: Vitamin D 25 Hydroxy (D3) 28.6 ng/mL (30.0-100.0)
[2023-11-01 11:31] LABS: TSH w/ Reflex to FT4 2.59 uIU/mL (0.47-4.68)
[2023-11-01 11:50] LABS: Vitamin B12 727 pg/mL (239-931)
== END ==
PROVIDERS: Family Provider Family Medicine; PCP Family Medicine; Referring Provider Family Medicine; Visit Provider Family Medicine
DX: R63.6 Underweight (principal); R63.4 Abnormal weight loss
CPT/HCPCS: 36415; 80053; 80061; 82306; 82607; 83036; 84443; 85025; 85651; 86140

== ENCOUNTER 2024-01-27 14:35 | Emergency (ER) | payer OTHER, MEDICAID, SELFPAY ==
[2022-04-18 10:48] VITALS: BMI 19.8
[2024-01-27 15:15] VITALS: BP 102/68; PULSE 75; RESP 16; TEMP 36.9; O2SAT 97; BMI 18.1
--- NOTE | 2024-01-27 16:04 | ED.PREGNANCY ---
HPI - <Stacey Miguel PA-C - Last Filed: 01/27/24 19:00> General Chief complaint: OB/Uterine Contractions Stated complaint: poss miscarriage? abd pain Time Seen by Provider: 01/27/24 15:28 Source: patient Mode of arrival: Ambulatory Limitations: no limitations History of Present Illness HPI Narrative: 23-year-old female with past medical history migraine, asthma, depression, celiac disease presents to the ED with 1 day of pelvic cramping and a positive home test. Patient states her LMP was 6 months ago, she has been taking some home tests, 3 of which were negative, however the 1 she took last night was positive. Patient states that she is in the ED today since since then she has been experiencing some pelvic cramping in his concerned for a miscarriage. No vaginal spotting or bleeding. Patient has been experiencing some like symptoms including nausea. Related Data Previous Rx's Medication Instructions Recorded fluconazole 150 mg tablet 150 mg PO Q3D 2 doses #2 tabs 12/30/23 Allergies Allergy/AdvReac Type Severity Reaction Status Date / Time acetaminophen [From Tylenol] AdvReac Mild Vomiting Verified 11/01/23 09:50 Review of Systems <Stacey Miguel PA-C - Last Filed: 01/27/24 19:00> Constitutional Constitutional: Denies chills, Denies fatigue, Denies fever(s), Denies frequent falls, Denies lethargy and Denies weakness Eyes Eyes: Denies change in vision, Denies eye discharge, Denies irritation and Denies loss of vision ENT Ears, Nose, Mouth, and Throat: Denies change in voice, Denies dizziness, Denies neck pain, Denies sore throat and Denies throat swelling Cardiovascular Cardiovascular: Denies chest pain, Denies irregular heart rhythm, Denies lightheadedness, Denies palpitations, Denies dyspnea, Denies dyspnea on exertion and Denies orthopnea Respiratory Respiratory: Denies cough, Denies dyspnea, Denies dyspnea on exertion and Denies wheezing Gastrointestinal Gastrointestinal: Denies abdominal pain, Denies change in bowel habits, Denies diarrhea, Denies nausea and Denies vomiting Genitourinary Genitourinary: Reports pelvic pain Musculoskeletal Musculoskeletal: Denies neck pain and Denies numbness Integumentary/Breasts Skin/Breast: Denies pruritus, Denies erythema, Denies rash and Denies wounds Neurologic Neurologic: Denies behavioral changes, Denies confusion, Denies dizziness, Denies frequent falls, Denies loss of vision, Denies numbness and Denies weakness Psychiatric Psychiatric: Denies anxiety, Denies behavioral changes, Denies confusion, Denies depression, Denies homicidal ideation and Denies suicidal ideation Endocrine Endocrine: Denies fatigue, Denies flushing and Denies palpitations Hematologic/Lymphatic Hematologic/Lymphatic: Denies easy bruising Allergic/Immunologic Allergic/Immunologic: Denies urticaria, Denies throat swelling and Denies wheezing Exam <Stacey Miguel PA-C - Last Filed: 01/27/24 19:00> Narrative Exam Narrative: Const General:?cooperative, healthy appearing and comfortable [facility] Head:?normal to inspection Ears:?hearing grossly normal bilaterally Nose:?external nose normal Face and sinus:?normal facial exam and sinuses nontender Mouth:?oral mucosae normal Throat:?posterior oropharynx normal Eyes General:?appearance normal, both eyes and all related structures Neck Neck:?normal visual inspection and no lymphadenopathy noted Resp Effort & Inspection:?normal respiratory effort Auscultation:?clear to auscultation bilaterally Cardio Rate:?regular rate Rhythm:?regular rhythm GI Abdomen is soft, nondistended, nontender to palpation. Neuro General:?patient alert, patient awake and patient oriented x3 Initial Vital Signs Initial Vital Signs: Vital Signs Temperature 98.5 F 01/27/24 15:15 Pulse Rate 75 01/27/24 15:15 Respiratory Rate 16 01/27/24 15:15 Blood Pressure 102/68 01/27/24 15:15 Pulse Oximetry 97 01/27/24 15:15 Oxygen Delivery Method Room Air 01/27/24 15:15 <Mirian Stover DO - Last Filed: 01/29/24 17:54> Initial Vital Signs Initial Vital Signs: Vital Signs Temperature 98.5 F 01/27/24 15:15 Pulse Rate 75 01/27/24 15:15 Respiratory Rate 16 01/27/24 15:15 Blood Pressure 102/68 01/27/24 15:15 Pulse Oximetry 97 01/27/24 15:15 Oxygen Delivery Method Room Air 01/27/24 15:15 Course <SILVINO Velasquez Last Filed: 01/27/24 19:00> Orders Ordered: ED Orders 01/27/24 16:17 Beta HCG, Quant [HCG Quantitative /Beta subunit] Stat CBC Auto Diff [Complete Blood Count AUTO DIFF] Stat CMP [Comprehensive Metabolic Panel] Stat 01/27/24 17:00 US pelvic complete Stat Vital Signs Vital signs: Vital Signs - 8 hr 01/27/24 15:15 01/27/24 18:55 Temperature 98.5 F Pulse Rate 75 80 Respiratory Rate 16 16 Blood Pressure 102/68 124/68 Pulse Oximetry 97 98 Oxygen Delivery Method Room Air Room Air <Mirian Stover DO - Last Filed: 01/29/24 17:54> Orders Ordered: ED Orders 01/27/24 16:17 Beta HCG, Quant [HCG Quantitative /Beta subunit] Stat CBC Auto Diff [Complete Blood Count AUTO DIFF] Stat CMP [Comprehensive Metabolic Panel] Stat 01/27/24 17:00 US pelvic complete Stat Vital Signs Vital signs: Vital Signs - 8 hr 01/27/24 15:15 01/27/24 18:55 Temperature 98.5 F Pulse Rate 75 80 Respiratory Rate 16 16 Blood Pressure 102/68 124/68 Pulse Oximetry 97 98 Oxygen Delivery Method Room Air Room Air MDM - OB/Uterine Contractions <Stacey Miguel PA-C - Last Filed: 01/27/24 19:00> Lab Data 01/27/24 16:17 01/27/24 16:17 Labs: Lab Results 01/27/24 Range/Units 16:17 WBC 5.7 (4.5-11.0) X10^3/uL RBC 4.39 (4.0-5.2) X10^6/uL Hgb 12.9 (12.0-16.0) g/dL Hct 38.0 (36-46) % MCV 86.5 (80-100) fL MCH 29.3 (26-34) PG MCHC 33.9 (30-36) % RDW 14.2 (11.6-14.8) % Plt Count 268 (150-400) X10^3/uL Neut % (Auto) 52.1 (50-75) % Lymph % (Auto) 36.1 (25-40) % [place] % (Auto) 10.5 (3-14) % Eos % (Auto) 0.8 L (2-4) % Baso % (Auto) 0.5 (0-2) % Neut # (Auto) 3000 (8213-5931) /uL Lymph # (Auto) 2000 (2368-7628) /uL [place] # (Auto) 600 (0-900) /uL Eos # (Auto) 0 (0-450) /uL Baso # (Auto) 0 (0-100) /uL Sodium 136 L (137-145) mmol/L Potassium 4.8 (3.4-5.1) mmol/L Chloride 105 (98-107) mmol/L Carbon Dioxide 24 (22-32) mmol/L BUN 12 (7-17) mg/dL Creatinine 0.63 (0.52-1.04) mg/dL Estimated GFR > 60 (>60) mL/min BUN/Creatinine Ratio 19.0 (6-22) Glucose 97 (70-100) mg/dL Calcium 9.8 (8.4-10.2) mg/dL Total Bilirubin 0.6 (0.2-1.3) mg/dL AST 21 (14-36) IU/L ALT 14 (<35) IU/L Alkaline Phosphatase 53 (38-126) U/L Total Protein 7.5 (6.3-8.2) g/dL Albumin 4.4 (3.5-5.0) g/dL Globulin 3.1 (1.7-4.1) g/dL Albumin/Globulin Ratio 1.4 (1.0-2.8) HCG, Quant 202.33 mIU/mL Point of Care Testing Test Results Negative Urine Dip Bedside Urine Glucose Negative Bedside Urine Bilirubin - Negative Bedside Urine Ketone - Negative Urine Specific [place] 1.025 Bedside Urine Occult Blood - Negative Bedside Urine pH 5.5 Bedside Urine Protein - Negative Bedside Urine Urobilinogen - Negative Bedside Urine Nitrite - Negative Bedside Urine Leukocytes - Negative Esterase MDM Narrative Medical decision making narrative: 23-year-old female with past medical history migraine, asthma, depression, celiac disease presents to the ED with 1 day of pelvic cramping and a positive home test. Concern for IUP versus ectopic versus other intra-abdominal pathology versus other. Urine hCG was obtained which was negative. Given that patient has test was positive, will obtain quantitative hCG. Quantitative hCG positive at 202.33. Labs within normal limits. Will obtain pelvic ultrasound for further characterization. Ultrasound shows a retroverted uterus with an irregular intrauterine fluid collection. Extra uterine can not be excluded though less likely. Continued follow-up of beta hCG levels is recommended. Discussed findings with patient. Patient agrees to follow-up with her OBGYN doctor Dr. Pantoja for continued evaluation and follow-up on hCG levels. ED return precautions discussed with patient. Patient verbalized understanding. Medical records reviewed: Yes <Mirian Stover DO - Last Filed: 01/29/24 17:54> Lab Data Labs: Lab Results 01/27/24 Range/Units 16:17 WBC 5.7 (4.5-11.0) X10^3/uL RBC 4.39 (4.0-5.2) X10^6/uL Hgb 12.9 (12.0-16.0) g/dL Hct 38.0 (36-46) % MCV 86.5 (80-100) fL MCH 29.3 (26-34) PG MCHC 33.9 (30-36) % RDW 14.2 (11.6-14.8) % Plt Count 268 (150-400) X10^3/uL Neut % (Auto) 52.1 (50-75) % Lymph % (Auto) 36.1 (25-40) % [place] % (Auto) 10.5 (3-14) % Eos % (Auto) 0.8 L (2-4) % Baso % (Auto) 0.5 (0-2) % Neut # (Auto) 3000 (4771-3179) /uL Lymph # (Auto) 2000 (6233-2153) /uL [place] # (Auto) 600 (0-900) /uL Eos # (Auto) 0 (0-450) /uL Baso # (Auto) 0 (0-100) /uL Sodium 136 L (137-145) mmol/L Potassium 4.8 (3.4-5.1) mmol/L Chloride 105 (98-107) mmol/L Carbon Dioxide 24 (22-32) mmol/L BUN 12 (7-17) mg/dL Creatinine 0.63 (0.52-1.04) mg/dL Estimated GFR > 60 (>60) mL/min BUN/Creatinine Ratio 19.0 (6-22) Glucose 97 (70-100) mg/dL Calcium 9.8 (8.4-10.2) mg/dL Total Bilirubin 0.6 (0.2-1.3) mg/dL AST 21 (14-36) IU/L ALT 14 (<35) IU/L Alkaline Phosphatase 53 (38-126) U/L Total Protein 7.5 (6.3-8.2) g/dL Albumin 4.4 (3.5-5.0) g/dL Globulin 3.1 (1.7-4.1) g/dL Albumin/Globulin Ratio 1.4 (1.0-2.8) HCG, Quant 202.33 mIU/mL Point of Care Testing Test Results Negative Urine Dip Bedside Urine Glucose Negative Bedside Urine Bilirubin - Negative Bedside Urine Ketone - Negative Urine Specific [place] 1.025 Bedside Urine Occult Blood - Negative Bedside Urine pH 5.5 Bedside Urine Protein - Negative Bedside Urine Urobilinogen - Negative Bedside Urine Nitrite - Negative Bedside Urine Leukocytes - Negative Esterase Discharge Plan Departure Patient Disposition: Home Clinical Impression: Pelvic cramping Instructions: DI for Pelvic Pain Activity Restrictions/Additional Instructions: You were evaluated in the ED today for a delayed. , positive test. In the ED, your hCG was very slightly elevated at 202. However, the ultrasound does not show a . There was an irregular intrauterine fluid collection. This will need further evaluation by your OBGYN. Your hCG will also need to be followed closely by your OBGYN. Return to the ED if you have any worsening symptoms. Prescriptions: No Action fluconazole 150 mg tablet 150 mg PO Q3D Qty: 2 0RF Referrals: Cristy Mendoza MD [Primary Care Provider] - Stand Alone Forms: Patient Portal/API/Survey ED Sign-out <Mirian Stover DO - Last Filed: 01/29/24 17:54> Cosign ED Attending Dai Attestation: I was immediately available in the department for consultation.
[2024-01-27 16:30] LABS: Add Manual Diff / Slide Review NO; Basophils Absolute Auto 0 /uL (0-100); Basophils Percent Auto 0.5 % (0-2); Eosinophils Absolute Auto 0 /uL (0-450); Eosinophils Percent Auto 0.8 % (2-4); Hemoglobin 12.9 g/dL (12.0-16.0); Lymphocytes Absolute Auto 2000 /uL (1100-4500); Lymphocytes Percent Auto 36.1 % (25-40); Mean Corpuscular HGB Conc 33.9 % (30-36); Mean Corpuscular Hemoglobin 29.3 PG (26-34); Mean Corpuscular Volume 86.5 fL (80-100); Monocytes Absolute Auto 600 /uL (0-900); Monocytes Percent Auto 10.5 % (3-14); Neutrophils Absolute Auto 3000 /uL (1500-7000); Neutrophils Percent Auto 52.1 % (50-75); Platelet Count 268 X10^3/uL (150-400); Red Blood Cell Count 4.39 X10^6/uL (4.0-5.2); Red Cell Distribution Width 14.2 % (11.6-14.8); White Blood Cell Count 5.7 X10^3/uL (4.5-11.0)
[2024-01-27 16:40] LABS: Alanine Aminotransferase 14 IU/L (<35); Albumin 4.4 g/dL (3.5-5.0); Albumin Globulin Ratio 1.4 (1.0-2.8); Alkaline Phosphatase 53 U/L (38-126); Aspartate Aminotransferase 21 IU/L (14-36); Bilirubin Total 0.6 mg/dL (0.2-1.3); Blood Urea Nitrogen 12 mg/dL (7-17); Calcium 9.8 mg/dL (8.4-10.2); Carbon Dioxide 24 mmol/L (22-32); Chloride 105 mmol/L (98-107); Estimated Glomerular Filt Rate > 60 mL/min (>60); Globulin 3.1 g/dL (1.7-4.1); Glucose 97 mg/dL (70-100); HEMOLYSIS < 15 (0-50); Sodium 136 mmol/L (137-145); Total Protein 7.5 g/dL (6.3-8.2)
[2024-01-27 16:50] LABS: Potassium 4.8 mmol/L (3.4-5.1)
[2024-01-27 16:57] LABS: HCG Quantitative /Beta subunit 202.33 mIU/mL
--- NOTE | 2024-01-27 17:00 | DI.US.S_ITS ---
PROCEDURE: US PELVIC COMPLETE INDICATIONS: +hcg, pelvic cramping TECHNIQUE: Real-time scanning was performed of the pelvic organs, with image documentation. Additional endovaginal scanning was necessary due to incomplete visualization of the adnexal and endometrial structures by transabdominal scanning. COMPARISON: [facility], US, US PELVIC COMPLETE, 01/16/2022, 11:08. FINDINGS: Uterus: Uterus is retroverted and normal in size at 8.7 x 4.5 x 5.3 cm. The myometrium is homogeneous. The endometrium measures 12.6 mm combined thickness. There is a tiny endometrial fluid collection along the right fundal aspect of the endometrium, irregular shape and not measured. Ovaries: The right ovary measures 4.1 x 2.1 x 2.9 cm, with a calculated ovarian volume of 13.2 cc. The left ovary measures 3.4 x 2.0 x 1.8 cm, with a calculated ovarian volume of 6.4 cc. The ovaries have a normal sonographic appearance. There is an involuting dominant follicle in the right ovary. No adnexal masses are seen. Other: A moderate amount of slightly complex fluid is seen along the fundal aspect of the uterus. IMPRESSION: Retroverted uterus with an irregular intrauterine fluid collection. Extra uterine cannot be excluded though less likely. Continued follow-up of beta HCG levels is recommended. We strive to produce accurate, complete, and clear reports of imaging services. To assist us in improving patient care, this report was composed using standard report templates and voice recognition software. Therefore, it may contain abnormal punctuation, insertions and/or omissions. Occasional wrong-word or sound-alike substitutions may occur. Though we review the report and make efforts to correct it, we do recommend that the report be read carefully in proper context to recognize any text inaccuracies. Dictated by: Yaz Matos M.D. on 01/27/2024 at 18:45 Approved by: Yaz Matos M.D. on 01/27/2024 at 18:49
[2024-01-27 18:55] VITALS: BP 124/68; PULSE 80; RESP 16; O2SAT 98
[2024-09-08 23:12] LABS: Appearance Urine UA CLEAR; Bilirubin Urine UA NEGATIVE (NEGATIVE); Color Urine UA YELLOW; Glucose Urine UA 3+ g/dL (Negative); Ketones Urine UA TRACE (NEGATIVE); Leukocyte Esterase Urine UA NEGATIVE (NEGATIVE); Nitrite Urine UA NEGATIVE (Negative); Occult Blood Urine UA NEGATIVE (Negative); Protein Urine UA NEGATIVE (Negative)
[2024-09-08 23:30] LABS: Urine Volume 10mL (spun)
[2024-09-08 23:32] LABS: Bacteria Urine Few (2-10)
[2024-09-08 23:34] LABS: Culture Indicated Urine Cult Not Indicated; RBC Urine 1-5/HPF (0-5/HPF); Squamous Epithelial Cell Urine 5-10 /HPF (0-5/HPF); WBC Urine 1-5/HPF (0-5/HPF)
== END 2024-01-27 19:00 | disposition home or self-care (01) ==
PROVIDERS: Emergency Provider Student in an Organized Health Care Education/Training Program; Family Provider Family Medicine; PCP Family Medicine; Referring Provider Obstetrics & Gynecology; Visit Provider Obstetrics & Gynecology
DX: Z03.71 Encounter for suspected problem with amniotic cavity and membrane ruled out (principal); O36.8130 Decreased fetal movements, third trimester, not applicable or unspecified; Z3A.35 35 weeks gestation of pregnancy
CPT/HCPCS: 36415; 59025; 76856; 80053; 81001; 81003; 81025; 84112; 84702; 85025; 87210; 99284; G0378

== ENCOUNTER 2024-03-02 18:43 | Emergency (ER) | payer OTHER, MEDICAID, SELFPAY ==
[2022-04-18 10:48] VITALS: BMI 19.8
[2024-03-02 18:59] VITALS: BP 103/63; PULSE 70; RESP 18; TEMP 36.9; O2SAT 96; BMI 18.7
--- NOTE | 2024-03-02 19:08 | DI.US.S_ITS ---
PROCEDURE: US ABDOMEN LIMITED INDICATIONS: r/o appy TECHNIQUE: Real-time focused scanning was performed of the abdomen with attention to the appendix, with image documentation. COMPARISON: [facility], , US ABDOMEN LIMITED, 02/20/2020, 1:27. FINDINGS: Appendix visualization: Not visualized. Appendix measurements: Not applicable. Associated findings: Echogenic fat: Negative. Appendiceal compressibility: Not applicable. Appendicoliths: Not applicable. Nearby free fluid: Negative. Lymphadenopathy: Negative. Tenderness on exam: Negative. Live intrauterine with heart rate of 171 beats per minute. Likely right ovarian corpus luteal cyst. No abnormalities within the umbilicus. IMPRESSION: Appendix is not visualized. No secondary findings of acute appendicitis. Dictated by: Elan Barrett M.D. on 03/02/2024 at 20:44 Approved by: Elan Barrett M.D. on 03/02/2024 at 20:45
[2024-03-02 19:39] LABS: Add Manual Diff / Slide Review NO; Basophils Absolute Auto 0 /uL (0-100); Basophils Percent Auto 0.1 % (0-2); Eosinophils Absolute Auto 0 /uL (0-450); Eosinophils Percent Auto 0.3 % (2-4); Hematocrit 37.8 % (36-46); Hemoglobin 12.7 g/dL (12.0-16.0); Lymphocytes Absolute Auto 2000 /uL (1100-4500); Lymphocytes Percent Auto 24.8 % (25-40); Mean Corpuscular HGB Conc 33.6 % (30-36); Mean Corpuscular Hemoglobin 29.3 PG (26-34); Mean Corpuscular Volume 87.2 fL (80-100); Monocytes Absolute Auto 700 /uL (0-900); Monocytes Percent Auto 8.1 % (3-14); Neutrophils Absolute Auto 5400 /uL (1500-7000); Neutrophils Percent Auto 66.7 % (50-75); Platelet Count 243 X10^3/uL (150-400); Red Blood Cell Count 4.34 X10^6/uL (4.0-5.2); White Blood Cell Count 8.1 X10^3/uL (4.5-11.0)
[2024-03-02 19:45] LABS: Alanine Aminotransferase 16 IU/L (<35); Albumin 4.6 g/dL (3.5-5.0); Albumin Globulin Ratio 1.6 (1.0-2.8); Alkaline Phosphatase 40 U/L (38-126); Aspartate Aminotransferase 27 IU/L (14-36); BUN Creatinine Ratio 11.8 (6-22); Bilirubin Total 0.6 mg/dL (0.2-1.3); Blood Urea Nitrogen 6 mg/dL (7-17); Calcium 8.9 mg/dL (8.4-10.2); Carbon Dioxide 21 mmol/L (22-32); Chloride 106 mmol/L (98-107); Estimated Glomerular Filt Rate > 60 mL/min (>60); Globulin 2.9 g/dL (1.7-4.1); Glucose 92 mg/dL (70-100); HEMOLYSIS 34 (0-50); Potassium 3.6 mmol/L (3.4-5.1); Sodium 135 mmol/L (137-145); Total Protein 7.5 g/dL (6.3-8.2)
[2024-03-02 20:26] LABS: HCG Quantitative /Beta subunit 130710 mIU/mL
--- NOTE | 2024-03-02 20:29 | ED.ABDPAIN ---
HPI - Abdominal Pain General Chief Complaint: Abdominal Pain Stated Complaint: sent by PCP r/u appendicitis, 9 wks Time Seen by Provider: 03/02/24 20:14 Source: patient Mode of arrival: Ambulatory History of Present Illness HPI narrative: 23yoF at 9wks gestational age presents for periumbilical pain. States she was rferred by OBGYN to eval for appendicitis. Pain worse with movements such as bending or twisting. Denies vaginal bleeding, contractions, other complaints. Related Data Previous Rx's Medication Instructions Recorded ondansetron 4 mg disintegrating 4 mg PO Q8H PRN nausea and 02/17/24 tablet vomiting #30 tabs Allergies Allergy/AdvReac Type Severity Reaction Status Date / Time gluten AdvReac Severe Celiac Verified 02/17/24 12:04 disease acetaminophen [From Tylenol] AdvReac Mild Vomiting Verified 02/17/24 12:04 Patient History Medical History Kidney stone Hydronephrosis of right kidney Encounter for supervision of other normal , first trimester COVID-19 depression Acute cholecystitis (spontaneous vaginal delivery) Ovarian cyst Ankle pain Surgical History Hx laparoscopic cholecystectomy Anesthesia Stye Bath teeth removed Family History Father Prediabetes Hyperlipidemia Hypertension Stroke Seizure AA (alcohol abuse) Depression Vascular malformation Recovering alcoholic Degenerative disc disease Anxiety ADHD Mother Mental health problem Family estrangement Bipolar disorder Depression AA (alcohol abuse) Drug abuse Tobacco smoking affecting Sister Bipolar disorder PTSD (post-traumatic stress disorder) Depression Anxiety Schizophrenia Twin hemorrhage Grandmother Anxiety Migraine Hypertension Family/Other Depression AA (alcohol abuse) Anxiety Drug addiction Diabetes mellitus Grandfather Migraine Grandmother Arrhythmia Uncle Drug abuse AA (alcohol abuse) Brother Autism Anxiety Depression Sister Bipolar disorder Anxiety Depression Social History marital status: number of children: 1 household members: spouse, children and other lives independently: Yes caregiver/support person: Yes housing: apartment pets and animals: No education level: college occupational status: unemployed and student current occupational exposures/hazards: No Previous occupational history: [employer] Currently : 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/sikhism: [employer] special hayde needs: No travel history: recent (domestic only) seatbelt use: always water heater temp set < 120 deg: Yes working smoke detector in home: Yes fire extinguisher in home: Yes carbon monox detector in home: Yes firearms in home: Yes firearms unloaded and locked: No (shotgun sits at top of closet where children can't reach) do you feel safe at home: Yes Smoking Status: Never smoker second hand exposure: No ( smokes MJ outside the home) alcohol intake: never substance use type: does not use and marijuana (edibles for migraines, but not while /) during the past year weight has: decreased > 10 lbs well-balanced diet: rarely or never daily servings fruits/ve-1 caffeine: Yes (discussed 200mg limit, drinks a lot of black tea) Type(s) of exercise: none Smoking Status: Never smoker alcohol intake frequency: holidays/special occasions only Substance Use Type: does not use Exam Initial Vital Signs Initial Vital Signs: Vital Signs Temperature 98.4 F 03/02/24 18:59 Pulse Rate 70 03/02/24 18:59 Respiratory Rate 18 03/02/24 18:59 Blood Pressure 103/63 03/02/24 18:59 Pulse Oximetry 96 03/02/24 18:59 Oxygen Delivery Method Room Air 03/02/24 18:59 Const: Awake, alert, no acute distress, nontoxic appearing Cardiac: regular rate, regular rhythm RESP: unlabored, speaking in complete sentences without dyspnea GI: Soft, tenderness to deep palpation along midepigastric, RUQ, and RLQ without rebound or guarding Skin: Warm, Dry, intact, no rashes Neuro: AO x3, CN II-XII grossly intact, moves all extremities Course Orders Ordered: ED Orders 03/02/24 19:08 US abdomen limited Stat 03/02/24 19:24 Complete Blood Count AUTO DIFF Stat Comprehensive Metabolic Panel Stat HCG Quantitative /Beta subunit Stat Lipase Stat Vital Signs Vital signs: Vital Signs - 8 hr 03/02/24 21:50 Temperature 98.3 F Pulse Rate 64 Respiratory Rate 16 Blood Pressure 108/62 Pulse Oximetry 99 Oxygen Delivery Method Room Air MDM - Abdominal Pain Differential Diagnosis Differential diagnosis: Likely abdominal pain, acute appendicitis and constipation Lab Data 03/02/24 19:24 03/02/24 19:24 Labs: Lab Results 03/02/24 Range/Units 19:24 WBC 8.1 (4.5-11.0) X10^3/uL RBC 4.34 (4.0-5.2) X10^6/uL Hgb 12.7 (12.0-16.0) g/dL Hct 37.8 (36-46) % MCV 87.2 (80-100) fL MCH 29.3 (26-34) PG MCHC 33.6 (30-36) % RDW 14.0 (11.6-14.8) % Plt Count 243 (150-400) X10^3/uL Neut % (Auto) 66.7 (50-75) % Lymph % (Auto) 24.8 L (25-40) % [place] % (Auto) 8.1 (3-14) % Eos % (Auto) 0.3 L (2-4) % Baso % (Auto) 0.1 (0-2) % Neut # (Auto) 5400 (9844-8405) /uL Lymph # (Auto) 2000 (4756-7216) /uL [place] # (Auto) 700 (0-900) /uL Eos # (Auto) 0 (0-450) /uL Baso # (Auto) 0 (0-100) /uL Sodium 135 L (137-145) mmol/L Potassium 3.6 (3.4-5.1) mmol/L Chloride 106 (98-107) mmol/L Carbon Dioxide 21 L (22-32) mmol/L BUN 6 L (7-17) mg/dL Creatinine 0.51 L (0.52-1.04) mg/dL Estimated GFR > 60 (>60) mL/min BUN/Creatinine Ratio 11.8 (6-22) Glucose 92 (70-100) mg/dL Calcium 8.9 (8.4-10.2) mg/dL Total Bilirubin 0.6 (0.2-1.3) mg/dL AST 27 (14-36) IU/L ALT 16 (<35) IU/L Alkaline Phosphatase 40 (38-126) U/L Total Protein 7.5 (6.3-8.2) g/dL Albumin 4.6 (3.5-5.0) g/dL Globulin 2.9 (1.7-4.1) g/dL Albumin/Globulin Ratio 1.6 (1.0-2.8) Lipase 32 (23-300) U/L HCG, Quant 588755 mIU/mL Imaging Data US - abdomen: Radiologist's Impression: PROCEDURE: US ABDOMEN LIMITED INDICATIONS: r/o appy TECHNIQUE: Real-time focused scanning was performed of the abdomen with attention to the appendix, with image documentation. COMPARISON: [facility], , US ABDOMEN LIMITED, 02/20/2020, 1:27. FINDINGS: Appendix visualization: Not visualized. Appendix measurements: Not applicable. Associated findings: Echogenic fat: Negative. Appendiceal compressibility: Not applicable. Appendicoliths: Not applicable. Nearby free fluid: Negative. Lymphadenopathy: Negative. Tenderness on exam: Negative. Live intrauterine with heart rate of 171 beats per minute. Likely right ovarian corpus luteal cyst. No abnormalities within the umbilicus. IMPRESSION: Appendix is not visualized. No secondary findings of acute appendicitis. Dictated by: Elan Barrett M.D. on 03/02/2024 at 20:44 Approved by: Elan Barrett M.D. on 03/02/2024 at 20:45 [facility] Narrative Medical decision making narrative: Well-appearing patient with 1 day of periumbilical abdominal pain. Abdomen soft, there is tenderness to deep palpation generalized across the upper and right side of the abdomen without focality. Laboratory work reviewed, there was no leukocytosis or left shift present. US unable to visualize appendix, however there are also no secondary signs of appendicitis visualized either. MRI unavailable at this time. Patient informed of lab/imaging findings. She asked if this could possibly be related to constipation or gas pains. I stated that it was a possibility and she could try to take MiraLax or other stool softeners and see if this helps relieve her abdominal pains. I did recommend that if she continues to have pain tomorrow that she come back to the ER for reassessment and consideration of possible MRI at that time. ED return precautions discussed at bedside. Patient expressed understanding of the plan and is in agreement at this time. All questions answered at the time of discharge. Discharge Plan Departure Patient Disposition: Home Clinical Impression: Acute periumbilical pain Instructions: DI for Abdominal Pain-Adult Activity Restrictions/Additional Instructions: Your laboratory work today was reassuring. Your hCG levels continued to rise and your electrolytes are normal. We were unable to see your appendix today, but there were no other signs of inflammation in your abdomen on ultrasound or in your blood work. You may take Tylenol as needed for pain. I recommend a stool softener such as miralax or metamucil to help stimulate bowel movements. If you continue to experience pain by tomorrow afternoon please come back to the ER for repeat evaluation. Prescriptions: No Action ondansetron 4 mg tablet,disintegrating 4 mg PO Q8H PRN (Reason: nausea and vomiting) Qty: 30 0RF Referrals: Cristy Mendoza MD [Primary Care Provider] - Stand Alone Forms: Patient Portal/API/Survey
[2024-03-02 21:16] LABS: Lipase 32 U/L (23-300)
[2024-03-02 21:50] VITALS: BP 108/62; PULSE 64; RESP 16; TEMP 36.8; O2SAT 99
== END 2024-03-02 21:54 | disposition home or self-care (01) ==
PROVIDERS: Emergency Provider Emergency Medicine; Family Provider Family Medicine; PCP Family Medicine
DX: O26.891 Other specified pregnancy related conditions, first trimester (principal); R10.33 Periumbilical pain; Z3A.09 9 weeks gestation of pregnancy
CPT/HCPCS: 36415; 76705; 80053; 83690; 84702; 85025; 99281; 99284

== ENCOUNTER → 2024-03-12 12:57 | Outpatient (CLI) | payer OTHER, MEDICAID, SELFPAY ==
[2022-04-18 10:48] VITALS: BMI 19.8
--- NOTE | 2024-03-20 09:05 | DIET.OUTPTC ---
Dietary Outpatient Consultation Note Consultation Date: 03/12/2024 Assessment: 23 y F referred to dietitian for celiac disease, abnormal weight loss Summer is 10 weeks , starting underweight at 18.2 BMI/123 lb. Is now +8 oz. Is struggling eating enough during r/t finding appropriate gluten free choices, nausea, and busy day taking care of other 2 children. Is not taking vitamin/mineral d/t cost concerns. Notes constipation. Diet recall: B-honey nut cheerios with milk bites of chocolate bar D-meat and juice (yesterday was crab legs) Snack- piece of fruit Beverages: ~24-36 oz of sweetened iced tea 20 oz hot cocoa, sometimes x2 1 8-12 oz glass juice total [id number] oz daily Caffeine intake with fluids <200 mg Often eats out >2x/wk choosing celiac friendly options Ht: 5 ft 8 in Wt: 123 lb 8 oz BMI: 18.3 UBW: 123 lb (pre- weight) Nutrition Diagnosis: Inadequate oral intake r/t nutrition related knowledge deficit aeb diet recall with <1800 kcals/day from food intake, 450+ of calories coming from beverages Interventions: Discussed and provided resources on the following: -Nutritional needs in including calorie, protein, and vitamin and minerals -Including increasing calorie needs during trimesters -Including vitamins/minerals with encouragement to discuss further w/ PCP as needed -CDC recommended weight gain trajectory for women beginning underweight -Nutrition strategies for managing nausea during -Including during day eating q3h to avoid empty stomach, and eating GF starch food before rising from bed -Label reading for gluten free foods, cross contamination with celiac disease -Fluid needs, increasing non-sugar sweetened fluids to consistently meet 64-96 oz fluids -Managing constipation by increasing oral intakes including fibrous foods -Discussed barriers to increasing oral intakes including - nausea, busy taking care of other kids/limited time to prepare food, fear of eating r/t abdominal symptoms Goals: -Ready to eat snacks with carb+protein sources (i.e. string cheese+GF pretzels, yogurt+granola+fruit) every 2-3 hours between breakfast and dinner -Carb and veg choice with dinner - vitamin/mineral EER: 1800 kcals, +400 kcals 2nd trimester, +400-600 kcals 3rd trimester, 71 g protein, 64-96 oz fluids Monitoring/Evaluations: weight, PO intakes, f/u in 1 month Electronically Signed by: Suzan Blake 03/20/24 09:05 Clinical Dietitian [address] [address]
== END ==
PROVIDERS: Family Provider Family Medicine; PCP Family Medicine; Referring Provider Family Medicine
DX: K90.0 Celiac disease (principal); R63.4 Abnormal weight loss; Z68.1 Body mass index [BMI] 19.9 or less, adult; Z71.3 Dietary counseling and surveillance
CPT/HCPCS: 97802

== ENCOUNTER → 2024-03-12 14:17 | Outpatient (CLI) | payer OTHER, MEDICAID, SELFPAY ==
[2022-04-18 10:48] VITALS: BMI 19.8
[2024-03-12 14:46] LABS: Bilirubin Urine UA NEGATIVE (NEGATIVE); Color Urine UA YELLOW; Glucose Urine UA NEGATIVE (Negative); Ketones Urine UA NEGATIVE (NEGATIVE); Leukocyte Esterase Urine UA 1+ (NEGATIVE); Nitrite Urine UA NEGATIVE (Negative); Occult Blood Urine UA NEGATIVE (Negative); Protein Urine UA NEGATIVE (Negative); Specific Gravity Urine UA 1.025 (1.000-1.035); Urobilinogen Urine UA 0.2 E.U./dL (0.2)
[2024-03-12 14:51] LABS: Appearance Urine UA CLOUDY; pH Urine UA 6.5 (4.5-8.0)
[2024-03-12 14:52] LABS: Urine Volume 10mL (spun)
[2024-03-12 14:53] LABS: Bacteria Urine Many (>30); Culture Indicated Urine Cult Not Indicated; RBC Urine None Seen (0-5/HPF); Squamous Epithelial Cell Urine >30 /HPF (0-5/HPF); WBC Urine 1-5/HPF (0-5/HPF)
[2024-03-12 15:08] LABS: Add Manual Diff / Slide Review NO; Basophils Absolute Auto 0 /uL (0-100); Basophils Percent Auto 0.2 % (0-2); Eosinophils Absolute Auto 0 /uL (0-450); Eosinophils Percent Auto 0.5 % (2-4); Hematocrit 38.5 % (36-46); Hemoglobin 12.9 g/dL (12.0-16.0); Lymphocytes Absolute Auto 2300 /uL (1100-4500); Lymphocytes Percent Auto 41.1 % (25-40); Mean Corpuscular HGB Conc 33.5 % (30-36); Mean Corpuscular Hemoglobin 29.2 PG (26-34); Monocytes Absolute Auto 400 /uL (0-900); Monocytes Percent Auto 7.7 % (3-14); Neutrophils Absolute Auto 2800 /uL (1500-7000); Neutrophils Percent Auto 50.5 % (50-75); Platelet Count 292 X10^3/uL (150-400); Red Blood Cell Count 4.42 X10^6/uL (4.0-5.2); Red Cell Distribution Width 14.4 % (11.6-14.8); White Blood Cell Count 5.6 X10^3/uL (4.5-11.0)
[2024-03-12 18:12] LABS: Hepatitis B Surface Antigen NEGATIVE s/c (NEGATIVE)
[2024-03-12 18:26] LABS: HIV 1 & 2 Ab/Ag 4th Gen Combo NEGATIVE (NEGATIVE); Hep C Virus Ab w/Reflex Quant NEGATIVE s/c (NEGATIVE)
[2024-03-14 07:08] LABS: Varicella IgG Antibody Non Reactive (Non Reactive)
[2024-03-14 07:39] LABS: RPR Screen Non Reactive (Non Reactive)
== END ==
PROVIDERS: Family Provider Family Medicine; PCP Family Medicine; Referring Provider Family Medicine; Visit Provider Family Medicine
DX: Z34.80 Encounter for supervision of other normal pregnancy, unspecified trimester (principal); K90.0 Celiac disease; R63.4 Abnormal weight loss; Z68.1 Body mass index [BMI] 19.9 or less, adult; Z71.3 Dietary counseling and surveillance
CPT/HCPCS: 36415; 80055; 81003; 81015; 86787; 86803; 86850; 86900; 86901; 87086; 87389; 97802

== ENCOUNTER → 2024-05-21 13:18 | Outpatient (CLI) | payer OTHER, SELFPAY ==
[2022-04-18 10:48] VITALS: BMI 19.8
--- NOTE | 2024-05-21 13:19 | DI.US.S_ITS ---
PROCEDURE: US OB >= 14 WEEKS FETUS INDICATIONS: anatomy ultrasound OUTSIDE/PRIOR DATING DATA: Last menstrual period (LMP): 12/24/2023. LMP-based estimated date of delivery (HAI): 09/29/2024. First dating scan (date and location): Outside, 02/17/2024. Estimated date of delivery (HAI) from first dating scan: 10/08/2024. The calculations are made using the ultrasound HAI of 02/17/2024. TECHNIQUE: Real-time scanning was performed of the fetus, with image documentation and biometric measurements. Endovaginal scanning: Not performed COMPARISON: [facility], , OB >= 14 WEEKS FETUS, 06/04/2022, 10:19. FINDINGS: General: A single living intrauterine gestation is present. Presentation: Vertex. Placenta: Placental position is anterior , without previa. Amniotic fluid index: 16.7 cm, normal range is 5-24 cm. Single deepest vertical pocket is 5.7 cm. heart rate: 137 beats per minute. Maternal cervical canal: 4.1 cm long. Normal lower limit is 2.5 cm. biometrics: Biparietal diameter: 4.9 centimeters, 20 weeks 6 days Head circumference: 18.3 centimeters, 20 weeks 5 days Abdominal circumference: 16.1 centimeters, 21 weeks 1 day Femur length: 3.2 centimeters, 19 weeks 6 days Clinically estimated gestational age: 20 weeks 0 days Composite gestational age from present scan: 20 weeks 5 days Estimated weight and percentile: 367 grams, 80 percent Anatomic survey: Neuro: Ventricles are non-dilated at less than 10 mm. Cisterna magna is normal at 3-11 mm. Cerebellum is normal in size and morphology. Nuchal skin fold: Normal at less than 6 mm between 14-21 weeks gestational age. Face: Nose and lips, facial profile are normal. Spine: No evidence for spina bifida. Heart: 4-chambered heart is present, with normal ventricular outflow tracts. Diaphragm: Diaphragm is intact. Stomach: Left-sided stomach is present. Kidneys: No hydronephrosis. Normal is less than 5 mm in 2nd trimester, less than 7 mm in 3rd trimester. Cord: 3-vessel cord has orthotopic insertion. Bladder: Normal in size. Extremities: All 4 extremities identified. IMPRESSION: 1. Single live intrauterine consistent with 20 weeks and 5 days. 2. Normal anatomic survey. We strive to produce accurate, complete, and clear reports of imaging services. To assist us in improving patient care, this report was composed using standard report templates and voice recognition software. Therefore, it may contain abnormal punctuation, insertions and/or omissions. Occasional wrong-word or sound-alike substitutions may occur. Though we review the report and make efforts to correct it, we do recommend that the report be read carefully in proper context to recognize any text inaccuracies. Dictated by: Elan Barrett M.D. on 05/22/2024 at 11:47 Approved by: Elan Barrett M.D. on 05/22/2024 at 11:50
== END ==
PROVIDERS: Family Provider Family Medicine; PCP Family Medicine; Referring Provider Family Medicine; Visit Provider Family Medicine
DX: Z34.82 Encounter for supervision of other normal pregnancy, second trimester (principal); Z3A.20 20 weeks gestation of pregnancy
CPT/HCPCS: 76811

== ENCOUNTER 2024-09-02 09:14 | Observation (INO) | payer OTHER, SELFPAY ==
[2022-04-18 10:48] VITALS: BMI 19.8
--- NOTE | 2024-09-02 09:55 | P.TNLD_ITS ---
Visit Information Visit Information Date of evaluation: 09/02/24 Primary OB Provider: Cristy Mendoza Comments/Additional reasons for admission: 24yo at 34w6d here for contractions. Pt reports having lower abdominal discomfort that is intermittent. Feeling a lot of pressure in her pelvis as well, and the urge to push when she gets the abdominal discomfort. No vaginal bleeding or LOF. She is feeling her baby move regularly. [facility] Medical History Kidney stone Hydronephrosis of right kidney Encounter for supervision of other normal , first trimester COVID-19 depression Acute cholecystitis (spontaneous vaginal delivery) Ovarian cyst Ankle pain Surgical History Hx laparoscopic cholecystectomy Anesthesia [place] teeth removed Family History Father Prediabetes Hyperlipidemia Hypertension Stroke Seizure AA (alcohol abuse) Depression Vascular malformation Recovering alcoholic Degenerative disc disease Anxiety ADHD Mother Mental health problem Family estrangement Bipolar disorder Depression AA (alcohol abuse) Drug abuse Tobacco smoking affecting Sister Bipolar disorder PTSD (post-traumatic stress disorder) Depression Anxiety Schizophrenia Twin hemorrhage Grandmother Anxiety Migraine Hypertension Family/Other Depression AA (alcohol abuse) Anxiety Drug addiction Diabetes mellitus Grandfather Migraine Grandmother Arrhythmia Uncle Drug abuse AA (alcohol abuse) Brother Autism Anxiety Depression Sister Bipolar disorder Anxiety Depression Social History marital status: number of children: 1 household members: spouse, children and other lives independently: Yes caregiver/support person: Yes housing: apartment pets and animals: No education level: college occupational status: unemployed and student current occupational exposures/hazards: No Previous occupational history: [employer] Currently : 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/christianity: Sabianist special hayde needs: No travel history: recent (domestic only) seatbelt use: always water heater temp set < 120 deg: Yes working smoke detector in home: Yes fire extinguisher in home: Yes carbon monox detector in home: Yes firearms in home: Yes firearms unloaded and locked: No (shotgun sits at top of closet where children can't reach) do you feel safe at home: Yes second hand exposure: No ( smokes MJ outside the home) alcohol intake: never substance use type: does not use and marijuana (edibles for migraines, but not while /) during the past year weight has: decreased > 10 lbs well-balanced diet: rarely or never daily servings fruits/ve-1 caffeine: Yes (discussed 200mg limit, drinks a lot of black tea) Type(s) of exercise: none Evaluation Evaluation Baseline heart rate: 120 Variability: Moderate (11-25) monitor accelerations: Present Monitor Decelerations: Absent Category of Tracing: Reactive Cervical dilation (cm): 0 Cervical effacement (%): 0 station: 0 Diagnosis, Plan/Disposition Final Diagnosis (1) contractions: Status: Acute (2) 34 weeks gestation of : Status: Acute Plan/Disposition Plan: 24yo at 34w6d here for contractions. Contractions on monitoring gone after 1L IVF bolus. Persistent discomfort more consistent with Terry-Elizabeth and low position in pelvis. Cervix closed at the internal os on exam. Low risk for labor today, stable for d/c home. Discussed rest the remainder of the day, hydration. OB Disposition: home
[2024-09-02 10:04] LABS: Appearance Urine UA CLEAR; Bilirubin Urine UA NEGATIVE (NEGATIVE); Color Urine UA YELLOW; Glucose Urine UA NEGATIVE (Negative); Ketones Urine UA NEGATIVE (NEGATIVE); Leukocyte Esterase Urine UA 1+ (NEGATIVE); Nitrite Urine UA NEGATIVE (Negative); Occult Blood Urine UA NEGATIVE (Negative); Protein Urine UA NEGATIVE (Negative); Specific Gravity Urine UA 1.015 (1.000-1.035); Urobilinogen Urine UA 0.2 E.U./dL (0.2)
[2024-09-02 10:05] LABS: Urine Volume 10mL (spun)
[2024-09-02 10:06] LABS: Bacteria Urine None Seen; Culture Indicated Urine Specimen Cultured; RBC Urine None Seen (0-5/HPF); Squamous Epithelial Cell Urine 5-10 /HPF (0-5/HPF); WBC Urine 1-5/HPF (0-5/HPF)
[2024-09-02] MEDS: LACTATED RINGERS 1,000 ML 1000 ML IV (10:15)
== END 2024-09-02 12:19 | disposition home or self-care (01) ==
PROVIDERS: Admitting Provider Family Medicine; Family Provider Family Medicine; PCP Family Medicine; Referring Provider Family Medicine; Visit Provider Family Medicine
DX: O47.03 False labor before 37 completed weeks of gestation, third trimester (principal); Z3A.34 34 weeks gestation of pregnancy
CPT/HCPCS: 59025; 59050; 81001; 87086; 96360; G0378; G0379

== ENCOUNTER 2024-09-08 07:50 | Outpatient (CLI) | payer OTHER, SELFPAY ==
[2022-04-18 10:48] VITALS: BMI 19.8
--- NOTE | 2024-09-08 08:13 | P.TNLD_ITS ---
Visit Information Visit Information Date of evaluation: 09/08/24 Primary OB Provider: Cristy Mendoza Comments/Additional reasons for admission: Pt is a 24yo at 35w5d here due to concerns of ROM. Pt reports feeling a small gush of fluid at approximately 5am. No vaginal bleeding. She states she has not been feeling her baby move as often this morning either. Her abdomen did get very firm after the fluid leak, but she denies any painful contractions. [facility] Medical History Kidney stone Hydronephrosis of right kidney Encounter for supervision of other normal , first trimester COVID-19 depression Acute cholecystitis (spontaneous vaginal delivery) Ovarian cyst Ankle pain Surgical History Hx laparoscopic cholecystectomy Anesthesia [place] teeth removed Family History Father Prediabetes Hyperlipidemia Hypertension Stroke Seizure AA (alcohol abuse) Depression Vascular malformation Recovering alcoholic Degenerative disc disease Anxiety ADHD Mother Mental health problem Family estrangement Bipolar disorder Depression AA (alcohol abuse) Drug abuse Tobacco smoking affecting Sister Bipolar disorder PTSD (post-traumatic stress disorder) Depression Anxiety Schizophrenia Twin hemorrhage Grandmother Anxiety Migraine Hypertension Family/Other Depression AA (alcohol abuse) Anxiety Drug addiction Diabetes mellitus Grandfather Migraine Grandmother Arrhythmia Uncle Drug abuse AA (alcohol abuse) Brother Autism Anxiety Depression Sister Bipolar disorder Anxiety Depression Social History marital status: number of children: 1 household members: spouse, children and other lives independently: Yes caregiver/support person: Yes housing: apartment pets and animals: No education level: college occupational status: unemployed and student current occupational exposures/hazards: No Previous occupational history: [employer] Currently : 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/confucianist: [employer] special hayde needs: No travel history: recent (domestic only) seatbelt use: always water heater temp set < 120 deg: Yes working smoke detector in home: Yes fire extinguisher in home: Yes carbon monox detector in home: Yes firearms in home: Yes firearms unloaded and locked: No (shotgun sits at top of closet where children can't reach) do you feel safe at home: Yes second hand exposure: No ( smokes MJ outside the home) alcohol intake: never substance use type: does not use and marijuana (edibles for migraines, but not while /) during the past year weight has: decreased > 10 lbs well-balanced diet: rarely or never daily servings fruits/ve-1 caffeine: Yes (discussed 200mg limit, drinks a lot of black tea) Type(s) of exercise: none Evaluation Evaluation Baseline heart rate: 120 Variability: Moderate (11-25) monitor accelerations: Present Monitor Decelerations: Absent Category of Tracing: Reactive Diagnosis, Plan/Disposition Final Diagnosis (1) Encounter for supervision of other normal , unspecified trimester: Status: Acute Plan/Disposition Plan: Pt is a 24yo at 35w5d here due to concerns of ROM. Negative amniosure. Pt noted to have clumping vaginal discharge. Wet mount sent and negative. Stable for d/c home. OB Disposition: home
== END 2024-09-08 09:44 | disposition home or self-care (01) ==
LOC: OB 12:18
PROVIDERS: Family Provider Family Medicine; PCP Family Medicine; Referring Provider Family Medicine; Visit Provider Family Medicine
DX: Z03.71 Encounter for suspected problem with amniotic cavity and membrane ruled out (principal); O36.8130 Decreased fetal movements, third trimester, not applicable or unspecified; Z3A.35 35 weeks gestation of pregnancy
CPT/HCPCS: 59025; 84112; 87210; G0378; G0379

== ENCOUNTER 2024-09-08 22:33 | Outpatient (CLI) | payer OTHER, SELFPAY ==
[2022-04-18 10:48] VITALS: BMI 19.8
== END 2024-09-08 23:47 | disposition home or self-care (01) ==
LOC: OB 09-10 15:39
PROVIDERS: Family Provider Family Medicine; PCP Family Medicine; Referring Provider Obstetrics & Gynecology; Visit Provider Obstetrics & Gynecology
DX: Z03.71 Encounter for suspected problem with amniotic cavity and membrane ruled out (principal)
CPT/HCPCS: 59025; 81001; 84112; 87210; G0378; G0379

== ENCOUNTER 2024-09-10 15:27 | Outpatient (CLI) | payer OTHER, SELFPAY ==
[2022-04-18 10:48] VITALS: BMI 19.8
--- NOTE | 2024-09-10 16:16 | P.TNLD_ITS ---
Visit Information Visit Information Date of evaluation: 09/10/24 Primary OB Provider: Cristy Mendoza On-call OB Provider: Ruth Leyva Comments/Additional reasons for admission: This is a 24 yo at 36w0d here for increased pressure. Contractions intermittent. No LOF. No bleeding. Good mvoement. She does have burning with urination. [facility] Medical History Kidney stone Hydronephrosis of right kidney Encounter for supervision of other normal , first trimester COVID-19 depression Acute cholecystitis (spontaneous vaginal delivery) Ovarian cyst Ankle pain Surgical History Hx laparoscopic cholecystectomy Anesthesia Stye [place] teeth removed Family History Father Prediabetes Hyperlipidemia Hypertension Stroke Seizure AA (alcohol abuse) Depression Vascular malformation Recovering alcoholic Degenerative disc disease Anxiety ADHD Mother Mental health problem Family estrangement Bipolar disorder Depression AA (alcohol abuse) Drug abuse Tobacco smoking affecting Sister Bipolar disorder PTSD (post-traumatic stress disorder) Depression Anxiety Schizophrenia Twin hemorrhage Grandmother Anxiety Migraine Hypertension Family/Other Depression AA (alcohol abuse) Anxiety Drug addiction Diabetes mellitus Grandfather Migraine Grandmother Arrhythmia Uncle Drug abuse AA (alcohol abuse) Brother Autism Anxiety Depression Sister Bipolar disorder Anxiety Depression Social History marital status: number of children: 1 household members: spouse, children and other lives independently: Yes caregiver/support person: Yes housing: apartment pets and animals: No education level: college occupational status: unemployed and student current occupational exposures/hazards: No Previous occupational history: [employer] Currently : 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/jehovah's witness: Lutheran special hayde needs: No travel history: recent (domestic only) seatbelt use: always water heater temp set < 120 deg: Yes working smoke detector in home: Yes fire extinguisher in home: Yes carbon monox detector in home: Yes firearms in home: Yes firearms unloaded and locked: No (shotgun sits at top of closet where children can't reach) do you feel safe at home: Yes second hand exposure: No ( smokes MJ outside the home) alcohol intake: never substance use type: does not use and marijuana (edibles for migraines, but not while /) during the past year weight has: decreased > 10 lbs well-balanced diet: rarely or never daily servings fruits/ve-1 caffeine: Yes (discussed 200mg limit, drinks a lot of black tea) Type(s) of exercise: none Evaluation Evaluation Baseline heart rate: 110 Variability: Average (6-10) monitor accelerations: Present Monitor Decelerations: Absent Category of Tracing: Reactive Cervical dilation (cm): 1 station: -3 Diagnosis, Plan/Disposition Plan/Disposition Plan: 24 yo at 36w0d here for increased pressure. SVE 1/thick/high. Some burning with urination. Will send urine and follow up with PCP tomorrow. OB Disposition: home
[2024-09-10 17:06] LABS: Appearance Urine UA CLEAR; Bilirubin Urine UA NEGATIVE (NEGATIVE); Color Urine UA YELLOW; Glucose Urine UA NEGATIVE (Negative); Ketones Urine UA NEGATIVE (NEGATIVE); Leukocyte Esterase Urine UA NEGATIVE (NEGATIVE); Nitrite Urine UA NEGATIVE (Negative); Occult Blood Urine UA NEGATIVE (Negative); Protein Urine UA TRACE (Negative); Specific Gravity Urine UA 1.025 (1.000-1.035)
[2024-09-10 17:27] LABS: Bacteria Urine None Seen; Culture Indicated Urine Cult Not Indicated; Mucus Urine 1+ (Negative); RBC Urine 0-1/HPF (0-5/HPF); Squamous Epithelial Cell Urine 1-5 /HPF (0-5/HPF); Urine Volume 10mL (spun); WBC Urine 0-1/HPF (0-5/HPF)
== END 2024-09-10 16:45 | disposition home or self-care (01) ==
LOC: OB 09-11 08:57
PROVIDERS: Family Provider Family Medicine; PCP Family Medicine; Referring Provider Student in an Organized Health Care Education/Training Program; Visit Provider Student in an Organized Health Care Education/Training Program
DX: O47.1 False labor at or after 37 completed weeks of gestation (principal); Z3A.36 36 weeks gestation of pregnancy
CPT/HCPCS: 59025; 81001; G0378; G0379

== ENCOUNTER → 2024-09-11 10:32 | Outpatient (CLI) | payer OTHER, SELFPAY ==
[2022-04-18 10:48] VITALS: BMI 19.8
[2024-09-12 14:14] LABS: Strep Grp B PCR POS for Grp B Strep
== END ==
PROVIDERS: PCP Family Medicine; Visit Provider Family Medicine
DX: Z34.80 Encounter for supervision of other normal pregnancy, unspecified trimester (principal)
CPT/HCPCS: 87653

== ENCOUNTER 2024-09-17 02:41 | Outpatient (CLI) | payer OTHER, SELFPAY ==
[2022-04-18 10:48] VITALS: BMI 19.8
[2024-09-17] MEDS: ONDANSETRON 4 MG ODT SL (03:13)
[2024-09-17 03:20] VITALS: BP 123/65; PULSE 85; RESP 24; TEMP 36.6
== END 2024-09-17 03:29 | disposition home or self-care (01) ==
LOC: LABOR 03:51 → OB 09:25
PROVIDERS: PCP Family Medicine; Referring Provider Family Medicine; Visit Provider Obstetrics & Gynecology
DX: O26.893 Other specified pregnancy related conditions, third trimester (principal); R11.2 Nausea with vomiting, unspecified; Z3A.37 37 weeks gestation of pregnancy
CPT/HCPCS: 59025; G0378; G0379

== ENCOUNTER 2024-09-20 22:14 | Outpatient (CLI) | payer OTHER, SELFPAY ==
[2022-04-18 10:48] VITALS: BMI 19.8
== END 2024-09-20 23:02 | disposition home or self-care (01) ==
LOC: OB 09-22 14:57
PROVIDERS: PCP Family Medicine; Referring Provider Family Medicine; Visit Provider Family Medicine
DX: O36.8130 Decreased fetal movements, third trimester, not applicable or unspecified (principal); Z3A.37 37 weeks gestation of pregnancy
CPT/HCPCS: 59025; G0378; G0379

== ENCOUNTER 2024-09-29 13:10 | Outpatient (CLI) | payer OTHER, SELFPAY ==
[2022-04-18 10:48] VITALS: BMI 19.8
== END 2024-09-29 13:52 | disposition home or self-care (01) ==
LOC: LABOR 13:54 → OB 09-30 10:49
PROVIDERS: PCP Family Medicine; Referring Provider Family Medicine; Visit Provider Family Medicine
DX: Z34.83 Encounter for supervision of other normal pregnancy, third trimester (principal); Z3A.38 38 weeks gestation of pregnancy
CPT/HCPCS: 59025; G0378; G0379

== ENCOUNTER 2024-10-01 10:49 | Outpatient (CLI) | payer OTHER, SELFPAY ==
[2022-04-18 10:48] VITALS: BMI 19.8
--- NOTE | 2024-10-01 11:43 | P.TNLD_ITS ---
Visit Information Visit Information Date of evaluation: 10/01/24 Primary OB Provider: Cristy Mendoza Reason for Evaluation: Yes rupture of membranes Comments/Additional reasons for admission: 24yo at 39w0d here due to concerns for LOF. The pt reports feeling a small gush of fluid this morning. No vaginal bleeding, contractions. She states her baby has been moving less than usual. [facility] Medical History Kidney stone Hydronephrosis of right kidney Encounter for supervision of other normal , first trimester COVID-19 depression Acute cholecystitis (spontaneous vaginal delivery) Ovarian cyst Ankle pain Surgical History Hx laparoscopic cholecystectomy Anesthesia [place] teeth removed Family History Father Prediabetes Hyperlipidemia Hypertension Stroke Seizure AA (alcohol abuse) Depression Vascular malformation Recovering alcoholic Degenerative disc disease Anxiety ADHD Mother Mental health problem Family estrangement Bipolar disorder Depression AA (alcohol abuse) Drug abuse Tobacco smoking affecting Sister Bipolar disorder PTSD (post-traumatic stress disorder) Depression Anxiety Schizophrenia Twin hemorrhage Grandmother Anxiety Migraine Hypertension Family/Other Depression AA (alcohol abuse) Anxiety Drug addiction Diabetes mellitus Grandfather Migraine Grandmother Arrhythmia Uncle Drug abuse AA (alcohol abuse) Brother Autism Anxiety Depression Sister Bipolar disorder Anxiety Depression Social History marital status: number of children: 1 household members: spouse, children and other lives independently: Yes caregiver/support person: Yes housing: apartment pets and animals: No education level: college occupational status: unemployed and student current occupational exposures/hazards: No Previous occupational history: [employer] Currently : 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/jewish: Cheondoism special hayde needs: No travel history: recent (domestic only) seatbelt use: always water heater temp set < 120 deg: Yes working smoke detector in home: Yes fire extinguisher in home: Yes carbon monox detector in home: Yes firearms in home: Yes firearms unloaded and locked: No (shotgun sits at top of closet where children can't reach) do you feel safe at home: Yes second hand exposure: No ( smokes MJ outside the home) alcohol intake: never substance use type: does not use and marijuana (edibles for migraines, but not while /) during the past year weight has: decreased > 10 lbs well-balanced diet: rarely or never daily servings fruits/ve-1 caffeine: Yes (discussed 200mg limit, drinks a lot of black tea) Type(s) of exercise: none Evaluation Evaluation Baseline heart rate: 120 Variability: Moderate (6-25) monitor accelerations: Present Monitor Decelerations: Absent Category of Tracing: Reactive Non-invasive Membranes Rupture Test: negative Diagnosis, Plan/Disposition Final Diagnosis (1) 39 weeks gestation of : Status: Acute (2) Decreased movement: Status: Acute Plan/Disposition Plan: 24yo at 39w0d here due to concerns for LOF and decreased movement. Negative Amniosure. NST reactive. Stable for d/c home. OB Disposition: home
== END 2024-10-01 12:00 | disposition home or self-care (01) ==
LOC: LABOR 11:47 → OB 13:36
PROVIDERS: PCP Family Medicine; Referring Provider Family Medicine; Visit Provider Family Medicine
DX: Z03.71 Encounter for suspected problem with amniotic cavity and membrane ruled out (principal); O36.8130 Decreased fetal movements, third trimester, not applicable or unspecified; Z3A.39 39 weeks gestation of pregnancy
CPT/HCPCS: 59025; 84112; 87210; G0378; G0379

== ENCOUNTER → 2024-10-01 15:27 | Outpatient (CLI) | payer OTHER, SELFPAY ==
[2022-04-18 10:48] VITALS: BMI 19.8
== END ==
PROVIDERS: PCP Family Medicine; Visit Provider Family Medicine
DX: N94.9 Unspecified condition associated with female genital organs and menstrual cycle (principal)
CPT/HCPCS: 87210

== ENCOUNTER 2024-10-06 07:25 | Inpatient (IN) | payer OTHER, SELFPAY ==
[2022-04-18 10:48] VITALS: BMI 19.8
--- NOTE | 2024-10-06 07:36 | P.HPOB_ITS ---
OB HPI Date/Time Date of admission: 10/06/24 Date Patient Seen: 10/06/24 Time Patient Seen: 07:40 History of Present Condition Chief complaint: INDUCTION HAI Calculator 2 Estimated Delivery Date Method Current WG Current Estimate 10/08/24 Ultrasound #1 39w 5d Other Estimates 09/28/24 LMP (Certain) 41w 1d Estimated Gestational Age (weeks): 3 Para: 2 Narrative: Pt is a 24yo at 39w5d here for elective IOL. She denies any vaginal bleeding, LOF, significant contractions. She is feeling her baby move regularly. Her has been uncomplicated. care: good care, initiated at week # (6) and pounds weight gain (34) Dating criteria OB: based on 1st trimester US only Ultrasounds: normal 1st trimester US and normal mid trimester US Obstetrical complications: none Medical complications OB: none Indications Indication for induction OB: other (elective) Preadmission Labs Last OB Lab Results: 2 Blood Type A Positive Today, 07:40 Antibody Screen Negative Today, 07:40 Hct, (36-46) 29.4 % L Today, 07:40 Hgb, (12.0-16.0) 10.1 g/dL L Today, 07:40 Hep Bs Antigen, (NEGATIVE) Negative s/c 03/12/24, 14: 21 Hepatitis C Antibody, (NEGATIVE) Negative s/c 4, 14:21 Rubella Antibody, (>15) 3.0 IU/mL L 03/12/24, 14:21 VZV IgG Antibody, (Non Reactive) Non reactive 4, 14:21 Glucose 1 Hr 50 gm, (76-139) 74 mg/dL L 08/08/22, 1 1:37 Hemoglobin A1c, (4.0-6.0) 5.1 % 11/01/23, 10:2 4 Group B Strep (PCR) Pos for grp b strep H 09/11/24, 10:32 -: Urine: negative External Labs -: Urine: negative Prior (ies) Past Pregnancies Del. Date GA/Weeks Labor Lgth Wt Sex Route Outcome Anesthesia Place Delv Breastfeed Preg Comp Name 02/14/20 39.5 6 lb 12 oz Male vaginal live - full term e pidural IH still going as of 03/16/22 none [place] 10/17/22 39.2 1 6 lb 12 oz Female vaginal live - full term e pidural IH Still going as of 01/30/24 [place] Delivery Date: 02/14/20 Last Updated by: Mulu Forrester RN induction for decreased movement and oligo; cholecystitis Delivery Date: 10/17/22 Last Updated by: Mulu Forrester RN precipitous delivery (~75 min from beginning of ctx to delivery) Evaluation Evaluation Baseline heart rate: 115 Variability: Moderate (6-25) monitor accelerations: Present Monitor Decelerations: Absent Status: Category l Dilation (cm): 3.5 Effacement (%): 60 Dilation: 3-4 cm Effacement: 60-70% station: -3 Position of cervix: posterior Consistency: soft Le score: 6 PFSH Medical History Kidney stone Hydronephrosis of right kidney Encounter for supervision of other normal , first trimester COVID-19 depression Acute cholecystitis (spontaneous vaginal delivery) Ovarian cyst Ankle pain Surgical History Hx laparoscopic cholecystectomy Anesthesia Stye [place] teeth removed Family History Father Prediabetes Hyperlipidemia Hypertension Stroke Seizure AA (alcohol abuse) Depression Vascular malformation Recovering alcoholic Degenerative disc disease Anxiety ADHD Mother Mental health problem Family estrangement Bipolar disorder Depression AA (alcohol abuse) Drug abuse Tobacco smoking affecting Sister Bipolar disorder PTSD (post-traumatic stress disorder) Depression Anxiety Schizophrenia Twin hemorrhage Grandmother Anxiety Migraine Hypertension Family/Other Depression AA (alcohol abuse) Anxiety Drug addiction Diabetes mellitus Grandfather Migraine Grandmother Arrhythmia Uncle Drug abuse AA (alcohol abuse) Brother Autism Anxiety Depression Sister Bipolar disorder Anxiety Depression Social History marital status: number of children: 1 household members: spouse, children and other lives independently: Yes caregiver/support person: Yes housing: apartment pets and animals: No education level: college occupational status: unemployed and student current occupational exposures/hazards: No Previous occupational history: [employer] Currently : 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/congregational: Protestant special hayde needs: No travel history: recent (domestic only) seatbelt use: always water heater temp set < 120 deg: Yes working smoke detector in home: Yes fire extinguisher in home: Yes carbon monox detector in home: Yes firearms in home: Yes firearms unloaded and locked: No (shotgun sits at top of closet where children can't reach) do you feel safe at home: Yes second hand exposure: No ( smokes MJ outside the home) alcohol intake: never substance use type: does not use and marijuana (edibles for migraines, but not while /) during the past year weight has: decreased > 10 lbs well-balanced diet: rarely or never daily servings fruits/ve-1 caffeine: Yes (discussed 200mg limit, drinks a lot of black tea) Type(s) of exercise: none Meds Home Medications and Allergies Home Medications ?Medication ?Instructions ?Recorded ?Confirmed ?Type No Known Home Medications 07/14/24 07/0 06/23 History Allergies Allergy/AdvReac Type Severity Reaction Status Date / Time gluten AdvReac Severe Celiac Verified 10/01/24 15:10 disease acetaminophen (From Tylenol) AdvReac Mild Vomiting Verified 10/01/24 15:10 OB Exam Resp Effort & Inspection: normal respiratory effort Auscultation: clear to auscultation bilaterally Cardio Rate: regular rate Rhythm: regular rhythm Heart Sounds: S1 normal, S2 normal and no murmurs GI Inspection: non-distended Palpation: Yes soft and No tender Presentation: vertex Objective Labs 10/06/24 07:40 Assessment and Plan Assessment and Plan Assessment and Plan narrative: 24yo at 39w5d here for elective IOL. GBS positive, Rh positive. Le score 6, hx of rapid labor. [place] on monitor already, palpable. - Initiate Ampicillin for GBS prophylaxis - Start pitocin, titrate as tolerated - FHT reassuring, continuous monitoring on pitocin - Pt desires natural methods for pain control, provide support Time-Based Coding :: [TOTAL MINUTES] spent with patient and on the chart (including review of chart, obtaining history, exam, reviewing outside data, placing orders, documenting exam and treatment plan, and counseling patient) on [DATE].
[2024-10-06 07:50] LABS: Add Manual Diff / Slide Review NO; Hematocrit 29.4 % (36-46); Hemoglobin 10.1 g/dL (12.0-16.0); Lymphocytes Absolute Auto 2600 /uL (1100-4500); Mean Corpuscular HGB Conc 34.3 % (30-36); Mean Corpuscular Hemoglobin 27.9 PG (26-34); Mean Corpuscular Volume 81.4 fL (80-100); Platelet Count 290 X10^3/uL (150-400)
[2024-10-06] MEDS: LACTATED RINGERS 1,000 ML 100 ML IV (07:57)
[2024-10-06] MEDS: AMPICILLIN 2,000 MG in SODIUM CHLORIDE 0.9% 100 ML 200 MG IV (08:22)
[2024-10-06] MEDS: OXYTOCIN PREMIX 30 UNIT/500 ML PLAST..BAG IV (08:42)
[2024-10-06 08:43] VITALS: BP 114/67
[2024-10-06] MEDS: AMPICILLIN 1,000 MG in SODIUM CHLORIDE 0.9% 100 ML 200 MG IV (12:16)
--- NOTE | 2024-10-06 14:11 | P.PCN_ITS ---
[facility] Pre-procedure Procedure: Continuous Lumbar Epidural for L&D PMH/ROS narrative: 24yr old requesting YANA for labor pain. History of asthma and anxiety with one trip to the ER for a panic attack. ASA Class: II Labs: Hct 29.4 % (36-46) L 10/06/24 07:40 Plt Count 290 X10^3/uL (150-400) 10/06/24 07:40 Medications: Current Medications Generic Name Dose Route Start Last Admin Trade Name Freq PRN Reason Stop Dose Admin Calcium Carbonate 1,000 mg 10/06/24 07:34 Calcium Carbonate 500 Mg Tab PO Q2HR PRN Dyspepsia Carboprost Tromethamine 250 mcg 10/06/24 07:34 Carboprost 250 Mcg/Ml Ampul IM Q90M PRN Bleeding Fentanyl 50 mcg 10/06/24 07:34 Fentanyl 100 Mcg/2 Ml Inj IV Q1H PRN Pain, Moderate (4-6) Oxytocin/Lactated Ringer's 30 unit in 500 mls @ 200 mls/hr 10/06/24 07:34 Oxytocin Premix IV CONT PRN Bleeding Protocol Tranexamic Acid 1,000 mg/ 100 mls @ 600 mls/hr 10/06/24 07:34 Sodium Chloride IV NOW PRN Bleeding Ampicillin Sodium 1,000 mg/ 100 mls @ 200 mls/hr 10/06/24 12:00 10/06/24 12:16 Sodium Chloride IV 200 mls/hr Q4H THEA Administration Oxytocin/Lactated Ringer's 30 unit in 500 mls @ 2 mls/hr 10/06/24 07:45 10/06/24 08:42 Oxytocin Premix IV 2 milliunit/min TITRATE THEA 2 mls/hr Protocol Administration 2 MILLIUNIT/MIN Lactated Ringer's 1,000 mls @ 100 mls/hr 10/06/24 07:45 10/06/24 07:57 Lactated Ringers IV 10/06/24 17:44 100 mls/hr CONT THEA Administration Lidocaine HCl 20 ml 10/06/24 07:34 Lidocaine 1% 20 Ml INJ INTRA-OP PRN Post Delivery Methylergonovine Maleate 0.2 mg 10/06/24 07:34 Methylergonovine 0.2 Mg Tablet PO Q6HR PRN Heavy Bleeding Methylergonovine Maleate 0.2 mg 10/06/24 07:34 Methylergonovine 0.2 Mg/Ml Vial IM NOW PRN Bleeding Mineral Oil 30 ml 10/06/24 07:34 Mineral Oil 30 Ml Udc TOP PRN PRN Version Misoprostol 800 mcg 10/06/24 07:34 Misoprostol 200 Mcg Tablet IL NOW PRN Bleeding Misoprostol 400 mcg 10/06/24 07:34 Misoprostol 200 Mcg Tablet SL NOW PRN Bleeding Naloxone HCl 0.2 mg 10/06/24 07:34 Naloxone 0.4 Mg/Ml Vial IV Q2MIN PRN Opiate Reversal Ondansetron HCl 4 mg 10/06/24 07:34 Ondansetron 4 Mg/2 Ml Inj IV Q4HR PRN Nausea And Vomiting Oxytocin 10 unit 10/06/24 07:34 Oxytocin 10 Unit/Ml Vial IM NOW PRN Bleeding Allergies: Allergies Allergy/AdvReac Type Severity Reaction Status Date / Time gluten AdvReac Severe Celiac Verified 10/01/24 15:10 disease acetaminophen (From Tylenol) AdvReac Mild Vomiting Verified 10/01/24 15:10 Procedure Insertion date: 10/06/24 Insertion time: 13:18 Prep/Local: 1% lidocaine (chloroprep) Interspace: L3-4 Patient position: sitting Needle: 18 gauge US Dataworkstead (27g w for CSE) Loss of resistance with: saline DOMINIQUE at (cm): 7 Catheter placed at SKIN (cm): 14 Catheter in SPACE (cm): 7 Initial Medications TEST DOSE time: 13:20 TEST DOSE: 1.5% lidocaine with epinephrine 1:200k (mL): 3 BOLUS DOSE time: 13:25 BOLUS DOSE (mL): 2 BOLUS DOSE med: 0.25% bupivacaine (CSE dose 1 cc 0.25% bupivicaine) Infusion INFUSION: with fentanyl 3.3 mcg/mL and 0.125% bupivacaine Initial rate (mL/hr): 6 Subsequent interventions: 1510 5cc bolus 0.25% bupivicaine 1550 4cc blous 0.25% bupivicaine and 1cc fentanyl bolus complained of pelvis pain only. Unable to move legs. infusion increased to 9cc/h. Post-procedure Anesthesia date START: 10/06/24 Anesthesia time START: 13:08 Anesthesia date END: 10/06/24 Anesthesia time END: 16:10 Post-procedure Anesthesia Assessment: Yes CV function: HR/BP stable, Yes Resp function: RR/sat/airway adequate, Yes Post-op hydration adequate, Yes Pain control adequate, Yes Nausea & vomiting absent, Yes Temperature > 36 C and Yes Mental status appropriate
--- NOTE | 2024-10-06 17:25 | PM.OBPRVD ---
Labor & Delivery Delivery date: 10/06/24 Intrapartal Events: None Induction method: per pitocin protocol Delivery monitor: external FHT and external uterine Route of delivery: Episiotomy description: None L&D Laceration Description: None Quantitative Blood Loss: 150 Anesthesia Type: Epidural Complications: None Narrative: PROCEDURE: at 39w6d presented for elective IOL and was admitted to Labor and Delivery. She was initiated on pitocin for IOL. The patient progressed through the 1st stage over 3 hours. The pt received adequate GBS prophylaxis with ampicillin. SROM occured at 14:34 with clear fluid. Pain was controlled with an epidural. The patient progressed through the 2nd stage over 4 minutes and delivered a viable female infant with APGARs 9/9 at 16:10 via without complications. The cord was cut and clamped after it stopped pulsating. The placenta delivered with gentle cord traction, and appeared complete. The perineum and vagina were inspected with no lacerations. Needle and sponge counts were correct.? The vagina was inspected and no items were left in situ. Summer was doing well with Angie, her and her at bedside. PREPROCEDURE DIAGNOSIS: Intrauterine at 39w6d GBS positive RH positive POSTPROCEDURE DIAGNOSIS: Intrauterine at 39w6d, delivered Same as preprocedure Baby 1: Infant gender: Female Presentation: vertex Position: Left Occiput Anterior Placenta delivery description: Spontaneous Cord Vessel Description: 3 Vessels score (1 min): 9 score (5 min): 9 weight: 7 lb 12.94 oz Plan for aftercare: Routine care
[2024-10-06] MEDS: IBUPROFEN 600 MG TABLET PO ×2 (17:53→23:53)
[2024-10-06] MEDS: DERMOPLAST SPRAY 20% 60 ML 1 SPRAY TOP (17:54)
[2024-10-07] MEDS: IBUPROFEN 600 MG TABLET PO ×2 (05:51→11:45)
--- NOTE | 2024-10-07 09:54 | P.DS_ITS ---
Discharge Providers Provider Date of admission: 10/06/24 07:25 Discharge Date: 10/07/24 Primary care physician: Cristy Mendoza MD Consults: 10/06/24 17:25 Consult to Steam Distribution Supervisor Routine Comment: Discharge provider: Cristy Mendoza MD Summary Hospital Course Date Patient Seen: 10/07/24 Diagnoses: 39w6d gestation GBS positive Rh positive Hospital Course: The pt presented for elective IOL. She received pitocin for induction. She had SROM with clear fluid. She had adequate GBS prophylaxis with ampicillin. She progressed to complete dilation and had an uncomplicated of a viable baby girl. There were no lacerations. , there were no complications. At the time of discharge she was voiding, ambulating, and passing flatus without difficulty. Her lochia was decreasing appropriately. Her pain was well controlled. She was with good latch. She will f/u in 6 weeks for check. Peripartum Data Infant Delivery Method: Natural Vaginal Laceration Description: None Episiotomy description: None Procedures: Spontaneous vaginal delivery complications: none 1: Gender: Female Disposition of : home Status at Discharge Cognitive/behavioral status at discharge: oriented Functional status at discharge: independent ambulation Overall status at discharge: patient is back to baseline Time Spent with Patient Time attestation: Total time spent providing and/or coordinating discharge services: Objective Labs 10/06/24 07:40 Discharge Plan Discharge Plan Patient Disposition: Home Discharge orders & Medications Prescriptions: New sennosides [senna] 8.6 mg Tablet 17.2 mg PO BEDTIME PRN (Reason: Constipation) Qty: 30 0RF ibuprofen 600 mg Tablet 600 mg PO Q6H Qty: 60 0RF Follow up/Referrals: Cristy Mendoza MD [Primary Care Provider, Family Practice] - 6 Weeks Diet/Activity/Treatments Diet: Diet as Tolerated and Regular Skin/Wound/Dressing Care Report to your healthcare provider any signs of infection, such as:: chills, fever, increased pain and unusual drainage Visit Report/Discharge Packet Instructions: DI for Labor and Delivery, Vaginal Stand Alone Forms: Patient Portal/API, Stroke Signs & Symptoms Discharge Data Primary Care Provider: Cristy Mendoza
[2024-10-07 14:36] VITALS: BP 114/67; PULSE 64; RESP 18; TEMP 36.5
== END 2024-10-07 14:36 | disposition home or self-care (01) | DRG 560 ==
PROVIDERS: Admitting Provider Family Medicine; PCP Family Medicine; Referring Provider Family Medicine; Visit Provider Family Medicine
DX: O99.824 Streptococcus B carrier state complicating childbirth (principal); Z3A.39 39 weeks gestation of pregnancy; Z67.10 Type A blood, Rh positive; Z37.0 Single live birth
CPT/HCPCS: 36415; 59050; 85025; 86850; 86900; 86901; G0379; J0290; J2590; J3010

== ENCOUNTER → 2025-02-04 15:52 | Outpatient (CLI) | payer OTHER, SELFPAY ==
[2022-04-18 10:48] VITALS: BMI 19.8
[2025-02-04 18:36] LABS: HCG Quantitative /Beta subunit < 2.39 mIU/mL
== END ==
LOC: LAB 15:53
PROVIDERS: Family Provider Family Medicine; PCP Family Medicine; Referring Provider Family Medicine; Visit Provider Family Medicine
DX: N92.6 Irregular menstruation, unspecified (principal)
CPT/HCPCS: 36415; 84702